=== PATIENT | male | born 1945 | race Caucasian/White ===

== ENCOUNTER 2017-05-24 22:22 | Inpatient (IN) | payer MEDICARE, OTHER ==
[2017-05-24] MEDS ORDERED: NS 0.9% 1000 ML* 1,000 ML IV ONE (22:53)
[2017-05-24 23:26] LABS: Hematocrit 32 % (42-52); Hemoglobin 10.6 g/dl (14.0-18.0); Mean Corpuscular HGB Conc 34 g/dl (31-36); Mean Corpuscular Hemoglobin 31 pg (27-31); Mean Corpuscular Volume 92 fL (80-94); Mean Platelet Volume 10 um3 (7.4-10.4); Red Blood Count 3.43 10^6/ul (4.0-5.4); Red Cell Distribution Width 15 % (10.5-15); White Blood Count 7.7 10^3/ul (3.5-10.8)
[2017-05-24 23:45] LABS: ALT 12 U/L (7-52); Albumin 4.1 g/dL (3.2-5.2); Alkaline Phosphatase 49 U/L (34-104); BUN/Creatinine Ratio 20.8 (8-20); Blood Urea Nitrogen 33 mg/dL (6-24); CO2 Carbon Dioxide 27 mmol/L (22-32); Calcium 9.3 mg/dL (8.6-10.3); Chloride 101 mmol/L (101-111); EGFR African American 55.5 (>60); EGFR Non-African American 43.1 (>60); Globulin 2.9 g/dL (2-4); Glucose 102 mg/dL (70-100); Sodium 135 mmol/L (133-145)
[2017-05-24 23:47] LABS: Troponin I 0.01 ng/mL (<0.04)
[2017-05-24 23:54] LABS: Anion Gap 7 mmol/L (2-11)
[2017-05-25] MEDS ORDERED: Acetaminophen TAB* 325 MG PO ONE (00:40)
[2017-05-25] MEDS ORDERED: Aspirin EC TAB* 325 MG PO ONE (00:49)
[2017-05-25 00:50] LABS: Urine Bacteria Absent (Absent); Urine Bilirubin Negative (Negative); Urine Glucose Negative (Negative); Urine Nitrite Negative (Negative)
--- NOTE | 2017-05-25 01:21 | ED ---
Nano Oscar Rebecca, scribed for Silvino Gutierrez on 05/24/17 at 2258 . Neurological HPI - HPI Summary HPI Summary: Pt is a 71 y/o M who presents to ED c/o unilateral blurred vision and VILA. Sx began suddenly at approximately 2100 as R-sided blurred vision and a L-sided temporal VILA. Initially, VILA was severe but has improved since onset, ranked 3/ 10. Blurred vision is no longer present, resolving shortly prior to evaluation, still present upon nurse's triage. Denies and weakness or numbness. Is not on any blood thinners. - History of Current Complaint Chief Complaint: EDHeadache Stated Complaint: HEADACHE,LOSS OF VISION Hx Obtained From: Patient Onset/Duration: Still Present - VILA, Resolved - Vision loss Onset Severity: Severe Current Severity: Mild Headache Location: Temporal (Left) Pain Intensity: 3 Pain Scale Used: 0-10 Numeric Character: Visual Changes - R-sided blurred vision - resolved Aggravating: Nothing Alleviating: Spontanious Resolution Associated Signs and Symptoms: Positive: Visual Changes - R-sided blurred vision , Headache - improved - Additional Pertinent History Primary Care Physician: [id number] - Allergy/Home Medications Allergies/Adverse Reactions: Allergies Allergy/AdvReac Type Severity Reaction Status Date / Time Bupropion [From Wellbutrin] Allergy Intermediate Anxiety Verified 07/22/15 12:06 Clonidine Allergy Intermediate See Comment Verified 07/22/15 12:06 Solifenacin [From Vesicare] Allergy See Comment Verified 05/24/17 23:20 Zonisamide [From Zonegran] Allergy unk Verified 07/22/15 12:06 latex Allergy Intermediate Rash Uncoded 07/22/15 12:06 NSAIDS Allergy Intermediate GI Upset Uncoded 07/22/15 12:06 Home Medications: Home Medications ARIPiprazole TAB* 7.5 mg PO QAM 05/25/17 [History Confirmed 05/25/17] Alprazolam 0.25 mg PO Q6H PRN 05/25/17 [History Confirmed 05/25/17] Atorvastatin* [Lipitor*] 80 mg PO QPM 05/25/17 [History Confirmed 05/25/17] Budesonide/Formote 80/4.5(NF) 2 puff INH BID 05/25/17 [History Confirmed ] Docusate Sodium [Colace] 100 mg PO BID 05/25/17 [History Confirmed 05/25/17] Fluoxetine HCl 60 mg PO QAM 05/25/17 [History Confirmed 05/25/17] Furosemide TAB* 10 mg PO QAM 05/25/17 [History Confirmed 05/25/17] Levalbuterol HFA INHALER* [Xopenex Hfa Inhaler*] 1 puff INH Q6H PRN 05/25/17 [ History Confirmed 05/25/17] Loratadine 10 mg PO DAILY PRN 05/25/17 [History Confirmed 05/25/17] Magnesium Oxide 400 mg PO DAILY 05/25/17 [History Confirmed 05/25/17] Metoprolol Tartrate TAB* 12.5 mg PO BID 05/25/17 [History Confirmed 05/25/17] Potassium Chlor TAB* [Klor Con ER TAB*] 10 meq PO DAILY 05/25/17 [History Confirmed 05/25/17] PMH/Surg Hx/FS Hx/Imm Hx Endocrine/Hematology History: Denies: Hx Diabetes, Hx Anemia, Hx Unexplained Bleeding Cardiovascular History: Reports: Hx Congestive Heart Failure, Hx Hypertension Denies: Hx Aneurysm, Hx Angina, Hx Angioplasty, Hx Auto Implanted Cardiovert Defib, Hx Cardiac Arrest, Hx Cardiomegaly, Hx Congenital Heart Disease, Hx Coronary Artery Disease, Hx Deep Vein Thrombosis, Hx Embolism, Hx Hypercholesterolemia, Hx Hypotension, Hx Pacemaker/ICD, Hx Peripheral Vascular Disease, Hx Rheumatic Fever, Hx Syncope, Hx Valvular Heart Disease, Other Cardiovascular Problems/Disorders Respiratory History: Reports: Hx Chronic Bronchitis, Hx Chronic Obstructive Pulmonary Disease (COPD), Hx Sleep Apnea Denies: Hx Cystic Fibrosis, Hx Lung Cancer, Hx Pleural Effusion, Hx Pneumonia , Hx Pulmonary Edema, Hx Pulmonary Embolism, Hx Seasonal Allergies, Other Respiratory Problems/Disorders GI History: Reports: Hx Gastroesophageal Reflux Disease, Other GI Disorders - ischemic colitis History: Reports: Hx Benign Prostatic Hyperplasia, Hx Renal Disease - cysts, Other Problems/Disorders - kidney cyst Musculoskeletal History: Reports: Hx Back Problems, 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 Denies: Hx Arthritis, Hx Bursitis, Hx Congenital Bone Abnormalities, Hx Fibromyalgia, Hx Gout, Hx Orthopedic Injury, Hx Osteoporosis, Hx Scoliosis, Hx Tendonitis Sensory History: Reports: Hx Contacts or Glasses, Hx Vision Problem, Hx Hearing Aid - bilateral, Hx Hearing Problem Denies: Hx Cataracts, Hx Eye Injury, Hx Eye Prosthesis, Hx Glaucoma, Hx Legally Blind, Hx Macular Degeneration, Hx Deafness, Other Sensory Impairments Opthamlomology History: Reports: Hx Contacts or Glasses, Hx Vision Problem Denies: Hx Cataracts, Hx Eye Injury, Hx Eye Prosthesis, Hx Glaucoma, Hx Legally Blind, Hx Macular Degeneration, Other Sensory Impairments Neurological History: Denies: Hx Dementia, Hx Developmental Delay, Hx Headaches, Hx Migraine, Hx Nerve Disease, Hx Seizures, Hx Spinal Cord Injury, Hx Transient Ischemic Attacks (TIA), Other Neuro Impairments/Disorders Psychiatric History: Reports: Hx Eating Disorder, Hx Substance Abuse - ETOH, drug Denies: Hx Anxiety, Hx Attention Deficit Hyperactivity Disorder, Hx Depression, Hx Panic Disorder, Hx Post Traumatic Stress Disorder, Hx Inpatient Treatment, Hx Community Mental Health Tx, Hx Schizophrenia, Hx Bipolar Disorder , Hx Suicide Attempt, Hx of Violent Episodes Against Others, Other Psychiatric Issues/Disorders - Cancer History Hx Chemotherapy: No Hx Radiation Therapy: No - Surgical History Surgery Procedure, Year, and Place: spinal 5 cspine 3 lumbar spine stenosis cspine with hardware Infectious Disease History: No Infectious Disease History: Denies: Hx Clostridium Difficile, Hx Hepatitis, Hx Human Immunodeficiency Virus (HIV), Hx of Known/Suspected MRSA, Hx Shingles, Hx Tuberculosis, Hx Known/ Suspected VRE, Hx Known/Suspected VRSA, History Other Infectious Disease - Family History Known Family History: Negative: Diabetes - Social History Alcohol Use: Occasionally Substance Use Type: Reports: None Smoking Status (MU): Former Smoker Type: Cigarettes Have You Smoked in the Last Year: No Review of Systems Positive: Blurred Vision - R-sided - resolved Positive: Headache - L-side temporal - improved All Other Systems Reviewed And Are Negative: Yes Physical Exam - Summary Physical Exam Summary: Appearance: Well appearing, no pain distress Skin: warm, dry, reflects adequate perfusion Head/face: normal Eyes: EOMI, IRINA ENT: normal Neck: supple, nontender Respiratory: CTA, breath sounds present Cardiovascular: RRR, pulses symmetrical Abdomen: nontender, soft Bowel: present Musculoskeletal: normal, strength/ROM intact Neuro: normal, sensory motor intact, A&Ox3 GCS: 15 NIH: 0 Triage Information Reviewed: Yes Vital Signs On Initial Exam: Initial Vitals Temp Pulse Resp BP Pulse Ox 98.6 F 65 15 187/98 98 05/24/17 22:45 05/24/17 22:45 05/24/17 22:45 05/24/17 22:45 05/24/17 22:45 Vital Signs Reviewed: Yes Diagnostics - Vital Signs Vital Signs Temp Pulse Resp BP Pulse Ox 05/25/17 01:00 68 18 184/63 98 05/25/17 00:53 99 05/25/17 00:30 62 17 164/92 99 05/25/17 00:01 65 21 179/69 97 05/25/17 00:00 62 17 97 05/24/17 23:33 67 16 95 05/24/17 23:30 163/84 05/24/17 23:00 179/89 05/24/17 22:47 187/98 05/24/17 22:45 98.6 F 65 15 187/98 98 - Laboratory Lab Results: Lab Results 05/24/17 05/24/17 05/24/17 Range/Units 00:04 23:07 23:17 WBC 7.7 (3.5-10.8) 10^3/ul RBC 3.43 L (4.0-5.4) 10^6/ul Hgb 10.6 L (14.0-18.0) g/dl Hct 32 L (42-52) % MCV 92 (80-94) fL MCH 31 (27-31) pg MCHC 34 (31-36) g/dl RDW 15 (10.5-15) % Plt Count 146 L (150-450) 10^3/ul MPV 10 (7.4-10.4) um3 Neut % (Auto) 73.7 (38-83) % Lymph % (Auto) 13.8 L (25-47) % [place] % (Auto) 8.0 (1-9) % Eos % (Auto) 3.7 (0-6) % Baso % (Auto) 0.8 (0-2) % Absolute Neuts (auto) 5.7 (1.5-7.7) 10^3/ul Absolute Lymphs (auto) 1.1 (1.0-4.8) 10^3/ul Absolute Monos (auto) 0.6 (0-0.8) 10^3/ul Absolute Eos (auto) 0.3 (0-0.6) 10^3/ul Absolute Basos (auto) 0.1 (0-0.2) 10^3/ul Absolute Nucleated RBC 0 10^3/ul Nucleated RBC % 0 INR (Anticoag Therapy) 1.17 H (0.89-1.11) APTT 31.6 (26.0-36.3) seconds Sodium (133-145) mmol/L Potassium 4.8 (3.5-5.0) mmol/L Chloride (101-111) mmol/L Carbon Dioxide (22-32) mmol/L Anion Gap (2-11) mmol/L BUN (6-24) mg/dL Creatinine (0.67-1.17) mg/dL Est GFR ( Amer) (>60) Est GFR (Non-Af Amer) (>60) BUN/Creatinine Ratio (8-20) Glucose (70-100) mg/dL Lactic Acid (0.5-2.0) mmol/L Calcium (8.6-10.3) mg/dL Total Bilirubin (0.2-1.0) mg/dL AST 16 (13-39) U/L ALT (7-52) U/L Alkaline Phosphatase (34-104) U/L Troponin I (<0.04) ng/mL Total Protein (6.4-8.9) g/dL Albumin (3.2-5.2) g/dL Globulin (2-4) g/dL Albumin/Globulin Ratio (1-3) Urine Color Urine Appearance Urine pH (5-9) Ur Specific [place] (1.010-1.030) Urine Protein (Negative) Urine Ketones (Negative) Urine Blood (Negative) Urine Nitrate (Negative) Urine Bilirubin (Negative) Urine Urobilinogen (Negative) Ur Leukocyte Esterase (Negative) Urine WBC (Auto) (Absent) Urine RBC (Auto) (Absent) Urine Bacteria (Absent) Urine Glucose (Negative) 05/24/17 05/24/17 05/25/17 Range/Units 23:17 23: 00:00 WBC (3.5-10.8) 10^3/ul RBC (4.0-5.4) 10^6/ul Hgb (14.0-18.0) g/dl Hct (42-52) % MCV (80-94) fL MCH (27-31) pg MCHC (31-36) g/dl RDW (10.5-15) % Plt Count (150-450) 10^3/ul MPV (7.4-10.4) um3 Neut % (Auto) (38-83) % Lymph % (Auto) (25-47) % [place] % (Auto) (1-9) % Eos % (Auto) (0-6) % Baso % (Auto) (0-2) % Absolute Neuts (auto) (1.5-7.7) 10^3/ul Absolute Lymphs (auto) (1.0-4.8) 10^3/ul Absolute Monos (auto) (0-0.8) 10^3/ul Absolute Eos (auto) (0-0.6) 10^3/ul Absolute Basos (auto) (0-0.2) 10^3/ul Absolute Nucleated RBC 10^3/ul Nucleated RBC % INR (Anticoag Therapy) (0.89-1.11) APTT (26.0-36.3) seconds Sodium 135 (133-145) mmol/L Potassium TNP (3.5-5.0) mmol/L Chloride 101 (101-111) mmol/L Carbon Dioxide 27 (22-32) mmol/L Anion Gap 7 (2-11) mmol/L BUN 33 H (6-24) mg/dL Creatinine 1.59 H (0.67-1.17) mg/dL Est GFR ( Amer) 55.5 (>60) Est GFR (Non-Af Amer) 43.1 (>60) BUN/Creatinine Ratio 20.8 H (8-20) Glucose 102 H (70-100) mg/dL Lactic Acid 0.6 (0.5-2.0) mmol/L Calcium 9.3 (8.6-10.3) mg/dL Total Bilirubin 0.60 (0.2-1.0) mg/dL AST TNP (13-39) U/L ALT 12 (7-52) U/L Alkaline Phosphatase 49 (34-104) U/L Troponin I 0.01 (<0.04) ng/mL Total Protein 7.0 (6.4-8.9) g/dL Albumin 4.1 (3.2-5.2) g/dL Globulin 2.9 (2-4) g/dL Albumin/Globulin Ratio 1.4 (1-3) Urine Color Yellow Urine Appearance Cloudy Urine pH 6.0 (5-9) Ur Specific [place] 1.013 (1.010-1.030) Urine Protein 1+(30 mg/dl) H (Negative) Urine Ketones Negative (Negative) Urine Blood 1+ H (Negative) Urine Nitrate Negative (Negative) Urine Bilirubin Negative (Negative) Urine Urobilinogen Negative (Negative) Ur Leukocyte Esterase Negative (Negative) Urine WBC (Auto) 1+(6-10/hpf) H (Absent) Urine RBC (Auto) 1+(3-5/hpf) H (Absent) Urine Bacteria Absent (Absent) Urine Glucose Negative (Negative) Result Diagrams: 05/24/17 23:07 05/24/17 23:17 Lab Statement: Any lab studies that have been ordered have been reviewed, and results considered in the medical decision making process. - Radiology CXR Xray Interpretation: No Acute Changes Radiology Interpretation Completed By: ED Physician - CT Brain CT CT Interpretation: No Acute Changes - No prior exams available for comparison. No acute brain parenchymal abnormality. No hemorrhage, mass or acute territorial infarct. Age-related involutional changes and very minimal chronic small vessel ischemic changes. Cerebellar evaluation slightly limited by streak artifact. Clear visualized paranasal sinuses. Visualized mastoid air cells clear. ED physician reviewed radiology report and agrees. CT Interpretation Completed By: Radiologist - EKG 1 Cardiac Rate: NL - 67 bpm EKG Rhythm: Sinus Rhythm ST Segment: Non-Specific - Non-specific T changes NIH Scale - NIH Scale Level of Consciousness: Alert/Keenly Responsive Ask Patient the Month and His/Her Age: Both Correct Ask Pt to Open/Close Eyes and Tip Tester/Release Non-Paretic Hand: Both Correctly Best Gaze (Only Horizontal Eye Movement): Normal Visual Field Testing: No Visual Loss Facial Paresis-Pt to Smile & Close Eyes or Grimace Symmetry: Normal/Symmetrical Motor Function - Right Arm: No Drift-Holds 10 Seconds Motor Function - Left Arm: No Drift-Holds 10 Seconds Motor Function - Right Leg: No Drift-Holds 10 Seconds Motor Function - Left Leg: No Drift-Holds 10 Seconds Limb Ataxia-Must be out of Proportion to Weakness Present: Absent Sensory (Use Pinprick to Test Arms/Legs/Trunk/Face): Normal Best Language (Describe Picture, Name Items): No Aphasia Dysarthria (Read Several Words): Normal Extinction and Inattention: No Abnormality Total Score: 0 Course/Dx - Course Assessment/Plan: Pt is a 71 y/o M who presents to ED c/o unilateral blurred vision and VILA. Sx began suddenly at approximately 2100 as R-sided blurred vision and a L-sided temporal VILA. Initially, VILA was severe but has improved since onset, ranked 3/10. Blurred vision is no longer present, resolving shortly prior to evaluation, still present upon nurse's triage. Denies and weakness or numbness. Is not on any blood thinners. CXR and rbain CT reveal no acute findings. EKG is sinus rhythm with non-specific ST changes. Troponin of 0.01. In the ED course, pt received Tylenol and fluids. Discussed care of pt with Dr. Marr who accepts pt for admission. Pt will be admitted with Dx of TIA, VILA and dehydration. He understands and agrees. Elevated BP noted and advised to f/u with PCP. - Diagnoses Provider Diagnoses: TIA (transient ischemic attack), Dehydration, Headache During the Visit The Following Alert/Code Occurred: Code Alvarenga - Called at 2251 - Physician Notifications Discussed Care Of Patient With: Adenike Marr Time Discussed With Above Provider: 00:38 Instructed by Provider To: Other - Accepts pt for admission - Critical Care Time Critical Care Time: 30-74 min - stroke code Discharge - Discharge Plan Condition: Stable Disposition: ADMITTED TO [facility] Referrals: Bibi Gamez [Primary Care Provider] - The documentation as recorded by the Nano quiroz Rebecca accurately reflects the service I personally performed and the decisions made by , Silvino Gutierrez.
[2017-05-25] MEDS ORDERED: Acetaminophen TAB* 325 MG PO PRN (01:22)
[2017-05-25] MEDS ORDERED: Acetaminophen TAB* 325 MG ONE (01:24)
[2017-05-25] MEDS: ALPRAZolam TAB* 0.25 MG PO PRN ×2 (03:38→21:13)
--- NOTE | 2017-05-25 04:45 | HP ---
CC: Dr. Kauffman; Bibi Gamez, [facility]; Dr. Sanchez; Dr. Cunha; Dr. Novak ; Dr. York; Dr. Valencia* HISTORY AND PHYSICAL: DATE OF ADMISSION: 05/25/17 PRIMARY CARE PROVIDER: Bibi Gamez from [facility]. Patient is also a patient of Dr. Sanchez, Dr. Cunha, Dr. Novak, Dr. York, and Dr. Valencia. CHIEF COMPLAINT: Transient blurry vision in the right eye and headache. HISTORY OF PRESENT ILLNESS: Karson Salguero is a 71-year-old male with history of bilateral leg weakness subsequent to AAA repair in 2014 as well as COPD on oxygen at 2 L, who presented to the hospital complaining of headache and blurry vision in the right eye. Patient stated that he was attending a meeting and at the end of the meeting, he developed severe 9/10 headache localized just on the left side of his nose and his cheek, nonradiating, also associated with right eye peripheral blurry vision. The headache lasted approximately an hour or so and started resolving by the time he presented to the emergency department. The patient stated that he still feels "something" in his left side of his head , but it is approximately 2/10 in intensity. His blurry vision is beginning to resolve also. He is going to be placed on observation with a diagnosis of TIA versus CVA. PAST MEDICAL HISTORY: 1. History of abdominal aortic aneurysm repair with subsequent development of bilateral leg weakness and pleural effusion that required prolonged hospitalization and PleurX catheter placed. Postop, the patient has chronic left-sided lung atelectasis. 2. History of COPD, on oxygen at 2 L. 3. History of gastroesophageal reflux disease. 4. History of PTSD. 5. Depression. 6. Obstructive sleep apnea. 7. Chronic pain. 8. Patient has multiple surgeries on his back including at least 3 surgeries on his C-spine with laminectomies and most recent lower back surgery approximately 10 years ago. 9. Chronic kidney disease stage 3. MEDICATIONS: Include: 1. Aripiprazole 7.5 mg daily in a.m. 2. Atorvastatin 80 mg in the evening. 3. Budesonide and formoterol 80/4.5 two puffs b.i.d. 4. Colace with senna 1 tablet b.i.d. 5. Nexium 40 mg daily. 6. Furosemide 20 mg daily 7. Fluoxetine 60 mg daily. 8. Mag-Ox 400 mg daily. 9. Metoprolol tartrate 12.5 mg b.i.d. 10. Singulair 10 mg daily. 11. Oxycodone SR 15 mg 2 times a day. 12. Potassium chloride 10 mEq daily. 13. Oxycodone 15 mg 3 times a day p.r.n. 14. Alprazolam 0.25 mg every 6 hours p.r.n. 15. Levalbuterol inhaler 1 puff every 6 hours p.r.n. 16. Loratadine 10 mg daily p.r.n. ALLERGIES: Include LATEX causes rash; NONSTEROIDALS, GI upset; ZONEGRAN caused hallucinations; CLONIDINE, extreme muscle weakness; WELLBUTRIN, panic attacks; and VESICARE, hypotension. FAMILY HISTORY: Positive for mother who in her 60s secondary to lymphoma, father at 54 secondary to mediastinal tumor. SOCIAL HISTORY: Patient denies any tobacco, alcohol, or drug use. He is retired. Lives with his in [place]. His is his surrogate. REVIEW OF SYSTEMS: Please see history of present illness. Patient has history of chronic bilateral lower extremity weakness and he is using a cane. He uses oxygen usually at night and with exercise, but he also used it during his meeting today. He denies any increased stress, although he stated that he has history of anemia for which he was evaluated by Dr. Sanchez and he was slightly anxious awaiting the results of the tests. All the remaining 14 systems were reviewed with the patient and were otherwise negative. PHYSICAL EXAMINATION GENERAL APPEARANCE: The patient is a very pleasant 71-year-old male, who is in no acute distress. Alert, awake, and oriented x3. VITAL SIGNS: Blood pressure of 184/63, heart rate of 68 and regular, respiratory rate 18, oxygen saturation 98% on 2 L of oxygen nasal cannula, and temperature of 98.6. HEENT: Head: Atraumatic, normocephalic. Eyes: Pupils are equal and reactive to light and accommodation. Oropharynx clear. Mucosa moist. NECK: Supple. No JVD. No bruits bilaterally. RESPIRATORY: Clear to auscultation bilaterally with decreased breath sounds at bilateral bases. CARDIOVASCULAR: Regular rate and rhythm. No murmur. ABDOMEN: Soft and nontender. Bowel sounds present in all 4 quadrants. EXTREMITIES: There is no edema. Pulses are +2 bilaterally. No clubbing or cyanosis. NEURO EVALUATION: Speech clear. Cranial nerves II through XII grossly intact. Motor strength is 5/5 bilaterally. There is no diplopia noted on evaluation of visual rosen and there is no nystagmus. [id number] is not dysmetric bilaterally. PSYCHIATRIC EVALUATION: Patient is oriented x3 with no evidence of anxiety or depression, slightly withdrawn during the evaluation. SKIN: On evaluation of the skin, no ecchymotic areas or rashes noted. DIAGNOSTIC STUDIES/LAB DATA: Showed white blood cell count of 7.7, hemoglobin of 10.6, hematocrit of 32, MCV of 92, and platelets of 146. Sodium was 135, potassium of 4.8, chloride 101, carbon dioxide 27, BUN 33, creatinine 1.59. Liver function tests unremarkable. Troponin of 0.01. Patient's EKG showed intraventricular conduction delay and sinus rhythm with a heart rate of 67 beats per minute with LVH criteria. Comparing with prior EKGs from 2015, the changes appear chronic. Patient's CT of the brain was read by the radiologist as "no acute brain parenchymal abnormality." Patient's portable chest x-ray reviewed by myself prior to official radiologist' s report shows chronic left lung atelectasis. ASSESSMENT AND PLAN: 1. Patient's transient blurry vision and headache is possibly due to atypical migraine, although patient has no history of headache or migraines in the past. Nevertheless, he is going to be observed on telemetry monitored bed to rule out transient ischemic attack/cerebrovascular accident. He is going to be placed on neuro checks every 2 hours. He was already treated with aspirin in the emergency department. Caroid Doppler study is going to be obtained in the morning. Due to chronic kidney disease, for the time being I will not obtain CT angiogram of the head and neck until Neurology deems it necessary. I will ask Neurology, Dr. Kauffman in the morning to see patient in consultation. 2. In regards to patient's chronic pain, his pain medications are going to be continued. 3. For his hypertension, appears to be related likely to his anxiety with hospital stay. Patient is going to be treated with alprazolam as needed. Otherwise, I will continue his metoprolol, but also allow slight permissive hypertension in this patient with ongoing workup for cerebrovascular accident. 4. For his history of depression and posttraumatic stress disorder, his outpatient medications are going to be continued. 5. Patient's chronic obstructive pulmonary disease does not appear to be in exacerbation and his at home inhalers as well as oxygen is going to be continued. 6. Patient's code status is full and his surrogate is his . 7. Deep venous thrombosis prophylaxis. Patient is going to be placed on heparin subcutaneously. 8. In regards to patient's chronic kidney disease, patient's creatinine had fluctuated in the past in between 1.3 to 1.5. Most recently, patient's creatinine was 1.51 on 05/14/17. It is possible that this increase is due to mild overdiuresis. Patient had been on chronic dose of Lasix despite having no problems with edema or worsening problems with breathing. At this point, patient already received 1 L of intravenous hydration in the emergency department. For the time being, I will not place the patient on any more IV fluids, but we will stop patient's potassium supplementation and Lasix for the time being and observe. TIME SPENT: Approximately 65 minutes was spent on admission of this patient, more than half that time was spent [id number] with the patient during the interview and physical exam. [id number]/[facility] #: [id number] MTDD
[2017-05-25 05:49] LABS: HDL Cholesterol 38.7 mg/dL
[2017-05-25] MEDS: Omeprazole CAP* 20 MG PO SCH (06:15)
[2017-05-25] MEDS: Heparin VIAL(*) 5000 UNITS/ML VIAL (FIVE THOUSAND) SUBCUT SCH ×3 (06:15→21:15)
--- NOTE | 2017-05-25 08:22 | RAD ---
Indication: Neurological changes. Code rome. Comparison: No relevant prior exams available on the [facility] PACS for comparison. Technique: Noncontrast CT vertex of skull through foramen magnum. Report: The sulci, ventricles, and basal cisterns are normal for age. Alvarenga matter white matter differentiation is preserved without evidence for edema. No intra or extra axial hemorrhage, mass, or fluid collection detected. Unremarkable visualized orbital contents. Unremarkable calvarium and skull base. Unremarkable scalp. The visualized paranasal sinuses and mastoid air spaces are clear. IMPRESSION: Negative for intracranial hemorrhage. No CT stigmata of ischemic stroke or other acute intracranial process.
[2017-05-25] MEDS: FLUoxetine CAP* 20 MG PO SCH (08:47)
[2017-05-25] MEDS: Metoprolol Tartrate TAB* 25 MG PO SCH ×2 (08:48→21:09)
[2017-05-25] MEDS: Docusate CAP* 100 MG PO SCH ×2 (08:49→21:08)
[2017-05-25] MEDS: oxyCODONE SR TAB(*) 10 MG TAB.SR PO SCH ×2 (08:49→21:12)
[2017-05-25] MEDS: Magnesium Oxide TAB* 400 MG PO SCH (08:49)
[2017-05-25] MEDS: ARIPiprazole TAB* 5 MG PO SCH (08:55)
[2017-05-25] MEDS ORDERED: FUROSEMIDE 10 MG PO SCH (09:00)
[2017-05-25] MEDS ORDERED: Aspirin Low Dose CHEW TAB* 81 MG PO SCH (09:00)
[2017-05-25] MEDS ORDERED: Potassium Chlor TAB* 10 MEQ TAB.ER PO SCH (09:00)
--- NOTE | 2017-05-25 09:14 | RAD ---
Indication: Neurological changes. Code rome. Previous pleural effusions. Comparison: October 24, 2015 LEFT chest ultrasound and September 28, 2015 chest radiograph. Technique: Upright AP 2320 hours Report: Unchanged mild elevation of the RIGHT hemidiaphragm. Patchy alveolar consolidation at the LEFT lower lung zone similar to the prior exam. Negative for LEFT pleural effusion. Negative for pneumothorax. Negative for cardiomegaly. Prominent mildly tortuous thoracic aorta without significant change. Unremarkable central pulmonary vasculature. IMPRESSION: Chronic versus recurrent patchy alveolar consolidation at the LEFT lung base. Acute pneumonia not excluded.
[2017-05-25] MEDS: Mometasone/Formoter 100/5 MDI INH SCH ×2 (10:07→21:33)
--- NOTE | 2017-05-25 12:13 | PN ---
Subjective Date of Service: 05/25/17 Interval History: Patient seen this morning. Reports resolution of headache but vision changes still present. Reports R sided vision blurriness. Feels chronic UE and LE weakness are at baseline. Family History: Unchanged from Admission Social History: Unchanged from Admission Past Medical History: Unchanged from Admission Objective Active Medications: Acetaminophen (Tylenol Tab*) 650 mg PO Q4H PRN Alprazolam (Xanax Tab*) 0.25 mg PO Q6H PRN Aripiprazole (Abilify Tab*) 7.5 mg PO QAM PEE Aspirin (Aspirin Ec Low Dose*) 81 mg PO DAILY PEE Atorvastatin Calcium (Lipitor*) 80 mg PO QPM PEE Docusate Sodium (Colace Cap*) 100 mg PO BID PEE Fluoxetine HCl (Prozac Cap*) 60 mg PO QAM PEE Heparin Sodium (Porcine) (Heparin Vial(*)) 5,000 units SUBCUT Q8HR PEE Magnesium Oxide (Magox 400 Tab*) 400 mg PO DAILY PEE Metoprolol Tartrate (Lopressor Tab*) 12.5 mg PO BID PEE Mometasone Furoate/Formoterol Fumar (Dulera 100/5 Mdi*) 2 puff INH BID PEE Montelukast Sodium (Singulair Tab*) 10 mg PO BEDTIME PEE Omeprazole (Prilosec Cap*) 20 mg PO DAILY@0600 PEE Oxycodone HCl (Oxycontin(*)) 10 mg PO Q12HR PEE Oxycodone HCl (Roxycodone Tab*) 15 mg PO TID PRN Vital Signs 05/25/17 05/25/17 05/25/17 01:30 01:57 02:00 Temperature Pulse Rate 68 62 Respiratory 19 16 19 Rate Blood Pressure 179/68 162/71 (mmHg) O2 Sat by Pulse 97 97 Oximetry 05/25/17 05/25/17 05/25/17 02:30 03:02 03:38 Temperature 98.3 F Pulse Rate 72 Respiratory 16 16 Rate Blood Pressure 160/85 184/92 (mmHg) O2 Sat by Pulse 97 Oximetry Oxygen Devices in Use Now: Nasal Cannula - 2L Appearance: Elderly, M, laying in bed in NAD Eyes: No Scleral Icterus Ears/Nose/Mouth/Throat: Mucous Membranes Moist Neck: NL Appearance and Movements; NL JVP Respiratory: Symmetrical Chest Expansion and Respiratory Effort, Clear to Auscultation Cardiovascular: NL Sounds; No Murmurs; No JVD, RRR Abdominal: NL Sounds; No Tenderness; No Distention Lymphatic: No Cervical Adenopathy Extremities: No Edema Skin: No Rash or Ulcers Neurological: Alert and Oriented x 3, - - CN II-XII intact, sensation intact and symmetric throughout B/L UEs and LEs, could not appreciate any visual field deficits but reports blurry vision in R eye, 5/5 strength in B/L UEs, 4/5 strength in L hip flexor, otherwise 5/5 Result Diagrams: 05/24/17 23:07 05/24/17 23:17 Assess/Plan/Problems-Billing Assessment: VILA, visual changes concerning for TIA/CVA in a 71 yo M with hx of COPD on 2L, former tobacco abuse, GERD, LORENA, depression, 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 Appreciate Neurology assistance. CT head negative. Carotid US, echo, MRI/MRA all pending. LDL at goal , continue statin. Patient agreeable to EC ASA (2) Hypertension Current Visit: No Comment: BPs running high, OK for now with CVA concerns. Continue Metoprolol 12.5 mg BID. (3) COPD (chronic obstructive pulmonary disease) Current Visit: No Comment: Continue Dulera, Singulair and supplemental O2 (4) PTSD (post-traumatic stress disorder) Current Visit: No Comment: Depression. Continue Abilify, Fluoxetine, Alprazolam. (5) GERD (gastroesophageal reflux disease) Current Visit: Yes Comment: Continue PPI (6) CKD (chronic kidney disease) Current Visit: Yes Comment: May be baseline, continue to monitor (7) DVT prophylaxis Current Visit: No Comment: SQ Heparin
[2017-05-25] MEDS: Aspirin EC Low Dose* 81 MG TAB.EC PO SCH (12:37)
[2017-05-25] MEDS: oxyCODONE TAB* 5 MG TAB PO PRN (12:42)
--- NOTE | 2017-05-25 14:39 | CONS ---
CC: Dr. Yang Sanchez; Bibi Gamez, [employer], [place], [place] CONSULTATION REPORT: DATE OF RECORDIN05/25/17 REASON FOR CONSULT: Loss of vision and headache. HISTORY OF PRESENT ILLNESS: Karson Salguero is a 71-year-old gentleman with history of previous smoking, COPD, aortic aneurysm repair, high cholesterol, previous orthostatic hypotension improved after aortic aneurysm repair, baseline weakness of both legs that occurred after aortic aneurysm repair, right -sided weakness after cervical surgeries, and some leg weakness after back surgeries, who presented to the emergency room last night with focal symptoms. He was in a meeting, sitting, when he developed a headache over the left frontal region down toward the eye, it was a sharp headache, no throbbing component. At the same time, he noticed vision loss off to the right side in his right eye. He did not check to see if it was in his left eye. He indicates that of to the right, he could see shapes, but not forms. This area of deficit to the right became bigger and bigger. When asked when this resolved , but his visual deficit persists. He still notes when he looks up to the right , he cannot see a sign as well off to the right. He denies any chest pain, chest pressure, shortness of breath. There were some palpitations. He is on a statin, at baseline, for high cholesterol and his LDL is noted to be 40 in hospital. There has been no recent rashes, fevers, or constitutional symptoms. PAST MEDICAL HISTORY: Includes COPD, for which he is on 2 L oxygen when he sleeps and when he exercises; history of aortic aneurysm repair in 2004, complicated by bilateral leg weakness; pleural effusion, requiring catheterization and now with chronic left lung atelectasis; GI reflux; posttraumatic stress disorder from being a [place] vet, which reoccurred after the aortic aneurysm repair; history of depression; history of chronic pain from spine with multiple surgeries from 1989 to 2005 including 5 in the cervical spine, 3 in the lumbosacral spine, and a surgery of the heel cord of the right foot. He is listed to have chronic kidney disease and his is only aware of cysts. He recently had seen Dr. Sanchez for anemia. He follows with primary care with Bibi Gamez at the [facility] in [place]. CURRENT MEDICATIONS: Include: 1. Acetaminophen 650 mg p.o. q.4 hours p.r.n. fever, pain. 2. Xanax 0.25 mg p.o. q.6 hours p.r.n. anxiety. 3. Oxycodone 15 mg p.o. t.i.d. p.r.n. pain. 4. Heparin 5000 units subcu q.8 hours. 5. Omeprazole 20 mg p.o. daily. 6. Abilify 7.5 mg p.o. q.a.m. 7. Docusate 100 mg p.o. b.i.d. 8. Fluoxetine 60 mg p.o. q.a.m. 9. Magnesium oxide 400 mg p.o. daily. 10. Metoprolol 12.5 mg p.o. b.i.d. 11. Dulera 100/5 two puffs inhaled b.i.d. with auto substitution with Symbicort, see MAR for details. 12. Oxycodone SR 10 mg p.o. q.12 hours. 13. Aspirin, which was started today, initially refused by the patient, but agreed to after discussion, enteric-coated 81 mg p.o. daily. 14. Lipitor 80 mg p.o. q.p.m. 15. Singulair 10 mg p.o. q.p.m. ALLERGIES: Include LATEX, which causes a rash. NSAID, causes stomach pain. ZONEGRAN, causes hallucinations. CLONIDINE, caused muscle weakness, which his described as catatonic. WELLBUTRIN, caused panic attacks. VESICARE, caused hypotension. FAMILY HISTORY: Includes mother diet at 65, who had lymphoma. Father at 54 with mediastinal tumor and a sister, who has had breast cancer. SOCIAL HISTORY: Mr. Salguero lives with his . He does not smoke, he stopped smoking about 3-1/2 years ago prior to that, he smoked a pack a day for 40 years. He does not drink alcohol or use illicit drugs. PHYSICAL EXAM: Mr. Salguero's most recent blood pressure was 184/92. He has been in bed. His notes that his blood pressure gets high when he lays low, it decreases when he sits up, but he no longer has the severe orthostatic hypotension he had before when he became shaky. His heart rate is 62. His most recent temperature was 98.3. His saturation was 97%. He had a regular cardiac rhythm. His lungs had decreased air entry. He was wearing oxygen. There was no carotid bruit. His pupils were equal and responsive to light. I had a hard time visualizing his fundi. He had full extraocular movements with no nystagmus and he had full rosen to confrontation. His facial expression, sensation were equal. Hearing was equal with hearing aids. Palate was upgoing. Tongue was midline. Sternocleidomastoid and trapezius were 5/5 in strength. There was a question of a right pronator drift with weakness on the right hand side and the triceps 4-/5, biceps 5-/5, and right ulnar intrinsic hand muscles 4-/5 with atrophy, median intrinsic hand muscles on the right 5-/5; on the left , he had pretty good strength in his left upper extremity. In his lower extremities, right hip flexion had 5-/5 strength. There was atrophy distally in the tibialis anterior with decreased range of movement of the ankle. He otherwise was strong in knee flexion/extension. In his left lower extremity, there was slight give in hip flexion and otherwise gave good strength on individual muscle confrontation. He had normal [id number] movements on the left. On the right, there was slight dysmetria consistent with weakness in the upper extremities; legs were difficult. His reflexes were 2+ in the upper extremities, absent at the left knee, 2+ at the right knee, absent at the ankles. His toes were equivocal. He had hammer toes. He did get up with oxygen and help to go to the bathroom. DIAGNOSTIC STUDIES/LAB DATA: Includes CBC with hemoglobin and hematocrit of 10.6 and 32, platelets 146. His INR was slight elevated at 1.17. His complete metabolic panel showed a GFR estimated at 43.1. His BUN was 33, creatinine 1.59. His glucose was 102. Liver function tests were otherwise normal. Lipid profile showed a total cholesterol of 89 with LDL of 40, triglycerides 53, and HDL 38.7. His urinalysis did show 1+ white blood cells, 1+ blood, and 1+ protein with no bacteria. His initial CT of the brain did not show evidence for bleed and was felt negative for ischemic process. This film was reviewed directly. IMPRESSION: Mr. Salguero is a 71-year-old right-handed gentleman with a history of aortic aneurysm repair complicated by bilateral leg weakness, multiple cervical and lumbosacral surgeries with residual right arm weakness and baseline of having left more than right leg weakness per 's report, high cholesterol, on statin and orthostatic blood pressure in the past, now improved symptomatically, who presents with a right field cut and left frontoparietal headache, and this morning feels he still has vision loss to the right. Given the persistent vision loss to the right, stroke is high on differential diagnosis, transient ischemic attack is still possible. Differential diagnosis can include migraine with aura, however, this would be unusual at this age and for the length of time the visual symptoms have persisted. At first, he was resistant to taking aspirin due to GI upset. Education was given on why aspirin is appropriate, he agreed to low-dose 81 mg enteric-coated ASA. Lipids are under control with a statin. He could not have a CTA performed secondary to renal function. I have ordered MRI/MRA of the brain without contrast to look at evidence of injury as well as his vasculature for stenosis; carotid Dopplers are pending. If there is severe stenosis, this could change of address clerk. He is on telemetry and echocardiogram has been ordered. Orthostatic vitals should be checked. Education was given regarding differential diagnosis, potential for stroke, risk factors workup being done to date. All questions were answered. Dr. Fraga will be taking over tomorrow the service and will be following up on results of testing at that time. Please feel free to call if there are questions or concerns. TIME SPENT: Over an hour and half was spent in patient care. [id number]/[facility] #: [id number] MACK
[2017-05-25] MEDS: Atorvastatin* 80 MG TAB PO SCH (17:54)
[2017-05-25] MEDS: Montelukast Sodium TAB* 10 MG PO SCH (21:10)
[2017-05-26] MEDS: oxyCODONE TAB* 5 MG TAB PO PRN ×4 (00:27→23:38)
[2017-05-26] MEDS: Omeprazole CAP* 20 MG PO SCH (05:06)
[2017-05-26] MEDS: Heparin VIAL(*) 5000 UNITS/ML VIAL (FIVE THOUSAND) SUBCUT SCH (05:07)
[2017-05-26 07:30] LABS: Hematocrit 29 % (42-52); Hemoglobin 9.9 g/dl (14.0-18.0); Mean Corpuscular HGB Conc 34 g/dl (31-36); Mean Corpuscular Hemoglobin 31 pg (27-31); Mean Corpuscular Volume 91 fL (80-94); Mean Platelet Volume 10 um3 (7.4-10.4); Red Blood Count 3.21 10^6/ul (4.0-5.4); Red Cell Distribution Width 15 % (10.5-15); White Blood Count 5.3 10^3/ul (3.5-10.8)
[2017-05-26 07:42] LABS: BUN/Creatinine Ratio 20.3 (8-20); Calcium 8.9 mg/dL (8.6-10.3); EGFR African American 71.2 (>60); EGFR Non-African American 55.4 (>60); Potassium 4.3 mmol/L (3.5-5.0)
[2017-05-26] MEDS: oxyCODONE SR TAB(*) 10 MG TAB.SR PO SCH (08:20)
[2017-05-26] MEDS: Magnesium Oxide TAB* 400 MG PO SCH (08:20)
[2017-05-26] MEDS: FLUoxetine CAP* 20 MG PO SCH (08:20)
[2017-05-26] MEDS: Docusate CAP* 100 MG PO SCH ×2 (08:20→22:03)
[2017-05-26] MEDS: Aspirin EC Low Dose* 81 MG TAB.EC PO SCH (08:20)
[2017-05-26] MEDS: ARIPiprazole TAB* 5 MG PO SCH (08:21)
[2017-05-26] MEDS: Metoprolol Tartrate TAB* 25 MG PO SCH ×2 (08:22→22:04)
[2017-05-26] MEDS: Mometasone/Formoter 100/5 MDI INH SCH ×2 (09:01→20:43)
[2017-05-26] MEDS ORDERED: Influenza VAC *QUAD* 2017-18* 0.5 ML SYRINGE IM ONE (10:00)
--- NOTE | 2017-05-26 10:15 | PN ---
Subjective Date of Service: 05/26/17 Interval History: Patient seen this morning after doppler US. Reports persistent visual symptoms. 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 Chronic weakness is stable Family History: Unchanged from Admission Social History: Unchanged from Admission Past Medical History: Unchanged from Admission Objective Active Medications: Acetaminophen (Tylenol Tab*) 650 mg PO Q4H PRN Alprazolam (Xanax Tab*) 0.25 mg PO Q6H PRN Aripiprazole (Abilify Tab*) 7.5 mg PO QAM PEE Aspirin (Aspirin Ec Low Dose*) 81 mg PO DAILY PEE Atorvastatin Calcium (Lipitor*) 80 mg PO QPM PEE Docusate Sodium (Colace Cap*) 100 mg PO BID PEE Fluoxetine HCl (Prozac Cap*) 60 mg PO QAM PEE Heparin Sodium (Porcine) (Heparin Vial(*)) 5,000 units SUBCUT Q8HR PEE Magnesium Oxide (Magox 400 Tab*) 400 mg PO DAILY PEE Metoprolol Tartrate (Lopressor Tab*) 12.5 mg PO BID PEE Mometasone Furoate/Formoterol Fumar (Dulera 100/5 Mdi*) 2 puff INH BID PEE Montelukast Sodium (Singulair Tab*) 10 mg PO BEDTIME PEE Omeprazole (Prilosec Cap*) 20 mg PO DAILY@0600 PEE Oxycodone HCl (Roxycodone Tab*) 15 mg PO TID PRN Oxycodone HCl (Oxycontin(*)) 15 mg PO Q12HR [facility] Vital Signs 05/25/17 05/25/17 05/25/17 12:42 14:42 15:47 Temperature 98.0 F Pulse Rate 65 Respiratory 18 16 20 Rate Blood Pressure 149/74 (mmHg) O2 Sat by Pulse 99 Oximetry 05/26/17 05/26/17 05/26/17 00:51 04:01 04:11 Temperature 98.1 F Pulse Rate 62 62 63 Respiratory 20 Rate Blood Pressure 153/76 181/76 155/79 (mmHg) O2 Sat by Pulse 99 Oximetry 05/26/17 05/26/17 05/26/17 07:13 07:40 08:20 Temperature 98.0 F Pulse Rate 63 Respiratory 14 16 16 Rate Blood Pressure 181/80 (mmHg) O2 Sat by Pulse 100 Oximetry Oxygen Devices in Use Now: Nasal Cannula - 2L Appearance: Elderly, M, laying in bed in NAD Eyes: No Scleral Icterus Ears/Nose/Mouth/Throat: Mucous Membranes Moist Neck: NL Appearance and Movements; NL JVP Respiratory: Symmetrical Chest Expansion and Respiratory Effort, Clear to Auscultation Cardiovascular: NL Sounds; No Murmurs; No JVD, RRR Abdominal: NL Sounds; No Tenderness; No Distention Lymphatic: No Cervical Adenopathy Extremities: No Edema Skin: No Rash or Ulcers Neurological: Alert and Oriented x 3, - - Reports R hemianopsia that improves, Result Diagrams: 05/26/17 07:06 05/26/17 07:06 Additional Lab and Data: Lab Results 05/24/17 05/24/17 05/24/17 Range/Units 00:04 23:07 23:17 WBC 7.7 (3.5-10.8) 10^3/ul RBC 3.43 L (4.0-5.4) 10^6/ul Hgb 10.6 L (14.0-18.0) g/dl Hct 32 L (42-52) % MCV 92 (80-94) fL MCH 31 (27-31) pg MCHC 34 (31-36) g/dl RDW 15 (10.5-15) % Plt Count 146 L (150-450) 10^3/ul MPV 10 (7.4-10.4) um3 Neut % (Auto) 73.7 (38-83) % Lymph % (Auto) 13.8 L (25-47) % [place] % (Auto) 8.0 (1-9) % Eos % (Auto) 3.7 (0-6) % Baso % (Auto) 0.8 (0-2) % Absolute Neuts (auto) 5.7 (1.5-7.7) 10^3/ul Absolute Lymphs (auto) 1.1 (1.0-4.8) 10^3/ul Absolute Monos (auto) 0.6 (0-0.8) 10^3/ul Absolute Eos (auto) 0.3 (0-0.6) 10^3/ul Absolute Basos (auto) 0.1 (0-0.2) 10^3/ul Absolute Nucleated RBC 0 10^3/ul Nucleated RBC % 0 INR (Anticoag Therapy) 1.17 H (0.89-1.11) APTT 31.6 (26.0-36.3) seconds Sodium (133-145) mmol/L Potassium 4.8 (3.5-5.0) mmol/L Chloride (101-111) mmol/L Carbon Dioxide (22-32) mmol/L Anion Gap (2-11) mmol/L BUN (6-24) mg/dL Creatinine (0.67-1.17) mg/dL Est GFR ( Amer) (>60) Est GFR (Non-Af Amer) (>60) BUN/Creatinine Ratio (8-20) Glucose (70-100) mg/dL Lactic Acid (0.5-2.0) mmol/L Calcium (8.6-10.3) mg/dL Total Bilirubin (0.2-1.0) mg/dL AST 16 (13-39) U/L ALT (7-52) U/L Alkaline Phosphatase (34-104) U/L Troponin I (<0.04) ng/mL Total Protein (6.4-8.9) g/dL Albumin (3.2-5.2) g/dL Globulin (2-4) g/dL Albumin/Globulin Ratio (1-3) Urine Color Urine Appearance Urine pH (5-9) Ur Specific [place] (1.010-1.030) Urine Protein (Negative) Urine Ketones (Negative) Urine Blood (Negative) Urine Nitrate (Negative) Urine Bilirubin (Negative) Urine Urobilinogen (Negative) Ur Leukocyte Esterase (Negative) Urine WBC (Auto) (Absent) Urine RBC (Auto) (Absent) Urine Bacteria (Absent) Urine Glucose (Negative) 05/24/17 05/24/17 05/25/17 Range/Units 23:17 23:17 00:00 WBC (3.5-10.8) 10^3/ul RBC (4.0-5.4) 10^6/ul Hgb (14.0-18.0) g/dl Hct (42-52) % MCV (80-94) fL MCH (27-31) pg MCHC (31-36) g/dl RDW (10.5-15) % Plt Count (150-450) 10^3/ul MPV (7.4-10.4) um3 Neut % (Auto) (38-83) % Lymph % (Auto) (25-47) % [place] % (Auto) (1-9) % Eos % (Auto) (0-6) % Baso % (Auto) (0-2) % Absolute Neuts (auto) (1.5-7.7) 10^3/ul Absolute Lymphs (auto) (1.0-4.8) 10^3/ul Absolute Monos (auto) (0-0.8) 10^3/ul Absolute Eos (auto) (0-0.6) 10^3/ul Absolute Basos (auto) (0-0.2) 10^3/ul Absolute Nucleated RBC 10^3/ul Nucleated RBC % INR (Anticoag Therapy) (0.89-1.11) APTT (26.0-36.3) seconds Sodium 135 (133-145) mmol/L Potassium TNP (3.5-5.0) mmol/L Chloride 101 (101-111) mmol/L Carbon Dioxide 27 (22-32) mmol/L Anion Gap 7 (2-11) mmol/L BUN 33 H (6-24) mg/dL Creatinine 1.59 H (0.67-1.17) mg/dL Est GFR ( Amer) 55.5 (>60) Est GFR (Non-Af Amer) 43.1 (>60) BUN/Creatinine Ratio 20.8 H (8-20) Glucose 102 H (70-100) mg/dL Lactic Acid 0.6 (0.5-2.0) mmol/L Calcium 9.3 (8.6-10.3) mg/dL Total Bilirubin 0.60 (0.2-1.0) mg/dL AST TNP (13-39) U/L ALT 12 (7-52) U/L Alkaline Phosphatase 49 (34-104) U/L Troponin I 0.01 (<0.04) ng/mL Total Protein 7.0 (6.4-8.9) g/dL Albumin 4.1 (3.2-5.2) g/dL Globulin 2.9 (2-4) g/dL Albumin/Globulin Ratio 1.4 (1-3) Urine Color Yellow Urine Appearance Cloudy Urine pH 6.0 (5-9) Ur Specific [place] 1.013 (1.010-1.030) Urine Protein 1+(30 mg/dl) H (Negative) Urine Ketones Negative (Negative) Urine Blood 1+ H (Negative) Urine Nitrate Negative (Negative) Urine Bilirubin Negative (Negative) Urine Urobilinogen Negative (Negative) Ur Leukocyte Esterase Negative (Negative) Urine WBC (Auto) 1+(6-10/hpf) H (Absent) Urine RBC (Auto) 1+(3-5/hpf) H (Absent) Urine Bacteria Absent (Absent) Urine Glucose Negative (Negative) Assess/Plan/Problems-Billing Assessment: VILA, visual changes concerning for TIA/CVA in a 71 yo M with hx of COPD on 2L, former tobacco abuse, GERD, LORENA, depression, 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 Appreciate Neurology assistance. CT head negative. Carotid US, echo, MRI/MRA all pending. LDL at goal , continue statin. Patient agreeable to EC ASA (2) Hypertension Current Visit: No Comment: BPs running high, OK for now with CVA concerns. Continue Metoprolol 12.5 mg BID. (3) COPD (chronic obstructive pulmonary disease) Current Visit: No Comment: Continue Dulera, Singulair and supplemental O2 (4) PTSD (post-traumatic stress disorder) Current Visit: No Comment: Depression. Continue Abilify, Fluoxetine, Alprazolam. (5) GERD (gastroesophageal reflux disease) Current Visit: Yes Comment: Continue PPI (6) CKD (chronic kidney disease) Current Visit: Yes Comment: Improved this morning. Baseline unclear. (7) DVT prophylaxis Current Visit: No Comment: SQ Heparin
[2017-05-26] MEDS ORDERED: oxyCODONE SR TAB(*) 10 MG TAB.SR PO ONE (10:23)
--- NOTE | 2017-05-26 10:56 | RAD ---
CPT II: CPT II Codes: 3100F Indication: Transient ischemic attack. Duplex Doppler sonography of the carotid arteries was performed. The right common carotid artery demonstrates plaque in the carotid bulb extending into the right internal carotid artery. Peak systolic velocity of the distal right common carotid artery 45 cm/s. Peak systolic velocity of the right proximal internal carotid artery 66 cm/s. The IC/CC ratio is 1.46. Right vertebral artery demonstrates antegrade flow. The left common carotid artery demonstrates intimal wall thickening with plaque in the carotid bulb extending into the left internal carotid artery. Peak systolic velocity of the distal left common carotid artery is 44 cm/s. Peak systolic velocity of the left internal carotid artery is 121 cm/s. The IC/CC ratio 3.1. Left vertebral artery demonstrates antegrade flow. IMPRESSION: Less than 50% stenosis of the right internal carotid artery. 50-69% stenosis of left internal carotid artery.
--- NOTE | 2017-05-26 12:38 | RAD ---
Indication: Right-sided Vision loss. Image sequences: Sagittal and axial T1, axial T2, FLAIR, diffusion and susceptibility weighted images of the brain were obtained. Correlation is made with a prior CT of the brain dated May 24, 2017. Ventricular structures are midline. No midline shift is noted. The extra-axial spaces are unremarkable. Punctate areas of signal abnormality consistent with chronic ischemic White matter change is noted. There is mass effect in the left occipital lobe with vasogenic edema. There is mild restriction of diffusion. Susceptibility artifact demonstrates residual hemosiderin. Although this may represent a stroke the possibility of an underlying neoplasm is not excluded. Contrast administration is suggested for further evaluation. No midline shift is noted. Posterior fossa and cerebellopontine angles are unremarkable. Paranasal sinuses are otherwise unremarkable. IMPRESSION: Signal abnormality with restriction of diffusion vasogenic edema in the left occipital lobe which extends to the cortex and demonstrates restriction of diffusion. There is evidence of residual hemosiderin with susceptibility artifact noted. Although this may represent a stroke underlying neoplastic process is not excluded and a study with contrast is suggested.
--- NOTE | 2017-05-26 12:43 | RAD ---
Indication: Stroke, vision loss. MRA of the brain was performed utilizing 2-D [id number] technique. Multiple maximum intensity projection images were obtained. The intracranial carotid arteries are unremarkable. No aneurysmal dilatation or stenosis is noted. Bifurcation into the anterior middle cerebral arteries is noted without significant stenosis. No aneurysmal dilatation noted over the period The posterior circulation including the basilar artery and posterior cerebral arteries demonstrate no aneurysmal dilatation or branch occlusion. IMPRESSION: No evidence of aneurysmal dilatation or branch occlusion is noted.
[2017-05-26] MEDS: Atorvastatin* 80 MG TAB PO SCH (18:31)
[2017-05-26] MEDS ORDERED: oxyCODONE SR TAB(*) 20 MG TAB.SR PO SCH (21:00)
[2017-05-26] MEDS: Montelukast Sodium TAB* 10 MG PO SCH (22:05)
[2017-05-26] MEDS: OXYCODONE 15 MG PO SCH (22:06)
[2017-05-26] MEDS: ALPRAZolam TAB* 0.25 MG PO PRN (22:21)
--- NOTE | 2017-05-26 23:44 | PN ---
PROGRESS NOTE: DATE OF FOLLOWUP: 05/26/17 HISTORY: No acute overnight events. The patient indicates that he has continued difficulty with seeing off to his right and in particular with reading. He indicates that the right hand side of words will be missing when his eyes first look at the word but then if he focuses, he can see the entire word. He only has very mild heaviness over his left frontal region as opposed to the more severe headache that he had when he came in. He denies any worsening of his chronic weakness, which is related to AAA repair in 2004 as well as multiple cervical surgeries. He had his MRI this morning. MEDICATIONS: Hospital medications include: 1. Tylenol 650 q.4 p.r.n. 2. Alprazolam 0.25 mg q.6 hours p.r.n. anxiety. 3. Abilify 7.5 mg q.a.m. 4. Aspirin 81 mg last given at 8:20 this morning. 5. Atorvastatin 80 mg q.p.m. 6. Colace 100 mg b.i.d. 7. Prozac 60 mg q.a.m. 8. Heparin 5000 units q.8 scheduled. 9. Magnesium oxide 400 mg daily. 10. Metoprolol 12.5 mg b.i.d. 11. Dulera 2 puffs b.i.d. scheduled. 12. Singulair 10 mg at bedtime. 13. Omeprazole 20 mg daily. 14. Oxycodone 15 mg t.i.d. p.r.n. pain. 15. Oxycodone 20 mg q.12 hours. PHYSICAL EXAMINATION: Vital Signs: Temperature 98, blood pressure was 181/80, oxygen saturation 100% on 2 L, and heart rate of 63. Telemetry has shown no signs of atrial fibrillation. On general exam, he is an elderly appearing gentleman, in no acute distress, sitting in the chair at his bedside. His cardiac exam reveals a regular rate and rhythm with no obvious murmurs. Lungs are clear to auscultation bilaterally. Carotids reveal no bruits. His visible skin is intact. On neurologic examination, his speech is clear. He is fully alert and awake. On cranial nerve testing, pupils were equal, round, and reactive from 2 to 1.5 mm bilaterally. Versions are full without nystagmus. Hung are full to confrontation bilaterally with no extinction to double simultaneous stimulation. When he is asked to read from the stroke cards, he is able to do so , though he indicates that the right half of some of the words are initially missing. Facial sensation and musculature are full and symmetric. He is slightly hard of hearing with hearing aids in. The palate elevates symmetrically and the tongue is midline. On motor examination, he has some cupping of the fingers of the right hand when testing pronator drift, but no actual drift or pronation. He has some atrophy of the intrinsic muscles of the right hand. There is no varun hemiparesis though he has some mild weakness in the right arm as well as some mild weakness in the left knee extensor as well as left ankle dorsiflexion. Sensation was intact to light touch in the upper and lower extremities. His reflexes were 2+ in the upper extremities, 2+ at the right knee, absent at the left knee and absent ankle jerks with downgoing toes. He has hammertoes. LABORATORY DATA: CBC shows hematocrit of 29 and a platelet count of 113 today from 146 yesterday. His renal function is slightly improved with a creatinine of 1.28 today from 1.59 yesterday. His cholesterol studies showed an LDL of 40 , total cholesterol 89, triglycerides 53, and HDL of 38.7. IMAGING: His carotid ultrasound showed less than 50% stenosis of the right carotid and 50% to 69% stenosis of the left carotid with antegrade vertebral flow bilaterally. I personally reviewed his MRI of the brain, which shows some DWI positive changes in the left occipital lobe with associated hemosiderin deposition, which is probably consistent with a subacute stroke with some hemorrhagic transformation, but the formal report indicates that an underlying neoplasm cannot be excluded and that a contrasted study is suggested. The brain CT from admission was also reviewed and showed no evidence of edema or hemorrhage. His head MRA was also personally reviewed and it shows no obvious cut off or stenosis. The visualized vertebral arteries appear normal. IMPRESSION: Karson Salguero is a 71-year-old man with multiple vascular risk factors as well as cervical and lumbar surgeries in the past who presented with sudden onset of left-sided headache associated with a right visual field defect with no previous history of headaches. His MRI scan has showed what is probably a subacute ischemic infarction with some hemorrhagic transformation. He has been started on aspirin 81 mg and also has been treated with heparin subcu for DVT prophylaxis since his admission. Given the small area of hemorrhage, I am going to hold his aspirin tomorrow morning and we will get a repeat CT scan to better assess the area of hemorrhage. I will also hold his heparin at this time and put him on SCDs. Depending on his renal function tomorrow, he may be able to undergo a contrasted scan to further evaluate this area in his left occipital lobe as it is felt that it could possibly be an underlying neoplasm. His cholesterol is currently at goal. I will also order hemoglobin A1c if that has not yet been obtained. Dr. London will be rounding for Neurology tomorrow and will receive sign-out on the patient. [id number]/[facility] #: [id number] MACK
[2017-05-27] MEDS: Omeprazole CAP* 20 MG PO SCH (05:54)
--- NOTE | 2017-05-27 08:30 | RAD ---
HISTORY: Stroke, evaluate hemorrhagic transformation COMPARISONS: May 24, 2017, MRI of the brain dated May 26, 2015. TECHNIQUE: Multiple contiguous axial CT scans were obtained of the head without intravenous contrast. FINDINGS: The study is limited by patient motion artifact. HEMORRHAGE/INFARCT: There is been interval development of an area of parenchymal hemorrhage within the left occipital lobe measuring 1.1 cm in size. This corresponds to an area of stroke with hemorrhagic products noted on the previous MRI. Elsewhere, there is no hemorrhage or acute infarct. MASSES/SHIFT: There is no mass or shift. EXTRA-AXIAL SPACES: There are no extra-axial fluid collections. SULCI AND VENTRICLES: The sulci and ventricles are normal in size and position for the patient's stated age. CEREBRUM: There are no focal parenchymal abnormalities. BRAINSTEM: There are no focal parenchymal abnormalities. CEREBELLUM: There are no focal parenchymal abnormalities. VESSELS: The vessels are grossly normal. PARANASAL SINUSES: The paranasal sinuses are clear. ORBITS: The orbits are unremarkable. BONES AND SOFT TISSUE: No bone or soft tissue abnormalities are noted. OTHER: None IMPRESSION: HEMORRHAGIC MATERIAL NOTED IN THE LEFT OCCIPITAL LOBE NEW FROM THE 2016 CT EXAMINATION, MOST CONSISTENT WITH HEMORRHAGIC TRANSFORMATION OF INFARCT. THERE IS NO SHIFT. PRELIMINARY FINDINGS WERE DISCUSSED WITH VEENA ON AT APPROXIMATELY 8:26 AM ON 2016.
[2017-05-27] MEDS: Mometasone/Formoter 100/5 MDI INH SCH (09:18)
[2017-05-27] MEDS: Magnesium Oxide TAB* 400 MG PO SCH (09:28)
[2017-05-27] MEDS: FLUoxetine CAP* 20 MG PO SCH (09:28)
[2017-05-27] MEDS: Metoprolol Tartrate TAB* 25 MG PO SCH (09:29)
[2017-05-27] MEDS: Docusate CAP* 100 MG PO SCH (09:29)
[2017-05-27] MEDS: ALPRAZolam TAB* 0.25 MG PO PRN ×2 (09:30→17:59)
[2017-05-27] MEDS: OXYCODONE 15 MG PO SCH (09:31)
[2017-05-27] MEDS: ARIPiprazole TAB* 5 MG PO SCH (09:32)
[2017-05-27] MEDS: oxyCODONE TAB* 5 MG TAB PO PRN ×2 (11:45→17:58)
--- NOTE | 2017-05-27 12:52 | ECHO ---
Amended Report Patient: LISA FLETCHER [facility] Rec#: [id number] : 1945 Date: 05/27/2017 Age: 71y Height: 180.3 cm / 71.0 in Weight: 76.7 kg / 169.0 lbs Sex: M BSA: 1.96 Room#: [facility] Admit Date#: 05/25/2017 Type: Inpatient Referring: Mary aKy Kauffman MD Reading: Silver Donnelly MD Rental Sales Agent: Zari Hairston RN RDCS CC: [employer] Transthoracic Echocardiogram Indication: TIA/CVA BP: 135/44 HR: 63 Rhythm: NSR with PACs Findings History: COPD, sleep apnea, AAA repair, GERD, PTSD, CKD, former smoker, multiple back surgeries Technical Comments: The study quality is fair. The study is technically limited due to the patient's history of COPD. The study is technically limited due to the patient's smoking history. Completed at 1115. Left Ventricle: The left ventricular chamber size is normal. Mild concentric left ventricular hypertrophy is observed. There is increased basal septal hypertrophy noted without evidence of an increased gradient across the left ventricular outflow tract. Global left ventricular wall motion and contractility are within normal limits. There is normal left ventricular systolic function. The estimated ejection fraction is 55-60%. Abnormal left ventricular diastolic filling is observed, consistent with impaired relaxation. Left Atrium: The left atrium is mildly dilated. Right Ventricle: The right ventricular cavity size is normal. The right ventricular global systolic function is normal. Right Atrium: The right atrium is mildly dilated. There were late bubbles seen in the left atrium. A patent foramen ovale is not demonstrated with color Doppler and agitated contrast. Aortic Valve: The aortic valve leaflets are moderately thickened. There is aortic annular calcification. There is mild aortic regurgitation. There is no evidence of aortic stenosis. Mitral Valve: There is mitral annular calcification. The mitral valve leaflets are mildly thickened. There is trace to mild mitral regurgitation. There is no evidence of mitral stenosis. Tricuspid Valve: The tricuspid valve leaflets are normal. There is trace tricuspid regurgitation. Unable to estimate the right ventricular systolic pressure. Pulmonic Valve: The pulmonic valve structure is not well visualized. There is a trace pulmonic regurgitation. There is no pulmonic stenosis. Pericardium: There is no significant pericardial effusion. A pericardial fat pad is visualized. Aorta: There is moderate dilatation of the ascending aorta.4.8 cm The aortic arch is not well visualized. There is mild dilatation of the aortic root. Pulmonary Artery: The main pulmonary artery is not well visualized. Venous: The venous system is not well visualized. The inferior vena cava is not visualized. Contrast: Normal saline was used as contrast for the bubble study. Images 1 and 2. Conclusions Global left ventricular wall motion and contractility are within normal limits. There is normal left ventricular systolic function. There is increased basal septal hypertrophy noted without evidence of an increased gradient across the left ventricular outflow tract. The estimated ejection fraction is 55-60%. A patent foramen ovale is not demonstrated with color Doppler and agitated contrast. There is mild aortic regurgitation. There is trace to mild mitral regurgitation. There is trace tricuspid regurgitation. Unable to estimate the right ventricular systolic pressure. There is no significant pericardial effusion. There is moderate/severe dilatation of the ascending aorta.4.8 cm Compared ot study of 10/17/16, there is little change Measurements Name Value Normal Range RVDdMajor (2D) 4.2 cm (2.2 - 4.4) RAd ISD 4CH 5.4 cm (3.4 - 4.9) RA (A4C)W 4.8 cm (2.9 - 4.6) IVSd (2D) 1.3 cm (0.6 - 1) LVPWd (2D) 1.2 cm (0.6 - 1) LVIDd (2D) 4.3 cm (3.6 - 5.4) LVIDs (2D) 3 cm - LV FS (2D) 30 % (25 - 45) Aortic Annulus 2.4 cm (1.4 - 2.6) Ao root diameter (2D) 3.7 cm (2.1 - 3.5) Ascending Ao 4.8 cm (2.1 - 3.4) LA dimension (AP) 2D 2.6 cm (2.3 - 3.8) LAd ISD 4CH 5.9 cm (2.9 - 5.3) LA ISD 4CH W 5.2 cm (2.5 - 4.5) Name Value Normal Range LA ESV SP 4CH (A/L) 72 ml - LA ESV SP 2CH (A/L) 62 ml - LA ESV BP (A/L) 67 ml - LA ESV BP (A/L) index 34 ml/m2 - LA ESV SP 4CH (MOD) 67 ml - LA ESV SP 2CH (MOD) 54 ml - Name Value Normal Range MV E-wave Vmax 0.61 m/sec - MV deceleration time 253 msec - MV A-wave Vmax 0.82 m/sec - MV E:A ratio 0.74 ratio - LV septal e' Vmax 0.05 m/sec - LV lateral e' Vmax 0.09 m/sec - LV E:e' septal ratio 12.2 ratio - LV E:e' lateral ratio 6.8 ratio - Name Value Normal Range AV Vmax 1.7 m/sec - AV VTI 38.9 cm - AV peak gradient 11.6 mmHg - AV mean gradient 7 mmHg - LVOT diameter 2.2 cm - LVOT Vmax 1.1 m/sec - LVOT VTI 25.4 cm - LVOT peak gradient 4.8 mmHg - LVOT mean gradient 2.9 mmHg - DOI (VTI) 0.65 ratio - DOI (Vmax) 0.65 ratio - SV LVOT 96.5 ml - CO LVOT 6.1 l/min - Cardiac index 3.1 l/min/m2 - ALMITA (continuity Vmax) 2.5 cm2 - ALMITA (continuity VTI) 2.5 cm2 - AR PHT 621 msec - Name Value Normal Range PV Vmax 0.89 m/sec -
[2017-05-27] MEDS ORDERED: Gadoteridol* (CONTRAST) 279.3 MG/ML 10 ML IV ONE (16:02)
--- NOTE | 2017-05-27 16:14 | PN ---
Subjective Date of Service: 05/27/17 Interval History: Pt is feeling ok. He states his vision changes are unchanged from yesterday. He notices the R half of words/sentences are slow to come into "focus." He notices this only with both eyes open. He has walked to the bathroom some but not any further. He feels he is otherwise at his baseline. Family History: Unchanged from Admission Social History: Unchanged from Admission Past Medical History: Unchanged from Admission Objective Active Medications: Acetaminophen (Tylenol Tab*) 650 mg PO Q4H PRN PRN Reason: FEVER/PAIN Last Admin: 05/27/17 09:30 Dose: 650 mg Alprazolam (Xanax Tab*) 0.25 mg PO Q6H PRN PRN Reason: AGITATION/ANXIETY Last Admin: 05/27/17 09:30 Dose: 0.25 mg Aripiprazole (Abilify Tab*) 7.5 mg PO QAM [facility] Last Admin: 05/27/17 09:32 Dose: 7.5 mg Atorvastatin Calcium (Lipitor*) 80 mg PO QPM [facility] Last Admin: 05/26/17 18:31 Dose: 80 mg Docusate Sodium (Colace Cap*) 100 mg PO BID [facility] Last Admin: 05/27/17 09:29 Dose: 100 mg Fluoxetine HCl (Prozac Cap*) 60 mg PO QAM [facility] Last Admin: 05/27/17 09:28 Dose: 60 mg Magnesium Oxide (Magox 400 Tab*) 400 mg PO DAILY [facility] Last Admin: 05/27/17 09:28 Dose: 400 mg Metoprolol Tartrate (Lopressor Tab*) 12.5 mg PO BID [facility] Last Admin: 05/27/17 09:29 Dose: 12.5 mg Mometasone Furoate/Formoterol Fumar (Dulera 100/5 Mdi*) 2 puff INH BID [facility] Last Admin: 05/27/17 09:18 Dose: 2 puff Montelukast Sodium (Singulair Tab*) 10 mg PO BEDTIME [facility] Last Admin: 05/26/17 22:05 Dose: 10 mg Omeprazole (Prilosec Cap*) 20 mg PO DAILY@0600 [facility] Last Admin: 05/27/17 05:54 Dose: 20 mg Oxycodone HCl (Roxycodone Tab*) 15 mg PO TID PRN PRN Reason: PAIN Last Admin: 05/27/17 11:45 Dose: 15 mg Oxycodone HCl (Oxycontin(*)) 10 mg PO BEDTIME [facility] Oxycodone HCl (Oxycontin(*)) 20 mg PO DAILY [facility] Vital Signs 05/26/17 05/26/17 05/26/17 16:12 16:21 18:21 Temperature 97.3 F Pulse Rate 64 Respiratory 18 18 18 Rate Blood Pressure 157/55 (mmHg) O2 Sat by Pulse 98 Oximetry 05/26/17 05/26/17 05/26/17 20:00 20:27 20:44 Temperature 97.5 F Pulse Rate 64 78 Respiratory 18 18 16 Rate Blood Pressure 166/69 (mmHg) O2 Sat by Pulse 100 100 96 Oximetry 05/26/17 05/26/17 05/27/17 22:21 23:38 00:16 Temperature 97.4 F Pulse Rate 62 Respiratory 16 16 20 Rate Blood Pressure 135/44 (mmHg) O2 Sat by Pulse 99 Oximetry 05/27/17 05/27/17 05/27/17 00:21 01:38 07:19 Temperature 97.6 F Pulse Rate 60 Respiratory 20 20 18 Rate Blood Pressure 154/62 (mmHg) O2 Sat by Pulse 97 Oximetry 05/27/17 05/27/17 05/27/17 08:00 09:30 11:30 Temperature Pulse Rate Respiratory 18 18 18 Rate Blood Pressure (mmHg) O2 Sat by Pulse 98 Oximetry 05/27/17 05/27/17 05/27/17 11:34 11:45 13:45 Temperature 97.9 F Pulse Rate 62 Respiratory 20 18 18 Rate Blood Pressure 119/38 (mmHg) O2 Sat by Pulse 99 Oximetry Oxygen Devices in Use Now: Nasal Cannula - 2L-99% Appearance: Elderly male sitting up in a chair, NAD Eyes: No Scleral Icterus Ears/Nose/Mouth/Throat: Mucous Membranes Moist Respiratory: Symmetrical Chest Expansion and Respiratory Effort, Clear to Auscultation Cardiovascular: NL Sounds; No Murmurs; No JVD, RRR, No Edema Abdominal: NL Sounds; No Tenderness; No Distention Extremities: No Clubbing, Cyanosis Skin: No Rash or Ulcers, No Nodules or Sclerosis Neurological: Alert and Oriented x 3 Result Diagrams: 05/26/17 07:06 05/26/17 07:06 Additional Lab and Data: Lab Results 05/24/17 05/24/17 05/24/17 Range/Units 00:04 23:07 23:17 WBC 7.7 (3.5-10.8) 10^3/ul RBC 3.43 L (4.0-5.4) 10^6/ul Hgb 10.6 L (14.0-18.0) g/dl Hct 32 L (42-52) % MCV 92 (80-94) fL MCH 31 (27-31) pg MCHC 34 (31-36) g/dl RDW 15 (10.5-15) % Plt Count 146 L (150-450) 10^3/ul MPV 10 (7.4-10.4) um3 Neut % (Auto) 73.7 (38-83) % Lymph % (Auto) 13.8 L (25-47) % [place] % (Auto) 8.0 (1-9) % Eos % (Auto) 3.7 (0-6) % Baso % (Auto) 0.8 (0-2) % Absolute Neuts (auto) 5.7 (1.5-7.7) 10^3/ul Absolute Lymphs (auto) 1.1 (1.0-4.8) 10^3/ul Absolute Monos (auto) 0.6 (0-0.8) 10^3/ul Absolute Eos (auto) 0.3 (0-0.6) 10^3/ul Absolute Basos (auto) 0.1 (0-0.2) 10^3/ul Absolute Nucleated RBC 0 10^3/ul Nucleated RBC % 0 INR (Anticoag Therapy) 1.17 H (0.89-1.11) APTT 31.6 (26.0-36.3) seconds Sodium (133-145) mmol/L Potassium 4.8 (3.5-5.0) mmol/L Chloride (101-111) mmol/L Carbon Dioxide (22-32) mmol/L Anion Gap (2-11) mmol/L BUN (6-24) mg/dL Creatinine (0.67-1.17) mg/dL Est GFR ( Amer) (>60) Est GFR (Non-Af Amer) (>60) BUN/Creatinine Ratio (8-20) Glucose (70-100) mg/dL Lactic Acid (0.5-2.0) mmol/L Calcium (8.6-10.3) mg/dL Total Bilirubin (0.2-1.0) mg/dL AST 16 (13-39) U/L ALT (7-52) U/L Alkaline Phosphatase (34-104) U/L Troponin I (<0.04) ng/mL Total Protein (6.4-8.9) g/dL Albumin (3.2-5.2) g/dL Globulin (2-4) g/dL Albumin/Globulin Ratio (1-3) Urine Color Urine Appearance Urine pH (5-9) Ur Specific [place] (1.010-1.030) Urine Protein (Negative) Urine Ketones (Negative) Urine Blood (Negative) Urine Nitrate (Negative) Urine Bilirubin (Negative) Urine Urobilinogen (Negative) Ur Leukocyte Esterase (Negative) Urine WBC (Auto) (Absent) Urine RBC (Auto) (Absent) Urine Bacteria (Absent) Urine Glucose (Negative) 05/24/17 05/24/17 05/25/17 Range/Units 23:17 23:17 00:00 WBC (3.5-10.8) 10^3/ul RBC (4.0-5.4) 10^6/ul Hgb (14.0-18.0) g/dl Hct (42-52) % MCV (80-94) fL MCH (27-31) pg MCHC (31-36) g/dl RDW (10.5-15) % Plt Count (150-450) 10^3/ul MPV (7.4-10.4) um3 Neut % (Auto) (38-83) % Lymph % (Auto) (25-47) % [place] % (Auto) (1-9) % Eos % (Auto) (0-6) % Baso % (Auto) (0-2) % Absolute Neuts (auto) (1.5-7.7) 10^3/ul Absolute Lymphs (auto) (1.0-4.8) 10^3/ul Absolute Monos (auto) (0-0.8) 10^3/ul Absolute Eos (auto) (0-0.6) 10^3/ul Absolute Basos (auto) (0-0.2) 10^3/ul Absolute Nucleated RBC 10^3/ul Nucleated RBC % INR (Anticoag Therapy) (0.89-1.11) APTT (26.0-36.3) seconds Sodium 135 (133-145) mmol/L Potassium TNP (3.5-5.0) mmol/L Chloride 101 (101-111) mmol/L Carbon Dioxide 27 (22-32) mmol/L Anion Gap 7 (2-11) mmol/L BUN 33 H (6-24) mg/dL Creatinine 1.59 H (0.67-1.17) mg/dL Est GFR ( Amer) 55.5 (>60) Est GFR (Non-Af Amer) 43.1 (>60) BUN/Creatinine Ratio 20.8 H (8-20) Glucose 102 H (70-100) mg/dL Lactic Acid 0.6 (0.5-2.0) mmol/L Calcium 9.3 (8.6-10.3) mg/dL Total Bilirubin 0.60 (0.2-1.0) mg/dL AST TNP (13-39) U/L ALT 12 (7-52) U/L Alkaline Phosphatase 49 (34-104) U/L Troponin I 0.01 (<0.04) ng/mL Total Protein 7.0 (6.4-8.9) g/dL Albumin 4.1 (3.2-5.2) g/dL Globulin 2.9 (2-4) g/dL Albumin/Globulin Ratio 1.4 (1-3) Urine Color Yellow Urine Appearance Cloudy Urine pH 6.0 (5-9) Ur Specific [place] 1.013 (1.010-1.030) Urine Protein 1+(30 mg/dl) H (Negative) Urine Ketones Negative (Negative) Urine Blood 1+ H (Negative) Urine Nitrate Negative (Negative) Urine Bilirubin Negative (Negative) Urine Urobilinogen Negative (Negative) Ur Leukocyte Esterase Negative (Negative) Urine WBC (Auto) 1+(6-10/hpf) H (Absent) Urine RBC (Auto) 1+(3-5/hpf) H (Absent) Urine Bacteria Absent (Absent) Urine Glucose Negative (Negative) Assess/Plan/Problems-Billing VILA, visual changes concerning for TIA/CVA in a 71 yo M with hx of COPD on 2L, former tobacco abuse, GERD, LORENA, depression, chronic LE weakness after AAA repair, chronic pain, CKD3 - Patient Problems (1) CVA (cerebral vascular accident) Current Visit: Yes Status: Acute Code(s): I63.9 - CEREBRAL INFARCTION, UNSPECIFIED SNOMED Code(s): 539802199 Comment: The patient's MRI shows most likely an ischemic CVA with hemorrhagic transformation however underlying mass with hemorrhage could not be excluded. MRI with contrast has been ordered and is pending now. ASA has been held as has SQ heparin. Dr. London will follow up with the patient this afternoon. Will continue lipitor-LDL is acceptable. Will order PT/OT. (2) CKD (chronic kidney disease) Current Visit: Yes Status: Acute Code(s): N18.9 - CHRONIC KIDNEY DISEASE, UNSPECIFIED SNOMED Code(s): 215428500 Comment: Creatinine is improved from admission. Monitor intermittently as outpatient. (3) GERD (gastroesophageal reflux disease) Current Visit: Yes Status: Acute Code(s): K21.9 - GASTRO-ESOPHAGEAL REFLUX DISEASE WITHOUT ESOPHAGITIS SNOMED Code(s): 717539278 Comment: Continue omeprazole. (4) Hypertension Current Visit: Yes Status: Acute Priority: Medium Code(s): I10 - ESSENTIAL (PRIMARY) HYPERTENSION SNOMED Code(s): 15312207 Comment: BPs is under better control today. Continue metoprolol. (5) COPD (chronic obstructive pulmonary disease) Current Visit: Yes Status: Acute Code(s): J44.9 - CHRONIC OBSTRUCTIVE PULMONARY DISEASE, UNSPECIFIED SNOMED Code(s): 29310721 Comment: Continue dulera and singulair. (6) Chronic pain Current Visit: Yes Status: Acute Code(s): G89.29 - OTHER CHRONIC PAIN SNOMED Code(s): 78489975 Comment: Continue oxycontin and prn oxycodone. (7) DVT prophylaxis Current Visit: Yes Status: Acute Code(s): VBO4159 - SNOMED Code(s): 718476701 Comment: SCDs (8) Full code status Current Visit: Yes Status: Acute Code(s): Z78.9 - OTHER SPECIFIED HEALTH STATUS SNOMED Code(s): 938531467
[2017-05-27 17:58] VITALS: BP 126/49
[2017-05-27] MEDS: Atorvastatin* 80 MG TAB PO SCH (17:59)
--- NOTE | 2017-05-27 18:01 | PN ---
Progress Note - Progress Note Date of Service: 05/27/17 Note: Pt was seen in follow up by Dr London who feels the patient is ok to go home tonight. He is to start ASA 81mg daily in 3 days. He will need to return to the ER if he has a new neurologic findings. Additionally the patient will need residential cardiac monitoring set up to eval for afib.
[2017-05-27] MEDS ORDERED: oxyCODONE SR TAB(*) 10 MG TAB.SR PO SCH (21:00)
--- NOTE | 2017-05-28 00:23 | PN ---
CC: [facility], [place]* NEUROLOGY FOLLOWUP NOTE: DATE OF FOLLOWUP: 05/27/17 LOCATION: He is an inpatient, room 448. HOSPITALIST: Dr. Khan. CHIEF COMPLAINT: Visual loss. INTERVAL HISTORY: Since yesterday, Mr. Salguero feels the same. He no longer has any headache, however. He still notes visual difficulties to his right side. He notes no new symptoms. MEDICATIONS: Are reviewed and he is not currently on aspirin, which is being held. Also, he is no longer on Lovenox or heparin. He remains on: 1. Alprazolam 0.25 mg p.o. q.6 hours as needed for anxiety. 2. Abilify 7.5 mg p.o. q.a.m. 3. Atorvastatin 80 mg p.o. q. day. 4. Fluoxetine 60 mg p.o. q. day. 5. Metoprolol 12.5 mg p.o. b.i.d. 6. Omeprazole 20 mg p.o. q. day. 7. Oxycodone 50 mg p.o. t.i.d. p.r.n. pain. 8. Oxycodone extended release 10 mg p.o. q.h.s. 9. Oxycodone extended release 20 mg p.o. b.i.d. PHYSICAL EXAMINATION: He is well nourished and well hydrated. Blood pressure most recently running 119-150/40-60, heart rate in the 60s and regular. Speech is clear and language is fluent. Memory is intact. He was not examined further. LABORATORY DATA: A number of laboratory studies were reviewed. He had a CT scan of the brain when he came in, which I reviewed and looks normal. Subsequent CT scan on 05/27/17 reveals what appears to be a hemorrhagic infarct in the left occipital lobe. MRI scan of the brain confirms a hemorrhagic infarct with a question raised of a neoplasm by the radiologist. MRI of the brain with contrast today reveals changes consistent with an infarct, but no evidence of a neoplasm. Echocardiogram revealed some diastolic dysfunction, but no cardioembolic sources. Carotid Doppler study revealed bilateral atheromatous disease with 50% to 69% stenosis on the left and less than 50% stenosis on the right. MR angiogram of the brain revealed no significant intracranial areas of stenosis. Other laboratories reviewed include a lipid profile with a cholesterol of 89 and an LDL of 40 when he presented. Platelet count was down to 113,000 yesterday. IMPRESSION: Impression is that of a right posterior cerebral artery infarction. Mechanism is not entirely clear, although he has numerous vascular risk factors. He would like to be discharged home, which I think is reasonable. He could start aspirin 81 mg tomorrow. He should continue Lipitor and work with his primary care physician on optimal blood pressure control. He quit smoking several years ago. I would recommend consideration of longer term cardiac monitoring to look for intermittent atrial fibrillation. He can follow up with his primary care physician and also Dr. Kauffman saw him initially in consultation when he presented. [id number]/[facility] #: [id number] MACK
--- NOTE | 2017-05-28 07:38 | RAD ---
HISTORY: Mass versus stroke COMPARISONS: May 26, 2017, head CT dated May 27, 2017 TECHNIQUE: The following sequences were obtained of the head: Sagittal, axial, and coronal T1-weighted images were obtained after contrast enhancement with a gadolinium-based intravenous contrast agent. FINDINGS: This study is read in conjunction with the MRI of May 26, 2017. The left occipital lesion that is minimal enhancement along the medial margin. IMPRESSION: THE LEFT OCCIPITAL LESION WHICH IS MINIMAL ENHANCEMENT ALONG THE MEDIAL MARGIN. THE IMAGING CHARACTERISTICS AND EVOLUTION ARE FELT TO BE MOST CONSISTENT WITH MINIMAL ENHANCEMENT IN THE SETTING OF SUBACUTE INFARCT WITH HEMORRHAGIC CONVERSION
[2017-05-28] MEDS ORDERED: oxyCODONE SR TAB(*) 20 MG TAB.SR PO SCH (09:00)
--- NOTE | 2017-05-29 04:29 | DS ---
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 SECONDARY DIAGNOSES: 1. History of chronic kidney disease. 2. Chronic obstructive pulmonary disease, on 2 L O2 continuously. 3. Depression/posttraumatic stress disorder. 4. Obstructive sleep apnea. 5. Chronic pain. 6. 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 DISCHARGE MEDICATIONS: 1. Lipitor 80 mg p.o. q.h.s. 2. Potassium chloride 10 mEq p.o. daily. 3. Xopenex 1 puff inhaled q.6 hours p.r.n. shortness of breath. 4. Xanax 0.25 mg p.o. q.6 hours p.r.n. anxiety. 5. Prozac 60 mg p.o. daily. 6. Colace 100 mg p.o. b.i.d. 7. Symbicort 80/4.5 two puffs inhaled twice daily. 8. Magnesium oxide 400 mg p.o. daily. 9. Loratadine 10 mg p.o. daily p.r.n. allergies. 10. Lasix 10 mg p.o. daily. 11. Metoprolol tartrate 12.5 mg p.o. b.i.d. 12. Abilify 7.5 mg p.o. daily. 13. Oxycodone 15 mg p.o. t.i.d. 14. Nexium 40 mg p.o. daily. 15. OxyContin 15 mg p.o. b.i.d. 16. Singulair 10 mg p.o. q.h.s. 17. Aspirin 81 mg p.o. daily. HOSPITAL COURSE: Mr. Salguero is a 71-year-old male, who presented to the emergency room on 05/24/17, with complaints of change in vision. The patient states that he was attending a meeting and at the end of the meeting, he noticed severe 9/10 headache localized on the left side of his nose and cheek. He also noted right eye blurry vision. He stated the headache lasted approximately an hour and was resolving by the time he presented to the emergency room. The patient also noted some improvement to his blurry vision; however, continued to complain of sensation that the right half of word, the sentences would be missing initially when he opened his eyes; however, with time , they would start coming into focus. The patient was admitted for possible TIA. He underwent a CT of the brain on admission that revealed negative for intracranial hemorrhage and no CT stigmata of ischemic stroke or other acute intracranial process. He then the following day had an echocardiogram, which revealed normal left ventricular wall motion and contractility. Normal left ventricular systolic function with an EF of 55% to 60%. A PFO was not identified. He has [id number] dilation of the ascending aorta with little change compared to his echo in October 2016. He seen in consultation by Dr. Kauffman, who recommended initiating aspirin and continuing his current dose of Lipitor as his lipid profile was under control. An MRI and MRA of the brain was ordered and performed on 05/26/17. The MRI of the brain revealed signal abnormality with restriction of diffusion and vasogenic edema in the left occipital lobe, which extends to the cortex and demonstrates restricted diffusion. There was evidence of residual hemosiderin with susceptibility artifact noted. Although this may represent a stroke, underlying neoplastic process is not excluded and a study with contrast is suggested. The MRA of the brain did not reveal any evidence of aneurysmal dilation or branch occlusion. He also had a carotid Doppler performed, which revealed less than 50% stenosis of the right internal carotid artery and 50% to 69% stenosis of the left internal carotid artery. Repeat CT of the brain was obtained on 05/27/17, which revealed hemorrhagic material noted in the left occipital lobe new from CT with findings most consistent with hemorrhagic transformation of infarct. There is no shift identified. The brain MRI with contrast was subsequently performed and it is felt that the findings are most consistent with subacute infarct and hemorrhagic conversion. The patient was monitored on telemetry and no atrial fibrillation was identified. Long-term outpatient cardiac monitoring should be obtained in this patient to evaluate for atrial fibrillation as the mechanism of the stroke was not identified. The patient is to remain off his aspirin until 05/31/17. The patient should follow up with his primary care provider in the next 4 to 7 days. He has been instructed to return to the emergency room if he has any worsening of his vision or any other new neurologic symptoms. FOLLOWUP CONCERNS: The patient is being discharged to home today on 05/27/17. ACTIVITY: Activity level is as tolerated. DIET: Low fat. CONDITION ON DISCHARGE: Stable. TIME SPENT: Thirty-five minutes was spent discharging this patient. [id number]/[id number] #: [id number] MTDD
== END 2017-05-27 19:45 | disposition home or self-care (01) | DRG 65 ==
LOC: ED 22:22 → MEDTELE 05-25 01:22 → OBSVTOIN 05-25 12:19 → MEDTELE 05-25 21:27
PROVIDERS: ADMIT Internal Medicine; ATTEND Hospitalist
DX: I63.531 Cerebral infarction due to unspecified occlusion or stenosis of right posterior cerebral artery (principal); J98.11 Atelectasis; Z99.81 Dependence on supplemental oxygen; J44.9 Chronic obstructive pulmonary disease, unspecified; I12.9 Hypertensive chronic kidney disease with stage 1 through stage 4 chronic kidney disease, or unspecified chronic kidney disease; R53.1 Weakness; K21.9 Gastro-esophageal reflux disease without esophagitis; F43.10 Post-traumatic stress disorder, unspecified; F32.9 Major depressive disorder, single episode, unspecified; G47.33 Obstructive sleep apnea (adult) (pediatric); G89.29 Other chronic pain; N18.3 Chronic kidney disease, stage 3 (moderate); D64.9 Anemia, unspecified; Z79.891 Long term (current) use of opiate analgesic; Z88.8 Allergy status to other drugs, medicaments and biological substances; Z91.040 Latex allergy status; Z80.7 Family history of other malignant neoplasms of lymphoid, hematopoietic and related tissues; Z87.891 Personal history of nicotine dependence
CPT/HCPCS: 36415; 70450; 70544; 70551; 70552; 71010; 80048; 80053; 80061; 81003; 81015; 83036; 83605; 84484; 85025; 85610; 85730; 90686; 93005; 93306; 93880; 94640; 94760; A9270-GY; A9579; J1644

== ENCOUNTER 2017-09-07 09:59 | Inpatient (IN) | payer OTHER ==
--- OUTSIDE RECORDS SUMMARY | 2017-09-07 10:52 | XMS REPORT ---
:1945 External Reference #:[id number] Author Organization [facility] Address [address] [address] Phone [phone] Care Team Providers Name Role Phone Danie Viera M.D. Care Team Information Head Screen Worker Unavailable Bibi Gamez FNP Primary Care Physician Unavailable Payers Type Date Identification Numbers Payment Provider Subscriber Commercial Policy Number: [id number] [employer] Karson Salguero PayID: [id number] [address] [place] [address] Commercial Expires: 2016 Policy Number: [place]/ Non S[place] Care Karson Salguero [id number] PayID: [id number] [address] [address] [place] [address] Problems Date Description Provider Status Onset: 05/14/2014 Electrocardiogram abnormal Seth York M.D., Active [facility] Onset: 05/14/2014 Orthostatic hypotension Seth York M.D., Active [facility] Onset: 05/14/2014 Difficulty breathing Seth York M.D., Active [facility]LLOWAY Onset: 02/10/2015 Dyspnea Susanna Valencia MD Active Onset: 02/10/2015 Chronic obstructive lung disease Susanna Valencia MD Active Onset: 02/10/2015 Gastroesophageal reflux disease Susanna Valencia MD Active Onset: 04/26/2015 Hypoxemia Susanna Valencia MD Active Onset: 09/08/2015 Pleural effusion, not elsewhere Susanna Valencia MD Active classified Onset: 10/28/2015 Thoracic aortic ectasia Seth York M.D., Active [facility], [facility] Onset: 06/21/2017 Ischemic stroke Mary Kay Kauffman M.D. Active Note: left occipital - May 2017 Family History Date Family Member(s) Problem(s) Comments General non contributory Father midial tumor 54 Mother lymphoma Siblings 4 Siblings All w/back and spine issues; one sister w/breast cancer Siblings another sister w/heart issues Social History Type Date Description Comments Marital Status Lives With Occupation Retired Cigarette Use Heavy tobacco smoker (more than 10 cigarettes/day) Cigarette Use Quit 1 Year Ago ETOH Use Denies alcohol use Smoking Patient is a former smoker Recreational Drug Use Denies Drug Use Smoking quit october 2013 Recreational Drug Use Never Used Drugs Daily Caffeine Consumes on average 1 cup of regular coffee per day Exercise Type/Frequency Exercises sporadically General Hx Text Do you follow a special diet: No Problems snoring , daytime fatigue: Day time fatigue, recently started on oxygen 04/26/[address] Valencia. Allergies, Adverse Reactions, Alerts Date Description Reaction Status Severity Comments 04/09/2014 Morphine active 04/09/2014 Fentanyl active 04/09/2014 Wellbutrin active 04/09/2014 Uroxatral active 04/09/2014 Clonidine active 04/09/2014 Latex active 04/09/2014 Zonegram active 06/14/2014 Vesicare active orthostatic hypotension 02/10/2015 NSAIDs active GI Upset 07/15/2017 Gabapentin extreme muscle/bladder active Moderate weaknes Medications Medication Date Status Form Strength Qnty SIG Indications Ordering Provider Magnesium 08/16 Active Tablets 400mg 1 by mouth every day Docusate Sodium 09/08 Active Capsules 50mg 60cap 1 by mouth Susanna s twice a day MD Erik Alprazolam 09/07 Active Tablets 0.25mg one by Unknown mouth q 6 hours prn anxiety Aripiprazole 09/07 Active Tablets 7.5mg 1 by mouth every day Atorvastatin 09/07 Active Tablets 80mg 1 by mouth Unknown Calcium every day Budesonide/Formo 09/07 Active Inhaler 4.5mcg 2 puffs Unknown terol twice daily Esomeprazole 09/07 Active Solution 40mg 1 by mouth Unknown Sodium Rec every day Loratadine 09/07 Active Tablets 10mg 1 by mouth every day as needed Metoprolol 09/07 Active Tablets 12.5mg 1 by mouth Unknown Tartrate twice a day Oxygen 04/26 Active Misc 1unit please use J44.9 s o2 at Erik, 2l/min during exertion and at night Oxycontin 00 Active Tab ER 12H 15mg 60tab 1 by mouth Unknown Abuse-Det s twice a day Furosemide Active Tablets 20mg 1/2 tablet Unknown by mouth every day Levalbuteral HFA Active 1 puff Unknown / every 6hrs prn Aspirin 81 Low Active Chewtabs 81mg daily Unknown Dose / Montelukast Active Tablets 10mg 1 by mouth Unknown Sodium every day Oxycodone HCL Active Tablets 15mg 1 tablet by Unknown mouth three times a day as needed Potassium Active Tablets ER 10Meq 1 by mouth Unknown Chloride Kristal ER every day Duloxetine HCL Active Caps DR 30mg 1 by mouth Part every day Lasix 09/30 Hx Tablets 20mg 30tab 1 tablet by Susanna /2016 s mouth daily Erik, - 11/20 Levalbuterol HCL 09/08 Hx Nebulizer 0.42mg/3M 270un use every 6 L its hours as Erik, - needed 11/20 Acetaminophen ER 09/07 Hx Tablets ER 650mg 1 tab by mouth twice - a day as 11/12 needed Magnesium-Oxide 09/07 Hx Tablets 800mg 1 by mouth twice daily - 08/16 Methylphenidate 09/07 Hx Tablets 5mg 1 tablet by Unknown mouth a - day 10/27 Milk Of Magnesia 09/07 Hx Suspension 400mg/5ML 30 ml's on the day - with no bm 10/27 as needed Potassium 06 Hx Tablets ER 10Meq 1 by mouth Unknown Citrate (1080 mg) every day - 07/03 Prazosin HCL 06 Hx Capsules 2mg 1 po at hs - 10/27 Temazepam 09/07 Hx Capsules 15mg q Hs prn - 02/12 Amlodipine 01/06 Hx Tablets 5mg 1 by mouth Unknown Besylate /2015 every day - 10/27 Guaifenesin 09/07 Hx Tablets 400mg 1 tab by Unknown mouth every - 12hours as 10/27 needed congestion Symbicort 02/10 Hx Aerosol 80-4.5mcg 2unit 2 puff J44.9 Susanna /2015 /Act s twice a day Jose Valencia MD 06/20 Oxycodone HCL ER 02/09 Hx Tab ER 12H 10mg 1 tab by Unknown Abuse-Det mouth every - 12 hours 04/24 Abilify 02/09 Hx Tablets 2mg 1 by mouth Unknown every day - 10/09 Albuterol 02/09 Hx Tablets 2mg 2 puffs as Unknown needed - 03/13 Oxycodone HCL 05/14 Hx Tablets 15mg 100ta 1 by mouth Seth bs three times Landry - a day as Jaylen 07/03 needed Leonel, /2016 [facility] Proair HFA Hx Aerosol 108(90Bas 1unit 2 puffs by Unknown /0000 e) s mouth every - mcg/Act 4 hours as 09/07 needed Cialis Hx Tablets 5mg 30tab 1 by mouth Unknown /0000 s 1 hour - before 04/28 as needed Fish Oil 00 Hx Capsules 1000mg 60cap by mouth Unknown /0000 s twice a day - 09/07 Vesicare Hx Tablets 5mg 90tab 1 by mouth Unknown /0000 s every day - 06/11 Coq-10 00 Hx daily Unknown /0000 - 09/07 Pentoxifylline 00/ Hx Tablets ER 400mg 90tab 1 po bid Unknown ER /0000 s - 10/27 Nexium 00/[address] 40mg 30cap 1 po bid Unknown /0000 s - 09/07 Simvastatin 0000 Hx Tablets 20mg 90tab 1 by mouth Unknown /0000 s every day - 10/27 Advair Diskus 00/ Hx Aerosol 500-50mcg 60uni 1 puff Unknown /0000 /Dose ts twice a day - 03/13 Testosterone Hx Oil 200mg/ml 3ml Unknown Cypionate /0000 - 05/13 Singulair 00 Hx Tablets 10mg 90tab 1 by mouth Unknown /0000 s every day - 06/20 Levitra 00 Hx Tablets 20mg 30tab 1/2 - 1 Unknown /0000 s tablet as - needed 05/13 Escitalopram 00 Hx Tablets 25mg 30tab 1 by mouth Novak, Oxalate /0000 s every day [place], DO - 06/20 Senior 00 Hx Tablets 1 tablet po Unknown Multivitamin /0000 daily Plus - 10/27 Budesonide/Formo Hx 80/4.5mcg 2 puffs Unknown terol /0000 twice a day - 11/20 Gabapentin Hx Capsules 300mg 1 by mouth Unknown /0000 twice a day - 07/03 Fluoxetine HCL Hx Tablets 60mg take one Unknown /0000 tablet by - mouth one 08/11 time daily Medications Administered in Office Medication Date Status Form Strength Qnty SIG Indications Ordering Provider Inj, 04/25/ Administered Injection Seth Landry Regadenoson, 0.1 2014 MG Leonel York, FAC, FASEZRA Aminophylline 04/25/ Administered Injection Sethxavier Landry 2015 [facility]onel [facility], [facility], [facility] Technetium TC 04/25/ Administered Injection Seth Landry 99M Tetrofosmin, 2015 Jaylen, Per Unit Dose Up M.D., To 40 FACC, Millicuries [facility] Vital Signs Date Vital Result Comment 08/19/2017 Height 71 inches 5'11" Weight 170.00 lb Heart Rate 76 /min BP Systolic Sitting 112 mmHg BP Diastolic Sitting 64 mmHg Respiratory Rate 14 /min O2 % BldC Oximetry 84 % on 2 L BMI (Body Mass Index) 23.7 kg/m2 07/15/2017 Height 71 inches 5'11" Weight 166.00 lb with shoes Heart Rate 68 /min BP Systolic Sitting 142 mmHg Rue reg cuff BP Diastolic Sitting 84 mmHg Rue reg cuff Respiratory Rate 18 /min BMI (Body Mass Index) 23.1 kg/m2 Ejection Fraction 55-60% 05/27/2017-echo 06/21/2017 Height 71 inches 5'11" Weight 171.50 lb Heart Rate 68 /min BP Systolic Sitting 130 mmHg BP Diastolic Sitting 78 mmHg Respiratory Rate 18 /min BMI (Body Mass Index) 23.9 kg/m2 02/14/2017 Height 71 inches 5'11" Heart Rate 64 /min BP Systolic Sitting 124 mmHg BP Diastolic Sitting 72 mmHg Respiratory Rate 14 /min Pain Level 5 O2 % BldC Oximetry 90 % 11/21/2016 Height 71 inches 5'11" Weight 173.50 lb with shoes Heart Rate 78 /min BP Systolic 136 mmHg Ra lrg cuff BP Diastolic 72 mmHg Ra lrg cuff BP Systolic Sitting 126 mmHg LA lrg cuff BP Diastolic Sitting 68 mmHg LA lrg cuff BP Systolic Standing 118 mmHg Ra lrg cuff BP Diastolic Standing 64 mmHg Ra lrg cuff O2 % BldC Oximetry 92 % 2L BMI (Body Mass Index) 24.2 kg/m2 Ejection Fraction 55% - 60% echo 10/17/16 08/16/2016 Height 71 inches 5'11" Weight 170.00 lb reported Heart Rate 60 /min BP Systolic 128 mmHg BP Diastolic 72 mmHg Respiratory Rate 16 /min O2 % BldC Oximetry 93 % 3 liters BMI (Body Mass Index) 23.7 kg/m2 02/14/2016 Height 71 inches 5'11" Weight 167.75 lb Heart Rate 68 /min BP Systolic 132 mmHg BP Diastolic 70 mmHg Respiratory Rate 16 /min O2 % BldC Oximetry 98 % 2 Liters BMI (Body Mass Index) 23.4 kg/m2 11/14/2015 Height 71 inches 5'11" Weight 167.75 lb Heart Rate 64 /min BP Systolic 118 mmHg BP Diastolic 52 mmHg Respiratory Rate 16 /min O2 % BldC Oximetry 98 % BMI (Body Mass Index) 23.4 kg/m2 10/28/2015 Height 71 inches 5'11" Weight 167.75 lb w/shoes Heart Rate 72 /min BP Systolic Sitting 110 mmHg Ra reg cuff BP Diastolic Sitting 60 mmHg Ra reg cuff BP Systolic Standing 110 mmHg Ra reg cuff BP Diastolic Standing 54 mmHg Ra reg cuff BMI (Body Mass Index) 23.4 kg/m2 Ejection Fraction 60-65 echo 10/07/15 10/10/2015 Height 71 inches 5'11" Weight 170.00 lb Heart Rate 96 /min BP Systolic Sitting 124 mmHg BP Diastolic Sitting 66 mmHg Respiratory Rate 18 /min O2 % BldC Oximetry 96 % On 2 LPM Via N/C BMI (Body Mass Index) 23.7 kg/m2 09/08/2015 Height 71 inches 5'11" Weight 170.00 lb reported BP Systolic 118 mmHg BP Diastolic 56 mmHg Respiratory Rate 14 /min O2 % BldC Oximetry 93 % BMI (Body Mass Index) 23.7 kg/m2 04/27/2015 Height 71 inches 5'11" Weight 176.00 lb with light shoes crocs Heart Rate 68 /min BP Systolic Sitting 100 mmHg Ra reg cuff BP Diastolic Sitting 60 mmHg Ra reg cuff BP Systolic Standing 82 mmHg Ra reg cuff BP Diastolic Standing 50 mmHg Ra reg cuff Respiratory Rate 16 /min BMI (Body Mass Index) 24.5 kg/m2 Ejection Fraction 55-60% date 04/26/2015 Heart Rate 78 /min BP Systolic 130 mmHg BP Diastolic 88 mmHg Respiratory Rate 14 /min O2 % BldC Oximetry 97 % 03/14/2015 Height 71 inches 5'11" Weight 167.50 lb Heart Rate 71 /min BP Systolic 108 mmHg BP Diastolic 80 mmHg Respiratory Rate 14 /min O2 % BldC Oximetry 94 % BMI (Body Mass Index) 23.4 kg/m2 02/10/2015 Height 71 inches 5'11" Weight 167.12 lb Heart Rate 86 /min BP Systolic Sitting 134 mmHg BP Diastolic Sitting 72 mmHg Respiratory Rate 20 /min Body Temperature 98.3 F O2 % BldC Oximetry 98 % BMI (Body Mass Index) 23.3 kg/m2 06/14/2014 Height 71 inches 5'11" Weight 164.00 lb with shoes Heart Rate 64 /min BP Systolic Sitting 130 mmHg Ra reg cuff BP Diastolic Sitting 80 mmHg Ra reg cuff BP Systolic Standing 116 mmHg Ra reg cuff BP Diastolic Standing 76 mmHg Ra reg cuff Respiratory Rate 16 /min BMI (Body Mass Index) 22.9 kg/m2 05/14/2014 Height 71 inches 5'11" Weight 162.25 lb Heart Rate 78 /min reg BP Systolic 88 mmHg LA reg BP Diastolic 56 mmHg LA reg BP Systolic Sitting 86 mmHg Ra reg BP Diastolic Sitting 56 mmHg Ra reg Respiratory Rate 14 /min BMI (Body Mass Index) 22.6 kg/m2 Results Test Date Test Result H/L Range Note Laboratory test 07/22/2015 Sputum Culture & SEE RESULT BELOW 1 finding Sensitiv Acid Fast Stain - Direct SEE RESULT BELOW 2 Mycobacterial Culture See Comment 3 Laboratory test finding 07/22/2015 Sputum Culture & SEE RESULT BELOW 4 Sensitiv Acid Fast Stain - Direct SEE RESULT BELOW 5 Order 04/25/2015 Nuclear Lexiscan Myoview <pending> 1 SEE RESULT BELOW Name: JUSTINEKARSON : [address]: Danie Mejia MD Acct: [id number] Unit: [id number] AGE: 69 Location: OR Re07/22/15 SEX: M Status: REG SDC SPEC: [id number] ARTURO: 07/22/15 [facility] DR: aDnie Mejia MD REQ: [id number] RECD: 07/22/15 STATUS: DENISE LEMUS DR: Danie Viera MD _ SOURCE: SPUTUM SPDESC: ORDERED: Sputum Cult/GS Procedure Result Reported Site Sputum Smear Final 07/22/15- 1545 ML 2+ Neutrophils 2+ Nucleated Cells No Organisms Seen Sputum Culture Final 07/25/15- 1022 ML Organism 1 NORMAL JUAN Quantity 2+ * ML - MAIN LAB ([facility]) . END OF REPORT * ML=Testing performed at Main Lab DEPARTMENT OF PATHOLOGY, [address] [place] [address] Caden James M.D. Director [facility] # [id number] 2 SEE RESULT BELOW Name: KARSON SALGUERO : [address]: Danie Mejia MD Acct: [id number] Unit: [id number] AGE: 69 Location: OR Re07/22/15 SEX: M Status: REG SDC SPEC: [id number] ARTURO: 07/22/15-1403 [facility] DR: Danie Mejia MD REQ: [id number] RECD: 07/22/15 STATUS: DENISE LEMUS DR: Danie Viera MD _ SOURCE: RESP SPDESC:BRONCHIAL ORDERED: Acid Fast Stain Procedure Result Verified Site Acid Fast Stain - Direct Final 07/22/15- 1552 ML AFB Smear Result No Acid Fast Bacillus Present (Negative) Preparation By Direct Smear Due to limited sensitivity of the smear, results should be used as an adjunct in evaluating the patient's status and cultural examination is highly recommended for diagnosis. * ML - MAIN LAB ([facility]) . END OF REPORT * ML=Testing performed at Main Lab DEPARTMENT OF PATHOLOGY, [address] [place] [address] Caden James M.D. Director [facility] # [id number] 3 SOURCE: SPUTUM MYCOBACTERIAL CULTURE FINAL No Growth after 60 days of incubation. Test Performed by: [address] [address] Manager Social Work: Wilson Palmer II, M.D., Ph.D. 4 SEE RESULT BELOW Name: KARSON SALGUERO : [address]: Danie Mejia MD Acct: [id number] Unit: [id number] AGE: 69 Location: OR Re07/22/15 SEX: M Status: REG SDC SPEC: [id number] ARTURO: 07/22/15-1403 [facility] DR: Danie Mejia MD REQ: [id number] RECD: 07/22/15 STATUS: DENISE LEMUS DR: Danie Viera MD _ SOURCE: SPUTUM SPDESC: ORDERED: Sputum Cult/GS Procedure Result Reported Site Sputum Smear Final 07/22/15- 1545 ML 2+ Neutrophils 2+ Nucleated Cells No Organisms Seen Sputum Culture Final 07/25/15- 1022 ML Organism 1 NORMAL JUAN Quantity 2+ * ML - MAIN LAB ([facility]) . END OF REPORT * ML=Testing performed at Main Lab DEPARTMENT OF PATHOLOGY, [address] [place] [address] Caden James M.D. Director [facility] # [id number] 5 SEE RESULT BELOW Name: KARSON SALGUERO : [address]: Danie Mejia MD Acct: [id number] Unit: [id number] AGE: 69 Location: OR Re07/22/15 SEX: M Status: REG SDC SPEC: [id number] ARTURO: 07/22/15-1403 [facility] DR: Danie Mejia MD REQ: [id number] RECD: 07/22/15 STATUS: DENISE LEMUS DR: Danie Viera MD _ SOURCE: RESP SPDESC:BRONCHIAL ORDERED: Acid Fast Stain Procedure Result Verified Site Acid Fast Stain - Direct Final 07/22/15- 1552 ML AFB Smear Result No Acid Fast Bacillus Present (Negative) Preparation By Direct Smear Due to limited sensitivity of the smear, results should be used as an adjunct in evaluating the patient's status and cultural examination is highly recommended for diagnosis. * ML - MAIN LAB ([facility]) . END OF REPORT * ML=Testing performed at Main Lab DEPARTMENT OF PATHOLOGY, [address] [place] [address] Caden James M.D. Director [facility] # [id number] Procedures Date CPT Code Description Status 08/13/2017 24418 Color Flow Doppler/Interp & Reprt Completed 08/13/2017 02049 Pulse Wave/Continuous-Interp.RPT Completed 08/13/2017 32736 Echocardiography, Transesophageal, Real Time W/Image 2D Completed W/W/O M-M 07/15/2017 74854 EKG Tracing & Interpretation Completed 05/27/2017 68568 ECHO Transthorasic Realtime 2D W Doppler & Color Completed Flow Hosp 11/21/2016 86297 EKG Tracing & Interpretation Completed 10/17/2016 83188 ECHO Transthoracic, Real-Time 2D With Doppler And Color Completed Flow 10/07/2015 10085 ECHO Transthoracic, Real-Time 2D With Doppler And Color Completed Flow 07/27/2015 96761 Thoracentesis W/ Img Guidance Completed 07/20/2015 50573 Thoracentesis W/ Img Guidance Completed 07/19/2015 46831 ECHO Transthorasic Realtime 2D W Doppler & Color Completed Flow Hosp 07/08/2015 55342 EKG, Interpretation Only Completed 07/03/2015 32778 EKG, Interpretation Only Completed 04/27/2015 43599 EKG Tracing & Interpretation Completed 04/25/2015 32857 Stress Test Completed 04/25/2015 26021 Myocardial Perfusion Imaging Tomographic (Spect) Completed Multiple Studies 02/21/2015 15902 Pulmonary Stress Test Simple Completed 01/20/2015 76261 Pulmonary Function><Bronchodil Completed 05/27/2014 70088 ECHO Transthoracic, Real-Time 2D With Doppler And Color Completed Flow 05/14/2014 27020 EKG Tracing & Interpretation Completed 04/16/2014 14105 EKG, Interpretation Only Completed Encounters Type Date Location Provider CPT E/M Dx Office Visit 08/19/2017 [facility] [place] [address] J44.9 1:30p [facility] Office Visit 07/15/2017 [facility] Seth York, 44505 I63.9 10:00a Leonel, [facility] Office Visit 06/21/2017 [facility] Mary Kay Kauffman, 38861 I63.8 11:30a Of J[facility] Castaneda Office Visit 05/27/2017 [facility] Farhan [place], 59521 I63.8 4:22p M.D. Office Visit 05/27/2017 [facility], Kely Bill, 00454 I63.8 8:16p Hospitalists M.D. N18.2 G89.29 I10 Office Visit 05/26/2017 4:22p [facility] [address] I63.8 Office Visit 05/26/2017 8:15p [facility], Wade Antonio, 73633 I63.8 Hospitalists N18.2 G89.29 I10 Office Visit 05/25/2017 4:21p [facility] Mary Kay Kauffman, 14079 I63.8 M.D. Office Visit 05/25/2017 8:15p [facility], Adenike Marr, 08561 G45.9 Hospitalists M.DAjay G89.29 N18.9 I10 Office Visit 02/14/2017 1:00p [facility] [place] [address] J44.9 Services [facility] [employer] J90 Office Visit 11/21/2016 10:45a [facility] Seth York, 20368 I77.810 Leonel, [facility] R94.31 Office Visit 08/16/2016 1:00p [facility] [place] [address] J44.9 Services [facility] [employer] J90 Office Visit 02/14/2016 2:30p [facility] [place] [address] J44.9 Services [facility] [employer] J90 Office Visit 11/14/2015 3:30p [facility] [place] [address] J44.9 [facility] [employer] Office Visit 10/28/2015 1:15p [facility] Seth York 21818 I77.810 MCatherine, [facility] Office Visit 10/10/2015 12:00p [facility] [place] [address] J90 [facility] [employer] J44.9 Office Visit 09/08/2015 1:45p [facility] [place] [address] J90 Services [facility] [employer] J44.9 Office Visit 08/07/2015 9:58a [facility] [place] [address] J90 [facility] [employer] [facility] J44.9 J98.11 Office Visit 08/05/2015 9:57a [facility] [place] [address] J90 [facility] [employer] [facility] J44.9 J98.11 Office Visit 08/04/2015 12:30p [facility] [place] [address] J90 Services [facility] [employer] [facility] J44.9 J98.11 Office Visit 08/03/2015 9:48a [facility] Adenike Marr M.D. 58270 J90 Hospitalists J44.9 F43.10 Z98.89 Office Visit 08/03/2015 3:52p [facility] [place] [address] J90 Services [facility] [employer] [facility] J98.11 J44.9 Office Visit 08/01/2015 3:51p [facility] [place] [address] J90 Services [facility] [employer] J98.11 J44.9 Office Visit 07/27/2015 9:47a [facility] Kely Khan, 49493 J90 Hospitalists Leonel J44.9 F43.10 Z98.89 Office Visit 07/26/2015 2:52p [facility] Yoon Brooks, KENYA 07246 R06.02 Assoc,pc Hospitalists J44.9 F43.10 J90 Office Visit 07/26/2015 11:51a [facility] [place] [address] J90 [facility] [employer] [facility] J98.11 Office Visit 07/25/2015 2:51p [facility] Yoon Brooks, KENYA 97915 R06.02 Assoc,pc Hospitalists J44.9 J90 F43.10 Office Visit 07/24/2015 2:50p [facility] Yoon Brooks, KENYA 79799 R06.02 Assoc,pc Hospitalists J44.9 J90 F43.10 Office Visit 07/23/2015 2:50p [facility] Tara Yoon, 59445 R06.02 Assoc,pc N.P. Hospitalists J44.9 F43.10 J90 Office Visit 07/21/2015 11:40a [facility] Danie Mejia M.D. 56117 J90 Services [facility] J98.11 Office Visit 07/20/2015 2:49p [facility] Mayela Ewing, N.P. 50662 R06.02 Hospitalists J44.9 F43.10 J90 Office Visit 07/19/2015 2:48p [facility] Aziza King, N.P. 83125 R06.02 Hospitalists J44.9 F43.10 I50.9 Office Visit 07/12/2015 10:22a [facility] [address] J44.9 Hospitalists R06.00 F43.10 E87.70 Office Visit 07/11/2015 10:21a [facility], Rogelio Gomez, 24825 J44.9 Hospitalists M.DAjay F43.10 Office Visit 07/10/2015 10:20a [facility], Rogelio Gomez, 49359 R06.00 Hospitalists M.D. F43.10 J44.9 Office Visit 07/09/2015 10:20a [facility], Rogelio Gomez, 68088 R06.00 Hospitalists M.D. F43.10 J44.9 Office Visit 07/08/2015 10:19a [facility], Lefty Gardiner M.D. 41012 R06.00 Hospitalists J44.9 F43.10 Office Visit 04/27/2015 1:00p [facility] Seth York, 29415 786.09 Jony Castaneda, [facility] Office Visit 04/26/2015 11:30a [facility] [place] [address] 496 Services [facility] 786.09 530.81 799.02 Office Visit 03/14/2015 10:30a [facility] [place] [address] 496 [facility] 530.81 Office Visit 02/10/2015 2:00p [facility] [place] [address] 786.05 Services [facility] 496 786.09 530.81 Office Visit 06/14/2014 10:45a [facility] Sethxavier York, 13643 458.0 [facility] Leonel, [facility] Office Visit 05/14/2014 12:00p [facility] Seth York, 55992 794.31 Leonel, [facility] 458.0 786.09 780.79 Office Visit 04/19/2014 3:30p [facility], Mayela Ewing, N.P. 03895 496 Hospitalists 441.4 562.11 530.81 Office Visit 04/18/2014 3:29p [facility], Raheel Angelo, 67696 496 Hospitalists N.P. 441.4 562.11 724.02 Office Visit 04/17/2014 3:28p [facility], Raheel [place], 92128 496 Hospitalists N.P. 441.4 562.11 530.81 Office Visit 04/16/2014 3:26p [facility], Lefty Gardinre M.D. 41528 562.11 Hospitalists 496 441.4 530.81 Office Visit 03/21/2012 9:00a [facility] Donta Pro, 78398 724.02 [facility] Leonel 728.87 302.70 Plan of Care Future Appointment(s):02/17/2018 10:30 am - Susanna Valencia MD at [facility]09/27/2017 11:00 am - Seth York M.D., [facility] at [facility]09/17/2017 1:00 pm - Silver Donnelly M.D. at [facility] 9:00 am - Silver Donnelly M.D. at [facility]09/20/2017 2:30 pm - Mary Kay Kauffman M.D. at [facility]08/19/2017 - Susanna Valencia MDJ44.9 Chronic obstructive pulmonary disease, unspecifiedComments:Check pulse oximetry daily Wear 2L continuouslyFollow up:6 months
[2017-09-07 11:54] LABS: Urine Appearance Cloudy; Urine Blood 3+ (Negative); Urine Color Yellow; Urine Ketones Negative (Negative); Urine Protein 2+(100 mg/dL) (Negative); Urine Specific Gravity 1.011 (1.010-1.030); Urine Urobilinogen Negative (Negative)
[2017-09-07 11:55] LABS: ABS Basophils 0 10^3/ul (0-0.2); ABS Eosinophils 0.2 10^3/ul (0-0.6); ABS Lymphocytes 0.4 10^3/ul (1.0-4.8); ABS Monocytes 0.6 10^3/ul (0-0.8); ABS Neutrophils 3.7 10^3/ul (1.5-7.7); ABS Nucleated RBC 0 10^3/ul; Eosinophil % 3.5 % (0-6); Hematocrit 30 % (42-52); Hemoglobin 9.9 g/dl (14.0-18.0); Lymphocyte % 7.5 % (25-47); Mean Corpuscular HGB Conc 34 g/dl (31-36); Mean Corpuscular Hemoglobin 31 pg (27-31); Mean Corpuscular Volume 93 fL (80-94); Mean Platelet Volume 10 um3 (7.4-10.4); Nucleated Red Blood Cells % 0.1; Platelet Count 123 10^3/ul (150-450); Red Blood Count 3.16 10^6/ul (4.0-5.4); Red Cell Distribution Width 15 % (10.5-15); White Blood Count 4.8 10^3/ul (3.5-10.8)
[2017-09-07 12:03] LABS: INR 1.1 (0.77-1.02)
[2017-09-07 12:17] LABS: EGFR Non-African American 55.2 (>60)
--- NOTE | 2017-09-07 13:33 | RAD ---
INDICATION: Cough and hemoptysis. COMPARISON: Comparison is made with a prior CT of the chest from July 20, 2015 and a prior chest x-ray study from May 24, 2017. TECHNIQUE: A CT scan of the chest was performed without intravenous contrast. Contiguous axial sections were obtained from the lung apices through the lung bases. Images were reconstructed in the coronal and sagittal planes. FINDINGS: There is moderate centrilobular emphysematous change present. There is elevation of the right hemidiaphragm which is unchanged. There is a small infiltrate in the posterior aspect of the right upper lobe. Within the region of infiltrate there is a lobulated nodular density measuring 1.9 x 1.3 cm in size. There is a small nodular density in the right upper lobe on image #19 measuring 0.6 cm in size which is unchanged from the prior study. There is also a small nodular density in the region of the right middle lobe measuring 0.7 cm in size which is unchanged from the prior study. No significant enlarged mediastinal lymph nodes are seen The heart appears mildly enlarged. No pericardial effusion is present. 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 The abdominal portion of the aneurysm measures up to 5.3 cm in transverse dimension and previously measured 4.6 cm in transverse dimension. Images of the upper abdomen demonstrate a small 4 mm nonobstructing right renal calculus. There are bilateral renal cysts. No significant focal osseous abnormality is seen. The results of this exam were called to referring clinician. IMPRESSION: 1. 1.9 CM LOBULATED MASS IN THE RIGHT UPPER LOBE WITH SMALL ADJACENT INFILTRATE SUSPICIOUS FOR A LUNG CARCINOMA LESS LIKELY INFLAMMATORY PROCESS. RECOMMEND A FOLLOW-UP PET/CT STUDY FOR FURTHER EVALUATION. 2. SMALL STABLE PULMONARY NODULES NOTED. 3. MODERATE CENTRILOBULAR EMPHYSEMATOUS CHANGE. 4. THORACOABDOMINAL AORTIC ANEURYSM SLIGHTLY INCREASED IN SIZE. 5. NONOBSTRUCTING RIGHT RENAL CALCULUS.
[2017-09-07] MEDS ORDERED: NS 0.9% 1000 ML* 1,000 ML IV ONE (15:26)
[2017-09-07] MEDS ORDERED: cefTRIAXone(*) 1 GM in NS 0.9% 50 ML* 50 ML IVPB ONE (15:27)
[2017-09-07] MEDS ORDERED: NS 0.9% 50 ML* 100 ML ONE (16:05)
[2017-09-07] MEDS ORDERED: Acetaminoph/Cod 120/12 mg LIQ* 5 ML UDC PO ONE (16:16)
[2017-09-07] MEDS ORDERED: cefTRIAXone(*) 1 GM ADVAN/BAG ONE (16:17)
[2017-09-07] MEDS ORDERED: Levalbuterol 1.25MG/0.5ML NEB INH ONE (18:44)
[2017-09-07] MEDS ORDERED: oxyCODONE SR TAB(*) 15 MG TAB.SR PO ONE (19:23)
--- NOTE | 2017-09-07 19:51 | ED ---
Alan Oscar Natalie, scribed for Omar Goode MD on 09/07/17 at 1143 . Respiratory - HPI Summary HPI Summary: The pt is a 72 y/o M presenting to the ED accompanied by his c/o blood in sputum starting last night and hematuria starting this morning. He has been coughing for about a week, but blood did not start until last night. The blood is described as streaky. The pain is rated 5/10. The pain is aggravated by deep breaths and is alleviated to some relief by Xopenex treatments. Pt additionally c/o SOB. Pt denies fever, unusual nausea, and vomiting. He has had blood in sputum with episodes of bronchitis, and hes had hematuria with UTIs in the past. The pt uses 2L O2 at home. He has had eight back surgeries for congenital spinal stenosis and AAA in June 2017. He had a CVA in May 2017, and had a brain CT on 09/02/17, awaiting results. The CVA caused peripheral vision change. He has SHx of smoking, stopped in October 2013. - History of Current Complaint Chief Complaint: EDUpperRespComplaint Stated Complaint: COUGHING UP BLOOD/BLOOD IN URINE Hx Obtained From: Patient Onset/Duration: Sudden Onset, Lasting Hours - started last night, Still Present Initial Severity: Moderate Current Severity: Moderate Pain Intensity: 5 Character: Cough (Productive) Sputum Amount: Moderate Sputum Color: [place]-Tinged Aggravating Factor(s): Deep Breaths Alleviating Factor(s): Other - Xopenex treatment Associated Signs and Symptoms: SOB - Allergy/Home Medications Allergies/Adverse Reactions: Allergies Allergy/AdvReac Type Severity Reaction Status Date / Time Gabapentin Allergy Severe BLADDER Verified 08/12/17 11:24 INCONTINENT, MUSCLE WEAKNESS Bupropion [From Wellbutrin] Allergy Intermediate Anxiety Verified 08/12/17 11:24 Clonidine Allergy Intermediate See Comment Verified 08/12/17 11:24 Alfuzosin [From Uroxatral] Allergy Unknown Verified 08/12/17 15:10 Reaction Details Fentanyl Allergy Unknown Verified 08/12/17 15:20 Reaction Details Morphine Allergy Unknown Verified 08/12/17 15:10 Reaction Details Solifenacin [From Vesicare] Allergy See Comment Verified 08/12/17 11:24 Zonisamide [From Zonegran] Allergy Hallucinati Verified 09/07/17 11:00 ons latex Allergy Intermediate Rash Uncoded 08/12/17 11:24 NSAIDS Allergy Intermediate GI Upset Uncoded 08/12/17 11:24 Home Medications: Home Medications DULoxetine DR LABOY* [Cymbalta CAP*] 30 mg PO DAILY 09/07/17 [History Confirmed ] PMH/Surg Hx/FS Hx/Imm Hx Previously Healthy: No Endocrine/Hematology History: Denies: Hx Diabetes, Hx Anemia, Hx Unexplained Bleeding Cardiovascular History: Reports: Hx Congestive Heart Failure, Hx Hypertension Denies: Hx Aneurysm, Hx Angina, Hx Angioplasty, Hx Auto Implanted Cardiovert Defib, Hx Cardiac Arrest, Hx Cardiomegaly, Hx Congenital Heart Disease, Hx Coronary Artery Disease, Hx Deep Vein Thrombosis, Hx Embolism, Hx Hypercholesterolemia, Hx Hypotension, Hx Pacemaker/ICD, Hx Peripheral Vascular Disease, Hx Rheumatic Fever, Hx Syncope, Hx Valvular Heart Disease, Other Cardiovascular Problems/Disorders Respiratory History: Reports: Hx Chronic Bronchitis, Hx Chronic Obstructive Pulmonary Disease (COPD), Hx Pleural Effusion, Hx Pulmonary Edema, Hx Sleep Apnea Denies: Hx Cystic Fibrosis, Hx Lung Cancer, Hx Pneumonia, Hx Pulmonary Embolism, Hx Seasonal Allergies, Other Respiratory Problems/Disorders GI History: Reports: Hx Gastroesophageal Reflux Disease, Other GI Disorders - ischemic colitis History: Reports: Hx Benign Prostatic Hyperplasia, Hx Renal Disease - cysts, Other Problems/Disorders - kidney cyst, neurogenic bladder Musculoskeletal History: Reports: Hx Back Problems, 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 Denies: Hx Arthritis, Hx Bursitis, Hx Congenital Bone Abnormalities, Hx Fibromyalgia, Hx Gout, Hx Orthopedic Injury, Hx Osteoporosis, Hx Scoliosis, Hx Tendonitis Sensory History: Reports: Hx Contacts or Glasses, Hx Vision Problem, Hx Hearing Aid - [place], Hx Hearing Problem Denies: Hx Cataracts, Hx Eye Injury, Hx Eye Prosthesis, Hx Glaucoma, Hx Legally Blind, Hx Macular Degeneration, Hx Deafness, Other Sensory Impairments Opthamlomology History: Reports: Hx Contacts or Glasses, Hx Vision Problem Denies: Hx Cataracts, Hx Eye Injury, Hx Eye Prosthesis, Hx Glaucoma, Hx Legally Blind, Hx Macular Degeneration, Other Sensory Impairments Neurological History: Denies: Hx Dementia, Hx Developmental Delay, Hx Headaches, Hx Migraine, Hx Nerve Disease, Hx Seizures, Hx Spinal Cord Injury, Hx Transient Ischemic Attacks (TIA), Other Neuro Impairments/Disorders Psychiatric History: Reports: Hx Anxiety, Hx Eating Disorder, Hx Post Traumatic Stress Disorder, Hx Substance Abuse - ETOH, drug Denies: Hx Attention Deficit Hyperactivity Disorder, Hx Depression, Hx Panic Disorder, Hx Inpatient Treatment, Hx Community Mental Health Tx, Hx Schizophrenia, Hx Bipolar Disorder, Hx Suicide Attempt, Hx of Violent Episodes Against Others, Other Psychiatric Issues/Disorders - Cancer History Hx Chemotherapy: No Hx Radiation Therapy: No - Surgical History Surgery Procedure, Year, and Place: cspine x5(1979,1987,1995,1999,2000), lumbar spine x3(1987,1990,2005), stenosis cspine with hardware, AAA repair(2014), R iliac artery aneurysm repair(2014), L femoral endarterectomy(2014), R achilles tendon lengthening(2006), R shoulder (1990) Hx Anesthesia Reactions: No Infectious Disease History: No Infectious Disease History: Denies: Hx Clostridium Difficile, Hx Hepatitis, Hx Human Immunodeficiency Virus (HIV), Hx of Known/Suspected MRSA, Hx Shingles, Hx Tuberculosis, Hx Known/ Suspected VRE, Hx Known/Suspected VRSA, History Other Infectious Disease, Traveled Outside the [place] in Last 30 Days - Family History Known Family History: Positive: Hypertension Negative: Diabetes - Social History Alcohol Use: Rare Substance Use Type: Reports: None Smoking Status (MU): Former Smoker Type: Cigarettes Have You Smoked in the Last Year: No Review of Systems Negative: Fever Positive: Shortness Of Breath, Cough - blood in sputum Positive: Other - normal nausea. Negative: Vomiting Positive: hematuria All Other Systems Reviewed And Are Negative: Yes Physical Exam - Summary Physical Exam Summary: Appearance: appears generally fatigued Skin: Warm, slightly pale Eyes: Normal HENT: Normal, Normal mucous membranes Neck: Supple, nontender Respiratory: Diminished breath sounds bilaterally Cardiovascular: Normal, S1 and S2, No murmurs Abdomen: Soft, nontender, no distension, LLQ abd scar well healed and erythema Bowel: Present Musculoskeletal: Normal, Strength/ROM Intact Neurological: Normal, A&Ox3, compromised peripheral vision at baseline Psychiatric: Normal Triage Information Reviewed: Yes Vital Signs On Initial Exam: Initial Vitals Temp Pulse Resp BP Pulse Ox 99.1 F 86 16 158/63 100 09/07/17 10:10 09/07/17 10:10 09/07/17 10:10 09/07/17 10:10 09/07/17 10:10 Vital Signs Reviewed: Yes Diagnostics - Vital Signs Vital Signs Temp Pulse Resp BP Pulse Ox 09/07/17 10:10 99.1 F 86 16 158/63 100 - Laboratory Lab Results: Lab Results 09/07/17 09/07/17 09/07/17 Range/Units 10:35 11:43 11:43 WBC 4.8 (3.5-10.8) 10^3/ul RBC 3.16 L (4.0-5.4) 10^6/ul Hgb 9.9 L (14.0-18.0) g/dl Hct 30 L (42-52) % MCV 93 (80-94) fL MCH 31 (27-31) pg MCHC 34 (31-36) g/dl RDW 15 (10.5-15) % Plt Count 123 L (150-450) 10^3/ul MPV 10 (7.4-10.4) um3 Neut % (Auto) 76.9 (38-83) % Lymph % (Auto) 7.5 L (25-47) % Carson % (Auto) 11.6 H (1-9) % Eos % (Auto) 3.5 (0-6) % Baso % (Auto) 0.5 (0-2) % Absolute Neuts (auto) 3.7 (1.5-7.7) 10^3/ul Absolute Lymphs (auto) 0.4 L (1.0-4.8) 10^3/ul Absolute Monos (auto) 0.6 (0-0.8) 10^3/ul Absolute Eos (auto) 0.2 (0-0.6) 10^3/ul Absolute Basos (auto) 0 (0-0.2) 10^3/ul Absolute Nucleated RBC 0 10^3/ul Nucleated RBC % 0.1 INR (Anticoag Therapy) (0.77-1.02) APTT (26.0-36.3) seconds Sodium 136 (133-145) mmol/L Potassium 4.9 (3.5-5.0) mmol/L Chloride 99 L (101-111) mmol/L Carbon Dioxide 34 H (22-32) mmol/L Anion Gap 3 (2-11) mmol/L BUN 34 H (6-24) mg/dL Creatinine 1.28 H (0.67-1.17) mg/dL Est GFR ( Amer) 71.0 (>60) Est GFR (Non-Af Amer) 55.2 (>60) BUN/Creatinine Ratio 26.6 H (8-20) Glucose 101 H (70-100) mg/dL Lactic Acid (0.5-2.0) mmol/L Calcium 9.4 (8.6-10.3) mg/dL Total Bilirubin 0.50 (0.2-1.0) mg/dL AST 23 (13-39) U/L ALT 13 (7-52) U/L Alkaline Phosphatase 59 (34-104) U/L Troponin I 0.02 (<0.04) ng/mL B-Natriuretic Peptide ( - 100) pg/mL Total Protein 7.1 (6.4-8.9) g/dL Albumin 4.1 (3.2-5.2) g/dL Globulin 3.0 (2-4) g/dL Albumin/Globulin Ratio 1.4 (1-3) Urine Color Yellow Urine Appearance Cloudy Urine pH 6.0 (5-9) Ur Specific [place] 1.011 (1.010-1.030) Urine Protein 2+(100 mg/dl) H (Negative) Urine Ketones Negative (Negative) Urine Blood 3+ H (Negative) Urine Nitrate Negative (Negative) Urine Bilirubin Negative (Negative) Urine Urobilinogen Negative (Negative) Ur Leukocyte Esterase Trace H (Negative) Urine WBC (Auto) 3+(>20/hpf) H (Absent) Urine RBC (Auto) 3+(>10/hpf) H (Absent) Urine Bacteria Absent (Absent) Urine Glucose Negative (Negative) 09/07/17 09/07/17 09/07/17 Range/Units 11:43 11:43 11:43 WBC (3.5-10.8) 10^3/ul RBC (4.0-5.4) 10^6/ul Hgb (14.0-18.0) g/dl Hct (42-52) % MCV (80-94) fL MCH (27-31) pg MCHC (31-36) g/dl RDW (10.5-15) % Plt Count (150-450) 10^3/ul MPV (7.4-10.4) um3 Neut % (Auto) (38-83) % Lymph % (Auto) (25-47) % Carson % (Auto) (1-9) % Eos % (Auto) (0-6) % Baso % (Auto) (0-2) % Absolute Neuts (auto) (1.5-7.7) 10^3/ul Absolute Lymphs (auto) (1.0-4.8) 10^3/ul Absolute Monos (auto) (0-0.8) 10^3/ul Absolute Eos (auto) (0-0.6) 10^3/ul Absolute Basos (auto) (0-0.2) 10^3/ul Absolute Nucleated RBC 10^3/ul Nucleated RBC % INR (Anticoag Therapy) 1.10 H (0.77-1.02) APTT 31.1 (26.0-36.3) seconds Sodium (133-145) mmol/L Potassium (3.5-5.0) mmol/L Chloride (101-111) mmol/L Carbon Dioxide (22-32) mmol/L Anion Gap (2-11) mmol/L BUN (6-24) mg/dL Creatinine (0.67-1.17) mg/dL Est GFR ( Amer) (>60) Est GFR (Non-Af Amer) (>60) BUN/Creatinine Ratio (8-20) Glucose (70-100) mg/dL Lactic Acid 0.6 (0.5-2.0) mmol/L Calcium (8.6-10.3) mg/dL Total Bilirubin (0.2-1.0) mg/dL AST (13-39) U/L ALT (7-52) U/L Alkaline Phosphatase (34-104) U/L Troponin I (<0.04) ng/mL B-Natriuretic Peptide 409 H ( - 100) pg/mL Total Protein (6.4-8.9) g/dL Albumin (3.2-5.2) g/dL Globulin (2-4) g/dL Albumin/Globulin Ratio (1-3) Urine Color Urine Appearance Urine pH (5-9) Ur Specific [place] (1.010-1.030) Urine Protein (Negative) Urine Ketones (Negative) Urine Blood (Negative) Urine Nitrate (Negative) Urine Bilirubin (Negative) Urine Urobilinogen (Negative) Ur Leukocyte Esterase (Negative) Urine WBC (Auto) (Absent) Urine RBC (Auto) (Absent) Urine Bacteria (Absent) Urine Glucose (Negative) Result Diagrams: 09/07/17 11:43 09/07/17 11:43 Lab Statement: Any lab studies that have been ordered have been reviewed, and results considered in the medical decision making process. - CT CT Chest CT Interpretation: Positive (See Comments) - 1. 1.9 cm lobulated mass in the right upper lobe with small adjacent infiltrate suspicious for a lung carcinoma less likely inflammatory process. Recommend a follow-up pet/CT study for further evaluation. 2. Small stable pulmonary nodules as noted. 3. Moderate centrilobular emphysematous change. 4. Thoracoabdominal aortic aneurysm slightly increased in size. 5. Nonobstructing right renal calculus. ED physician has reviewed this report. CT Interpretation Completed By: Radiologist Re-Evaluation - Re-Evaluation First Eval Re-Evaluation Time: 16:15 Disposition - Course Assessment/Plan: pt has persistent hemoptysis in context of new R sided lung mass, admitted for further workup. Pt developed petechial rash lower extrem after medications here in ED, pending repeat CBC for platelet count and rpt coag panel. No acute distress. - Diagnoses Provider Diagnoses: Lung mass, Hemoptysis - Physician Notifications Discussed Care Of Patient With: Frankie Trevino Discharge - Discharge Plan Condition: Stable Disposition: ADMITTED TO [facility] Referrals: Bibi Gamez [Primary Care Provider] - The documentation as recorded by the Alan quiroz Natalie accurately reflects the service I personally performed and the decisions made by , Omar Goode MD.
[2017-09-07 21:34] LABS: ABS Basophils 0 10^3/ul (0-0.2); ABS Eosinophils 0.1 10^3/ul (0-0.6); ABS Lymphocytes 0.5 10^3/ul (1.0-4.8); ABS Monocytes 0.6 10^3/ul (0-0.8); ABS Neutrophils 2.6 10^3/ul (1.5-7.7); ABS Nucleated RBC 0 10^3/ul; Eosinophil % 2.9 % (0-6); Hematocrit 28 % (42-52); Hemoglobin 9.2 g/dl (14.0-18.0); Lymphocyte % 13.9 % (25-47); Mean Corpuscular HGB Conc 33 g/dl (31-36); Mean Corpuscular Hemoglobin 31 pg (27-31); Mean Corpuscular Volume 93 fL (80-94); Mean Platelet Volume 10 um3 (7.4-10.4); Nucleated Red Blood Cells % 0.1; Platelet Count 113 10^3/ul (150-450); Red Blood Count 2.97 10^6/ul (4.0-5.4); Red Cell Distribution Width 15 % (10.5-15); White Blood Count 3.8 10^3/ul (3.5-10.8)
[2017-09-07] MEDS ORDERED: oxyCODONE TAB* 5 MG TAB PO ONE (21:36)
--- NOTE | 2017-09-07 21:36 | HP ---
H&P (Free Text) History and Physical: PCP: SUSANA Cheung @ [place] Pulmonology: Izaiah Valencia MD Cardiology: Katlyn York MD Date/Time: 09/07/2017 214 CC: hemoptysis & hematuria HPI: Mr Salguero is a 72YO male HX hemotysis w/ prior bronchitis last bronchoscopy 2014 who began having hemoptysis again last night without s/s bronchitis. This AM he was noted to have hematuria and so he & his who is a nurse decided to present for evaluation. Mr Salguero is an unreliable historian who had a significant functional decline after AAA repair in 2014 complicated by BLE weakness. During my exam, he barely makes eye contact and allows his to answer the majority of questions. When he will answer a question, his often corrects him. He has had onset of BLE edema & some nausea without emesis, but no chest pain, palpitations, F/C, sweats, congestion, SOB, phlegm production , or other issue. Since arriving to ED he has developed redness of the R hand and L>R foot without warmth, induration, or tenderness. ED evaluation has identified a new RUL mass. Labs are stable excepting a BNP of 400 w/o prior to compare. Vitals are stable. PMedHx AAA s/p repair complicated by permanent functional decline & pleural effusion requiring PleurX catheter COPD 2L NC w/ exertion & nocturnally CKD stg 3 chronic normo- to macrocytic anemia GERD [facility] Ambulatory Orders Esomeprazole(NF) [Nexium(NF)] 40 mg PO DAILY 04/16/14 Montelukast Sodium TAB* [Singulair 10 MG TAB*] 10 mg PO BEDTIME 04/16/14 Oxycontin(*) 15 mg PO BID 02/14/15 oxyCODONE TAB* 15 mg PO TID PRN 02/14/15 ARIPiprazole TAB* 7.5 mg PO DAILY 05/25/17 Alprazolam 0.25 mg PO Q6H PRN 05/25/17 Atorvastatin* [Lipitor 80 MG*] 80 mg PO BEDTIME 05/25/17 Budesonide/Formote 80/4.5(NF) 2 puff INH BID 05/25/17 Levalbuterol HFA INHALER* [Xopenex Hfa Inhaler*] 1 puff INH Q6H PRN 05/25/17 Loratadine 10 mg PO DAILY PRN 05/25/17 Magnesium Oxide 400 mg PO DAILY 05/25/17 Metoprolol Tartrate TAB* 12.5 mg PO BID 05/25/17 Potassium Chlor TAB* [Klor Con ER TAB 10 MEQ*] 10 meq PO DAILY 05/25/17 Aspirin EC Low Dose* [Ecotrin EC Low Dose 81 MG*] 81 mg PO DAILY #30 tab.ec Docusate Sodium [Colace Clear] 50 mg PO BID 08/12/17 Furosemide TAB* [Lasix TAB*] 10 mg PO DAILY 08/12/[address] CAP* [Cymbalta CAP*] 30 mg PO DAILY 09/07/17 Allergies Alfuzosin [From Uroxatral] Allergy (Verified 08/12/17 15:10) Unknown Reaction Details Fentanyl Allergy (Verified 08/12/17 15:20) Unknown Reaction Details Morphine Allergy (Verified 08/12/17 15:10) Unknown Reaction Details Gabapentin Adverse Reaction (Intermediate, Verified 09/07/17 22:01) BLADDER INCONTINENT, MUSCLE WEAKNESS Solifenacin [From Vesicare] Adverse Reaction (Intermediate, Verified 09/07/17 22 :01) Hypotension Zonisamide [From Zonegran] Adverse Reaction (Intermediate, Verified 09/07/17 22: 01) Hallucinations Bupropion [From Wellbutrin] Adverse Reaction (Mild, Verified 09/07/17 22:01) Anxiety pt reports "panic attacks" Clonidine Adverse Reaction (Mild, Verified 09/07/17 22:01) Fatigue latex Allergy (Mild, Uncoded 09/07/17 22:01) Rash "all over" NSAIDS Adverse Reaction (Intermediate, Uncoded 09/07/17 22:01) GI Upset PSurgHx C-spine x3 L-spine x1 AAA repair SocHx: former smoker quit 10/2013 w/ ~50PYHX, no alcohol or recreational drugs; lives with his who is a nurse; uses a cane in-home and walker elsewhere; full codes status FamHx: positive for cancer ROS: as above, otherwise reviewed and all were negative vitals: Vital Signs Temp 37.3 C 09/07/17 10:10 Pulse 94 09/07/17 21:00 Resp 20 09/07/17 21:00 BP 177/90 09/07/17 21:00 Pulse Ox 97 09/07/17 21:00 Intake & Output 09/06/17 09/07/17 09/07/17 23:59 11:59 23:59 Intake Total 1050 Balance 1050 Weight 77.111 kg Intake: IV Fluids 1050 Constitutional: NAD, normally developed, well-nourished elderly white male HEENM: atraumatic; sclera/conjunctiva: anicteric/clear; hearing: clinically intact; oropharynx: clear, mucosa moist Neck: soft tissue: non-tender, well healed posterior C-spine incision; thyroid: normal Pulmonary: clear to auscultation bilaterally, good aeration, no accessory muscle use CV: RR/RR, normal S1S2, no carotid bruit, no jugular venous distention, 2+ B DP/ PT, 1+ BLE edema Abdominal: soft, non-distended, non-tender, no rebound/guarding/rigidity, normoactive bowel sounds, no hepatosplenomegaly or masses, no costovertebral angle tenderness Musculoskeletal: general: grossly intact, non-tender Integumental: BLE with petechial rash and erythema L>R without warmth or induration, similar to R hand Psychiatric orientation: AA&O to PPS affect: calm mood: cooperative eye contact: poor, nearly absent content: minimal responses: slowed insight: poor Testing: Lab Results 09/07/17 09/07/17 09/07/17 Range/Units 10:35 11:43 11:43 WBC 4.8 (3.5-10.8) 10^3/ul RBC 3.16 L (4.0-5.4) 10^6/ul Hgb 9.9 L (14.0-18.0) g/dl Hct 30 L (42-52) % MCV 93 (80-94) fL MCH 31 (27-31) pg MCHC 34 (31-36) g/dl RDW 15 (10.5-15) % Plt Count 123 L (150-450) 10^3/ul MPV 10 (7.4-10.4) um3 Neut % (Auto) 76.9 (38-83) % Lymph % (Auto) 7.5 L (25-47) % [place] % (Auto) 11.6 H (1-9) % Eos % (Auto) 3.5 (0-6) % Baso % (Auto) 0.5 (0-2) % Absolute Neuts (auto) 3.7 (1.5-7.7) 10^3/ul Absolute Lymphs (auto) 0.4 L (1.0-4.8) 10^3/ul Absolute Monos (auto) 0.6 (0-0.8) 10^3/ul Absolute Eos (auto) 0.2 (0-0.6) 10^3/ul Absolute Basos (auto) 0 (0-0.2) 10^3/ul Absolute Nucleated RBC 0 10^3/ul Nucleated RBC % 0.1 INR (Anticoag Therapy) (0.77-1.02) APTT (26.0-36.3) seconds Sodium 136 (133-145) mmol/L Potassium 4.9 (3.5-5.0) mmol/L Chloride 99 L (101-111) mmol/L Carbon Dioxide 34 H (22-32) mmol/L Anion Gap 3 (2-11) mmol/L BUN 34 H (6-24) mg/dL Creatinine 1.28 H (0.67-1.17) mg/dL Est GFR ( Amer) 71.0 (>60) Est GFR (Non-Af Amer) 55.2 (>60) BUN/Creatinine Ratio 26.6 H (8-20) Glucose 101 H (70-100) mg/dL Lactic Acid (0.5-2.0) mmol/L Calcium 9.4 (8.6-10.3) mg/dL Total Bilirubin 0.50 (0.2-1.0) mg/dL AST 23 (13-39) U/L ALT 13 (7-52) U/L Alkaline Phosphatase 59 (34-104) U/L Troponin I 0.02 (<0.04) ng/mL B-Natriuretic Peptide ( - 100) pg/mL Total Protein 7.1 (6.4-8.9) g/dL Albumin 4.1 (3.2-5.2) g/dL Globulin 3.0 (2-4) g/dL Albumin/Globulin Ratio 1.4 (1-3) Urine Color Yellow Urine Appearance Cloudy Urine pH 6.0 (5-9) Ur Specific [place] 1.011 (1.010-1.030) Urine Protein 2+(100 mg/dl) H (Negative) Urine Ketones Negative (Negative) Urine Blood 3+ H (Negative) Urine Nitrate Negative (Negative) Urine Bilirubin Negative (Negative) Urine Urobilinogen Negative (Negative) Ur Leukocyte Esterase Trace H (Negative) Urine WBC (Auto) 3+(>20/hpf) H (Absent) Urine RBC (Auto) 3+(>10/hpf) H (Absent) Urine Bacteria Absent (Absent) Urine Glucose Negative (Negative) 09/07/17 09/07/17 09/07/17 Range/Units 11:43 11:43 11:43 WBC (3.5-10.8) 10^3/ul RBC (4.0-5.4) 10^6/ul Hgb (14.0-18.0) g/dl Hct (42-52) % MCV (80-94) fL MCH (27-31) pg MCHC (31-36) g/dl RDW (10.5-15) % Plt Count (150-450) 10^3/ul MPV (7.4-10.4) um3 Neut % (Auto) (38-83) % Lymph % (Auto) (25-47) % [place] % (Auto) (1-9) % Eos % (Auto) (0-6) % Baso % (Auto) (0-2) % Absolute Neuts (auto) (1.5-7.7) 10^3/ul Absolute Lymphs (auto) (1.0-4.8) 10^3/ul Absolute Monos (auto) (0-0.8) 10^3/ul Absolute Eos (auto) (0-0.6) 10^3/ul Absolute Basos (auto) (0-0.2) 10^3/ul Absolute Nucleated RBC 10^3/ul Nucleated RBC % INR (Anticoag Therapy) 1.10 H (0.77-1.02) APTT 31.1 (26.0-36.3) seconds Sodium (133-145) mmol/L Potassium (3.5-5.0) mmol/L Chloride (101-111) mmol/L Carbon Dioxide (22-32) mmol/L Anion Gap (2-11) mmol/L BUN (6-24) mg/dL Creatinine (0.67-1.17) mg/dL Est GFR ( Amer) (>60) Est GFR (Non-Af Amer) (>60) BUN/Creatinine Ratio (8-20) Glucose (70-100) mg/dL Lactic Acid 0.6 (0.5-2.0) mmol/L Calcium (8.6-10.3) mg/dL Total Bilirubin (0.2-1.0) mg/dL AST (13-39) U/L ALT (7-52) U/L Alkaline Phosphatase (34-104) U/L Troponin I (<0.04) ng/mL B-Natriuretic Peptide 409 H ( - 100) pg/mL Total Protein (6.4-8.9) g/dL Albumin (3.2-5.2) g/dL Globulin (2-4) g/dL Albumin/Globulin Ratio (1-3) Urine Color Urine Appearance Urine pH (5-9) Ur Specific [place] (1.010-1.030) Urine Protein (Negative) Urine Ketones (Negative) Urine Blood (Negative) Urine Nitrate (Negative) Urine Bilirubin (Negative) Urine Urobilinogen (Negative) Ur Leukocyte Esterase (Negative) Urine WBC (Auto) (Absent) Urine RBC (Auto) (Absent) Urine Bacteria (Absent) Urine Glucose (Negative) 09/07/17 09/07/17 Range/Units 20:41 20:41 WBC 3.8 (3.5-10.8) 10^3/ul RBC 2.97 L (4.0-5.4) 10^6/ul Hgb 9.2 L (14.0-18.0) g/dl Hct 28 L (42-52) % MCV 93 (80-94) fL MCH 31 (27-31) pg MCHC 33 (31-36) g/dl RDW 15 (10.5-15) % Plt Count 113 L (150-450) 10^3/ul MPV 10 (7.4-10.4) um3 Neut % (Auto) 67.7 (38-83) % Lymph % (Auto) 13.9 L (25-47) % [place] % (Auto) 14.8 H (1-9) % Eos % (Auto) 2.9 (0-6) % Baso % (Auto) 0.7 (0-2) % Absolute Neuts (auto) 2.6 (1.5-7.7) 10^3/ul Absolute Lymphs (auto) 0.5 L (1.0-4.8) 10^3/ul Absolute Monos (auto) 0.6 (0-0.8) 10^3/ul Absolute Eos (auto) 0.1 (0-0.6) 10^3/ul Absolute Basos (auto) 0 (0-0.2) 10^3/ul Absolute Nucleated RBC 0 10^3/ul Nucleated RBC % 0.1 INR (Anticoag Therapy) 1.10 H (0.77-1.02) APTT 31.8 (26.0-36.3) seconds Sodium (133-145) mmol/L Potassium (3.5-5.0) mmol/L Chloride (101-111) mmol/L Carbon Dioxide (22-32) mmol/L Anion Gap (2-11) mmol/L BUN (6-24) mg/dL Creatinine (0.67-1.17) mg/dL Est GFR ( Amer) (>60) Est GFR (Non-Af Amer) (>60) BUN/Creatinine Ratio (8-20) Glucose (70-100) mg/dL Lactic Acid (0.5-2.0) mmol/L Calcium (8.6-10.3) mg/dL Total Bilirubin (0.2-1.0) mg/dL AST (13-39) U/L ALT (7-52) U/L Alkaline Phosphatase (34-104) U/L Troponin I (<0.04) ng/mL B-Natriuretic Peptide ( - 100) pg/mL Total Protein (6.4-8.9) g/dL Albumin (3.2-5.2) g/dL Globulin (2-4) g/dL Albumin/Globulin Ratio (1-3) Urine Color Urine Appearance Urine pH (5-9) Ur Specific [place] (1.010-1.030) Urine Protein (Negative) Urine Ketones (Negative) Urine Blood (Negative) Urine Nitrate (Negative) Urine Bilirubin (Negative) Urine Urobilinogen (Negative) Ur Leukocyte Esterase (Negative) Urine WBC (Auto) (Absent) Urine RBC (Auto) (Absent) Urine Bacteria (Absent) Urine Glucose (Negative) CT chest WO, personally reviewed: IMPRESSION: 1. 1.9 CM LOBULATED MASS IN THE RIGHT UPPER LOBE WITH SMALL ADJACENT INFILTRATE SUSPICIOUS FOR A LUNG CARCINOMA LESS LIKELY INFLAMMATORY PROCESS. RECOMMEND A FOLLOW-UP PET/CT STUDY FOR FURTHER EVALUATION. 2. SMALL STABLE PULMONARY NODULES NOTED. 3. MODERATE CENTRILOBULAR EMPHYSEMATOUS CHANGE. 4. THORACOABDOMINAL AORTIC ANEURYSM SLIGHTLY INCREASED IN SIZE. 5. NONOBSTRUCTING RIGHT RENAL CALCULUS. ECHO (08/2017): Conclusions: There is normal left ventricular systolic function. The estimated ejection fraction is 60-65%. Global left ventricular wall motion and contractility are within normal limits. The left ventricular chamber size is normal. The left atrium is mildly dilated. The right ventricle is mild to moderately dilated. The right ventricular global systolic function is mildly to moderately reduced. The right atrium is mildly dilated. There is no patent foramen ovale visualized. No intra-cardiac source of embolus is noted on this exam including no intra-cardiac thrombus is seen. Functionally benign heart valves. There is moderate dilatation of the aortic root. There is moderate dilatation of the ascending aorta. Since the prior transthoracic echocardiograms completed 10/17/16 and 05/27/17, there appears to be little change. Results discussed with the patient and his at the procedure. Will continue to follow up with this [facility] patient. Impression: 72M HX COPD, CKD 3 presents with hemoptysis & hematuria w/ new finding of 1.9cm RUL mass DIAGNOSIS & PLAN Primary 1.9cm newly found RUL mass associated with hemoptysis : telemetry : hold aspirin : will treat with levofloxacin given associated infiltrate concerning for early post-obstructive pneumonia : blood & urine CXs : consider pulmonology consult in AM for consideration of bronchoscopy : supportive care hematuria : UA not suspicious for infection : given significant smoking HX concern for bladder primary with lung met : consider urology consult in AM for consideration of cystocopy Secondary AAA s/p repair : no acute issues COPD : continue w/ 2L NC w/ exertion & nocturnally CKD stg 3 : periodic monitoring chronic normo- to macrocytic anemia : monitor periodically GERD : continue esomeprazole Admission Rational: inpatient for evaluation of new RUL mass, hemoptysis, and hematuria; inappropriate for outpatient setting DVTp: SCDs Code Status: full HCP:
[2017-09-07 21:49] LABS: INR 1.1 (0.77-1.02)
[2017-09-07] MEDS ORDERED: Cetirizine* 10 MG TAB PO PRN (21:57)
[2017-09-07] MEDS ORDERED: ALPRAZolam TAB* 0.25 MG PO PRN (21:57)
[2017-09-07] MEDS ORDERED: Acetaminophen TAB* 325 MG PO PRN (23:14)
[2017-09-07] MEDS ORDERED: Ondansetron INJ* 2 MG/ML VIAL IV PRN (23:16)
[2017-09-07] MEDS ORDERED: NS 0.9% 1000 ML* 1,000 ML IV SCH (23:30)
[2017-09-07] MEDS: oxyCODONE TAB* 5 MG TAB PO PRN (23:55)
[2017-09-08] MEDS: Levofloxacin 500 MG IVPREMIX(* 500 MG/100 ML BAG IVPB SCH ×2 (00:17→22:31)
[2017-09-08] MEDS: oxyCODONE SR TAB(*) 15 MG TAB.SR PO SCH ×3 (04:12→21:32)
[2017-09-08] MEDS: Levalbuterol HFA INHALER* 1 PUFF MDI INH PRN ×2 (04:23→19:23)
[2017-09-08 06:55] LABS: EGFR Non-African American 45.7 (>60)
[2017-09-08] MEDS: Mometasone/Formoter 100/5 MDI INH SCH ×2 (08:20→19:58)
[2017-09-08] MEDS ORDERED: DOCUSATE SODIUM 50 MG PO SCH (09:00)
[2017-09-08] MEDS ORDERED: Metoprolol Tartrate TAB* 25 MG PO SCH (09:00)
[2017-09-08] MEDS ORDERED: Omeprazole CAP* 20 MG PO SCH (09:00)
[2017-09-08] MEDS ORDERED: Furosemide TAB* 20 MG PO SCH (09:00)
[2017-09-08] MEDS: Magnesium Oxide TAB* 400 MG PO SCH (09:49)
[2017-09-08] MEDS: Docusate CAP* 100 MG PO SCH ×2 (09:49→21:32)
[2017-09-08] MEDS: DULoxetine DR CAP* 30 MG CAP.DR PO SCH (09:49)
[2017-09-08] MEDS: Potassium Chlor TAB* 10 MEQ TAB.ER PO SCH (09:50)
[2017-09-08] MEDS ORDERED: Magnesium Sulfate 1 GM IV* 1 GM/100 ML BAG IV ONE (10:08)
--- NOTE | 2017-09-08 10:13 | PN ---
Subjective Date of Service: 09/08/17 Interval History: Pt had been more tired x 2-3 weeks. Ambulates with a cane at home. Uses 2 L od 02 at home. Has chronic cough and x 2 days prior to admission had been coughing up 2-3 spoonfuls of dark blood/day.Also noted hematuria, but that resolved today Objective Active Medications: Acetaminophen (Tylenol Tab*) 650 mg PO Q6H PRN PRN Reason: FEVER/PAIN Alprazolam (Xanax Tab*) 0.25 mg PO Q6H PRN PRN Reason: AGITATION/ANXIETY Aripiprazole (Abilify Tab*) 7.5 mg PO DAILY [facility] Atorvastatin Calcium (Lipitor*) 80 mg PO BEDTIME PEE Cetirizine HCl (Zyrtec*) 10 mg PO DAILY PRN PRN Reason: Allergy Symptoms Docusate Sodium (Colace Cap*) 200 mg PO BID [facility] Last Admin: 09/08/17 09:49 Dose: 200 mg Duloxetine HCl (Cymbalta Cap*) 30 mg PO DAILY [facility] Last Admin: 09/08/17 09:49 Dose: 30 mg Levofloxacin/Dextrose (Levaquin 500 Mg Ivpremix(*)) 500 mg in 100 mls @ 100 mls /hr IVPB Q24H [facility] Last Admin: 09/08/17 00:17 Dose: 100 mls/hr Magnesium Sulfate/Dextrose (Magnesium Sulfate 1 Gm Iv*) 1 gm in 100 mls @ 200 mls/hr IV ONCE ONE Stop: 09/08/17 10:37 Levalbuterol HCl (Xopenex Hfa Inhaler*) 1 puff INH Q6H PRN PRN Reason: SOB/WHEEZING Last Admin: 09/08/17 04:23 Dose: 1 puff Magnesium Oxide (Magox 400 Tab*) 400 mg PO DAILY [facility] Last Admin: 09/08/17 09:49 Dose: 400 mg Metoprolol Tartrate (Lopressor Tab*) 25 mg PO BID [facility] Mometasone Furoate/Formoterol Fumar (Dulera 100/5 Mdi*) 2 puff INH BID [facility] Last Admin: 09/08/17 08:20 Dose: 2 puff Montelukast Sodium (Singulair Tab*) 10 mg PO BEDTIME PEE Omeprazole (Prilosec Cap*) 20 mg PO DAILY [facility] PRN Reason: Protocol Ondansetron HCl (Zofran Inj*) 4 mg IV Q6H PRN PRN Reason: NAUSEA Oxycodone HCl (Roxycodone Tab*) 15 mg PO TID PRN PRN Reason: PAIN Last Admin: 09/07/17 23:55 Dose: 15 mg Oxycodone HCl (Oxycontin(*)) 15 mg PO BID [facility] Last Admin: 09/08/17 09:53 Dose: Not Given Potassium Chloride (Klor Con Er Tab*) 10 meq PO DAILY [facility] Last Admin: 09/08/17 09:50 Dose: 10 meq Vital Signs - 8 hr 09/08/17 09/08/17 09/08/17 02:23 04:12 04:13 Temperature Pulse Rate Respiratory 22 20 Rate Blood Pressure (mmHg) O2 Sat by Pulse 96 Oximetry 09/08/17 09/08/17 09/08/17 04:21 07:57 07:58 Temperature 97.7 F 98.3 F Pulse Rate 88 83 Respiratory 24 26 Rate Blood Pressure 130/52 176/92 (mmHg) O2 Sat by Pulse 97 100 Oximetry 09/08/17 08:23 Temperature Pulse Rate 87 Respiratory 16 Rate Blood Pressure (mmHg) O2 Sat by Pulse 98 Oximetry Oxygen Devices in Use Now: Nasal Cannula - at 2L Appearance: 72 yo M in nAD, aAOx3 Eyes: No Scleral Icterus, PERRLA Ears/Nose/Mouth/Throat: NL Teeth, Lips, Gums, Mucous Membranes Moist Neck: NL Appearance and Movements; NL JVP, Trachea Midline Respiratory: Symmetrical Chest Expansion and Respiratory Effort, - - coarse breath sounds at b/l bases Cardiovascular: NL Sounds; No Murmurs; No JVD, RRR Abdominal: NL Sounds; No Tenderness; No Distention, No Hepatosplenomegaly Lymphatic: No Cervical Adenopathy Extremities: No Edema, No Clubbing, Cyanosis Skin: No Rash or Ulcers, No Nodules or Sclerosis Neurological: Alert and Oriented x 3, - - b/l LE's at 4+/5 Result Diagrams: 09/07/17 20:41 09/08/17 05:33 Additional Lab and Data: Lab Results 09/07/17 09/07/17 09/07/17 Range/Units 10:35 11:43 11:43 WBC 4.8 (3.5-10.8) 10^3/ul RBC 3.16 L (4.0-5.4) 10^6/ul Hgb 9.9 L (14.0-18.0) g/dl Hct 30 L (42-52) % MCV 93 (80-94) fL MCH 31 (27-31) pg MCHC 34 (31-36) g/dl RDW 15 (10.5-15) % Plt Count 123 L (150-450) 10^3/ul MPV 10 (7.4-10.4) um3 Neut % (Auto) 76.9 (38-83) % Lymph % (Auto) 7.5 L (25-47) % [place] % (Auto) 11.6 H (1-9) % Eos % (Auto) 3.5 (0-6) % Baso % (Auto) 0.5 (0-2) % Absolute Neuts (auto) 3.7 (1.5-7.7) 10^3/ul Absolute Lymphs (auto) 0.4 L (1.0-4.8) 10^3/ul Absolute Monos (auto) 0.6 (0-0.8) 10^3/ul Absolute Eos (auto) 0.2 (0-0.6) 10^3/ul Absolute Basos (auto) 0 (0-0.2) 10^3/ul Absolute Nucleated RBC 0 10^3/ul Nucleated RBC % 0.1 INR (Anticoag Therapy) (0.77-1.02) APTT (26.0-36.3) seconds Sodium 136 (133-145) mmol/L Potassium 4.9 (3.5-5.0) mmol/L Chloride 99 L (101-111) mmol/L Carbon Dioxide 34 H (22-32) mmol/L Anion Gap 3 (2-11) mmol/L BUN 34 H (6-24) mg/dL Creatinine 1.28 H (0.67-1.17) mg/dL Est GFR ( Amer) 71.0 (>60) Est GFR (Non-Af Amer) 55.2 (>60) BUN/Creatinine Ratio 26.6 H (8-20) Glucose 101 H (70-100) mg/dL Lactic Acid (0.5-2.0) mmol/L Calcium 9.4 (8.6-10.3) mg/dL Total Bilirubin 0.50 (0.2-1.0) mg/dL AST 23 (13-39) U/L ALT 13 (7-52) U/L Alkaline Phosphatase 59 (34-104) U/L Troponin I 0.02 (<0.04) ng/mL B-Natriuretic Peptide ( - 100) pg/mL Total Protein 7.1 (6.4-8.9) g/dL Albumin 4.1 (3.2-5.2) g/dL Globulin 3.0 (2-4) g/dL Albumin/Globulin Ratio 1.4 (1-3) Urine Color Yellow Urine Appearance Cloudy Urine pH 6.0 (5-9) Ur Specific [place] 1.011 (1.010-1.030) Urine Protein 2+(100 mg/dl) H (Negative) Urine Ketones Negative (Negative) Urine Blood 3+ H (Negative) Urine Nitrate Negative (Negative) Urine Bilirubin Negative (Negative) Urine Urobilinogen Negative (Negative) Ur Leukocyte Esterase Trace H (Negative) Urine WBC (Auto) 3+(>20/hpf) H (Absent) Urine RBC (Auto) 3+(>10/hpf) H (Absent) Urine Bacteria Absent (Absent) Urine Glucose Negative (Negative) 09/07/17 09/07/17 09/07/17 Range/Units 11:43 11:43 11:43 WBC (3.5-10.8) 10^3/ul RBC (4.0-5.4) 10^6/ul Hgb (14.0-18.0) g/dl Hct (42-52) % MCV (80-94) fL MCH (27-31) pg MCHC (31-36) g/dl RDW (10.5-15) % Plt Count (150-450) 10^3/ul MPV (7.4-10.4) um3 Neut % (Auto) (38-83) % Lymph % (Auto) (25-47) % [place] % (Auto) (1-9) % Eos % (Auto) (0-6) % Baso % (Auto) (0-2) % Absolute Neuts (auto) (1.5-7.7) 10^3/ul Absolute Lymphs (auto) (1.0-4.8) 10^3/ul Absolute Monos (auto) (0-0.8) 10^3/ul Absolute Eos (auto) (0-0.6) 10^3/ul Absolute Basos (auto) (0-0.2) 10^3/ul Absolute Nucleated RBC 10^3/ul Nucleated RBC % INR (Anticoag Therapy) 1.10 H (0.77-1.02) APTT 31.1 (26.0-36.3) seconds Sodium (133-145) mmol/L Potassium (3.5-5.0) mmol/L Chloride (101-111) mmol/L Carbon Dioxide (22-32) mmol/L Anion Gap (2-11) mmol/L BUN (6-24) mg/dL Creatinine (0.67-1.17) mg/dL Est GFR ( Amer) (>60) Est GFR (Non-Af Amer) (>60) BUN/Creatinine Ratio (8-20) Glucose (70-100) mg/dL Lactic Acid 0.6 (0.5-2.0) mmol/L Calcium (8.6-10.3) mg/dL Total Bilirubin (0.2-1.0) mg/dL AST (13-39) U/L ALT (7-52) U/L Alkaline Phosphatase (34-104) U/L Troponin I (<0.04) ng/mL B-Natriuretic Peptide 409 H ( - 100) pg/mL Total Protein (6.4-8.9) g/dL Albumin (3.2-5.2) g/dL Globulin (2-4) g/dL Albumin/Globulin Ratio (1-3) Urine Color Urine Appearance Urine pH (5-9) Ur Specific [place] (1.010-1.030) Urine Protein (Negative) Urine Ketones (Negative) Urine Blood (Negative) Urine Nitrate (Negative) Urine Bilirubin (Negative) Urine Urobilinogen (Negative) Ur Leukocyte Esterase (Negative) Urine WBC (Auto) (Absent) Urine RBC (Auto) (Absent) Urine Bacteria (Absent) Urine Glucose (Negative) Assess/Plan/Problems-Billing Assessment: 72 yo M with hx of COPD on 2L, former tobacco abuse, GERD, [place], depression, chronic LE weakness after AAA repair, chronic pain, CKD3 presents with hemoptysis x 2 days. H/o hemoptysis in 2006 with negative bronchoscopy at that time - Patient Problems (1) Hemoptysis Comment: CT chest shows 1.9 cm r lung nodule. Notified Dr. Valencia who will see pt in consult tomorrow. cont Levaquin for possible post obstructive PNA (2) COPD (chronic obstructive pulmonary disease) Comment: Continue dulera and singulair. 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 For now ASA held due to hemoptysis (8) DVT prophylaxis Comment: SCDs Status and Disposition: inpatient
[2017-09-08] MEDS: ARIPiprazole TAB* 15 MG PO SCH (11:21)
[2017-09-08] MEDS: ESOMEPRAZOLE 20 MG PO SCH (11:22)
[2017-09-08 13:25] LABS: Urine Appearance Cloudy; Urine Blood 3+ (Negative); Urine Color Yellow; Urine Ketones Negative (Negative); Urine Protein 2+(100 mg/dL) (Negative); Urine Specific Gravity 1.011 (1.010-1.030); Urine Urobilinogen Negative (Negative)
[2017-09-08] MEDS ORDERED: hydrALAZINE IV* 20 MG/ML VIAL IV SLOW PU PRN (15:23)
[2017-09-08] MEDS: oxyCODONE TAB* 5 MG TAB PO PRN (15:44)
[2017-09-08] MEDS: guaiFENesin ER TAB 600 MG PO SCH ×2 (18:44→21:26)
[2017-09-08] MEDS: Metoprolol Tartrate TAB* 25 MG PO SCH ×2 (18:45→21:26)
[2017-09-08] MEDS: Atorvastatin* 80 MG TAB PO SCH (21:32)
[2017-09-08] MEDS: Montelukast Sodium TAB* 10 MG PO SCH (21:39)
[2017-09-09] MEDS: oxyCODONE TAB* 5 MG TAB PO PRN ×2 (06:17→22:47)
[2017-09-09] MEDS: Mometasone/Formoter 100/5 MDI INH SCH ×2 (08:29→20:45)
[2017-09-09 08:37] LABS: Hematocrit 30 % (42-52); Mean Corpuscular Hemoglobin 31 pg (27-31); Mean Corpuscular Volume 92 fL (80-94); Red Blood Count 3.24 10^6/ul (4.0-5.4); White Blood Count 4.7 10^3/ul (3.5-10.8)
[2017-09-09 08:38] LABS: ABS Basophils 0 10^3/ul (0-0.2); ABS Eosinophils 0.2 10^3/ul (0-0.6); ABS Lymphocytes 0.6 10^3/ul (1.0-4.8); ABS Monocytes 0.7 10^3/ul (0-0.8); ABS Neutrophils 3.2 10^3/ul (1.5-7.7); ABS Nucleated RBC 0 10^3/ul; Eosinophil % 3.9 % (0-6); Lymphocyte % 13.2 % (25-47); Mean Corpuscular HGB Conc 34 g/dl (31-36); Mean Platelet Volume 10 um3 (7.4-10.4); Nucleated Red Blood Cells % 0.4; Platelet Count 117 10^3/ul (150-450); Red Cell Distribution Width 14 % (10.5-15)
--- NOTE | 2017-09-09 09:00 | PN ---
Subjective Date of Service: 09/09/17 Interval History: Pt states he slept very poorly last night due to frequent cough. He also states he is having a hard time getting the mucous up, he feels like it gets stuck in his throat. When he does get up some mucous it is bloody-not varun blood. His hematuria persists and is essentially unchanged from when it began this past Saturday. His R hand and L foot still appear erythematous compared to his other hand and foot. The erythema that was on the L hand has resolved. He also states he feels like he is having a harder time swallowing. Objective Active Medications: Acetaminophen (Tylenol Tab*) 650 mg PO Q6H PRN PRN Reason: FEVER/PAIN Alprazolam (Xanax Tab*) 0.25 mg PO Q6H PRN PRN Reason: AGITATION/ANXIETY Last Admin: 09/08/17 13:21 Dose: 0.25 mg Aripiprazole (Abilify Tab*) 7.5 mg PO DAILY [facility] Last Admin: 09/08/17 11:21 Dose: 7.5 mg Atorvastatin Calcium (Lipitor*) 80 mg PO BEDTIME [facility] Last Admin: 09/08/17 21:32 Dose: 80 mg Cetirizine HCl (Zyrtec*) 10 mg PO DAILY PRN PRN Reason: Allergy Symptoms Docusate Sodium (Colace Cap*) 200 mg PO BID [facility] Last Admin: 09/08/17 21:32 Dose: 200 mg Duloxetine HCl (Cymbalta Cap*) 30 mg PO DAILY [facility] Last Admin: 09/08/17 09:49 Dose: 30 mg Esomeprazole Magnesium (Nexium(Nf)) 40 mg PO 0900 [facility] PRN Reason: Protocol Last Admin: 09/08/17 11:22 Dose: 40 mg Guaifenesin (Mucinex*) 1,200 mg PO BID [facility] Last Admin: 09/08/17 21:26 Dose: Not Given Hydralazine HCl (Apresoline Iv*) 5 mg IV SLOW PU Q6H PRN PRN Reason: BLOOD PRESSURE Last Admin: 09/08/17 15:44 Dose: 5 mg Levofloxacin/Dextrose (Levaquin 500 Mg Ivpremix(*)) 500 mg in 100 mls @ 100 mls /hr IVPB Q24H [facility] Last Admin: 09/08/17 22:31 Dose: 100 mls/hr Levalbuterol HCl (Xopenex Hfa Inhaler*) 1 puff INH Q6H PRN PRN Reason: SOB/WHEEZING Last Admin: 09/08/17 19:23 Dose: 1 puff Magnesium Oxide (Magox 400 Tab*) 400 mg PO DAILY [facility] Last Admin: 09/08/17 09:49 Dose: 400 mg Metoprolol Tartrate (Lopressor Tab*) 25 mg PO BID [facility] Last Admin: 09/08/17 21:26 Dose: Not Given Mometasone Furoate/Formoterol Fumar (Dulera 100/5 Mdi*) 2 puff INH BID [facility] Last Admin: 09/08/17 19:58 Dose: Not Given Montelukast Sodium (Singulair Tab*) 10 mg PO BEDTIME [facility] Last Admin: 09/08/17 21:39 Dose: 10 mg Ondansetron HCl (Zofran Inj*) 4 mg IV Q6H PRN PRN Reason: NAUSEA Oxycodone HCl (Roxycodone Tab*) 15 mg PO TID PRN PRN Reason: PAIN Last Admin: 09/09/17 06:17 Dose: 15 mg Oxycodone HCl (Oxycontin(*)) 15 mg PO BID [facility] Last Admin: 09/08/17 21:32 Dose: 15 mg Potassium Chloride (Klor Con Er Tab*) 10 meq PO DAILY [facility] Last Admin: 09/08/17 09:50 Dose: 10 meq Vital Signs - 8 hr 09/09/17 09/09/17 04:08 06:17 Respiratory 19 Rate O2 Sat by Pulse 100 Oximetry Oxygen Devices in Use Now: Nasal Cannula Appearance: Elderly male sitting up in a chair, NAD Eyes: No Scleral Icterus Ears/Nose/Mouth/Throat: Mucous Membranes Moist Respiratory: Symmetrical Chest Expansion and Respiratory Effort, Clear to Auscultation - diminished breath sounds in all lung rosen Cardiovascular: NL Sounds; No Murmurs; No JVD, RRR, No Edema Abdominal: NL Sounds; No Tenderness; No Distention Extremities: No Clubbing, Cyanosis Skin: No Nodules or Sclerosis, - - R hand and L foot are mildly erythematous, there is a petechial quality about the erythema Neurological: Alert and Oriented x 3 Result Diagrams: 09/09/17 08:22 09/08/17 05:33 Additional Lab and Data: Lab Results 09/07/17 09/07/17 09/07/17 Range/Units 10:35 11:43 11:43 WBC 4.8 (3.5-10.8) 10^3/ul RBC 3.16 L (4.0-5.4) 10^6/ul Hgb 9.9 L (14.0-18.0) g/dl Hct 30 L (42-52) % MCV 93 (80-94) fL MCH 31 (27-31) pg MCHC 34 (31-36) g/dl RDW 15 (10.5-15) % Plt Count 123 L (150-450) 10^3/ul MPV 10 (7.4-10.4) um3 Neut % (Auto) 76.9 (38-83) % Lymph % (Auto) 7.5 L (25-47) % Burke % (Auto) 11.6 H (1-9) % Eos % (Auto) 3.5 (0-6) % Baso % (Auto) 0.5 (0-2) % Absolute Neuts (auto) 3.7 (1.5-7.7) 10^3/ul Absolute Lymphs (auto) 0.4 L (1.0-4.8) 10^3/ul Absolute Monos (auto) 0.6 (0-0.8) 10^3/ul Absolute Eos (auto) 0.2 (0-0.6) 10^3/ul Absolute Basos (auto) 0 (0-0.2) 10^3/ul Absolute Nucleated RBC 0 10^3/ul Nucleated RBC % 0.1 INR (Anticoag Therapy) (0.77-1.02) APTT (26.0-36.3) seconds Sodium 136 (133-145) mmol/L Potassium 4.9 (3.5-5.0) mmol/L Chloride 99 L (101-111) mmol/L Carbon Dioxide 34 H (22-32) mmol/L Anion Gap 3 (2-11) mmol/L BUN 34 H (6-24) mg/dL Creatinine 1.28 H (0.67-1.17) mg/dL Est GFR ( Amer) 71.0 (>60) Est GFR (Non-Af Amer) 55.2 (>60) BUN/Creatinine Ratio 26.6 H (8-20) Glucose 101 H (70-100) mg/dL Lactic Acid (0.5-2.0) mmol/L Calcium 9.4 (8.6-10.3) mg/dL Total Bilirubin 0.50 (0.2-1.0) mg/dL AST 23 (13-39) U/L ALT 13 (7-52) U/L Alkaline Phosphatase 59 (34-104) U/L Troponin I 0.02 (<0.04) ng/mL B-Natriuretic Peptide ( - 100) pg/mL Total Protein 7.1 (6.4-8.9) g/dL Albumin 4.1 (3.2-5.2) g/dL Globulin 3.0 (2-4) g/dL Albumin/Globulin Ratio 1.4 (1-3) Urine Color Yellow Urine Appearance Cloudy Urine pH 6.0 (5-9) Ur Specific [place] 1.011 (1.010-1.030) Urine Protein 2+(100 mg/dl) H (Negative) Urine Ketones Negative (Negative) Urine Blood 3+ H (Negative) Urine Nitrate Negative (Negative) Urine Bilirubin Negative (Negative) Urine Urobilinogen Negative (Negative) Ur Leukocyte Esterase Trace H (Negative) Urine WBC (Auto) 3+(>20/hpf) H (Absent) Urine RBC (Auto) 3+(>10/hpf) H (Absent) Urine Bacteria Absent (Absent) Urine Glucose Negative (Negative) 09/07/17 09/07/17 09/07/17 Range/Units 11:43 11:43 11:43 WBC (3.5-10.8) 10^3/ul RBC (4.0-5.4) 10^6/ul Hgb (14.0-18.0) g/dl Hct (42-52) % MCV (80-94) fL MCH (27-31) pg MCHC (31-36) g/dl RDW (10.5-15) % Plt Count (150-450) 10^3/ul MPV (7.4-10.4) um3 Neut % (Auto) (38-83) % Lymph % (Auto) (25-47) % Burke % (Auto) (1-9) % Eos % (Auto) (0-6) % Baso % (Auto) (0-2) % Absolute Neuts (auto) (1.5-7.7) 10^3/ul Absolute Lymphs (auto) (1.0-4.8) 10^3/ul Absolute Monos (auto) (0-0.8) 10^3/ul Absolute Eos (auto) (0-0.6) 10^3/ul Absolute Basos (auto) (0-0.2) 10^3/ul Absolute Nucleated RBC 10^3/ul Nucleated RBC % INR (Anticoag Therapy) 1.10 H (0.77-1.02) APTT 31.1 (26.0-36.3) seconds Sodium (133-145) mmol/L Potassium (3.5-5.0) mmol/L Chloride (101-111) mmol/L Carbon Dioxide (22-32) mmol/L Anion Gap (2-11) mmol/L BUN (6-24) mg/dL Creatinine (0.67-1.17) mg/dL Est GFR ( Amer) (>60) Est GFR (Non-Af Amer) (>60) BUN/Creatinine Ratio (8-20) Glucose (70-100) mg/dL Lactic Acid 0.6 (0.5-2.0) mmol/L Calcium (8.6-10.3) mg/dL Total Bilirubin (0.2-1.0) mg/dL AST (13-39) U/L ALT (7-52) U/L Alkaline Phosphatase (34-104) U/L Troponin I (<0.04) ng/mL B-Natriuretic Peptide 409 H ( - 100) pg/mL Total Protein (6.4-8.9) g/dL Albumin (3.2-5.2) g/dL Globulin (2-4) g/dL Albumin/Globulin Ratio (1-3) Urine Color Urine Appearance Urine pH (5-9) Ur Specific [place] (1.010-1.030) Urine Protein (Negative) Urine Ketones (Negative) Urine Blood (Negative) Urine Nitrate (Negative) Urine Bilirubin (Negative) Urine Urobilinogen (Negative) Ur Leukocyte Esterase (Negative) Urine WBC (Auto) (Absent) Urine RBC (Auto) (Absent) Urine Bacteria (Absent) Urine Glucose (Negative) Assess/Plan/Problems-Billing Mr Salguero is a 72 yo M with hx of COPD on 2L, former tobacco abuse, GERD, LORENA, depression, 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 - Patient Problems (1) Hemoptysis Current Visit: Yes Status: Acute Code(s): R04.2 - HEMOPTYSIS SNOMED Code(s ): 60324907 Comment: CT chest shows 1.9 cm Right upper lung mass. Dr. Valencia will see the patient today. Await recommendations for further evaluation of the mass. Continue levaquin for possible pna. The degree of hemoptysis has not changed. (2) Hematuria Current Visit: Yes Status: Acute Code(s): R31.9 - HEMATURIA, UNSPECIFIED SNOMED Code(s): 18066756 Comment: Hematuria is still present. He will need an outpatient work up with urology. (3) Thrombocytopenia Current Visit: Yes Status: Acute Code(s): D69.6 - THROMBOCYTOPENIA, UNSPECIFIED SNOMED Code(s): 249390390 Comment: The patient's plt count is stable. The erythema of the R hand and L foot is somewhat petechial in nature but his plt count is not that low. Will continue to follow the appearance of his hand and foot and plt count. (4) CKD (chronic kidney disease) Current Visit: Yes Status: Acute Code(s): N18.9 - CHRONIC KIDNEY DISEASE, UNSPECIFIED SNOMED Code(s): 300437538 Comment: Creatinine is improved today. Will continue to hold lasix for now. (5) Hypertension Current Visit: Yes Status: Acute Priority: Medium Code(s): I10 - ESSENTIAL (PRIMARY) HYPERTENSION SNOMED Code(s): 64184936 Comment: BP has fluctuated quite a bit recently. Will continue metoprolol but add amlodipine 5mg daily. (6) COPD (chronic obstructive pulmonary disease) Current Visit: Yes Status: Acute Code(s): J44.9 - CHRONIC OBSTRUCTIVE PULMONARY DISEASE, UNSPECIFIED SNOMED Code(s): 33516843 Comment: No signs of exacerbation. Will continue singulair, dulera and add prn albuterol nebs. (7) DVT prophylaxis Current Visit: Yes Status: Acute Code(s): PMT3415 - SNOMED Code(s): 381855606 Comment: SCDs only secondary to hemoptysis (8) Full code status Current Visit: Yes Status: Acute Code(s): Z78.9 - OTHER SPECIFIED HEALTH STATUS SNOMED Code(s): 011697111 Status and Disposition: inpatient
[2017-09-09] MEDS: oxyCODONE SR TAB(*) 15 MG TAB.SR PO SCH ×2 (09:39→22:35)
[2017-09-09] MEDS: ESOMEPRAZOLE 20 MG PO SCH (09:39)
[2017-09-09] MEDS: Magnesium Oxide TAB* 400 MG PO SCH (09:39)
[2017-09-09] MEDS: Metoprolol Tartrate TAB* 25 MG PO SCH ×2 (09:39→22:34)
[2017-09-09] MEDS: Potassium Chlor TAB* 10 MEQ TAB.ER PO SCH (09:39)
[2017-09-09] MEDS: guaiFENesin ER TAB 600 MG PO SCH ×2 (09:40→22:35)
[2017-09-09] MEDS: Docusate CAP* 100 MG PO SCH ×2 (09:40→22:34)
[2017-09-09] MEDS: DULoxetine DR CAP* 30 MG CAP.DR PO SCH (09:40)
[2017-09-09 09:57] LABS: EGFR Non-African American 56.8 (>60)
[2017-09-09] MEDS ORDERED: Levalbuterol HFA INHALER* 1 PUFF MDI INH PRN (10:01)
[2017-09-09] MEDS ORDERED: Polyethylene Glycol 3350* 17 GM PACKET PO PRN (10:01)
[2017-09-09] MEDS ORDERED: Albuterol 2.5 MG/3 ML NEB.SOL* (0.083%) INH PRN (10:02)
[2017-09-09] MEDS ORDERED: Magnesium Sulfate 2 GM IV* 2 GM/50 ML BAG IVPB ONE (10:02)
[2017-09-09] MEDS: ARIPiprazole TAB* 15 MG PO SCH (10:42)
[2017-09-09] MEDS: amLODIPine TAB* 5 MG PO SCH (10:42)
[2017-09-09] MEDS ORDERED: Sodium Chloride(INHALANT) 7%* 4 ML NEB.SOLN INH PRN (11:58)
--- NOTE | 2017-09-09 20:32 | CONS ---
PULMONARY CONSULTATION REPORT: DATE OF CONSULTATION: 09/09/17 CONSULTATION REQUESTED BY: Adenike Marr MD REASON FOR CONSULTATION: Evaluation of hemoptysis, abnormal chest CT. HISTORY OF PRESENT ILLNESS: The patient is a 72-year-old male with a history of COPD, right hemidiaphragm paresis, hypoxemia, history of pleural effusions, coronary artery disease, status post CABG, who presents for evaluation of cough for 1 day associated with 1 episode of hemoptysis, hematuria. The patient was seen and examined at bedside. The patient reports 1 episode of brown phlegm last night. The patient reports feeling congested in the chest. The patient also reports trouble getting the mucus up. He feels like mucus gets stuck in the back of his throat. The patient reports hematuria is persistent and is unchanged since Saturday. The patient also reports rash in lower extremities and upper extremities, kind of petechial in nature. The patient denies any itching. The patient is a poor historian and much of history is prompted by his . The patient reports having significant fatigue. The patient had CT scan of the chest performed in the emergency room for evaluation of hemoptysis. I have personally reviewed CT scan of the chest with the patient and his today. The patient noted to have 1.9 cm lobulated mass in the right upper lobe adjacent to the fissure. The patient also with stable subcentimeter pulmonary nodules measuring 0.6 and 0.7 cm in the right upper lobe and right middle lobe unchanged. No significant mediastinal or hilar adenopathy was noted. The patient also with the interval increase in thoracoabdominal aortic aneurysm. He also was noted to have nonobstructing right renal calculus. The patient also with moderate amounts of centrilobular emphysematous changes bilaterally. The patient is afebrile. Was not found to have elevated white count. He has chronic anemia that is stable. The patient with platelet count at 117,000. No evidence of left shift. Lymphocyte count is decreased. No eosinophils noted. The patient with chronic renal failure, stable. CRP is mildly elevated at 8.87. BNP is high at 409. The patient has not been started on any new medications recently as outpatient. He was started on Rocephin and Zithromax here. PAST MEDICAL HISTORY: 1. COPD, on home O2. 2. History of pleural effusions post AAA repair on left side. 3. History of AAA repair. 4. Chronic kidney disease stage 3. 5. Chronic normocytic anemia. 6. GERD. 7. Obstructive sleep apnea, not being treated currently. PAST SURGICAL HISTORY: C-spine surgery, spine surgery, AAA repair. MEDICATIONS: At home: 1. Nexium. 2. Montelukast. 3. OxyContin. 4. Oxycodone. 5. Aripiprazole. 6. Alprazolam. 7. Atorvastatin. 8. Budesonide formoterol. 9. Levalbuterol. 10. Loratadine. 11. Magnesium. 13. Metoprolol. 14. Potassium. 15. Aspirin. 16. Docusate. 17. Furosemide. 18. Duloxetine. ALLERGIES: ALFUZOSIN, FENTANYL, MORPHINE, GABAPENTIN, VESICARE, ZONEGRAN, WELLBUTRIN, CLONIDINE, LATEX, NSAIDS. FAMILY HISTORY: Positive for cancer. SOCIAL HISTORY: Former smoker quit in 2013 after 27-whtj-paef smoking. No alcohol or recreational drug abuse. 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 REVIEW OF SYSTEMS: All 14 systems reviewed and as per HPI. PHYSICAL EXAM: General: The patient lying in recliner in no apparent distress , appears fatigued. Vital Signs: Temperature 98.4, pulse 76 beats per minute, respiratory rate 20 per minute, O2 sat 92% on 3 L, blood pressure 146/54. HEENT : Pupils equal and reactive to light. Mucous membranes moist. Neck: Normal range of motion. Pupils are equal and reactive to light, mucous membranes are moist. Respiratory: Good air entry bilaterally, clear to auscultation. Cardiovascular: S1 and S2 present and regular. Edema present, 1+ bilaterally. Skin: Petechial rash in lower extremities and on upper extremities. Abdomen: Soft, nontender, and nondistended. Bowel sounds are present. Musculoskeletal: No rash. Neuro: No focal deficits. Alert, awake, and oriented x3. DIAGNOSTIC STUDIES/LAB DATA: Sodium 136, potassium 4.7, chloride 101, bicarb 31 , BUN 27, creatinine 1.25, CRP 8.87, BNP 409. LFTs within normal limits. WBC count 4.7, hemoglobin 10, hematocrit 30, platelet count 117,000. INR 1.10 with PTT 31. Urinalysis showed 3+ blood, 2+ protein and RBC without bacteria. CT chest as described above in HPI. IMPRESSION AND RECOMMENDATIONS: 72-year-old male with history of severe chronic obstructive pulmonary disease, right hemidiaphragm paralysis, abdominal aortic aneurysm repair with resultant pleural effusions, complicated postop course, on status post PleurX catheter placement, removed after resolution of pleural effusions admitted with 1 day of hemoptysis, cough productive and hematuria. No further episodes of hemoptysis, found to have low platelets, which might be resulting in hemoptysis given that the patient also is on aspirin from underlying cough. Agree with current managing for pneumonia. He was found to have a 2 cm nodule in right upper lobe that was not seen on prior imaging studies- infectious versus neoplastic. Would manage as pneumonia, will obtain PET scan as an outpatient, if there is significant uptake on PET scan, would schedule for CT-guided biopsy. Lesion is smaller, not amenable to bronchoscopy. Above recommendations were discussed in detail with the patient and his and they are agreeable. No further episodes of hemoptysis, will monitor closely Agree with O2 supplementation. Hematuria could be from low platelets versus nonobstructing renal calculus. Thank you for allowing me to participating in care of your patient. Will follow up with you. [id number]/[facility] #: [id number] MACK
[2017-09-09] MEDS: Atorvastatin* 80 MG TAB PO SCH (22:35)
[2017-09-09] MEDS: Montelukast Sodium TAB* 10 MG PO SCH (22:35)
[2017-09-10] MEDS: Levofloxacin 500 MG IVPREMIX(* 500 MG/100 ML BAG IVPB SCH (01:27)
[2017-09-10] MEDS: oxyCODONE SR TAB(*) 15 MG TAB.SR PO SCH ×2 (06:48→08:37)
[2017-09-10 07:57] VITALS: BP 149/60
[2017-09-10] MEDS: Mometasone/Formoter 100/5 MDI INH SCH (08:22)
[2017-09-10] MEDS: Potassium Chlor TAB* 10 MEQ TAB.ER PO SCH (08:36)
[2017-09-10] MEDS: Metoprolol Tartrate TAB* 25 MG PO SCH (08:36)
[2017-09-10] MEDS: Docusate CAP* 100 MG PO SCH (08:36)
[2017-09-10] MEDS: Magnesium Oxide TAB* 400 MG PO SCH (08:36)
[2017-09-10] MEDS: guaiFENesin ER TAB 600 MG PO SCH (08:36)
[2017-09-10] MEDS: amLODIPine TAB* 5 MG PO SCH (08:37)
[2017-09-10] MEDS: ARIPiprazole TAB* 15 MG PO SCH (08:37)
[2017-09-10] MEDS: DULoxetine DR CAP* 30 MG CAP.DR PO SCH (08:37)
[2017-09-10] MEDS: ESOMEPRAZOLE 20 MG PO SCH (08:37)
[2017-09-10 08:40] LABS: Hematocrit 30 % (42-52); Mean Corpuscular HGB Conc 33 g/dl (31-36); Mean Corpuscular Hemoglobin 31 pg (27-31); Mean Corpuscular Volume 93 fL (80-94); Mean Platelet Volume 9 um3 (7.4-10.4); Platelet Count 118 10^3/ul (150-450); Red Blood Count 3.26 10^6/ul (4.0-5.4); Red Cell Distribution Width 15 % (10.5-15); White Blood Count 3.6 10^3/ul (3.5-10.8)
[2017-09-10 09:05] LABS: EGFR Non-African American 54.3 (>60)
[2017-09-10] MEDS: oxyCODONE TAB* 5 MG TAB PO PRN (09:24)
--- NOTE | 2017-09-10 10:01 | PN ---
Subjective Date of Service: 09/10/17 Interval History: Pt is feeling about the same today. He had a saline neb this AM and has brought up some samir brown sputum this AM. 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 The rash on his R hand and L foot is about the same. Objective Active Medications: Acetaminophen (Tylenol Tab*) 650 mg PO Q6H PRN PRN Reason: FEVER/PAIN Albuterol (Ventolin 2.5 Mg/3 Ml Neb.Kellie*) 2.5 mg INH Q4H PRN PRN Reason: SOB/WHEEZING Alprazolam (Xanax Tab*) 0.25 mg PO Q6H PRN PRN Reason: AGITATION/ANXIETY Last Admin: 09/08/17 13:21 Dose: 0.25 mg Amlodipine Besylate (Norvasc Tab*) 5 mg PO DAILY [facility] Last Admin: 09/10/17 08:37 Dose: 5 mg Aripiprazole (Abilify Tab*) 7.5 mg PO DAILY [facility] Last Admin: 09/10/17 08:37 Dose: 7.5 mg Atorvastatin Calcium (Lipitor*) 80 mg PO BEDTIME [facility] Last Admin: 09/09/17 22:35 Dose: 80 mg Cetirizine HCl (Zyrtec*) 10 mg PO DAILY PRN PRN Reason: Allergy Symptoms Docusate Sodium (Colace Cap*) 200 mg PO BID [facility] Last Admin: 09/10/17 08:36 Dose: 200 mg Duloxetine HCl (Cymbalta Cap*) 30 mg PO DAILY [facility] Last Admin: 09/10/17 08:37 Dose: 30 mg Esomeprazole Magnesium (Nexium(Nf)) 40 mg PO 0900 [facility] PRN Reason: Protocol Last Admin: 09/10/17 08:37 Dose: 40 mg Guaifenesin (Mucinex*) 1,200 mg PO BID [facility] Last Admin: 09/10/17 08:36 Dose: 1,200 mg Hydralazine HCl (Apresoline Iv*) 5 mg IV SLOW PU Q6H PRN PRN Reason: BLOOD PRESSURE Last Admin: 09/08/17 15:44 Dose: 5 mg Levofloxacin/Dextrose (Levaquin 500 Mg Ivpremix(*)) 500 mg in 100 mls @ 100 mls /hr IVPB Q24H [facility] Last Admin: 09/10/17 01:27 Dose: 100 mls/hr Levalbuterol HCl (Xopenex Hfa Inhaler*) 2 puff INH Q6H PRN PRN Reason: SOB/WHEEZING Magnesium Oxide (Magox 400 Tab*) 400 mg PO DAILY [facility] Last Admin: 09/10/17 08:36 Dose: 400 mg Metoprolol Tartrate (Lopressor Tab*) 25 mg PO BID [facility] Last Admin: 09/10/17 08:36 Dose: 25 mg Mometasone Furoate/Formoterol Fumar (Dulera 100/5 Mdi*) 2 puff INH BID [facility] Last Admin: 09/10/17 08:22 Dose: 2 puff Montelukast Sodium (Singulair Tab*) 10 mg PO BEDTIME [facility] Last Admin: 09/09/17 22:35 Dose: 10 mg Ondansetron HCl (Zofran Inj*) 4 mg IV Q6H PRN PRN Reason: NAUSEA Oxycodone HCl (Roxycodone Tab*) 15 mg PO TID PRN PRN Reason: PAIN Last Admin: 09/10/17 09:24 Dose: 15 mg Oxycodone HCl (Oxycontin(*)) 15 mg PO BID [facility] Last Admin: 09/10/17 08:37 Dose: 15 mg Polyethylene Glycol/Electrolytes (Miralax*) 17 gm PO DAILY PRN PRN Reason: CONSTIPATION Last Admin: 09/09/17 10:41 Dose: 17 gm Potassium Chloride (Klor Con Er Tab*) 10 meq PO DAILY [facility] Last Admin: 09/10/17 08:36 Dose: 10 meq Sodium Chloride (Hyper-Dominguez 7%*) 4 ml INH .SEE ORDERS PRN PRN Reason: WHEEZING Last Admin: 09/10/17 08:25 Dose: 4 ml Vital Signs - 8 hr 09/10/17 09/10/17 09/10/17 05:42 07:54 07:57 Temperature 98.0 F Pulse Rate 66 Respiratory 24 22 24 Rate Blood Pressure 149/60 (mmHg) O2 Sat by Pulse 93 Oximetry 09/10/17 09/10/17 09/10/17 08:28 08:37 09:24 Temperature Pulse Rate 66 Respiratory 18 18 22 Rate Blood Pressure (mmHg) O2 Sat by Pulse 93 Oximetry Oxygen Devices in Use Now: Nasal Cannula Appearance: Elderly male sitting up in a chair, NAD Eyes: No Scleral Icterus Ears/Nose/Mouth/Throat: Mucous Membranes Moist Respiratory: Symmetrical Chest Expansion and Respiratory Effort, Clear to Auscultation Cardiovascular: NL Sounds; No Murmurs; No JVD, RRR, No Edema Abdominal: NL Sounds; No Tenderness; No Distention Extremities: No Clubbing, Cyanosis Skin: No Nodules or Sclerosis, - - slight erythema and petechial rash of R hand and L foot, slightly less erythematous today Neurological: Alert and Oriented x 3 Result Diagrams: 09/10/17 08:31 09/10/17 08:31 Additional Lab and Data: Lab Results 09/07/17 09/07/17 09/07/17 Range/Units 10:35 11:43 11:43 WBC 4.8 (3.5-10.8) 10^3/ul RBC 3.16 L (4.0-5.4) 10^6/ul Hgb 9.9 L (14.0-18.0) g/dl Hct 30 L (42-52) % MCV 93 (80-94) fL MCH 31 (27-31) pg MCHC 34 (31-36) g/dl RDW 15 (10.5-15) % Plt Count 123 L (150-450) 10^3/ul MPV 10 (7.4-10.4) um3 Neut % (Auto) 76.9 (38-83) % Lymph % (Auto) 7.5 L (25-47) % [place] % (Auto) 11.6 H (1-9) % Eos % (Auto) 3.5 (0-6) % Baso % (Auto) 0.5 (0-2) % Absolute Neuts (auto) 3.7 (1.5-7.7) 10^3/ul Absolute Lymphs (auto) 0.4 L (1.0-4.8) 10^3/ul Absolute Monos (auto) 0.6 (0-0.8) 10^3/ul Absolute Eos (auto) 0.2 (0-0.6) 10^3/ul Absolute Basos (auto) 0 (0-0.2) 10^3/ul Absolute Nucleated RBC 0 10^3/ul Nucleated RBC % 0.1 INR (Anticoag Therapy) (0.77-1.02) APTT (26.0-36.3) seconds Sodium 136 (133-145) mmol/L Potassium 4.9 (3.5-5.0) mmol/L Chloride 99 L (101-111) mmol/L Carbon Dioxide 34 H (22-32) mmol/L Anion Gap 3 (2-11) mmol/L BUN 34 H (6-24) mg/dL Creatinine 1.28 H (0.67-1.17) mg/dL Est GFR ( Amer) 71.0 (>60) Est GFR (Non-Af Amer) 55.2 (>60) BUN/Creatinine Ratio 26.6 H (8-20) Glucose 101 H (70-100) mg/dL Lactic Acid (0.5-2.0) mmol/L Calcium 9.4 (8.6-10.3) mg/dL Total Bilirubin 0.50 (0.2-1.0) mg/dL AST 23 (13-39) U/L ALT 13 (7-52) U/L Alkaline Phosphatase 59 (34-104) U/L Troponin I 0.02 (<0.04) ng/mL B-Natriuretic Peptide ( - 100) pg/mL Total Protein 7.1 (6.4-8.9) g/dL Albumin 4.1 (3.2-5.2) g/dL Globulin 3.0 (2-4) g/dL Albumin/Globulin Ratio 1.4 (1-3) Urine Color Yellow Urine Appearance Cloudy Urine pH 6.0 (5-9) Ur Specific [place] 1.011 (1.010-1.030) Urine Protein 2+(100 mg/dl) H (Negative) Urine Ketones Negative (Negative) Urine Blood 3+ H (Negative) Urine Nitrate Negative (Negative) Urine Bilirubin Negative (Negative) Urine Urobilinogen Negative (Negative) Ur Leukocyte Esterase Trace H (Negative) Urine WBC (Auto) 3+(>20/hpf) H (Absent) Urine RBC (Auto) 3+(>10/hpf) H (Absent) Urine Bacteria Absent (Absent) Urine Glucose Negative (Negative) 09/07/17 09/07/17 09/07/17 Range/Units 11:43 11:43 11:43 WBC (3.5-10.8) 10^3/ul RBC (4.0-5.4) 10^6/ul Hgb (14.0-18.0) g/dl Hct (42-52) % MCV (80-94) fL MCH (27-31) pg MCHC (31-36) g/dl RDW (10.5-15) % Plt Count (150-450) 10^3/ul MPV (7.4-10.4) um3 Neut % (Auto) (38-83) % Lymph % (Auto) (25-47) % Pacific % (Auto) (1-9) % Eos % (Auto) (0-6) % Baso % (Auto) (0-2) % Absolute Neuts (auto) (1.5-7.7) 10^3/ul Absolute Lymphs (auto) (1.0-4.8) 10^3/ul Absolute Monos (auto) (0-0.8) 10^3/ul Absolute Eos (auto) (0-0.6) 10^3/ul Absolute Basos (auto) (0-0.2) 10^3/ul Absolute Nucleated RBC 10^3/ul Nucleated RBC % INR (Anticoag Therapy) 1.10 H (0.77-1.02) APTT 31.1 (26.0-36.3) seconds Sodium (133-145) mmol/L Potassium (3.5-5.0) mmol/L Chloride (101-111) mmol/L Carbon Dioxide (22-32) mmol/L Anion Gap (2-11) mmol/L BUN (6-24) mg/dL Creatinine (0.67-1.17) mg/dL Est GFR ( Amer) (>60) Est GFR (Non-Af Amer) (>60) BUN/Creatinine Ratio (8-20) Glucose (70-100) mg/dL Lactic Acid 0.6 (0.5-2.0) mmol/L Calcium (8.6-10.3) mg/dL Total Bilirubin (0.2-1.0) mg/dL AST (13-39) U/L ALT (7-52) U/L Alkaline Phosphatase (34-104) U/L Troponin I (<0.04) ng/mL B-Natriuretic Peptide 409 H ( - 100) pg/mL Total Protein (6.4-8.9) g/dL Albumin (3.2-5.2) g/dL Globulin (2-4) g/dL Albumin/Globulin Ratio (1-3) Urine Color Urine Appearance Urine pH (5-9) Ur Specific [place] (1.010-1.030) Urine Protein (Negative) Urine Ketones (Negative) Urine Blood (Negative) Urine Nitrate (Negative) Urine Bilirubin (Negative) Urine Urobilinogen (Negative) Ur Leukocyte Esterase (Negative) Urine WBC (Auto) (Absent) Urine RBC (Auto) (Absent) Urine Bacteria (Absent) Urine Glucose (Negative) Microbiology and Other Data: Microbiology 09/08/17 13:00 Urine Culture - Final Urine No Growth (<1,000 CFU/mL) Assess/Plan/Problems-Billing Mr Salguero is a 72 yo M with hx of COPD on 2L, former tobacco abuse, GERD, LORENA, depression, 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 - Patient Problems (1) Hemoptysis Current Visit: Yes Status: Acute Code(s): R04.2 - HEMOPTYSIS SNOMED Code(s ): 48764604 Comment: CT chest shows 1.9 cm Right upper lung nodule. Dr. Valencia has recommended treating for CAP and getting a PET scan as an outpatient. Will follow up with Dr. Valencia after the PET scan. (2) Hematuria Current Visit: Yes Status: Acute Code(s): R31.9 - HEMATURIA, UNSPECIFIED SNOMED Code(s): 06459449 Comment: The patient's urine has grown enterococcus faecalis >100,000 CFU. Will treat for possible UTI and if his urine does not clear up he will need to follow up with Dr. Landeros. (3) Thrombocytopenia Current Visit: Yes Status: Acute Code(s): D69.6 - THROMBOCYTOPENIA, UNSPECIFIED SNOMED Code(s): 594406762 Comment: The patient's plt count is stable-he has been chronically thrombocytopenic this year and intermittently since 2011. The erythema of the R hand and L foot is somewhat petechial in nature but his plt count is not that low. Follow up with Dr. Sanchez as an outpatient. (4) CKD (chronic kidney disease) Current Visit: Yes Status: Acute Code(s): N18.9 - CHRONIC KIDNEY DISEASE, UNSPECIFIED SNOMED Code(s): 020443507 Comment: Creatinine is stable. Resume lasix. (5) Hypertension Current Visit: Yes Status: Acute Priority: Medium Code(s): I10 - ESSENTIAL (PRIMARY) HYPERTENSION SNOMED Code(s): 18514918 Comment: BP improved with the addition of amlodipine. (6) COPD (chronic obstructive pulmonary disease) Current Visit: Yes Status: Acute Code(s): J44.9 - CHRONIC OBSTRUCTIVE PULMONARY DISEASE, UNSPECIFIED SNOMED Code(s): 56608670 Comment: No signs of exacerbation. Will continue singulair, dulera and add prn albuterol nebs. (7) DVT prophylaxis Current Visit: Yes Status: Acute Code(s): NRL9361 - SNOMED Code(s): 393868986 Comment: SCDs only secondary to hemoptysis (8) Full code status Current Visit: Yes Status: Acute Code(s): Z78.9 - OTHER SPECIFIED HEALTH STATUS SNOMED Code(s): 184577003 Status and Disposition: d/c pt home
--- NOTE | 2017-09-10 11:33 | PN ---
Progress Note - Progress Note Date of Service: 09/10/17 - Pulm f/u note Note: Pt seen and examined at bedside, reports feeling better, able to cough phleghm, walked in the hallway without much dyspnea. Uring is clearing. Occasional dark brown phleghm no varun hemoptysis Active Medications Generic Name Dose Route Start Last Admin Trade Name Freq PRN Reason Stop Dose Admin Acetaminophen 650 mg 09/07/17 23:14 Tylenol Tab* PO Q6H PRN FEVER/PAIN Albuterol 2.5 mg 09/09/17 10:02 Ventolin 2.5 Mg/3 Ml Neb.Kellie* INH Q4H PRN SOB/WHEEZING Alprazolam 0.25 mg 09/07/17 21:57 09/08/17 13:21 Xanax Tab* PO 0.25 mg Q6H PRN Administration AGITATION/ANXIETY Amlodipine Besylate 5 mg 09/09/17 11:00 09/10/17 08:37 Norvasc Tab* PO 5 mg DAILY PEE Administration Aripiprazole 7.5 mg 09/08/17 09:00 09/10/17 08:37 Abilify Tab* PO 7.5 mg DAILY PEE Administration Atorvastatin Calcium 80 mg 09/08/17 21:00 09/09/17 22:35 Lipitor* PO 80 mg BEDTIME PEE Administration Cetirizine HCl 10 mg 09/07/17 21:57 Zyrtec* PO DAILY PRN Allergy Symptoms Docusate Sodium 200 mg 09/08/17 09:00 09/10/17 08:36 Colace Cap* PO 200 mg BID PEE Administration Duloxetine HCl 30 mg 09/08/17 09:00 09/10/17 08:37 Cymbalta Cap* PO 30 mg DAILY PEE Administration Esomeprazole Magnesium 40 mg 09/08/17 11:30 09/10/17 08:37 Nexium(Nf) PO 40 mg 0900 PEE Administration Protocol Guaifenesin 1,200 mg 09/08/17 17:50 09/10/17 08:36 Mucinex* PO 1,200 mg BID PEE Administration Hydralazine HCl 5 mg 09/08/17 15:23 09/08/17 15:44 Apresoline Iv* IV SLOW PU 5 mg Q6H PRN Administration BLOOD PRESSURE Levofloxacin/Dextrose 500 mg in 100 mls @ 100 mls/hr 09/07/17 23:45 09/10/17 01:27 Levaquin 500 Mg Ivpremix(*) IVPB 100 mls/hr Q24H PEE Administration Levalbuterol HCl 2 puff 09/09/17 10:01 Xopenex Hfa Inhaler* INH Q6H PRN SOB/WHEEZING Magnesium Oxide 400 mg 09/08/17 09:00 09/10/17 08:36 Magox 400 Tab* PO 400 mg DAILY PEE Administration Metoprolol Tartrate 25 mg 09/08/17 09:07 09/10/17 08:36 Lopressor Tab* PO 25 mg BID PEE Administration Mometasone Furoate/Formoterol Fumar 2 puff 09/08/17 09:00 09/10/17 08:22 Dulera 100/5 Mdi* INH 2 puff BID PEE Administration Montelukast Sodium 10 mg 09/08/17 21:00 09/09/17 22:35 Singulair Tab* PO 10 mg BEDTIME PEE Administration Ondansetron HCl 4 mg 09/07/17 23:16 Zofran Inj* IV Q6H PRN NAUSEA Oxycodone HCl 15 mg 09/07/17 21:57 09/10/17 09:24 Roxycodone Tab* PO 15 mg TID PRN Administration PAIN Oxycodone HCl 15 mg 09/07/17 23:45 09/10/17 08:37 Oxycontin(*) PO 15 mg BID PEE Administration Polyethylene Glycol/Electrolytes 17 gm 09/09/17 10:01 09/09/17 10:41 Miralax* PO 17 gm DAILY PRN Administration CONSTIPATION Potassium Chloride 10 meq 09/08/17 09:00 09/10/17 08:36 Klor Con Er Tab* PO 10 meq DAILY PEE Administration Sodium Chloride 4 ml 09/09/17 11:58 09/10/17 08:25 Hyper-Dominguez 7%* INH 4 ml .SEE ORDERS PRN Administration WHEEZING Vital Signs Temp Pulse Resp BP Pulse Ox 98.0 F 66 22 149/60 93 09/10/17 07:57 09/10/17 08:28 09/10/17 09:24 09/10/17 07:57 09/10/17 08:28 O/E: Pt sitting in recliner in NAD, at bedside HEENT: PERRLA Lungs: Diminished air entry b/l, no wheeze CVS; S1, S2+ Abd: Soft, BS+ Ext: Normal ROM Skin: Faint petechial rash on extremities Laboratory Results - last 24 hr 09/10/17 09/10/17 09/10/17 05:24 08:31 08:31 WBC 3.6 RBC 3.26 L Hgb 10.0 L Hct 30 L MCV 93 MCH 31 MCHC 33 RDW 15 Plt Count 118 L MPV 9 Sodium Cancelled 137 Potassium Cancelled 4.9 Chloride Cancelled 101 Carbon Dioxide Cancelled 32 Anion Gap Cancelled 4 BUN Cancelled 33 H Creatinine Cancelled 1.30 H Est GFR ( Amer) Cancelled 69.8 Est GFR (Non-Af Amer) Cancelled 54.3 BUN/Creatinine Ratio Cancelled 25.4 H Glucose Cancelled 106 H Calcium Cancelled 9.1 I/R: 72 y o m former smoker with h/o COPD on home O2, pl effusion a/w 1 episode of hemoptysis, hematuria found to have lung mass No further episodes of hemoptysis Improving with abx for PNA Has thrombocytopenia, unclear etiology, will be seeing Dr Sanchez as out pt Pt also has appt with Urology as out pt Pt to have PET scan done next week, is mass with increased uptake, will need CT guided biopsy C/w bronchodilators For d/c today, will f/u in clinic in 1 week D/w Dr Khan, pt and his
--- NOTE | 2017-09-11 10:59 | DS ---
CC: Bibi Gamez NP; Dr. Sanchez; Dr. Valencia; Dr. Landeros * DISCHARGE SUMMARY: DATE OF ADMISSION: 09/07/17 DATE OF DISCHARGE: 09/10/17 PRIMARY CARE PROVIDER: Bibi Gamez NP. PRINCIPLE DIAGNOSES: 1. Hemoptysis, secondary to possible pneumonia versus right upper lung nodule. 2. Hematuria - possibly secondary to enterococcus faecalis urinary tract infection. 3. Thrombocytopenia with mild petechial rash noted to right hand and left foot. SECONDARY DIAGNOSES: 1. Chronic obstructive pulmonary disease on 2 L oxygen continuously for chronic hypoxic respiratory failure. 2. Stage III chronic kidney disease. 3. Gastroesophageal reflux disease. 4. Obstructive sleep apnea. DISCHARGE MEDICATIONS: 1. Potassium chloride 10 mEq p.o. daily. 2. OxyContin 15 mg p.o. b.i.d. 3. Oxycodone 15 mg p.o. t.i.d. p.r.n. pain. 4. Singulair 10 mg p.o. q.h.s. 5. Loratadine 10 mg p.o. daily p.r.n. allergies. 6. Xopenex 2 puffs inhaled q. 4 hours p.r.n. shortness of breath. 7. Xanax 0.25 mg p.o. q. 6 hours p.r.n. anxiety. 8. Metoprolol tartrate 12.5 mg p.o. b.i.d. 9. Magnesium oxide 400 mg p.o. daily. 10. Lasix 10 mg p.o. daily. 11. Nexium 40 mg p.o. daily. 12. Duloxetine DR 30 mg p.o. daily. 13. Colace 50 mg p.o. twice daily. 14. Symbicort 80/4.5 two puffs inhaled twice daily. 15. Lipitor 80 mg p.o. q.h.s. 16. Aspirin 81 mg p.o. daily, to be on hold until seen by Dr. Sanchez. 17. Abilify 7.5 mg p.o. daily. 18. Guaifenesin ER 1200 mg p.o. twice daily. 19. Amlodipine 5 mg p.o. daily (new). 20. Hyper-Dominguez 7% 4 mL inhaled q. 4 hours p.r.n. chest congestion. 21. Levofloxacin 500 mg p.o. daily x5 days. HOSPITAL COURSE: Mr. Salguero is a 72-year-old male who presented to the emergency room on 09/07/17 with complaints of hemoptysis and hematuria. The patient underwent imaging of the chest where a right upper lobe lung nodule was identified. The patient was then admitted for further evaluation of his hemoptysis and hematuria. The patient was seen in consultation by Dr. Valencia who felt that it was arias to treat the patient for possible pneumonia and to obtain an outpatient PET scan. If the PET scan is positive then the patient will need to be set up for a CT- guided biopsy as it was felt that the nodule is too small and not amenable to bronchoscopy. This can be arranged by Dr. Valencia as an outpatient. I have ordered the PET scan for Saturday09/18/17 at 7 a.m. The patient's family does have to obtain a prior authorization for the PET scan and contact Central Sched[employer] when the authorization code is given. The patient has a followup appointment with Dr. Valencia for 09/19/17 at 11:45 a.m. The patient is not bringing up varun hemoptysis. It is samir colored sputum at this point that is coming up. The hypertonic saline nebulizer treatment did help significantly to bring up the mucus from his lungs. In terms of the hematuria, initially the patient denied any UTI symptoms. The patient's urine did grow enterococcus faecalis. It is felt now that possibly the hematuria is secondary to the urinary tract infection; however, if the patient's hematuria does not clear with treating the likely infection, a Urology evaluation should be obtained. The patient has previously seen Dr. Landeros and will follow up with him if the hematuria does not resolve for possible cystoscopy. The patient was also noted to have a petechial appearing rash on his left foot and both hands. The left hand rash has cleared. There is still a faint petechial rash noted to the right hand and left foot. Petechiae on the hand appear to be quite well demarcated. The patient is mildly thrombocytopenic with a platelet count of one-teens to one-twenties range. He has been thrombocytopenic off and on since 2011 but persistently on each lab draws, since May of 2017. The patient has previously followed with Dr. Sanchez and can follow back up with him for this. I have asked that the patient hold his aspirin until he is seen by Dr. Sanchez as an outpatient. I question if the mild thrombocytopenia plus the aspirin has led to possibly some of the hemoptysis, hematuria and petechial appearing rash. At this point, it is felt this patient is stable for discharge home. FOLLOWUP CONCERNS: The patient is being discharged home today, 09/10/17. ACTIVITY LEVEL: As tolerated. DIET: Regular. CONDITION ON DISCHARGE: Stable. TIME SPENT: Thirty five minutes was spent discharging this patient. [id number]/[facility] #: [id number] [facility]
== END 2017-09-10 14:20 | disposition home or self-care (01) | DRG 689 ==
LOC: ED 09:59 → MEDTELE 21:41
PROVIDERS: ADMIT Hospitalist; ATTEND Hospitalist
DX: N39.0 Urinary tract infection, site not specified (principal); J18.9 Pneumonia, unspecified organism; J96.11 Chronic respiratory failure with hypoxia; D69.6 Thrombocytopenia, unspecified; I13.0 Hypertensive heart and chronic kidney disease with heart failure and stage 1 through stage 4 chronic kidney disease, or unspecified chronic kidney disease; I50.9 Heart failure, unspecified; N31.9 Neuromuscular dysfunction of bladder, unspecified; F50.9 Eating disorder, unspecified; R04.2 Hemoptysis; J44.0 Chronic obstructive pulmonary disease with (acute) lower respiratory infection; N18.3 Chronic kidney disease, stage 3 (moderate); J44.9 Chronic obstructive pulmonary disease, unspecified; R91.1 Solitary pulmonary nodule; B95.2 Enterococcus as the cause of diseases classified elsewhere; R31.9 Hematuria, unspecified; R23.3 Spontaneous ecchymoses; G47.33 Obstructive sleep apnea (adult) (pediatric); K21.9 Gastro-esophageal reflux disease without esophagitis; D64.9 Anemia, unspecified; N40.0 Benign prostatic hyperplasia without lower urinary tract symptoms; H91.93 Unspecified hearing loss, bilateral; F41.9 Anxiety disorder, unspecified; F43.10 Post-traumatic stress disorder, unspecified; J98.6 Disorders of diaphragm; H54.7 Unspecified visual loss; R53.1 Weakness; G89.29 Other chronic pain; I25.10 Atherosclerotic heart disease of native coronary artery without angina pectoris; R91.8 Other nonspecific abnormal finding of lung field; Z79.82 Long term (current) use of aspirin; Z88.8 Allergy status to other drugs, medicaments and biological substances; I69.998 Other sequelae following unspecified cerebrovascular disease; Z88.5 Allergy status to narcotic agent; Z91.040 Latex allergy status; Z88.6 Allergy status to analgesic agent; Z87.891 Personal history of nicotine dependence; Z80.9 Family history of malignant neoplasm, unspecified; Z97.4 Presence of external hearing-aid; Z82.49 Family history of ischemic heart disease and other diseases of the circulatory system; Z99.81 Dependence on supplemental oxygen; Z95.1 Presence of aortocoronary bypass graft
CPT/HCPCS: 36415; 71250; 80048; 80053; 81003; 81015; 83605; 83735; 83880; 84484; 85025; 85027; 85610; 85730; 86140; 87070; 87077; 87086; 87186; 87205; 94640; 94760; 96365; 99285; A9270-GY; J0360; J0696; J1956; J3475

== ENCOUNTER 2018-03-14 15:03 | Emergency (ER) | payer OTHER ==
[2018-03-14 15:30] VITALS: BP 147/52
--- NOTE | 2018-03-14 15:54 | UC ---
Respiratory Complaint HPI - HPI Summary HPI Summary: This pt is a 72 y/o male presenting to [facility] c/o productive cough and SOB for the past 3 days. He has a hx of COPD and is on oxygen NC at baseline. Pt reports he has chronic SOB but his SOB has been worse recently, worsening since last night. Additionally he has productive cough with thick sputum. Denies fever , chest pain, abd pain, nausea, vomiting. - History of Current Complaint Stated Complaint: COUGHING UP STUFF,DIFFICULTY BREATHING Time Seen by Provider: 03/14/18 15:23 Hx Obtained From: Patient Onset/Duration: Lasting Days, Still Present Severity Currently: None Pain Intensity: 0 Pain Scale Used: 0-10 Numeric Character: Cough: Productive Aggravating Factors: Nothing Alleviating Factors: Nothing Associated Signs And Symptoms: Positive: Dyspnea. Negative: Fever, Chills, Dizziness, Nasal Congestion - Allergies/Home Medications Allergies/Adverse Reactions: Allergies Allergy/AdvReac Type Severity Reaction Status Date / Time latex Allergy Intermediate Rash Verified 03/14/18 15:36 NSAIDS (Non-Steroidal Allergy Intermediate GI Upset Verified 03/14/18 15:36 Anti-Inflamma bupropion [From Wellbutrin] Allergy panic Verified 03/14/18 15:36 attack clonidine Allergy muscle Verified 03/14/18 15:36 weakness fentanyl Allergy paranoid Verified 03/14/18 15:48 gabapentin Allergy muscle Verified 03/14/18 15:36 weakness/bladeder weakness morphine Allergy paranoid Verified 03/14/18 15:48 MS Alfuzosin [From Uroxatral] Allergy Unknown Verified 08/12/17 15:10 Reaction Details MS Fentanyl [Fentanyl] Allergy Unknown Verified 08/12/17 15:20 Reaction Details MS Morphine [Morphine] Allergy Unknown Verified 08/12/17 15:10 Reaction Details solifenacin [From Vesicare] Allergy hypotnesion Verified 03/14/18 15:36 zonisamide [From Zonegran] Allergy Hallucinati Verified 03/14/18 15:36 ons MS Solifenacin AdvReac Intermediate Hypotension Verified 09/07/17 22:01 [From Vesicare] PMH/Surg Hx/FS Hx/Imm Hx Other Endocrine History: DENIES: diabetes Cardiovascular History: Hypertension Respiratory History: COPD, Asthma - Surgical History Surgical History: Yes Surgery Procedure, Year, and Place: cspine x5(1979,1987,1995,1999,2000), lumbar spine x3(1987,1990,2005), stenosis cspine with hardware, AAA repair(2014), R iliac artery aneurysm repair(2014), L femoral endarterectomy(2014), R achilles tendon lengthening(2006), R shoulder (1990) - Family History Known Family History: Positive: Hypertension Negative: Diabetes - Social History Alcohol Use: None Substance Use Type: None Smoking Status (MU): Former Smoker Type: Cigarettes Have You Smoked in the Last Year: No - Immunization History Most Recent Influenza Vaccination: 2014 Most Recent Tetanus Shot: unknown Most Recent Pneumonia Vaccination: within five years Review of Systems Constitutional: Negative Skin: Negative Eyes: Negative ENT: Negative Respiratory: Shortness Of Breath, Cough Cardiovascular: Negative Gastrointestinal: Negative Genitourinary: Negative Motor: Negative Neurovascular: Negative Musculoskeletal: Negative Neurological: Negative Psychological: Negative All Other Systems Reviewed And Are Negative: Yes Physical Exam - Summary Physical Exam Summary: VITAL SIGNS: Reviewed. GENERAL: Patient is an elderly and fragile male who is on [place] oxygen. HEAD AND FACE: Normocephalic EYES: PERRLA, EOMI x 2. EARS: Hearing grossly intact. MOUTH: Oropharynx within normal limits. NECK: Supple, trachea is midline, no adenopathy, no JVD, no carotid bruit. CHEST: Symmetric, no tenderness at palpation LUNGS: Pt has bilateral crackles in the bases of the lungs. No wheezing. CVS: Regular rate and rhythm, S1 and S2 present, no murmurs or gallops appreciated. ABDOMEN: Soft, non-tender. Bowel sounds are normal. No abdominal abnormal pulsations. EXTREMITIES: Full ROM in all major joints, no edema, no cyanosis or clubbing. NEURO: Alert and oriented x 3. No acute neurological deficits. Speech is normal and follows commands. SKIN: Dry and warm Triage Information Reviewed: Yes Vital Signs: Initial Vital Signs Temp 98.8 F 03/14/18 15:24 Pulse 77 03/14/18 15:24 Resp 26 03/14/18 15:24 BP 147/52 03/14/18 15:24 Pulse Ox 94 03/14/18 15:24 Vital Signs Reviewed: Yes UC Diagnostic Evaluation - Laboratory O2 Sat by Pulse Oximetry: 94 - Radiology Xray Interpretation: No Acute Changes - Chest XR IMPRESSION: 1. Stigmata of obstructive disease. 2. Mild bibasilar subsegmental atelectasis favored over pneumonia. Dr. Goins has reviewed this radiology report. Radiology Interpretation Completed By: Radiologist Respiratory Course/Dx - Course Course Of Treatment: Pt is a 72 y/o male presenting to [facility] c/o productive cough and SOB for the past 3 days. He has a hx of COPD and is on oxygen [place] at baseline. Pt reports he has chronic SOB but his SOB has been worse recently, worsening since last night. Additionally he has productive cough with thick sputum. Denies chest pain, abd pain, nausea, vomiting. Chest XR shows 1. Stigmata of obstructive disease. 2. Mild bibasilar subsegmental atelectasis favored over pneumonia. On exam pt has bilateral crackles in the bases of the lungs without wheezing. He will be discharged home with a prescription for Levaquin. Pt was instructed to return to the urgent care or go to ER immediately if any of the symptoms return or worsens. Plan of care was discussed with the patient and pt understands and agrees. All questions were answered to patient satisfaction. There were no further complaints or concerns. Pt will be discharged to home with follow up from PCP. Pt is hemodynamically stable, alert and oriented x3. The patient was found to have increased blood pressure in UC. The patient will follow up with PCP for better control of BP. - Differential Dx/Diagnosis Provider Diagnoses: Bronchitis Discharge - Sign-Out/Discharge Documenting (check all that apply): Patient Departure - Discharge - Discharge Plan Condition: Stable Disposition: HOME Prescriptions: Levofloxacin TAB* [Levaquin TAB*] 750 mg PO DAILY #10 tab Patient Education Materials: Acute Bronchitis (ED) Referrals: Bibi Gamez [Primary Care Provider] - Additional Instructions: FOLLOW UP WITH YOUR PRIMARY CARE PROVIDER WITHIN ONE WEEK FOR HIGH BLOOD PRESSURE NOTED TODAY. RETURN TO URGENT CARE OR THE ED FOR ANY WORSENING OR NEW SYMPTOMS. Take medications as instructed and adhere to plan Take Acetaminophen or ibuprofen for pain or fever Increase your fluid intake Return to the or go to the emergency department if symptoms worsen Follow-up with primary care physician in next 2-3 days
--- NOTE | 2018-03-14 16:11 | RAD ---
INDICATION: Productive cough. Shortness of breath. Oxygen dependent. COPD. COMPARISON: November 05, 2017 TECHNIQUE: Dual energy PA and routine lateral views of the chest were obtained. REPORT: Elevated lung volumes and rarefaction of the interstitial markings. Minimal dominant linear consolidation at the bilateral lung bases less prominent than on the prior exam. Negative for pleural effusions or pneumothorax. Negative for cardiomegaly. Prominent mildly tortuous thoracic aorta without change. Unremarkable central pulmonary vasculature. IMPRESSION: #. Stigmata of obstructive lung disease. #. Mild bibasilar subsegmental atelectasis favored over pneumonia.
== END 2018-03-14 16:44 | disposition home or self-care (01) ==
LOC: UCEAST 15:03
DX: J40 Bronchitis, not specified as acute or chronic (principal); I10 Essential (primary) hypertension; J44.9 Chronic obstructive pulmonary disease, unspecified; Z99.81 Dependence on supplemental oxygen; Z88.5 Allergy status to narcotic agent; Z88.8 Allergy status to other drugs, medicaments and biological substances; Z88.6 Allergy status to analgesic agent; Z91.040 Latex allergy status; Z82.49 Family history of ischemic heart disease and other diseases of the circulatory system; Z87.891 Personal history of nicotine dependence
CPT/HCPCS: 71046; 99212; G0463

== ENCOUNTER 2019-01-27 13:41 | Emergency (ER) | payer OTHER ==
--- NOTE | 2019-01-27 17:08 | ED ---
Lower Extremity - HPI Summary HPI Summary: Patient is a 73-year-old male who presents to the ED with right medial ankle pain while hitting the area getting into a car few days ago. He states since that time he has had pain to the medial side of the lower extremity just proximal to the medial malleolus. There is erythema and warmth, without streaking. No swelling is noted. Pain on palpation, no obvious deformity is noted. Patient denies fevers, sweats, chills. No history of cellulitis. No history of blood clots. Has not been taking any medication prior to arrival. - History of Current Complaint Chief Complaint: EDExtremityLower Stated Complaint: RULE OUT DVT/PAINFUL RED RT ANKLE PER PT Time Seen by Provider: 01/27/19 14:50 Hx Obtained From: Patient, Family/Receivable Executive Mechanism Of Injury: Blunt Trauma Onset of Pain: Minutes, Days Onset/Duration: Days Severity Initially: Moderate Severity Currently: Mild Pain Intensity: 5 Pain Scale Used: 0-10 Numeric Timing: Constant Location: Is Discrete @ - right medial ankle just proximal with erythema and surrounding Associated Signs And Symptoms: Positive: Swelling, Redness, Bruising Aggravating Factor(s): Standing, Ambulation Alleviating Factor(s): Rest Able to Bear Weight: Yes - Risk Factors Gout Risk Factors: Negative DVT Risk Factors: Negative Septic Arthritis Risk Factor: Negative - Allergies/Home Medications Allergies/Adverse Reactions: Allergies Allergy/AdvReac Type Severity Reaction Status Date / Time latex Allergy Intermediate Rash Verified 03/14/18 15:36 NSAIDS (Non-Steroidal Allergy Intermediate GI Upset Verified 03/14/18 15:36 Anti-Inflamma bupropion [From Wellbutrin] Allergy panic Verified 03/14/18 15:36 attack clonidine Allergy muscle Verified 03/14/18 15:36 weakness fentanyl Allergy paranoid Verified 03/14/18 15:48 gabapentin Allergy muscle Verified 03/14/18 15:36 weakness/bladeder weakness morphine Allergy paranoid Verified 03/14/18 15:48 MS Alfuzosin [From Uroxatral] Allergy Unknown Verified 08/12/17 15:10 Reaction Details MS Fentanyl [Fentanyl] Allergy Unknown Verified 08/12/17 15:20 Reaction Details MS Morphine [Morphine] Allergy Unknown Verified 08/12/17 15:10 Reaction Details solifenacin [From Vesicare] Allergy hypotnesion Verified 03/14/18 15:36 zonisamide [From Zonegran] Allergy Hallucinati Verified 03/14/18 15:36 ons MS Solifenacin AdvReac Intermediate Hypotension Verified 09/07/17 22:01 [From Vesicare] PMH/Surg Hx/FS Hx/Imm Hx Previously Healthy: Yes Endocrine/Hematology History: Denies: Hx Diabetes, Hx Anemia, Hx Unexplained Bleeding Cardiovascular History: Reports: Hx Congestive Heart Failure, Hx Hypertension Denies: Hx Aneurysm, Hx Angina, Hx Angioplasty, Hx Auto Implanted Cardiovert Defib, Hx Cardiac Arrest, Hx Cardiomegaly, Hx Congenital Heart Disease, Hx Coronary Artery Disease, Hx Deep Vein Thrombosis, Hx Embolism, Hx Hypercholesterolemia, Hx Hypotension, Hx Pacemaker/ICD, Hx Peripheral Vascular Disease, Hx Rheumatic Fever, Hx Syncope, Hx Valvular Heart Disease, Other Cardiovascular Problems/Disorders Respiratory History: Reports: Hx Asthma, Hx Chronic Bronchitis, Hx Chronic Obstructive Pulmonary Disease (COPD), Hx Pleural Effusion, Hx Pulmonary Edema, Hx Sleep Apnea Denies: Hx Cystic Fibrosis, Hx Lung Cancer, Hx Pneumonia, Hx Pulmonary Embolism, Hx Seasonal Allergies, Other Respiratory Problems/Disorders GI History: Reports: Hx Gastroesophageal Reflux Disease, Other GI Disorders - ischemic colitis History: Reports: Hx Benign Prostatic Hyperplasia, Hx Renal Disease - cysts, Other Problems/Disorders - kidney cyst, neurogenic bladder Musculoskeletal History: Reports: Hx Back Problems, 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 Denies: Hx Arthritis, Hx Bursitis, Hx Congenital Bone Abnormalities, Hx Fibromyalgia, Hx Gout, Hx Orthopedic Injury, Hx Osteoporosis, Hx Scoliosis, Hx Tendonitis Sensory History: Reports: Hx Contacts or Glasses, Hx Vision Problem, Hx Hearing Aid Denies: Hx Cataracts, Hx Eye Injury, Hx Eye Prosthesis, Hx Glaucoma, Hx Legally Blind, Hx Macular Degeneration, Hx Deafness, Hx Hearing Problem, Other Sensory Impairments Opthamlomology History: Reports: Hx Contacts or Glasses, Hx Vision Problem Denies: Hx Cataracts, Hx Eye Injury, Hx Eye Prosthesis, Hx Glaucoma, Hx Legally Blind, Hx Macular Degeneration, Other Sensory Impairments Neurological History: Denies: Hx Dementia, Hx Developmental Delay, Hx Headaches, Hx Migraine, Hx Nerve Disease, Hx Seizures, Hx Spinal Cord Injury, Hx Transient Ischemic Attacks (TIA), Other Neuro Impairments/Disorders Psychiatric History: Reports: Hx Anxiety, Hx Eating Disorder, Hx Post Traumatic Stress Disorder, Hx Substance Abuse - ETOH, drug Denies: Hx Attention Deficit Hyperactivity Disorder, Hx Depression, Hx Panic Disorder, Hx Inpatient Treatment, Hx Community Mental Health Tx, Hx Schizophrenia, Hx Bipolar Disorder, Hx Suicide Attempt, Hx of Violent Episodes Against Others, Other Psychiatric Issues/Disorders - Cancer History Hx Chemotherapy: No Hx Radiation Therapy: No - Surgical History Surgery Procedure, Year, and Place: cspine x5(1979,1987,1995,1999,2000), lumbar spine x3(1987,1990,2005), stenosis cspine with hardware, AAA repair(2014), R iliac artery aneurysm repair(2014), L femoral endarterectomy(2014), R achilles tendon lengthening(2006), R shoulder (1990) Hx Anesthesia Reactions: No - Immunization History Hx Pertussis Vaccination: No Immunizations Up to Date: Yes Infectious Disease History: No Infectious Disease History: Denies: Hx Clostridium Difficile, Hx Hepatitis, Hx Human Immunodeficiency Virus (HIV), Hx of Known/Suspected MRSA, Hx Shingles, Hx Tuberculosis, Hx Known/ Suspected VRE, Hx Known/Suspected VRSA, History Other Infectious Disease, Traveled Outside the [place] in Last 30 Days - Family History Known Family History: Positive: Hypertension Negative: Diabetes - Social History Occupation: Unemployed Lives: With Family Alcohol Use: None Hx Substance Use: No Substance Use Type: Reports: None Hx Tobacco Use: No Smoking Status (MU): Former Smoker Type: Cigarettes Have You Smoked in the Last Year: No Review of Systems Constitutional: Negative Negative: Fever, Chills, Fatigue, Skin Diaphoresis Negative: Palpitations, Chest Pain Negative: Shortness Of Breath, Cough Positive: Arthralgia - right medial ankle pain. Negative: Myalgia Positive: Other - erythema and ecchymosis without swelling - warmth noted Negative: Headache, Weakness Psychological: Normal All Other Systems Reviewed And Are Negative: Yes Physical Exam Triage Information Reviewed: Yes Vital Signs On Initial Exam: Initial Vitals Temp Pulse Resp BP Pulse Ox 98.7 F 75 18 121/64 87 01/27/19 13:52 01/27/19 13:52 01/27/19 13:52 01/27/19 13:52 01/27/19 13:52 Vital Signs Reviewed: Yes Appearance: Positive: Well-Appearing, Well-Nourished Skin: Positive: Skin Color Reflects Adequate Perfusion, Other - erythema and warmth Head/Face: Positive: Normal Head/Face Inspection Eyes: Positive: EOMI, Conjunctiva Clear Neck: Positive: Supple, No Lymphadenopathy Respiratory/Lung Sounds: Positive: Clear to Auscultation, Breath Sounds Present Cardiovascular: Positive: Pulses are Symmetrical in both Upper and Lower Extremities Musculoskeletal: Positive: Pain @ - right medial ankle pain Neurological: Positive: Speech Normal Psychiatric: Positive: Affect/Mood Appropriate Diagnostics - Vital Signs Vital Signs Temp Pulse Resp BP Pulse Ox 01/27/19 13:52 98.7 F 75 18 121/64 87 - Laboratory Lab Statement: Any lab studies that have been ordered have been reviewed, and results considered in the medical decision making process. Lower Extremity Course/Dx - Course Course Of Treatment: Patient is evaluated for possible cellulitic infection to the right lower medial ankle just proximal to the medial malleolus. There is erythema surrounding. DVT study obtained and is negative. X-ray of the ankle obtained and is negative. Keflex 3 times daily 7 days given in case of infection. - Diagnoses Differential Diagnosis/HQI/PQRI: Positive: Cellulitis, Contusion, Fracture ( Closed), Infection, Sprain, Strain Provider Diagnoses: Cellulitis Discharge - Sign-Out/Discharge Documenting (check all that apply): Patient Departure Patient Received Moderate/Deep Sedation with Procedure: No - Discharge Plan Condition: Stable Disposition: HOME Prescriptions: Cephalexin CAP* [Keflex CAP*] 500 mg PO TID #21 cap MDD 3 Patient Education Materials: Cellulitis (ED) Referrals: Bibi Gamez [Primary Care Provider] - Additional Instructions: I have given you information on cellulitis Using is no evidence of a blood clot in the leg There is no evidence of a fracture Elevate it when possible If symptoms worsen or persist, please see her PCP - Billing Disposition and Condition Condition: STABLE Disposition: Home
[2019-01-27 17:18] VITALS: BP 122/63
== END 2019-01-27 17:16 | disposition home or self-care (01) ==
LOC: ED 13:41
DX: L03.115 Cellulitis of right lower limb (principal); M25.571 Pain in right ankle and joints of right foot; R60.0 Localized edema; Z88.6 Allergy status to analgesic agent; I10 Essential (primary) hypertension; K21.9 Gastro-esophageal reflux disease without esophagitis; Z87.891 Personal history of nicotine dependence
CPT/HCPCS: 99282

== ENCOUNTER 2019-04-17 09:29 | Emergency (ER) | payer OTHER ==
--- NOTE | 2019-04-17 10:16 | ED ---
Back Pain - HPI Summary HPI Summary: 73 year old male with a past medical history of COPD, AAA repair and spinal injury presents with lower back pain following a UTI. Patient was treated for a UTI and completed abx within the last few days. Patient has noticed more back pain than usual on his lower right flank. Pain does not radiate. Pain is mild, constant and dull. No trauma noted. Patient has chronic parasthesia and weakness in his legs. Patient says his legs have been weaker than normal. No trauma noted. No saddle anesthesia. Patient has normal bowel movements and denies urinary symptoms. Patient has SOB due to COPD but has been more short of breath than usual. No chest pain or palpitations. weakness has been gradually getting worst for past couple months. has chronic abd pain that is unchanged. has hematuria chronically. felt better after being treat for uti. no history of kidney stones. - History of Current Complaint Chief Complaint: EDFlankPain Stated Complaint: UTI/FLANK PAIN/WEAKNESS PER PT Time Seen by Provider: 04/17/19 09:41 Pain Intensity: 2 - Allergies/Home Medications Allergies/Adverse Reactions: Allergies Allergy/AdvReac Type Severity Reaction Status Date / Time latex Allergy Intermediate Rash Verified 04/17/19 09:40 NSAIDS (Non-Steroidal Allergy Intermediate GI Upset Verified 04/17/19 09:40 Anti-Inflamma alfuzosin [From Uroxatral] Allergy Hypotension Verified 04/17/19 09:40 bupropion [From Wellbutrin] Allergy panic Verified 04/17/19 09:40 attack clonidine Allergy muscle Verified 04/17/19 09:40 weakness fentanyl Allergy paranoid Verified 04/17/19 09:40 gabapentin Allergy muscle Verified 04/17/19 09:40 weakness/bladeder weakness morphine Allergy paranoid Verified 04/17/19 09:40 solifenacin [From Vesicare] Allergy hypotnesion Verified 04/17/19 09:40 zonisamide [From Zonegran] Allergy Hallucinati Verified 04/17/19 09:40 ons Home Medications: Home Medications ARIPiprazole TAB* [Abilify TAB*] 5 mg PO QAM 04/17/19 [History Confirmed ] Aspirin EC TAB* [Ecotrin EC Low Dose 81 MG*] 81 mg PO QAM 04/17/19 [History Confirmed 04/17/19] Glycopyrrolate/Formoterol (NF) [Bevespi Aerospere Inhaler] 2 puff INH BID [History Confirmed 04/17/19] Levalbuterol HFA INHALER* [Xopenex Hfa Inhaler*] 2 puff INH Q4H PRN 04/17/19 [ History Confirmed 04/17/19] Lidocaine PATCH 5%* [Lidoderm 5% Patch*] 1 - 2 patch TRANSDERM DAILY PRN [History Confirmed 04/17/19] LoraTADine TAB(NF) [Claritin 10 MG TAB(NF)] 10 mg PO DAILY PRN 04/17/19 [ History Confirmed 04/17/19] Magnesium Oxide TAB* [MagOx 400 TAB*] 400 mg PO DAILY 04/17/19 [History Confirmed 04/17/19] Metoprolol Tartrate TAB* [Lopressor TAB*] 12.5 mg PO BID 04/17/19 [History Confirmed 04/17/19] Oxycodone TAB(NF) [Oxycodone HCl 10 MG] 15 mg PO TID PRN 04/17/19 [History Confirmed 04/17/19] Sennosides/Docusate Sodium [Docusate Sodium-Sennosides Tab] 1 tab PO QPM [History Confirmed 04/17/19] Sennosides/Docusate Sodium [Docusate Sodium-Sennosides Tab] 2 tab PO QAM [History Confirmed 04/17/19] amLODIPine TAB* [Norvasc 5 mg TAB*] 5 mg PO QAM 04/17/19 [History Confirmed ] PMH/Surg Hx/FS Hx/Imm Hx Endocrine/Hematology History: Denies: Hx Diabetes, Hx Anemia, Hx Unexplained Bleeding Cardiovascular History: Reports: Hx Congestive Heart Failure, Hx Hypertension Denies: Hx Aneurysm, Hx Angina, Hx Angioplasty, Hx Auto Implanted Cardiovert Defib, Hx Cardiac Arrest, Hx Cardiomegaly, Hx Congenital Heart Disease, Hx Coronary Artery Disease, Hx Deep Vein Thrombosis, Hx Embolism, Hx Hypercholesterolemia, Hx Hypotension, Hx Pacemaker/ICD, Hx Peripheral Vascular Disease, Hx Rheumatic Fever, Hx Syncope, Hx Valvular Heart Disease, Other Cardiovascular Problems/Disorders Respiratory History: Reports: Hx Asthma, Hx Chronic Bronchitis, Hx Chronic Obstructive Pulmonary Disease (COPD), Hx Pleural Effusion, Hx Pulmonary Edema, Hx Sleep Apnea Denies: Hx Cystic Fibrosis, Hx Lung Cancer, Hx Pneumonia, Hx Pulmonary Embolism, Hx Seasonal Allergies, Other Respiratory Problems/Disorders GI History: Reports: Hx Gastroesophageal Reflux Disease, Other GI Disorders - ischemic colitis History: Reports: Hx Benign Prostatic Hyperplasia, Hx Renal Disease - cysts, Other Problems/Disorders - kidney cyst, neurogenic bladder Musculoskeletal History: Reports: Hx Back Problems, 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 Denies: Hx Arthritis, Hx Bursitis, Hx Congenital Bone Abnormalities, Hx Fibromyalgia, Hx Gout, Hx Orthopedic Injury, Hx Osteoporosis, Hx Scoliosis, Hx Tendonitis Sensory History: Reports: Hx Contacts or Glasses, Hx Vision Problem, Hx Hearing Aid Denies: Hx Cataracts, Hx Eye Injury, Hx Eye Prosthesis, Hx Glaucoma, Hx Legally Blind, Hx Macular Degeneration, Hx Deafness, Hx Hearing Problem, Other Sensory Impairments Opthamlomology History: Reports: Hx Contacts or Glasses, Hx Vision Problem Denies: Hx Cataracts, Hx Eye Injury, Hx Eye Prosthesis, Hx Glaucoma, Hx Legally Blind, Hx Macular Degeneration, Other Sensory Impairments Neurological History: Denies: Hx Dementia, Hx Developmental Delay, Hx Headaches, Hx Migraine, Hx Nerve Disease, Hx Seizures, Hx Spinal Cord Injury, Hx Transient Ischemic Attacks (TIA), Other Neuro Impairments/Disorders Psychiatric History: Reports: Hx Anxiety, Hx Eating Disorder, Hx Post Traumatic Stress Disorder, Hx Substance Abuse - ETOH, drug Denies: Hx Attention Deficit Hyperactivity Disorder, Hx Depression, Hx Panic Disorder, Hx Inpatient Treatment, Hx Community Mental Health Tx, Hx Schizophrenia, Hx Bipolar Disorder, Hx Suicide Attempt, Hx of Violent Episodes Against Others, Other Psychiatric Issues/Disorders - Cancer History Hx Chemotherapy: No Hx Radiation Therapy: No - Surgical History Surgery Procedure, Year, and Place: cspine x5(1979,1987,1995,1999,2000), lumbar spine x3(1987,1990,2005), stenosis cspine with hardware, AAA repair(2014), R iliac artery aneurysm repair(2014), L femoral endarterectomy(2014), R achilles tendon lengthening(2006), R shoulder (1990) Hx Anesthesia Reactions: No Infectious Disease History: No Infectious Disease History: Denies: Hx Clostridium Difficile, Hx Hepatitis, Hx Human Immunodeficiency Virus (HIV), Hx of Known/Suspected MRSA, Hx Shingles, Hx Tuberculosis, Hx Known/ Suspected VRE, Hx Known/Suspected VRSA, History Other Infectious Disease, Traveled Outside the [place] in Last 30 Days - Family History Known Family History: Positive: Hypertension Negative: Diabetes - Social History Alcohol Use: None Hx Substance Use: No Substance Use Type: Reports: None Hx Tobacco Use: No Smoking Status (MU): Former Smoker Type: Cigarettes Have You Smoked in the Last Year: No Review of Systems Positive: Fatigue. Negative: Fever, Chills Eyes: Negative ENT: Negative Cardiovascular: Negative Positive: Shortness Of Breath. Negative: Cough Positive: Abdominal Pain. Negative: Vomiting, Diarrhea Genitourinary: Negative Positive: flank pain Musculoskeletal: Negative Skin: Negative Psychological: Normal All Other Systems Reviewed And Are Negative: Yes Physical Exam Triage Information Reviewed: Yes Vital Signs On Initial Exam: Initial Vitals Temp Pulse Resp BP Pulse Ox 97.9 F 88 16 132/58 88 04/17/19 09:32 04/17/19 09:32 04/17/19 09:32 04/17/19 09:32 04/17/19 09:32 Vital Signs Reviewed: Yes Appearance: Positive: Well-Appearing Skin: Positive: Warm, Dry Head/Face: Positive: Normal Head/Face Inspection Eyes: Positive: Normal, Conjunctiva Clear ENT: Positive: Pharynx normal Respiratory/Lung Sounds: Positive: Breath Sounds Present, Decreased Breath Sounds Cardiovascular: Positive: Normal, RRR Abdomen Description: Positive: Soft, Other: - mild diffuse abd tenderness Bowel Sounds: Positive: Present Musculoskeletal: Positive: Strength/ROM Intact - back, Other - tenderness right side of back, good pulses, sensation grossly intact, neg SLR, good pulses Neurological: Positive: Normal, Babinski Bilateral - normal Psychiatric: Positive: Normal Diagnostics - Vital Signs Vital Signs Temp Pulse Resp BP Pulse Ox 04/17/19 09:48 78 139/63 91 04/17/19 09:32 97.9 F 88 16 132/58 88 - Laboratory Result Diagrams: 04/17/19 10:47 04/17/19 10:47 Lab Statement: Any lab studies that have been ordered have been reviewed, and results considered in the medical decision making process. - CT chest, abd CT Interpretation Completed By: Radiologist Summary of CT Findings: CHEST IMPRESSION: #. Negative for pulmonary embolism. #. Interval enlargement of aneurysm of the thoracic aorta at the level of the ascending. segment now measuring 5.7 cm in diameter compared with 5.2 cm on August 11, 2018 exam. Unchanged 2.2 x 2.1 cm penetrating ulcer/antonio morphology aneurysm component at the level. of the LEFT inferolateral margin of the aortic arch. Negative for dissection of the. thoracic aorta or CT evidence for aneurysm rupture/leak. #. Partial atelectasis of the bilateral lower lobes. Trace LEFT pleural effusion. - EKG No standard instances Cardiac Rate: NL EKG Rhythm: Sinus Rhythm EKG Comparison: No Significant Change Summary of EKG Findings: sinus rhythm Re-Evaluation - Re-Evaluation First Eval Re-Evaluation Time: 12:35 Comment: breathing improved Second Eval Change: Improved Comment: feeling better, discussed results Back Pain Course/Dx - Course Course Of Treatment: 73 year old male with a past medical history of COPD, AAA repair and spinal injury presents with lower back pain following a UTI. Patient was treated for a UTI and completed abx within the last few days. Patient has noticed more back pain than usual on his lower right flank. Pain does not radiate. Pain is mild, constant and dull. No trauma noted. Patient has chronic parasthesia and weakness in his legs. Patient says his legs have been weaker than normal. No trauma noted. No saddle anesthesia. Patient has normal bowel movements and denies urinary symptoms. Patient has SOB due to COPD but has been more short of breath than usual. No chest pain or palpitations. weakness has been gradually getting worst for past couple months. has chronic abd pain that is unchanged. has hematuria chronically. felt better after being treat for uti. no history of kidney stones. on exam decreased breath sounds heards lungs. ekg sinus rhythm similar to previous. tenderness over right flank. neurovascular intact. mild diffuse abd tenderness. chest xray normal. troponin .02. wbc normal. anemic has history of such. bun/cr elevated and has hx of CKD. gave breathing treatment and feeling better. got CTA with flank pain and SOB. CTA no PE. aneurysm larger but no hemorrhage. has renal stone. back pain likely muscular. will place on course of steriod for COPD and back pain. told follow up with primary. patient understand and agrees with plan. - Diagnoses Differential Diagnosis/HQI/PQRI: Positive: Fracture, Strain, Sprain Provider Diagnoses: Back pain, Weakness, COPD (chronic obstructive pulmonary disease) Discharge - Sign-Out/Discharge Documenting (check all that apply): Patient Departure Patient Received Moderate/Deep Sedation with Procedure: No - Discharge Plan Condition: Good Disposition: HOME Prescriptions: predniSONE TAB* [Deltasone TAB*] 50 mg PO DAILY #4 tab Patient Education Materials: Back Pain (ED) Referrals: Bibi Gamez [Primary Care Provider] - Additional Instructions: Take steroid once a day for 4 more days starting tomorrow Take Tylenol for pain every 6 hours Follow up with primary within 5 days Return to ED if develop any new or worsening symptoms - Billing Disposition and Condition Condition: GOOD Disposition: Home
[2019-04-17 10:32] LABS: Urine Appearance Clear; Urine Bacteria Absent (Absent); Urine Bilirubin Negative (Negative); Urine Blood 1+ (Negative); Urine Color Yellow; Urine Glucose Negative (Negative); Urine Ketones Negative (Negative); Urine Nitrite Negative (Negative); Urine Protein 2+(100 mg/dL) (Negative); Urine Red Blood Cell 2+(6-10/hpf) (Absent); Urine Specific Gravity 1.014 (1.010-1.030); Urine Urobilinogen Negative (Negative); Urine White Blood Cell Trace(0-5/hpf) (Absent)
[2019-04-17] MEDS ORDERED: Albuterol/Ipratropium NEB.SOL* Albuterol 2.5 MG/Ipratropium 0.5 MG 3 ML INH ONE (10:32)
[2019-04-17] MEDS ORDERED: methylPREDNISolone 125 MG* 2 ML VIAL IV ONE (10:33)
[2019-04-17 11:04] LABS: ABS Basophils 0.1 10^3/ul (0-0.2); ABS Eosinophils 0.3 10^3/ul (0-0.6); ABS Lymphocytes 0.7 10^3/ul (1.0-4.8); ABS Monocytes 0.7 10^3/ul (0-0.8); Eosinophil % 3.3 %; Hematocrit 30 % (42-52); Hemoglobin 9.9 g/dL (14.0-18.0); Lymphocyte % 7.2 %; Mean Corpuscular HGB Conc 33 g/dL (31-36); Mean Corpuscular Hemoglobin 32 pg (27-31); Mean Corpuscular Volume 96 fL (80-94); Nucleated Red Blood Cells % 0.1; Platelet Count 113 10^3/uL (150-450); Red Cell Distribution Width 15 % (10-15); White Blood Count 9.8 10^3/uL (3.5-10.8)
[2019-04-17 11:17] LABS: INR 1.14 (0.82-1.09)
[2019-04-17 11:30] LABS: Troponin I 0.02 ng/mL (<0.04)
[2019-04-17 11:43] LABS: Albumin 4.2 g/dL (3.2-5.2); Albumin/Globulin Ratio 1.7 (1-3); BUN/Creatinine Ratio 29.5 (8-20); C Reactive Protein 3.54 mg/L (<8.01); Calcium 9.2 mg/dL (8.6-10.3); EGFR African American 60.6 (>60); EGFR Non-African American 50.1 (>60); Globulin 2.5 g/dL (2-4); Total Bilirubin 0.5 mg/dL (0.2-1.0); Total Protein 6.7 g/dL (6.4-8.9)
[2019-04-17] MEDS ORDERED: Iodixanol* (CONTRAST) 320 MG/ML 100 ML SDV IV ONE (12:08)
[2019-04-17 12:17] LABS: TSH (Thyroid Stimulating Horm) 2.96 mcIU/mL (0.34-5.60)
[2019-04-17 14:45] VITALS: BP 143/68
== END 2019-04-17 14:44 | disposition home or self-care (01) ==
LOC: ED 09:29
DX: M54.5 Low back pain (principal); R53.1 Weakness; J44.9 Chronic obstructive pulmonary disease, unspecified; I50.9 Heart failure, unspecified; I11.0 Hypertensive heart disease with heart failure; K21.9 Gastro-esophageal reflux disease without esophagitis; F41.9 Anxiety disorder, unspecified; Z87.891 Personal history of nicotine dependence; Z79.82 Long term (current) use of aspirin; Z79.891 Long term (current) use of opiate analgesic; Z79.899 Other long term (current) drug therapy; Z88.5 Allergy status to narcotic agent; Z88.8 Allergy status to other drugs, medicaments and biological substances; Z88.6 Allergy status to analgesic agent; Z91.040 Latex allergy status
CPT/HCPCS: 36415; 71046; 71275; 74174; 80053; 81003; 81015; 83605; 83690; 83880; 84443; 84484; 85025; 85610; 86140; 87086; 93005; 96374; 99284; A9270-GY; J2930; Q9967

== ENCOUNTER 2019-05-06 08:09 | Observation (INO) | payer OTHER ==
--- OUTSIDE RECORDS SUMMARY | 2019-05-06 08:44 | XMS REPORT | Continuity of Care Document ---
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 Description No Information Available Social History Type Date Description Comments Sex Unknown Cigarette Use Current Cigarette Smoker 1 Pack Daily ETOH Use Denies alcohol use Tobacco Use Start: Unknown End: Unknown Patient is a former smoker Smoking Status Reviewed: 04/21/19 Patient is a former smoker Allergies, Adverse Reactions, Alerts Active Allergies Reaction Severity Comments Date Nsaid 07/15/2005 Morphine 07/15/2005 wellbutrin 07/15/2005 Dilaudid 07/15/2005 Zonegran Hallucinations 04/11/2010 Clonidine 04/11/2010 Uroxatral dizziness 04/11/2010 Flomax dizziness 04/11/2010 Latex 04/11/2010 Vesicare hypotension 05/17/2016 Gabapentin weakness 07/04/2017 Medications Active Medications SIG Qnty Indications Ordering Date Provider Lidoderm si -2 applied 60units Reno Novak, 06/20/2018 5% Patches to affected areas DO, MPH daily, not more than 10h as directed chronic pain patient Oxycontin si by mouth 60tabs Reno Novak, 11/14/2017 10mg Tab ER every 12 hours DO, MPH 12H Abuse-Det chronic pain Oxycodone HCL si/2-1 by 90tabs Reno Novak, 05/17/2016 15mg mouth every 8 DO, MPH Tablets hours as directed chronic pain patient Norvasc 1 by mouth every Unknown 5mg Tablets night at bedtime Cymbalta si by mouth Unknown 30mg Caps DR daily as directed Part chronic pain patient Xopenex HFA 1 puff every 6 Unknown 45mcg/Act hours for Aerosol shortness of breath Alprazolam 1 every 6 hours Unknown 0.25mg as needed Tablets Potassium Chloride ER 1 by mouth in the Unknown morning 10Meq Capsules ER Metoprolol Tartrate 1/2 by mouth Unknown twice daily 25mg Tablets Magnesium Oxide 2 by mouth twice Unknown 400mg daily Tablets Loratadine si by mouth Unknown 10mg Tablets every morning as needed Docusate Sodium & si by mouth Unknown Senna Stimulant twice daily Laxative/Stool Softener 8.6-50mg Tablets Symbicort 2 puffs twice Unknown 80-4.5mcg/Act daily Aerosol Atorvastatin Calcium 1 by mouth at Unknown night 80mg Tablets Aripiprazole 1by mouth in the Unknown 5mg morning Tablets Montelukast Sodium daily 30tabs Unknown 10mg Tablets Nexium si po qd ud 60caps Unknown 40mg Capsules DR Immunizations Description No Information Available Vital Signs Date Vital Result Comment 04/21/2019 11:03am BP Systolic 120 mmHg BP Diastolic 78 mmHg Heart Rate 94 /min Respiratory Rate 20 /min Height 71 inches 5'11" Weight 170.00 lb Pain Level 7 Pain at this time. Pain Level With Medicine 6 on average with meds Pain Level Without Medicine 9 06/11 without meds BMI (Body Mass Index) 23.7 kg/m2 03/31/2019 10:35am BP Systolic 138 mmHg BP Diastolic 86 mmHg Heart Rate 84 /min Respiratory Rate 20 /min Height 71 inches 5'11" Weight 173.00 lb O2 % BldC Oximetry 90 % Pain Level 6 Pain at this time. Pain Level With Medicine 6 on average with meds Pain Level Without Medicine 9 without meds Pain Level After Procedure 4 BP Systolic Recheck 144 mmHg Pulse: 88 BP Diastolic Recheck 86 mmHg Pulse: 88 BMI (Body Mass Index) 24.1 kg/m2 Results Description No Information Available Procedures Date Code Description Status 03/31/2019 11105 Injection For Nerve Block, Suprascapular Nerve Completed 03/31/2019 Arthrocentesis/Aspiration/Inj Of Major Joint Or Bursa W/ Completed Ultra 03/31/2019 Injection, Single Or Mutiple Trigger Points One Or Two Completed Muscles Medical Devices Description No Information Available Encounters Type Date Location Provider Dx Diagnosis Office Visit 03/31/2019 Main Office as Reno Novak [id number] Other chronic 10:15a Of 10/03/13 DO, MPH postprocedural pain M54.2 Cervicalgia M25.511 Pain in right shoulder M79.12 Myalgia of auxiliary muscles, head and neck Office Visit 03/23/2019 10:45a Main Office Reno Novak [id number] Other chronic as Of 10/03/13 DO, [facility]PH postprocedural pain M54.2 Cervicalgia M54.5 Low back pain 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 Office Visit 02/18/2019 10:15a Main Office Reno Novak [id number] Other chronic as Of 10/03/13 DO, MPH postprocedural pain M54.2 Cervicalgia M54.5 Low back pain M96.1 Postlaminectomy syndrome, not elsewhere classified 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 Office Visit 12/17/2018 10:15a Main Office Reno Novak [id number] Other chronic as Of 10/03/13 DO, MPH postprocedural pain M54.2 Cervicalgia M54.5 Low back pain M96.1 Postlaminectomy syndrome, not elsewhere classified M25.511 Pain in right shoulder M25.512 Pain in left shoulder Office Visit 11/19/2018 10:15a Main Office Reno Novak [id number] Other chronic as Of 10/03/13 DO, MPH postprocedural pain M54.5 Low back pain M54.2 Cervicalgia M96.1 Postlaminectomy syndrome, not elsewhere classified Z79.891 shelter (current) use of opiate analgesic Assessments Date Code Description Provider 04/21/2019 G89.28 Other chronic postprocedural pain Reno Novak DO MPH 04/21/2019 M54.2 Cervicalgia Novak, Reno, DO, MPH 04/21/2019 M25.511 Pain in right shoulder Onvak, Reno, DO, MPH 04/21/2019 M54.5 Low back pain Novak, Reno, DO, MPH 04/21/2019 M79.2 Neuralgia and neuritis, unspecified Novak, Reno, DO, MPH 04/21/2019 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 Novak, Reno , DO, MPH 03/31/2019 G89.28 Other chronic postprocedural pain Novak, Reno, DO, MPH 03/31/2019 M54.2 Cervicalgia Novak, Reno, DO, MPH 03/31/2019 M25.511 Pain in right shoulder Novak, Reno, DO, MPH 03/31/2019 M79.12 Myalgia of auxiliary muscles, head and neck Novak, Reno, DO, MPH 03/23/2019 G89.28 Other chronic postprocedural pain Novak, Reno, DO, MPH 03/23/2019 M54.2 Cervicalgia Novak, Reno, DO, MPH 03/23/2019 M54.5 Low back pain Novak, Reno, DO, MPH 03/23/2019 Z79.891 shelter (current) use of opiate analgesic Novak, Reno , DO, MPH 02/18/2019 G89.28 Other chronic postprocedural pain Novak, Reno, DO, MPH 02/18/2019 M54.2 Cervicalgia Novak, Reno, DO, MPH 02/18/2019 M54.5 Low back pain Novak, Reno, DO, MPH 02/18/2019 M96.1 Postlaminectomy syndrome, not elsewhere Novak, Reno, DO, MPH classified 02/18/2019 Z79.891 shelter (current) use of opiate analgesic Novak, Reno , DO, MPH 12/17/2018 G89.28 Other chronic postprocedural pain Novak, Reno, DO, MPH 12/17/2018 M54.2 Cervicalgia Novak, Reno, DO, MPH 12/17/2018 M54.5 Low back pain Novak, Reno, DO, MPH 12/17/2018 M96.1 Postlaminectomy syndrome, not elsewhere Reno Novak DO MPH classified 12/17/2018 M25.511 Pain in right shoulder Reno Novak DO MPH 12/17/2018 M25.512 Pain in left shoulder Reno Novak DO MPH 11/19/2018 G89.28 Other chronic postprocedural pain Reno Novak DO MPH 11/19/2018 M54.5 Low back pain Reno Novak DO MPH 11/19/2018 M54.2 Cervicalgia Reno Novak DO MPH 11/19/2018 M96.1 Postlaminectomy syndrome, not elsewhere Reno Novak DO MPH classified 11/19/2018 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 Symptoms and complaints discussed and reviewed today. No significant changes in physical findings. Continue current medical pain management.M54.2 CervicalgiaComments:Chronic. Symptoms and complaints discussed and reviewed today. No significant changes in physical findings. Continue current medical pain management.M25.511 Pain in right shoulderComments:Chronic. Symptoms and complaints discussed and reviewed today. No significant changes in physical findings. Continue current medical pain management.M54.5 Low back painComments:Chronic. Symptoms and complaints discussed and reviewed today.No changes in physical findings. Patient is stable and comfortable when current medical therapy is rendered.M79.2 Neuralgia and neuritis, unspecifiedComments:Chronic. Symptoms and complaints discussed and reviewed today. No significant changes in physical findings. Continue current medical pain management. Chronic. Symptoms and complaints discussed andreviewed today. Continue current medical pain management. Injection therapy today. Informed consent/refusal reviewed. See procedure sheet.Z79.891 shelter (current) use of opiate analgesicNew Labs:Urine Drug Screen, Ordered: 04/21Comments:Urine drug screen sample taken today to monitor opiate use and to monitor use of illicit substances.Will discuss results at next appointment.The following tests were ordered:6 AM, AMPH, FLORIN, CLAIRE, BUP, CARIS, COCM, COT, ETG , FENT, MCSHSG, OPI, OXY, PCP, TAPEN, XTSY, ZOLP. A urine drug test (UDT ) was ordered for this patient and collected on site today. Creatinine has been ordered as well for specimen validity, not for kidney function. Preliminary UDT results are not final and should not be used to determine patient care or plan of treatment. Initially a qualitative immunoassay screen will be done. Any inconsistent or positive findings will be further tested with a more comprehensive quantitative confirmation LCMS study. It is part of the treatment process of prescribing controlled substances and is considered standard of care.AllComments:Continue current medical pain management; injection therapy, osteopathic manipulation, PT / modalities, and consults as needed to manage chronic pain.Non - opioid pain management discussed and optionsdiscussed.Side effects discussed; anticipatory guidance given. Patient clearly understand and agree with all medical treatments and suggestions. All medicines prescribed are adequate and appropriate for this patient's complaint of pain, medical history, physical, and personal goals.Goals of Treatment are to provide adequate and appropriate multidisciplinary medical pain management to increase/ maintain patient's quality of life and functionality while maintaining satisfactory side effect profile andminimizing intermediate card tender end-organ damage. Importance of regular nutrition throughout the day discussed.Activity as toleratedContinue with PCP Functional Status Description No Information Available Mental Status Description No Information Available Referrals Refer to Reason for Referral Status Appt Date Reno Novak D.O. MPH Created [address] [place] [address] [place] [id number] [phone]
--- NOTE | 2019-05-06 08:54 | ED ---
Respiratory - HPI Summary HPI Summary: Patient is a 73 y/o M presenting to ED for complaints of hemoptysis. Patient states that he took nightly pills at around 1930 last night, 05/05/19. He states that he had a hard time swallowing a particularly large pill. He states that he was choking it up but eventually got it down. However, he states that, "It did not go down right". Around 2300 05/05/19, he began to cough up blood, and again 0500 this morning, 05/06/19. The patient states that the cough was productive of blood clots. He denies fever. Patient reports that he was at baseline prior to episode. Hx of COPD, but notes that he typically does not cough with his presentation. He notes that he has two previous episodes of hemoptysis. Hx of aneurysm is noted. Some abdominal pain is noted, but characterizes this as chronic as a result of AAA surgery. PMHx of congenital spinal stenosis reported. PSHx of 8 spinal surgeries endorsed. notes that the patient is followed by Dr. York for pulmonary HTN. also reports that the patient is followed by Dr. Sanchez for chronic anemia, patient's Hgb is typically 10.5. He had a small stroke a few years ago, which affected the patient's peripheral vision. Patient is followed by Dr. Kauffman. Patient is on baby ASA which he did not take this morning. Vitals are 82 pulse, 93 o2 on oxygen, BP 127/86. Home medications and allergies are reviewed. - History of Current Complaint Chief Complaint: EDWeakness Stated Complaint: COUGHING UP BLOOD PER PT Time Seen by Provider: 05/06/19 08:34 Hx Obtained From: Patient - , Family/Street Commissioner Onset/Duration: Lasting Hours - onset 2300, 05/05/19 Timing: Intermittent Episodes Lasting: Pain Intensity: 5 Character: Cough (Productive) Sputum Amount: Moderate Sputum Color: Red (Blood), Small Clots Associated Signs and Symptoms: Negative - Allergy/Home Medications Allergies/Adverse Reactions: Allergies Allergy/AdvReac Type Severity Reaction Status Date / Time latex Allergy Intermediate Rash Verified 05/06/19 08:29 NSAIDS (Non-Steroidal Allergy Intermediate GI Upset Verified 05/06/19 08:29 Anti-Inflamma alfuzosin [From Uroxatral] Allergy Hypotension Verified 05/06/19 08:29 bupropion [From Wellbutrin] Allergy panic Verified 05/06/19 08:29 attack clonidine Allergy muscle Verified 05/06/19 08:29 weakness fentanyl Allergy paranoid Verified 05/06/19 08:29 gabapentin Allergy muscle Verified 05/06/19 08:29 weakness/bladeder weakness morphine Allergy paranoid Verified 05/06/19 08:29 solifenacin [From Vesicare] Allergy hypotnesion Verified 05/06/19 08:29 zonisamide [From Zonegran] Allergy Hallucinati Verified 05/06/19 08:29 ons PMH/Surg Hx/FS Hx/Imm Hx Endocrine/Hematology History: Denies: Hx Diabetes, Hx Anemia, Hx Unexplained Bleeding Cardiovascular History: Reports: Hx Congestive Heart Failure, Hx Hypertension Denies: Hx Aneurysm, Hx Angina, Hx Angioplasty, Hx Auto Implanted Cardiovert Defib, Hx Cardiac Arrest, Hx Cardiomegaly, Hx Congenital Heart Disease, Hx Coronary Artery Disease, Hx Deep Vein Thrombosis, Hx Embolism, Hx Hypercholesterolemia, Hx Hypotension, Hx Pacemaker/ICD, Hx Peripheral Vascular Disease, Hx Rheumatic Fever, Hx Syncope, Hx Valvular Heart Disease, Other Cardiovascular Problems/Disorders Respiratory History: Reports: Hx Asthma, Hx Chronic Bronchitis, Hx Chronic Obstructive Pulmonary Disease (COPD), Hx Pleural Effusion, Hx Pulmonary Edema, Hx Sleep Apnea Denies: Hx Cystic Fibrosis, Hx Lung Cancer, Hx Pneumonia, Hx Pulmonary Embolism, Hx Seasonal Allergies, Other Respiratory Problems/Disorders GI History: Reports: Hx Gastroesophageal Reflux Disease, Other GI Disorders - ischemic colitis History: Reports: Hx Benign Prostatic Hyperplasia, Hx Renal Disease - cysts, Other Problems/Disorders - kidney cyst, neurogenic bladder Musculoskeletal History: Reports: Hx Back Problems, 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 Denies: Hx Arthritis, Hx Bursitis, Hx Congenital Bone Abnormalities, Hx Fibromyalgia, Hx Gout, Hx Orthopedic Injury, Hx Osteoporosis, Hx Scoliosis, Hx Tendonitis Sensory History: Reports: Hx Contacts or Glasses, Hx Vision Problem, Hx Hearing Aid Denies: Hx Cataracts, Hx Eye Injury, Hx Eye Prosthesis, Hx Glaucoma, Hx Legally Blind, Hx Macular Degeneration, Hx Deafness, Hx Hearing Problem, Other Sensory Impairments Opthamlomology History: Reports: Hx Contacts or Glasses, Hx Vision Problem Denies: Hx Cataracts, Hx Eye Injury, Hx Eye Prosthesis, Hx Glaucoma, Hx Legally Blind, Hx Macular Degeneration, Other Sensory Impairments Neurological History: Denies: Hx Dementia, Hx Developmental Delay, Hx Headaches, Hx Migraine, Hx Nerve Disease, Hx Seizures, Hx Spinal Cord Injury, Hx Transient Ischemic Attacks (TIA), Other Neuro Impairments/Disorders Psychiatric History: Reports: Hx Anxiety, Hx Eating Disorder, Hx Post Traumatic Stress Disorder, Hx Substance Abuse - ETOH, drug Denies: Hx Attention Deficit Hyperactivity Disorder, Hx Depression, Hx Panic Disorder, Hx Inpatient Treatment, Hx Community Mental Health Tx, Hx Schizophrenia, Hx Bipolar Disorder, Hx Suicide Attempt, Hx of Violent Episodes Against Others, Other Psychiatric Issues/Disorders - Cancer History Hx Chemotherapy: No Hx Radiation Therapy: No - Surgical History Surgery Procedure, Year, and Place: cspine x5(1979,1987,1995,1999,2000), lumbar spine x3(1987,1990,2005), stenosis cspine with hardware, AAA repair(2014), R iliac artery aneurysm repair(2014), L femoral endarterectomy(2014), R achilles tendon lengthening(2006), R shoulder (1990) Hx Anesthesia Reactions: No Infectious Disease History: No Infectious Disease History: Denies: Hx Clostridium Difficile, Hx Hepatitis, Hx Human Immunodeficiency Virus (HIV), Hx of Known/Suspected MRSA, Hx Shingles, Hx Tuberculosis, Hx Known/ Suspected VRE, Hx Known/Suspected VRSA, History Other Infectious Disease, Traveled Outside the [place] in Last 30 Days - Family History Known Family History: Positive: Hypertension Negative: Diabetes - Social History Alcohol Use: None Hx Substance Use: No Substance Use Type: Reports: None Hx Tobacco Use: No Smoking Status (MU): Former Smoker Type: Cigarettes Have You Smoked in the Last Year: No Review of Systems Negative: Fever Positive: Cough - hemoptysis All Other Systems Reviewed And Are Negative: Yes Physical Exam - Summary Physical Exam Summary: General: Well-developed, Well-nourished male. No acute distress. Patient has nasal cannula in mouth. HEENT: Normocephalic, Atraumatic. Eyes: Conjuctiva normal, PERRL. Ears: TMs within normal limits. Nares: (-) discharge, (-) erythema. Oropharynx: Clear, mucous membranes moist, (-) exudates. Neck: Soft, FROM, (-) lymphadenopathy, (-) thyromegaly, (-) JVD. Cardiovascular: Normal sinus rhythm, (-) murmur. Lungs: Lung sounds are diminished, especially on the right, poor air exchange, ( -) wheezes, (-) rales, (-) rhonchi. Abdomen: Soft, non-tender, non-distended, (-) organomegaly, normal bowel sounds. Back: (-) CVA tenderness Extremities: No edema. Skin: Warm, dry, (-) rash. Neuro: Alert and oriented x3, no focal deficits. Psychiatric: Mood normal, affect normal. Triage Information Reviewed: Yes Vital Signs On Initial Exam: Initial Vitals Temp Pulse Resp BP Pulse Ox 97.5 F 85 18 137/82 86 05/06/19 08:13 05/06/19 08:13 05/06/19 08:13 05/06/19 08:13 05/06/19 08:13 Vital Signs Reviewed: Yes Diagnostics - Vital Signs Vital Signs Temp Pulse Resp BP Pulse Ox 05/06/19 08:13 97.5 F 85 18 137/82 86 - Laboratory Result Diagrams: 05/06/19 09:11 05/06/19 09:11 Lab Statement: Any lab studies that have been ordered have been reviewed, and results considered in the medical decision making process. - Radiology CXR Radiology Interpretation Completed By: Radiologist Summary of Radiographic Findings: IMPRESSION: THERE HAS BEEN INTERVAL DEVELOPMENT OF 2.2 CM MASS OF THE RIGHT LOWER LUNG. RECOMMEND. CONSIDERATION OF FURTHER EVALUATION WITH CONTRAST-ENHANCED CT OF THE CHEST. THIS REPORT WAS REVIEWED BY DR. CEJA. - CT CHEST CT CT Interpretation Completed By: Radiologist Summary of CT Findings: IMPRESSION: 1. THERE HAS BEEN INTERVAL DEVELOPMENT OF A 2 CM MASS WITHIN THE SUPERIOR SEGMENT OF THE. RIGHT UPPER LOBE. THE DIFFERENTIAL INCLUDES NEOPLASM. RECOMMEND CONSIDERATION OF FURTHER. EVALUATION WITH PET/CT AND/OR TISSUE SAMPLING. 2. RIGHT LOWER LOBE CONSOLIDATION AND BRONCHIECTASIS. 3. EMPHYSEMA. 4. AGAIN NOTED IS ANEURYSMAL DILATATION OF THE THORACIC AORTA AND UPPER ABDOMINAL AORTA. THIS REPORT WAS REVIEWED BY DR. CEJA. - EKG 0913 Cardiac Rate: NL - rate of 82 BPM EKG Rhythm: Sinus Rhythm Summary of EKG Findings: EKG showed NSR with rate of 82 BPM, no STEMI. This EKG was reviewed and interpreted by Dr. Ceja. Re-Evaluation - Re-Evaluation First Eval Re-Evaluation Time: 13:02 Comment: Patient and initially refused CT Chest as they note the patient had one a few weeks ago. They note the patient has not been coughing while in ED. Findings of CXR were discussed with the patient as well as the need for another CT Chest. Patient and are agreeable with CT Chest at this time. Second Eval Re-Evaluation Time: 15:34 Comment: Admission was discussed with patient and , they are agreeable. Disposition - Course Course Of Treatment: Patient is a 73 y/o M presenting to ED for complaints of hemoptysis. Patient states that he took nightly pills at around 1930 last night , 05/05/19. He states that he had a hard time swallowing a particularly large pill. He states that he was choking it up but eventually got it down. However, he states that, "It did not go down right". Around 2300 05/05/19, he began to cough up blood, and again 0500 this morning, 05/06/19. Patient has nasal cannula in his mouth, lung sounds are diminished, especially at the right. Patient has poor air exchange. EKG showed NSR with rate of 82 BPM, no STEMI. Bloodwork was obtained. Abnormal values included RBC 2.94, Hgb 9.3, Hct 28, MCV 96, MCH 32, plt count 120, absolute lymphs 0.7, chloride 100, carbon dioxide 37, BUN 38, creatinine 1.5, BUN/creatinine ratio 25.3, glucose 124, BNP 201, total protein 6.3. Trop was 0.02, lactic acid 0.5. CXR IMPRESSION: THERE HAS BEEN INTERVAL DEVELOPMENT OF 2.2 CM MASS OF THE RIGHT LOWER LUNG. RECOMMEND. CONSIDERATION OF FURTHER EVALUATION WITH CONTRAST-ENHANCED CT OF THE CHEST. CT CHEST IMPRESSION: 1. THERE HAS BEEN INTERVAL DEVELOPMENT OF A 2 CM MASS WITHIN THE SUPERIOR SEGMENT OF THE. RIGHT UPPER LOBE. THE DIFFERENTIAL INCLUDES NEOPLASM. RECOMMEND CONSIDERATION OF FURTHER. EVALUATION WITH PET/CT AND/OR TISSUE SAMPLING. 2. RIGHT LOWER LOBE CONSOLIDATION AND BRONCHIECTASIS. 3. EMPHYSEMA. 4. AGAIN NOTED IS ANEURYSMAL DILATATION OF THE THORACIC AORTA AND UPPER ABDOMINAL AORTA. Patient was started on piperacillin sod/tazobactam sod 3.375 gm, 100 mls @ 200 mls/hr IVPB. 1523 Patients case was discussed with Dr. Ly, Dr. Ly referred to Dr. Huerta. 1531 - Patient's case was discussed with Dr. Huerta, Dr. Huerta accepts for admission. Patient is agreeable with admission. - Diagnoses Provider Diagnoses: Lung mass, PNA (pneumonia) - Physician Notifications Discussed Care Of Patient With: Shagufta Huerta Time Discussed With Above Provider: 15:31 Instructed by Provider To: Other - 1523 Patients case was discussed with Dr. Ly, Dr. Ly referred to Dr. Huerta. 1531 - Patient's case was discussed with Dr. Huerta, Dr. Huerta accepts for admission. Discharge ED - Sign-Out/Discharge Documenting (check all that apply): Patient Departure - admit Patient Received Moderate/Deep Sedation with Procedure: No - Discharge Plan Condition: Fair Disposition: ADMITTED TO [facility] Referrals: Bibi Gamez [Primary Care Provider] - - Billing Disposition and Condition Condition: FAIR Disposition: Admitted to [facility] - Attestation Statements Document Initiated by Sergio: Yes Documenting Scribe: GISSELLE JACOBSON Provider For Whom Scribe is Documenting (Include Credential): MERYL CEJA MD Scribe Attestation: GISSELLE Oscar, scribed for MERYL CEJA MD on 05/06/19 at 1558. Scribe Documentation Reviewed: Yes Provider Attestation: The documentation as recorded by the GISSELLE quiroz accurately reflects the service I personally performed and the decisions made by me, MERYL CEJA MD Status of Scribe Document: Viewed
[2019-05-06 09:22] LABS: ABS Basophils 0.1 10^3/ul (0-0.2); ABS Eosinophils 0.3 10^3/ul (0-0.6); ABS Lymphocytes 0.7 10^3/ul (1.0-4.8); ABS Monocytes 0.6 10^3/ul (0-0.8); ABS Neutrophils 6.4 10^3/ul (1.5-7.7); Eosinophil % 4.1 %; Hematocrit 28 % (42-52); Hemoglobin 9.3 g/dL (14.0-18.0); Lymphocyte % 8.9 %; Mean Corpuscular HGB Conc 33 g/dL (31-36); Mean Corpuscular Hemoglobin 32 pg (27-31); Mean Corpuscular Volume 96 fL (80-94); Mean Platelet Volume 8.8 fL (7.4-10.4); Platelet Count 120 10^3/uL (150-450); Red Blood Count 2.94 10^6 /uL (4.18-5.48); Red Cell Distribution Width 15 % (10-15); White Blood Count 8.1 10^3/uL (3.5-10.8)
[2019-05-06 09:40] LABS: Albumin 3.9 g/dL (3.2-5.2); Albumin/Globulin Ratio 1.6 (1-3); BUN/Creatinine Ratio 25.3 (8-20); Calcium 9.3 mg/dL (8.6-10.3); EGFR African American 55.5 (>60); EGFR Non-African American 45.9 (>60); Globulin 2.4 g/dL (2-4); Total Bilirubin 0.6 mg/dL (0.2-1.0); Total Protein 6.3 g/dL (6.4-8.9)
[2019-05-06 09:41] LABS: Troponin I 0.02 ng/mL (<0.04)
[2019-05-06] MEDS ORDERED: Iodixanol* (CONTRAST) 320 MG/ML 100 ML SDV IV ONE (12:05)
[2019-05-06] MEDS ORDERED: Piperacillin/Tazobac ADVAN(*) 3.375 GM in NS 0.9% 100 ML* 100 ML IVPB ONE ×2 (15:08→17:04)
[2019-05-06] MEDS ORDERED: Albuterol/Ipratropium NEB.SOL* Albuterol 2.5 MG/Ipratropium 0.5 MG 3 ML INH PRN (16:56)
[2019-05-06 17:02] LABS: C Reactive Protein 7.39 mg/L (<8.01)
[2019-05-06] MEDS ORDERED: oxyCODONE TAB* 5 MG TAB PO PRN (17:04)
[2019-05-06] MEDS ORDERED: ALPRAZolam TAB* 0.25 MG PO PRN (17:04)
[2019-05-06] MEDS ORDERED: Zosyn per Pharmacy* NOTE FOLLOW UP SCH (18:00)
[2019-05-06] MEDS: ZOSYN 3.375 GM Q8H per EXTENDED INFUSION IVPB SCH ×2 (20:07)
[2019-05-06] MEDS: Atorvastatin* 80 MG TAB PO SCH (20:07)
[2019-05-06] MEDS: Metoprolol Tartrate TAB* 25 MG PO SCH (20:07)
[2019-05-06] MEDS: Enoxaparin(*) 40 MG/0.4 ML SYR SUBCUT SCH (20:10)
--- NOTE | 2019-05-06 20:22 | HP ---
CC: Bibi Gamez NP; Dr. Susanna Valencia* HISTORY AND PHYSICAL: DATE OF ADMISSION: 05/06/19 PRIMARY CARE PROVIDER: Bibi Gamez NP LABORATORY ANIMAL CARE VETERINARIAN: Dr. Susanna Valencia. ATTENDING PHYSICIAN: Dr. Shagufta Huerta* (dictated by Linda Villafana NP). CHIEF COMPLAINT: Hemoptysis. HISTORY OF PRESENT ILLNESS: Mr. Salguero is a 73-year-old male with past medical history of COPD with chronic hypoxic respiratory failure, on 2 L at baseline; CVA; AAA; CKD, stage 3; and anemia, who presents to the emergency room today with complaints of hemoptysis. The patient has been in his normal state of health, feeling well recently, last night when he was taking his medications he saved his largest pill for last and when he took it he felt as though he choked on it. He did cough several times, but felt like it went "down the wrong tube. " Thereafter, he was noted to have hemoptysis, coughing up clots larger than a half dollar in size according to him and his . That occurred last night and again this morning. He also had some associated weakness and so because of the concern, they presented to the emergency room. In the emergency room, the patient was noted to have lab work consistent with his baseline. Vitals were noted to be stable. There was a chest CT that was concerning for a 2-cm mass in the right upper lobe of unknown etiology. Because of these findings, the hospitalist service was asked to evaluate for admission. PAST MEDICAL HISTORY: 1. COPD. 2. Chronic respiratory failure, on 2 L nasal cannula. 3. CVA with residual visual deficits. 4. AAA. 5. Chronic kidney disease, stage 3. 6. Anemia. 7. GERD. 8. Obstructive sleep apnea. PAST SURGICAL HISTORY: 1. Spinal surgeries x8. 2. AAA repair with multiple complications. MEDICATIONS: 1. Alprazolam 0.25 mg p.o. q.6 hours p.r.n. anxiety. 2. Amlodipine 5 mg p.o. daily. 3. Abilify 2.5 mg p.o. daily. 4. Aspirin 81 mg p.o. daily. 5. Atorvastatin 80 mg p.o. at bedtime. 6. Duloxetine 40 mg p.o. daily. 7. Esomeprazole 40 mg p.o. daily. 8. Furosemide 10 mg p.o. daily. 9. Bevespi 2 puffs b.i.d. 10. Mucinex 1200 mg p.o. b.i.d. p.r.n. congestion. 11. Levalbuterol MDI 2 puffs q.4 hours p.r.n. shortness of breath. 12. Lidocaine patch 1 to 2 patches transdermal daily p.r.n. pain. 13. Loratadine 10 mg p.o. daily p.r.n. allergy symptoms. 14. Magnesium oxide 400 mg p.o. daily. 15. Metoprolol tartrate 12.5 mg p.o. b.i.d. 16. Oxycodone 15 mg p.o. t.i.d. p.r.n. pain. 17. Docusate/sennosides 2 tabs p.o. in the morning. 18. Docusate/sennosides 1 tab p.o. in the evening. ALLERGIES: LATEX, NSAIDS, ALFUZOSIN, BUPROPION, CLONIDINE, FENTANYL, GABAPENTIN , MORPHINE, VESICARE, and ZONISAMIDE. FAMILY HISTORY: Significant for cancer. SOCIAL HISTORY: The patient has a 50-pack year smoking history. He quit in 2013. He denies any alcohol or recreational drug use. He lives at home with his , Nazia, who will be his surrogate decision maker in the event he is unable to make his own decisions. REVIEW OF SYSTEMS: An 11-point review of systems was performed and all the pertinent positive and negative findings are in the HPI. All other systems are negative. PHYSICAL EXAMINATION GENERAL: Mr. Salguero is a well-developed, well-nourished, elderly white male, sitting up in bed, in no acute distress. He appears his stated age. VITAL SIGNS: Temp 97.5, heart rate 81, respiratory rate 18, oxygen saturation 93% on 2 L, blood pressure 162/80. HEENT: Head is atraumatic, normocephalic. Pupils are equal, round, and reactive to light and accommodation. Extraocular movements intact. Oral mucous membranes moist. NECK: Trachea at midline. No lymphadenopathy. RESPIRATORY: Symmetrical chest expansion. No chest wall deformities. Lungs severely diminished to auscultation throughout with fine crackles in the right lower lobe. CARDIOVASCULAR: Regular rate and rhythm. S1, S2 present. No murmurs, rubs, or gallops. No JVD. ABDOMEN: Soft, nontender to palpation. Bowel sounds normoactive throughout. EXTREMITIES: Skin warm and smooth bilaterally. No edema. No clubbing or cyanosis. Pedal pulses 2+ bilaterally. NEURO: Awake, alert, and oriented x4. Cranial nerves II through XII grossly intact. Moves all extremities. DIAGNOSTIC STUDIES/LAB DATA: WBC 8.1, RBC 2.94, hemoglobin 9.3, hematocrit 28 , platelets 120. Sodium 140, potassium 5.0, chloride 100, carbon dioxide 37, BUN 38, creatinine 1.5, glucose 124, lactic acid 0.5. Troponin 0.02. BNP 201. Chest x-ray reads as there has been interval development of a 2.2 cm mass of the right lower lung. Recommend consideration of further evaluation with contrast- enhanced CT of the chest. EKG shows normal sinus rhythm with a rate of 82, QTc 450. This EKG is consistent with prior EKG from April 2019. Chest CT reads as there has been interval development of a 2-cm mass within the superior segment of the right upper lobe. The differential includes neoplasm. Recommend consideration of further evaluation with PET/CT and/or tissue sampling. Right lower lobe consolidation and bronchiectasis. Emphysema. Again noted is aneurysmal dilation of the thoracic aorta and upper abdominal aorta. ASSESSMENT AND PLAN: Mr. Salguero is a 73-year-old male with past medical history of chronic obstructive pulmonary disease and chronic hypoxic respiratory failure , on 2 L; cerebrovascular accident; abdominal aortic aneurysm; and chronic kidney disease, who presents to the emergency room today with complaints of hemoptysis after likely aspiration and was found to have some concerning findings on CT scan. The patient will be admitted observation for: 1. Hemoptysis. I think it is very likely that the hemoptysis is secondary to aspiration. The patient has had episodes of hemoptysis in the past and at this point in the emergency room is no longer having a significant amount. H and H are stable. The more concerning findings are the abnormalities on chest CT. I did speak with another radiologist, who reviewed this chest CT and a recent chest CTA from 04/17/19 and the radiologist I spoke with felt as though there may have been a nodule present in the April scan measuring 1.5 cm. At this point, he feels the CT today is sales representative health insurance of a postobstructive pneumonitis. There is significant atelectasis through the right lung and there is possible bronchial obstruction. The patient's respiratory status is stable at this point and he is saturating well on his baseline oxygen requirements, though I think it is obviously warranted to observe him overnight and have Pulmonology see him tomorrow. I did reach out to Dr. Valencia, who does see him as an outpatient and have made her aware of this consultation. In the meantime , I will continue the patient on Zosyn. He did receive his first dose in the emergency room, though an aspiration pneumonia is a likely possibility at this point, so I will continue him on Zosyn for now. 2. Chronic obstructive pulmonary disease and chronic respiratory failure. Again, the patient is on his baseline oxygen requirements at this point. I have ordered p.r.n. DuoNeb and we will monitor the patient's respiratory status closely. 3. Chronic kidney disease, stage 3. The patient's creatinine is at baseline. 4. Thrombocytopenia. This appears to be chronic and platelet count today of 120 appears consistent with his baseline. 5. Hypertension. The patient did have 1 hypertensive reading in the emergency room, but has otherwise been normotensive, so I will not make any changes at this point and I will continue him on his amlodipine and furosemide. 6. Hyperlipidemia. Continue atorvastatin. 7. Anxiety and posttraumatic stress disorder. Continue alprazolam, duloxetine , and Abilify. 8. Chronic pain. Continue oxycodone. 9. FEN: The patient does not require any fluid resuscitation or electrolyte repletion. I have ordered a regular diet. 10. Code status. The patient will be a full code. 11. DVT prophylaxis. According to the DVT Risk Assessment, the patient scores a 3, putting him at high risk. I have ordered Lovenox because at this point, the hemoptysis is not significant. TIME SPENT: Approximately 65 minutes was spent on this admission, greater than half of that time spent [id number] with the patient and his obtaining my history, performing my physical exam, and reviewing the plan of care. This case has been discussed with my attending, Dr. Huerta, who is in agreement with the plan of care. LINDA VILLAFANA, MYSQL DATABASE DEVELOPER [id number]/[facility] #: [id number] [facility] CENTERNicole
[2019-05-06] MEDS: oxyCODONE SR TAB(*) 10 MG TAB.SR PO SCH (21:11)
[2019-05-07] MEDS: ZOSYN 3.375 GM Q8H per EXTENDED INFUSION IVPB SCH ×6 (04:02→22:31)
[2019-05-07] MEDS ORDERED: GuaiFENesin DM sugar free* 5 ML UDC PO PRN (05:48)
[2019-05-07 07:25] LABS: ABS Eosinophils 0.3 10^3/ul (0-0.6); ABS Lymphocytes 0.5 10^3/ul (1.0-4.8); ABS Monocytes 0.5 10^3/ul (0-0.8); Eosinophil % 4.8 %; Hematocrit 28 % (42-52); Hemoglobin 9.6 g/dL (14.0-18.0); Lymphocyte % 7.8 %; Mean Corpuscular HGB Conc 34 g/dL (31-36); Mean Corpuscular Hemoglobin 32 pg (27-31); Mean Corpuscular Volume 96 fL (80-94); Mean Platelet Volume 9.5 fL (7.4-10.4); Platelet Count 126 10^3/uL (150-450); Red Blood Count 2.97 10^6 /uL (4.18-5.48); Red Cell Distribution Width 15 % (10-15); White Blood Count 6.3 10^3/uL (3.5-10.8)
[2019-05-07 07:35] LABS: BUN/Creatinine Ratio 21.8 (8-20); EGFR African American 49.7 (>60); EGFR Non-African American 41.1 (>60)
[2019-05-07] MEDS: Furosemide TAB* 20 MG PO SCH ×2 (08:40→11:23)
[2019-05-07] MEDS: amLODIPine TAB* 5 MG PO SCH ×2 (08:40→11:25)
[2019-05-07] MEDS: ARIPiprazole TAB* 5 MG PO SCH ×2 (08:40→11:25)
[2019-05-07] MEDS: DULoxetine DR CAP* 20 MG CAP.DR PO SCH ×2 (08:40→11:24)
[2019-05-07] MEDS: Metoprolol Tartrate TAB* 25 MG PO SCH ×3 (08:41→22:31)
[2019-05-07] MEDS: oxyCODONE SR TAB(*) 10 MG TAB.SR PO SCH ×3 (08:41→22:30)
--- NOTE | 2019-05-07 09:01 | PN ---
Subjective Date of Service: 05/07/19 Interval History: No hemoptysis since admission. No cough, SOB, chest pain. Patient feels to be at his baseline. Objective Active Medications: Albuterol/Ipratropium (Duoneb (Albuterol 2.5 Mg/Ipratropium 0.5 Mg)) 1 neb INH [id number] AWAKE PRN PRN Reason: sob/wheexing Alprazolam (Xanax Tab*) 0.25 mg PO Q6H PRN PRN Reason: AGITATION/ANXIETY Amlodipine Besylate (Norvasc Tab*) 5 mg PO QAM [facility] Last Admin: 05/07/19 08:40 Dose: Not Given Aripiprazole (Abilify Tab*) 2.5 mg PO QAM [facility] Last Admin: 05/07/19 08:40 Dose: Not Given Atorvastatin Calcium (Lipitor*) 80 mg PO BEDTIME [facility] Last Admin: 05/06/19 20:07 Dose: 80 mg Duloxetine HCl (Cymbalta Cap*) 40 mg PO DAILY [facility] Last Admin: 05/07/19 08:40 Dose: Not Given Enoxaparin Sodium (Lovenox(*)) 40 mg SUBCUT Q24H [facility] Last Admin: 05/06/19 20:10 Dose: 40 mg Furosemide (Lasix Tab*) 10 mg PO DAILY [facility] Last Admin: 05/07/19 08:40 Dose: Not Given Guaifenesin/Dextromethorphan (Robitussin Dm Sugar Free*) 5 ml PO Q4H PRN PRN Reason: COUGH Last Admin: 05/07/19 06:16 Dose: 5 ml Piperacillin Sod/Tazobactam (Sod 3.375 gm/ Sodium Chloride) 100 mls @ 25 mls/ hr IVPB Q8H [facility] Last Admin: 05/07/19 04:02 Dose: 25 mls/hr Metoprolol Tartrate (Lopressor Tab*) 12.5 mg PO BID [facility] Last Admin: 05/07/19 08:41 Dose: Not Given Oxycodone HCl (Roxycodone Tab*) 15 mg PO TID PRN PRN Reason: PAIN - SEVERE Oxycodone HCl (Oxycontin(*)) 10 mg PO BID [facility] Last Admin: 05/07/19 08:41 Dose: Not Given Pharmacy Consult (Zosyn Per Pharmacy*) 1 note FOLLOW UP .ISHANSYN PER PHARMACY [facility] Vital Signs - 8 hr 05/07/19 03:18 Temperature 98.4 F Pulse Rate 85 Respiratory 23 Rate Blood Pressure 132/57 (mmHg) O2 Sat by Pulse 92 Oximetry Oxygen Devices in Use Now: Nasal Cannula Appearance: Alert, partly uup in bed, NC in his mouth as he does at home. In good spirits. Looks comfortable. Eyes: No Scleral Icterus Ears/Nose/Mouth/Throat: Clear Oropharnyx, Mucous Membranes Moist Neck: NL Appearance and Movements; NL JVP, No Thyroid Enlargement, Masses Respiratory: Symmetrical Chest Expansion and Respiratory Effort, Clear to Percussion, - - diminshed BS BL Cardiovascular: RRR, No Edema, - - 1-2/6 systolic murmur RSB Extremities: No Edema, No Clubbing, Cyanosis, - Skin: No Rash or Ulcers, No Nodules or Sclerosis, - Neurological: Alert and Oriented x 3, NL Sensation Result Diagrams: 05/07/19 06:48 05/07/19 06:48 Assess/Plan/Problems-Billing Assessment: - Patient Problems (1) Aspiration pneumonia Current Visit: Yes Status: Acute Code(s): J69.0 - PNEUMONITIS DUE TO INHALATION OF FOOD AND VOMIT SNOMED Code(s): 603040291 Comment: Afebrile, nl WBC, clinically improved. Give noon dose pip/lynn and start amox/clav at home this evening (05/07). (2) COPD (chronic obstructive pulmonary disease) Current Visit: No Status: Acute Code(s): J44.9 - CHRONIC OBSTRUCTIVE PULMONARY DISEASE, UNSPECIFIED SNOMED Code(s): 16865139 Comment: Quit smoking 5 yrs ago. No signs of exacerbation. Will continue broncholdilator and prn albuterol/ipratropium nebs. (3) CKD (chronic kidney disease) Current Visit: No Status: Acute Code(s): N18.9 - CHRONIC KIDNEY DISEASE, UNSPECIFIED SNOMED Code(s): 921456195 Comment: Est GFR 41.1. Continue furosemide 10 mg daily. Needs outpt fup. (4) Anemia Current Visit: No Status: Acute Code(s): D64.9 - ANEMIA, UNSPECIFIED SNOMED Code(s): 174677937 Comment: normocytic, stable , chronic s/p neg bone marrow bx in 2017. Followed by Dr[address] Sanchez. (5) Lung mass Current Visit: Yes Status: Acute Code(s): R91.8 - OTHER NONSPECIFIC ABNORMAL FINDING OF LUNG FIELD SNOMED Code(s): 773584773 Comment: Discussed with Dr. Valencia. Bronchoscopy 05/07. (6) Hypertension Current Visit: No Status: Acute Priority: Medium Code(s): I10 - ESSENTIAL (PRIMARY) HYPERTENSION SNOMED Code(s): 41358603 Comment: Continue home dose of amlodipine. (7) Spinal cord infarction Current Visit: No Status: Acute Priority: High Onset Date: 07/12/15 Code (s): G95.11 - ACUTE INFARCTION OF SPINAL CORD (EMBOLIC) (NONEMBOLIC) SNOMED Code(s): 050635238 Comment: Related to AAA repair. Patient states both legs are weak and he can walk with a walker. (8) PTSD (post-traumatic stress disorder) Current Visit: No Status: Acute Priority: Medium Code(s): F43.10 - POST- TRAUMATIC STRESS DISORDER, UNSPECIFIED SNOMED Code(s): 80691650 Comment: Depression. Continue Abilify, duloxetine, Alprazolam. (9) CVA (cerebral vascular accident) Current Visit: No Status: Acute Code(s): I63.9 - CEREBRAL INFARCTION, UNSPECIFIED SNOMED Code(s): 120878964 Comment: in 05/2017 pt presented with headache and MRI showed most likely an ischemic CVA with hemorrhagic transformation . Continue ASA, discussed with Dr. Valencia.
--- NOTE | 2019-05-07 09:03 | CONS ---
PULMONARY CONSULTATION REPORT: DATE OF CONSULT: 05/07/19 CONSULTATION REQUESTED BY: Peggy Villafana NP REASON FOR CONSULTATION: Evaluation of hemoptysis. HISTORY OF PRESENT ILLNESS: The patient is a 73-year-old male with history of severe COPD, chronic hypoxemic respiratory failure, history of CVA in the past, AAA repair, chronic kidney disease, known to me from prior outpatient evaluation. The patient presents for evaluation of hemoptysis. The patient has been in normal state of health until the night prior to the admission when he was trying to take his medications, choked on a larger pill. As per the patient, he is not able to say the name of the medication he was taking. The patient felt like it went to wrong tube, started coughing, able to cough it back into his mouth and then swallowed the pill. The patient does not think there might be any fragments of the pill into his lungs. Slightly after that he started having coughing spells. He started coughing out blood clots about dollar sized. The patient also felt weak and decided to come into the emergency room for further evaluation. The patient had a few more episodes of coughing up blood today. The patient was not coughing at the time of my interview. The patient reports having difficulty swallowing recently. Denies any epistaxis. He was recently treated for acute COPD exacerbation/bronchitis. He denies any change in his breathing. PAST MEDICAL HISTORY: 1. COPD. 2. Chronic respiratory failure on 2 L nasal cannula. 3. CVA. 4. AAA, status post repair. 5. Chronic kidney disease, stage 3. 6. Anemia. 7. GERD. 8. Thrombocytopenia. 9. Obstructive sleep apnea. 10. History of pleural effusion that resolved. PAST SURGICAL HISTORY: Spinal surgeries x8, AAA repair with complicated course later. MEDICATIONS AT HOME: 1. Xanax. 2. Amlodipine. 3. Abilify. 4. Aspirin. 5. Atorvastatin. 6. Duloxetine. 7. Nexium. 8. Furosemide. 9. Bevespi. 10. Mucinex. 11. Levalbuterol. 12. Lidocaine patch. 13. Loratadine. 14. Magnesium. 15. Metoprolol. 16. Oxycodone. 17. Docusate. ALLERGIES: LATEX, NSAIDS, ALFUZOSIN, BUPROPION, CLONIDINE, FENTANYL, GABAPENTIN , MORPHINE, VESICARE, and ZONISAMIDE. FAMILY HISTORY: Significant for cancer. SOCIAL HISTORY: Fifty-pack year smoking history, quit in 2014. No alcohol or drug abuse. Lives at home with his . REVIEW OF SYSTEMS: All 14 systems reviewed and as per HPI. PHYSICAL EXAM: The patient is lying in bed, in no acute distress. Vital Signs : Temperature 98.4, pulse 85 beats per minute, respiratory rate 23 per minute, O2 sat 92% on 2 L, blood pressure 132/57. HEENT: Pupils equal, reactive to light. Mucous membranes moist. Lungs: Diminished air entry bilaterally. No wheeze on auscultation. Cardiovascular: S1, S2 present. No murmurs, gallops, or rubs. Abdomen: Soft, nontender, nondistended. Bowel sounds present. Extremities: Normal range of motion. Neuro: Alert, awake, oriented x3. No focal deficits. DIAGNOSTIC STUDIES/LAB DATA: WBC count 8.1, hemoglobin 9.3, hematocrit 28, platelet count 120. Sodium 140, potassium 5.0, chloride 100, bicarb 37, BUN 38 , creatinine 1.50. BNP 201. Lactic acid within normal limits. CT scan of the chest was personally reviewed by me - the patient with airspace opacities in right lower lobe with percussion from prior CT. The patient also with spiculated nodule in the right upper lobe that was also seen in the past with no significant interval change as per my assessment. The patient also with significant centrilobular emphysematous changes. The patient with also evidence of consolidation and bronchiectasis in the right lower lobe. The patient with elevated right hemidiaphragm, which is chronic. IMPRESSION AND RECOMMENDATIONS: 73-year-old male with history of chronic obstructive pulmonary disease, history of abdominal aortic aneurysm repair, chronic hypoxemic respiratory failure, admitted with acute hemoptysis after choking on the pill. Airway exam demonstrates patient with blood in the oral cavity, unclear if it is the expectorated blood or if he is having actually bleeding from the mouth/ oropharynx. The patient feels like it is mostly from his lungs. Given the hemoptysis, will need to evaluate with the bronchoscopic examination of the airways. The patient, given his age, severe chronic obstructive pulmonary disease is definitely at higher risk for any of the invasive procedures. This was discussed in detail with the patient. I will also discuss this further with his , Michelle, who is not available at this time. No evidence of massive hemoptysis at this time. He is still coughing up fresh blood. He had history of hemoptysis in the past, had bronchoscopic evaluation in [place], which did not reveal any abnormality in the lungs. Continue with bronchodilators. The patient would need swallow evaluation to evaluate for dysphagia. Thank you for allowing me to participate in the care of your patient. I will follow up with you. [id number]/[facility] #: [id number] MACK
[2019-05-07] MEDS ORDERED: Lidocaine PATCH 5%* 1 PATCH TRANSDERM PRN (09:04)
[2019-05-07] MEDS: Tiotropium Brom/Olodaterol MDI INH SCH (10:45)
--- NOTE | 2019-05-07 15:02 | DS ---
CC: Bibi Gamez NP; Dr. Yang Sanchez* DISCHARGE SUMMARY: DATE OF ADMISSION: 05/06/19 DATE OF DISCHARGE: 05/08/19 HISTORY OF PRESENT ILLNESS/HOSPITAL COURSE: This 73-year-old man presented with hemoptysis. He said in the morning on the day of admission that he saved his largest pill for last and then felt as if he choked on it. He coughed several times, but felt like it went down the wrong tube. He then had some hemoptysis. The timing is not really clear, whether it was 24 hours or 12 hours before he came to the emergency room. The rest of the history is detailed in the dictated admission note. The patient's CT scan showed a 2 cm mass in the right upper lobe. One guest service host said that the prior CT scan showed a 1.5 cm mass. I spoke with Dr. Valencia, who felt that the mass had not changed. In any event, because of the hemoptysis and this mass, bronchoscopy was done on the day of discharge. It was being done late as an add on and I do not have the results at the time of this dictation. I also note that the patient had a right lower lobe infiltrate suggestive of aspiration pneumonia, which could well explain his hemoptysis as well. The hemoptysis pretty much stopped on the day of discharge. The patient was treated with piperacillin and tazobactam in the hospital and will take 9 days of amoxicillin/clavulanate at home. FINAL DIAGNOSES: 1. Aspiration pneumonia. 2. Chronic obstructive pulmonary disease. 3. Chronic kidney disease. 4. Chronic anemia. 5. Lung mass. 6. Hypertension. 7. History of spinal cord infarction. 8. Posttraumatic stress disorder. 9. History of cerebrovascular accident. DISCHARGE MEDICATIONS: 1. Amoxicillin/clavulanate 875 mg b.i.d. for 9 more days. 2. Esomeprazole 40 mg daily. 3. Atorvastatin 80 mg h.s. 4. Alprazolam 0.25 mg every 6 hours p.r.n. 5. Furosemide 10 mg daily. 6. Duloxetine 40 mg daily. 7. Guaifenesin ER 1200 mg daily p.r.n. 8. Metoprolol tartrate 12.5 mg b.i.d. 9. Magnesium oxide 400 mg daily. 10. Sennosides/docusate 1 tab in the evening and 2 tabs in the morning. 11. Glycopyrrolate/formoterol 2 puffs b.i.d. 12. Aripiprazole 2.5 mg daily. 13. Oxycodone 15 mg t.i.d. p.r.n. 14. Loratadine 10 mg daily p.r.n. 15. Lidocaine patch as prescribed. 16. Levalbuterol inhaler 2 puffs every 4 hours p.r.n. 17. Aspirin 81 mg daily. 18. Amlodipine 5 mg daily. 19. Oxycodone SR 10 mg b.i.d. CONDITION ON DISCHARGE: stable DISPOSITION ON DISCHARGE: discharge home [id number]/[facility] #: [id number] MACK
[2019-05-07] MEDS ORDERED: Lidocaine 1% INJ* 10 MG/ML 30 ML SDV ONE (18:57)
[2019-05-07] MEDS ORDERED: Benzocaine/Butamben/Tetracain (CETACAINE - SINGLE USE) 5 gm TOPICAL ONE (18:57)
[2019-05-07] MEDS ORDERED: Lidocaine 2% JELLY* 6 ML JELLY TOPICAL ONE (19:02)
[2019-05-07] MEDS ORDERED: Lidocaine 1% w EPI 1:200,000* SDV 30 ML VIAL ONE (19:18)
[2019-05-07] MEDS: Enoxaparin(*) 40 MG/0.4 ML SYR SUBCUT SCH (20:19)
--- NOTE | 2019-05-07 20:54 | BRIEFOPN ---
Brief Operative/Procedure Note - Operation Details Pre-Op Diagnosis: Hemoptysis Post-Op Diagnosis: Hemoptysis, endobronchial irregularity in RML and RLL Procedures: Bronchoscopywith endobronchial biopsy from rt middle lobe nad rt lower lobe mucosa Surgeon(s)/Proceduralists: yamileth Valencia Anesthesia: General anesthesia Estimated Blood Loss: 10cc Findings: Blood eminating from Rt main stem bronchus. Mucosal irregularity and narrowing of RML and RLL bronchi. Airways are patent beyond area of mucosal irregularity. Specimen(s)/Culture(s) Description: Bronchial lavage right lower lobe for microbiology and cytology, Endobronchial biopsy from RML and RLL endobronchial lesion for pathology Complications: None
[2019-05-07] MEDS ORDERED: Lidocaine Patch REMOVE* 1 NOTE MISC PATCH OFF SCH (21:00)
[2019-05-07] MEDS ORDERED: Naloxone* 0.4 MG/ML 1 ML VIAL IV PRN (21:12)
--- NOTE | 2019-05-07 21:37 | PRO ---
BRONCHOSCOPY REPORT: DATE OF PROCEDURE: 05/07/19 - Inpatient, room 417-02 PROCEDURE PERFORMED: Bronchoscopy with bronchoalveolar lavage and endobronchial biopsy. PREPROCEDURAL DIAGNOSIS: Hemoptysis. POSTPROCEDURAL DIAGNOSIS: Endobronchial lesion. ANESTHESIA: General anesthesia. ANESTHESIOLOGIST: Dr. Morales. DESCRIPTION OF PROCEDURE: Informed consent was obtained from the patient prior to the procedure after all the risks and benefits were thoroughly explained. The patient admitted with hemoptysis last night. Continued to have episodes of hemoptysis today. Consent was obtained from the patient prior to the procedure after all the risks and benefits were thoroughly explained. The patient was intubated with size 8 endotracheal tube. A flexible Olympus bronchoscopy was inserted through ET tube. The patient noted to have blood emanating from the right main stem bronchus. No endobronchial lesions or bleeding noted on the left side. The patient noted to have blood coming from the right middle lobe and right lower lobe. There is evidence of narrowing of right middle lobe and right lower lobe bronchi with mucosal irregularities. Endobronchial biopsies were obtained from the area. Bronchial washings were also obtained from the right lower lobe area. 1% lidocaine epi mixture was instilled about 6 cc into the right middle lobe and right lower lobe. No further bleeding is ascertained. The patient tolerated the procedure well. The patient was extubated and seen in recovery in optimal condition. [id number]/[facility] #: [id number] MTDD
[2019-05-07] MEDS: Atorvastatin* 80 MG TAB PO SCH (22:30)
[2019-05-08] MEDS: ZOSYN 3.375 GM Q8H per EXTENDED INFUSION IVPB SCH ×2 (04:22)
[2019-05-08] MEDS: Tiotropium Brom/Olodaterol MDI INH SCH (08:06)
[2019-05-08] MEDS: oxyCODONE SR TAB(*) 10 MG TAB.SR PO SCH (09:06)
[2019-05-08] MEDS: ARIPiprazole TAB* 5 MG PO SCH (09:08)
[2019-05-08] MEDS: Metoprolol Tartrate TAB* 25 MG PO SCH (09:08)
[2019-05-08] MEDS: Furosemide TAB* 20 MG PO SCH (09:09)
[2019-05-08] MEDS: amLODIPine TAB* 5 MG PO SCH (09:10)
[2019-05-08] MEDS: DULoxetine DR CAP* 20 MG CAP.DR PO SCH (09:11)
--- NOTE | 2019-05-08 09:56 | DS ---
DISCHARGE SUMMARY: ADDENDUM: DATE OF ADMISSION: 05/06/19 DATE OF DISCHARGE: 05/08/19 ATTENDING PHYSICIAN: Dr. Harjit Gomez* (dictated by SUSANA Ty). This document is to correct that the patient was in fact discharged on . He was unable to be discharged on 05/07/19 because his bronchoscopy was performed late in the evening. For the true discharge summary, please see the discharge summary written by Dr. Harjit Gomez on 05/07/19. SUSANA TY [id number]/[facility] #: [id number] MTDD
[2019-05-08 11:47] VITALS: BP 111/57
--- NOTE | 2019-05-08 13:00 | PN ---
Progress Note - Progress Note Date of Service: 05/08/19 - Pulm f/u note Note: Patient seen and examined at bedside. patient reports no issues with breathing. Patient reports overall feeling better. He had another episode of hemoptysis this morning. Denies chest pain, palpitations, dizziness Active Medications Generic Name Dose Route Start Last Admin Trade Name Freq PRN Reason Stop Dose Admin Albuterol/Ipratropium 1 neb 05/06/19 16:56 05/07/19 10:38 Duoneb (Albuterol 2.5 Mg/Ipratropium 0.5 Mg) INH 1 neb [id number] AWAKE PRN Administration sob/wheexing Alprazolam 0.25 mg 05/06/19 17:04 Xanax Tab* PO Q6H PRN AGITATION/ANXIETY Amlodipine Besylate 5 mg 05/07/19 09:00 05/08/19 09:10 Norvasc Tab* PO 5 mg QAM PEE Administration Aripiprazole 2.5 mg 05/07/19 09:00 05/08/19 09:08 Abilify Tab* PO 2.5 mg QAM PEE Administration Atorvastatin Calcium 80 mg 05/06/19 21:00 05/07/19 22:30 Lipitor* PO 80 mg BEDTIME PEE Administration Duloxetine HCl 40 mg 05/07/19 09:00 05/08/19 09:11 Cymbalta Cap* PO 40 mg DAILY PEE Administration Enoxaparin Sodium 40 mg 05/06/19 18:00 05/07/19 20:19 Lovenox(*) SUBCUT Not Given Q24H PEE Furosemide 10 mg 05/07/19 09:00 05/08/19 09:09 Lasix Tab* PO 10 mg DAILY PEE Administration Guaifenesin/Dextromethorphan 5 ml 05/07/19 05:48 05/07/19 06:16 Robitussin Dm Sugar Free* PO 5 ml Q4H PRN Administration COUGH Piperacillin Sod/Tazobactam 100 mls @ 25 mls/hr 05/06/19 20:00 05/08/19 04:22 Sod 3.375 gm/ Sodium Chloride IVPB 25 mls/hr Q8H PEE Administration Lidocaine 1 patch 05/07/19 09:04 Lidoderm 5% Patch* TRANSDERM DAILY PRN PAIN - MODERATE Metoprolol Tartrate 12.5 mg 05/06/19 21:00 05/08/19 09:08 Lopressor Tab* PO 12.5 mg BID PEE Administration Oxycodone HCl 15 mg 05/06/19 17:04 Roxycodone Tab* PO TID PRN PAIN - SEVERE Oxycodone HCl 10 mg 05/06/19 21:00 05/08/19 09:06 Oxycontin(*) PO 10 mg BID PEE Administration Pharmacy Consult 1 note 05/06/19 18:00 Zosyn Per Pharmacy* FOLLOW UP .ZOSYN PER PHARMACY [facility] Pharmacy Profile Note 1 note 05/07/19 21:00 05/07/19 23:21 Lidocaine Patch Remove* PATCH OFF 1 note BEDTIME PEE Administration Tiotropium [place]/Olodaterol 2 puff 05/07/19 09:00 05/08/19 08:06 Stiolto Respimat Inh [place] (60 Puff) INH 2 puff DAILY PEE Administration Vital Signs Temp Pulse Resp BP Pulse Ox 96.8 F 83 16 111/57 99 05/08/19 11:03 05/08/19 11:03 05/08/19 11:03 05/08/19 11:03 05/08/19 11:03 O/E: Pt in NAD HEENT: pERRLA Lungs: Diminished air entry, no wheeze, crackles at rt base CVS: S1, S2+ Abd: Soft, BS+ Ext: No edema Neuro: NO focal deficits Labs: No new labs I/R: 73 y o male with history of severe COPD, chronic respiratory failure, AAA status post repair with postop course complicated by recurrent pleural effusion requiring Pleurx catheter placement that was subsequently reversed. Patient also with history of hemoptysis in the past with no obvious etiology noted on bronchoscopy. He had spontaneous resolution of hemoptysis after being treated for pneumonia patient presented with hemoptysis after choking on a pill patient had bronchoscopy yesterday under general anesthesia, noted to have active bleeding from the right middle lobe and right lower lobe. He also had narrowing of right middle lobe and right lower lobe takeoff. Patient had irregular mucosal lesion in the right middle lobe area on right lower lobe takeoff the was biopsied. Bronchoalveolar lavage was also obtained for cultures and cytology. Patient had an episode of hemoptysis this morning. Overall doing fine. he has history of hemoptysis that would spontaneously resolve He is okay to be discharged home, appropriate Instructions were provided he is benefiting from bronchodilators per nebulizer, prescription sent to his pharmacy He was advised to contact me if symptoms worsen Continue with O2 supplementation PPPPPPPPPPPPPP hemoptysis
== END 2019-05-08 12:15 | disposition home or self-care (01) ==
LOC: ED 08:09 → MED 16:56
PROVIDERS: ADMIT Internal Medicine; ATTEND Internal Medicine
DX: R04.2 Hemoptysis (principal); J44.9 Chronic obstructive pulmonary disease, unspecified; J96.10 Chronic respiratory failure, unspecified whether with hypoxia or hypercapnia; R91.8 Other nonspecific abnormal finding of lung field; I13.0 Hypertensive heart and chronic kidney disease with heart failure and stage 1 through stage 4 chronic kidney disease, or unspecified chronic kidney disease; I50.9 Heart failure, unspecified; F43.10 Post-traumatic stress disorder, unspecified; Z86.73 Personal history of transient ischemic attack (TIA), and cerebral infarction without residual deficits; I71.4 Abdominal aortic aneurysm, without rupture; D64.9 Anemia, unspecified; K21.9 Gastro-esophageal reflux disease without esophagitis; G47.33 Obstructive sleep apnea (adult) (pediatric); Z79.82 Long term (current) use of aspirin; Z79.899 Other long term (current) drug therapy; Z87.891 Personal history of nicotine dependence; J69.0 Pneumonitis due to inhalation of food and vomit
CPT/HCPCS: 36415; 71046; 71260; 80048; 80053; 83605; 83880; 84484; 85025; 86140; 87040; 87070; 87102; 87116; 87205; 87206; 88112; 88305; 88313; 93005; 94640; 96365; 96366; 96372; 99285; A9270-GY; G0378; J1650; J2001; J2543; J3535; Q9967

== ENCOUNTER 2019-08-12 11:19 | Inpatient (IN) | payer OTHER ==
--- OUTSIDE RECORDS SUMMARY | 2019-08-12 12:03 | XMS REPORT | Continuity of Care Document ---
:1945 External Reference #:[id number] Author Name Seth York M.D., [facility], FASNC (transmitted by agent of provider Annamaria Archibald) Address [facility] [place] [address] Care Team Providers Name Role Phone Danie Viera M.D. - Family Medicine Care Team Information Accounts Clerk Bibi Gamez FNP - Family Care Team Information Accounts Clerk Yang Sanchez M.D. - Hematology & Care Team Information Accounts Clerk Oncology Problems Active Problems Provider Date Electrocardiogram abnormal Seth York M.D., [facility], Onset: 05/14/2014 FASNC Orthostatic hypotension Seth York M.D., [facility], Onset: 05/14/2014 FASNC Difficulty breathing Seth York M.D., [facility], Onset: 05/14/2014 FASNC Dyspnea Susanna Valencia MD Onset: 02/10/2015 Chronic obstructive lung disease Susanna Valencia MD Onset: 02/10/2015 Gastroesophageal reflux disease Susanna Valencia MD Onset: 02/10/2015 Hypoxemia Susanna Valencia MD Onset: 04/26/2015 Pleural effusion, not elsewhere Susanna Valencia MD Onset: 09/08/2015 classified Thoracic aortic ectasia Seth York M.D., [facility], Onset: 10/28/2015 FASNC Ischemic stroke Mary Kay Kauffman M.D. Onset: 06/21/2017 Note: left occipital - May 2017 Social History Type Date Description Comments Sex Unknown Tobacco Use Start: Unknown Heavy tobacco smoker (more than 10 cigarettes/day) Tobacco Use Start: Unknown Quit October 2013 ETOH Use Denies alcohol use Tobacco Use Start: Unknown End: Patient is a former smoker Unknown Recreational Drug Use Denies Drug Use Tobacco Use Start: Unknown quit october 2013 Recreational Drug Use Never Used Drugs Smoking Status Reviewed: 07/15/19 quit october 2013 Exercise Type/Frequency Exercises rarely Allergies, Adverse Reactions, Alerts Active Allergies Reaction Severity Comments Date Morphine 04/09/2014 Fentanyl 04/09/2014 Wellbutrin 04/09/2014 Uroxatral 04/09/2014 Clonidine 04/09/2014 Latex 04/09/2014 Zonegram 04/09/2014 Vesicare orthostatic hypotension 06/14/2014 NSAIDs GI Upset 02/10/2015 Gabapentin extreme muscle/bladder Moderate 07/15/2017 weaknes Medications Active Medications SIG Qnty Indications Ordering Provider Date Benzonatate take one capsule 30caps Susanna Valencia, 05/12/2019 100mg by mouth 2-3 MD Capsules times daily as needed Xopenex 1 unit nebl, 108ml Susanna Valencia, 05/08/2019 0.63mg/3ML every 4 hours as MD Nebulizer needed for sob Bevespi Aerosphere 2 puff twice a 17.7gm Susanna Valencia, 12/23/2018 day 9-4.8mcg/Act Aerosol Magnesium 1 by mouth every Unknown 08/16/2016 400mg Tablets day Metoprolol Tartrate 1 by mouth twice Unknown 09/07/2015 a day 12.5mg Tablets Esomeprazole Sodium 1 by mouth every Unknown 09/07/2015 day 40mg Solution Rec Atorvastatin Calcium 1 by mouth every Unknown 09/07/2015 day 80mg Tablets Aripiprazole 1/2 by mouth Unknown 09/07/2015 5mg every day Tablets Alprazolam one by mouth q 6 Unknown 09/07/2015 0.25mg hours prn Tablets anxiety Oxygen please use o2 at 1units J44.9 Susanna Valencia, 04/26/2015 Misc 2l/min during MD exertion and at night Mucinex DM Maximum 1 by mouth twice Unknown Strength a day 60-1200mg Tablets ER 12HR Furosemide 1/2 by mouth Unknown 20mg Tablets every day Lidocaine apply 1-2-1 patch Unknown 5% Patches to the affected area daily. leave on for 10 hours Zantac 150 Maximum 1 by mouth once Unknown Strength a day 150mg Tablets Docusate Senna 2 cap po bid Unknown 100mg Capsules Hypersal 4 ml inhaled Unknown 7% Nebulizer every 4 hours as needed Amlodipine Besylate 1 by mouth every Unknown 5mg day Tablets Duloxetine HCL 1 by mouth every Unknown 40mg day Caps DR Part Potassium Chloride 1 by mouth every Unknown Kristal ER day 10Meq Tablets ER Oxycodone HCL 1 tablet by mouth Unknown 15mg three times a day Tablets as needed Montelukast Sodium 1 by mouth every Unknown 10mg day Tablets Aspirin 81 Low Dose daily Unknown 81mg Chewtabs Levalbuteral HFA 1 puff every 4hrs Unknown prn Oxycontin 1 by mouth twice 60tabs Unknown 10mg Tab ER a day 12H Abuse-Det History Medications Albuterol Sulfate 1 unit nebl every 150ml Susanna Valencia MD 04/30/2019 - 6 hours as needed 05/13/2019 (2.5mg/3ML) 0.083% Nebulizer Medications Administered in Office Medication SIG Qnty Indications Ordering Provider Date Inj, Regadenoson, 0.1 MG Seth York M.D., 04/25/2015 Injection YUMIKO HOLLOWAY Aminophylline Seth York M.D., 04/25/2015 Injection YUMIKO HOLLOWAY Technetium TC 99M Seth York M.D., 04/25/2015 Tetrofosmin, Per Unit Dose Up YUMIKO HOLLOWAY To 40 Millicuries Injection Immunizations Description No Information Available Vital Signs Date Vital Result Comment 07/15/2019 1:05pm Height 70 inches 5'10" Weight 172.00 lb Heart Rate 88 /min BP Systolic Sitting 126 mmHg Rue reg cuff BP Diastolic Sitting 60 mmHg Rue reg cuff BP Systolic Standing 124 mmHg Rue BP Diastolic Standing 60 mmHg Rue Respiratory Rate 18 /min BMI (Body Mass Index) 24.7 kg/m2 06/18/2019 11:23am Height 71 inches 5'11" Weight 175.00 lb wheelchair Heart Rate 80 /min BP Systolic Sitting 122 mmHg BP Diastolic Sitting 78 mmHg O2 % BldC Oximetry 71 % BMI (Body Mass Index) 24.4 kg/m2 Results Description No Information Available Procedures Date Code Description Status 07/15/2019 78654 EKG Tracing & Interpretation Completed 06/29/2019 11854 ECHO Transthoracic, Real-Time 2D With Doppler And Color Completed Flow 06/29/2019 77728 ECHO Transthoracic, Real-Time 2D With Doppler And Color Completed Flow 05/07/2019 43482 Bronchoscopy With Bronchial Alveolar Lavage Completed 10/27/1999 [id number] Colonoscopy Completed Medical Devices Description No Information Available Encounters Type Date Location Provider Dx Diagnosis Office Visit 06/18/2019 Pulmonology And Susanna Valencia, 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 [facility] unspecified Jony bronchus and lung J44.9 Chronic obstructive pulmonary disease, unspecified R09.02 Hypoxemia Office Visit 05/08/2019 12:51p Pulmonology And Sleep Susanna Valencia, R04.2 [facility] J98.09 Other diseases of bronchus, not elsewhere classified Office Visit 05/08/2019 11:32a [facility] Rogelio J44.0 Chr obstructive Assoc,pc Leonel Gomez pulmon disease Hospitalists with (acute) lower resp infct J69.0 Pneumonitis due to inhalation of food and vomit Office Visit 05/07/2019 12:36p Pulmonology And Sleep Susanna Valencia, R04.2 [facility] Jony MONTANEZ Z87.09 Personal history of other diseases of the respiratory system Office Visit 05/06/2019 11:31a [facility] Peggy Broderick, INTEGRATION LEAD R04.2 Hemoptysis Assoc,pc Hospitalists J44.9 Chronic obstructive pulmonary disease, unspecified J96.10 Chronic respiratory failure, unsp w hypoxia or hypercapnia Office Visit 02/20/2019 10:30a Pulmonology And Susanna J44.9 Chronic [facility] MD Erik obstructive In Home Baby Sitter pulmonary disease, unspecified R09.02 Hypoxemia Assessments Date Code Description Provider 07/15/2019 I77.810 Thoracic aortic ectasia Seth York M.D., [facility], [facility] 06/29/2019 I10 Essential (primary) hypertension Seth York M.D., [facility] , [facility] 06/29/2019 I10 Essential (primary) hypertension Ica ECHO Schedule 06/18/2019 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 neoplasm of unspecified Susanna Valencia MD bronchus and lung 06/18/2019 J44.9 Chronic obstructive pulmonary Susanna Valencia MD disease, unspecified 06/18/2019 R09.02 Hypoxemia Susanna Valencia MD 05/08/2019 R04.2 Hemoptysis Susanna Valencia MD 05/08/2019 J44.0 Chronic obstructive pulmonary Rogelio Gomez M.D. disease with (acute) lower respiratory infection 05/08/2019 J98.09 Other diseases of bronchus, not Susanna Valencia MD elsewhere classified 05/08/2019 J69.0 Pneumonitis due to inhalation of Rogelio Gomez M.D. food and vomit 05/07/2019 J98.09 Other diseases of bronchus, not Susanna Valencia MD elsewhere classified 05/07/2019 R04.2 Hemoptysis Susanna Valencia MD 05/07/2019 R04.2 Hemoptysis Susanna Valencia MD 05/07/2019 J44.0 Chronic obstructive pulmonary Rogelio Gomez M.D. disease with (acute) lower respiratory infection 05/07/2019 Z87.09 Personal history of other diseases Susanna Valencia MD of the respiratory system 05/07/2019 J69.0 Pneumonitis due to inhalation of Rogelio Gomez M.D. food and vomit 05/07/2019 R91.8 Other nonspecific abnormal finding Rogelio Gomez M.D. of lung field 05/06/2019 R04.2 Hemoptysis Peggy Broderick, INTEGRATION LEAD 05/06/2019 J44.9 Chronic obstructive pulmonary Peggy Broderick, INTEGRATION LEAD disease, unspecified 05/06/2019 J96.10 Chronic respiratory failure, Peggy Broderick, INTEGRATION LEAD unspecified whether with hypoxia or hypercapnia 02/20/2019 J44.9 Chronic obstructive pulmonary Susanna Valencia MD disease, unspecified 02/20/2019 R09.02 Hypoxemia Susanna Valencia MD Plan of Treatment Future Appointment(s):08/21/2019 11:30 am - Susanna Valencia MD at [facility]07/15/2019 - Seth York M.D., [facility], NFUBCM98.810 Thoracic aortic ectasiaComments:As discussed, I feel your heart is stable. Please continue to follow up with your vascular surgeon. 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
--- OUTSIDE RECORDS SUMMARY | 2019-08-12 12:03 | XMS REPORT | Continuity of Care Document ---
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 And Curer [phone] Problems Description No Information Available Social History Type Date Description Comments Sex Unknown Cigarette Use Current Cigarette Smoker 1 Pack Daily ETOH Use Denies alcohol use Tobacco Use Start: Unknown End: Unknown Patient is a former smoker Smoking Status Reviewed: 07/15/19 Patient is a former smoker Allergies, Adverse [...] Tablets Aripiprazole 1by mouth in the Unknown 2mg morning Tablets Montelukast Sodium daily 30tabs Unknown 10mg Tablets Nexium si po qd ud 60caps Unknown 40mg Capsules DR Immunizations Description No Information Available Vital Signs Date Vital Result Comment 07/15/2019 10:14am BP Systolic 120 mmHg BP Diastolic 7 mmHg Heart Rate 76 /min Respiratory Rate 20 /min Height 71 inches 5'11" Weight 175.00 lb O2 % BldC Oximetry 84 % Pain Level 5 Pain at this time. Pain Level With Medicine 5 on average with meds Pain Level Without Medicine 9 without meds BMI (Body Mass Index) 24.4 kg/m2 06/17/2019 10:05am BP Systolic 120 mmHg BP Diastolic 72 mmHg Heart Rate 74 /min Respiratory Rate 18 /min Height 71 inches 5'11" Weight 180.00 lb per patient Pain Level 7 Pain at this time. Pain Level With Medicine 6 on average with meds Pain Level Without Medicine 9 without meds BMI (Body Mass Index) 25.1 kg/m2 Results Description No Information Available Procedures Date Code Description Status 04/21/2019 92954 Injection For Nerve Block, Other Peripheral Nerve Or Completed Branch 03/31/2019 92378 Injection For Nerve Block, Suprascapular Nerve Completed 03/31/2019 Arthrocentesis/Aspiration/Inj Of Major Joint Or Bursa W/ Completed Ultra 03/31/2019 Injection, Single Or Mutiple Trigger Points One Or Two Completed Muscles Medical Devices Description No Information Available Encounters Type Date Location Provider Dx Diagnosis Office Visit 06/17/2019 Main Office as Reno Novak G89.28 Other chronic 10:15a Of 10/03/13 DO, MPH postprocedural pain M54.2 Cervicalgia M25.511 Pain in right shoulder M54.5 Low back pain Z79.891 intermediate (current) use of opiate analgesic Office Visit 05/20/2019 10:15a Main Office Reno Novak G89.28 Other chronic as Of 10/03/13 DO, MPH postprocedural pain M54.2 Cervicalgia M25.511 Pain in right shoulder M54.5 Low back pain Z79.891 intermediate (current) use of opiate analgesic Office Visit 04/21/2019 10:45a Main Office Reno Novak G89.28 Other chronic as Of 10/03/13 DO, MPH postprocedural pain M54.2 Cervicalgia M25.511 Pain in right shoulder M54.5 Low back pain M79.2 Neuralgia and neuritis, unspecified Z79.891 intermediate (current) use of opiate analgesic Office Visit 03/31/2019 10:15a Main Office Reno Novak G89.28 Other chronic as Of 10/03/13 DO, MPH postprocedural pain M54.2 Cervicalgia M25.511 Pain in right shoulder M79.12 Myalgia of auxiliary muscles, head and neck Office Visit 03/23/2019 10:45a Main Office Reno Novak G89.28 Other chronic as Of 10/03/13 DO, MPH postprocedural pain M54.2 Cervicalgia M54.5 Low back pain Z79.891 investment manager (current) use of opiate analgesic Office Visit 02/18/2019 10:15a Main Office Reno Novak G89.28 Other chronic as Of 10/03/13 DO, MPH postprocedural pain M54.2 Cervicalgia M54.5 Low back pain M96.1 Postlaminectomy syndrome, not elsewhere classified Z79.891 investment manager (current) use of opiate analgesic Assessments Date Code Description Provider 07/15/2019 G89.28 Other chronic postprocedural pain Novak, Reno, DO, MPH 07/15/2019 M25.511 Pain in right shoulder Novak, Reno, DO, MPH 07/15/2019 M54.5 Low back pain Novak, Reno, DO, MPH 07/15/2019 Z79.891 intermediate (current) use of opiate analgesic Novak, Reno , DO, MPH 07/15/2019 M54.2 Cervicalgia Novak, Reno, DO, MPH 07/15/2019 M79.2 Neuralgia and neuritis, unspecified Novak, Reno, DO, MPH 06/17/2019 G89.28 Other chronic postprocedural pain Novak, Reno, DO, MPH 06/17/2019 M54.2 Cervicalgia Novak, Reno, DO, MPH 06/17/2019 M25.511 Pain in right shoulder Novak, Reno, DO, MPH 06/17/2019 M54.5 Low back pain Novak, Reno, DO, MPH 06/17/2019 Z79.891 intermediate (current) use of opiate analgesic Novak, Reno , DO, MPH 05/20/2019 G89.28 Other chronic postprocedural pain Novak, Reno, DO, MPH 05/20/2019 M54.2 Cervicalgia Novak, Reno, DO, MPH 05/20/2019 M25.511 Pain in right shoulder Novak, Reno, DO, MPH 05/20/2019 M54.5 Low back pain Novak, Reno, DO, MPH 05/20/2019 Z79.891 investment manager (current) use of opiate analgesic Novak, Reno , DO, MPH 04/21/2019 G89.28 Other chronic postprocedural pain Novak, Reno, DO, MPH 04/21/2019 M54.2 Cervicalgia Novak, Reno, DO, MPH 04/21/2019 M25.511 Pain in right shoulder Novak, Reno, DO, MPH 04/21/2019 M54.5 Low back pain Novak, Reno, DO, MPH 04/21/2019 M79.2 Neuralgia and neuritis, unspecified NovakYan whiteph, DO, MPH 04/21/2019 Z79.891 investment manager (current) use of opiate analgesic NovakReno white DO, MPH 03/31/2019 G89.28 Other chronic postprocedural pain NovakYan whiteph DO, MPH 03/31/2019 M54.2 Cervicalgia NovakReno white DO, MPH 03/31/2019 M25.511 Pain in right shoulder NovakReno white DO, MPH 03/31/2019 M79.12 Myalgia of auxiliary muscles, head and neck NovakReno white DO, MPH 03/23/2019 G89.28 Other chronic postprocedural pain Reno Novak DO, MPH 03/23/2019 M54.2 Cervicalgia NovakReno white DO, MPH 03/23/2019 M54.5 Low back pain Reno Novak DO, MPH 03/23/2019 Z79.891 investment manager (current) use of opiate analgesic Reno Novak DO, MPH 02/18/2019 G89.28 Other chronic postprocedural pain NovakReno white DO, MPH 02/18/2019 M54.2 Cervicalgia NovakReno white DO, MPH 02/18/2019 M54.5 Low back pain NovakYan whiteph DO, MPH 02/18/2019 M96.1 Postlaminectomy syndrome, not elsewhere Reno Novak DO, MPH classified 02/18/2019 Z79.891 intermediate (current) use of opiate analgesic Reno Novak DO, MPH Plan of Treatment Future Appointment(s):08/12/2019 10:15 am - Reno Novak DO, MPH at Main Office as Of 10/03/1410 - Reno Novak DO, MPHG89.28 Other chronic [...] and comfortable when current medical therapy is rendered.Z79.891 investment manager (current) use of opiate analgesicNew Labs:Urine Drug Screen, Ordered: 07/15/19Comments:Urine drug screen sample taken today to monitor opiate use and to monitor use of illicit substances.Will discuss results at next appointment.The following tests were ordered:6 AM, AMPH, FLORIN, CLAIRE, BUP, CARIS, COCM, ETG, FENT, MCSHSG, OPI, OXY, PCP, TAPEN, XTSY, ZOLP. A urine drug test (UDT) was ordered for this patient and collected on site today. Creatinine has been ordered as well for specimen validity, not for kidney function. Preliminary UDT results are not final and should not be used to determine patient care or plan of treatment. Initially a qualitative immunoassay screen will bedone. Any inconsistent or positive findings will be further tested with a more comprehensive quantitative confirmation LCMS study. It is part of the treatment process of prescribing controlled substances and is considered standard of care.M54.2 CervicalgiaComments:Chronic. Symptoms and complaints discussed and reviewed today. No significant changes in physical findings. Continue current medical pain management.M79.2 Neuralgia and neuritis, unspecifiedComments:Chronic. Symptoms and complaints discussed and reviewed today. No significant changes in physical findings. Continue current medical pain management.AllComments: Continue current medical pain management; injection therapy, osteopathic [...] maintaining satisfactory side effect profile andminimizing intermediate end-organ damage. Importance of regular nutrition throughout the day discussed.Activity as toleratedContinue with PCP Functional Status Description No Information Available Mental Status Description No Information Available Referrals Refer to Reason for Referral Status Appt Date Reno Novak D.O. MPH Created [address] [place] [address] [place] [phone] Reno Novak D.O. MPH Created [address] [place] [address] [address] [place] [phone]
--- OUTSIDE RECORDS SUMMARY | 2019-08-12 12:03 | XMS REPORT | Continuity of Care Document ---
:1945 External Reference #:[id number] Author Name Seth York M.D., [facility], FASNC (transmitted by agent of provider Mame Kaufman) Address [facility] [place] [address] Care Team Providers Name Role Phone Danie Viera M.D. - Family Medicine Care Team Information Box Office Attendant Bibi Gamez FNP - Family Care Team Information Box Office Attendant Yang Sanchez M.D. - Hematology & Care Team Information Box Office Attendant Oncology Problems Active Problems Provider Date Electrocardiogram abnormal Seth York M.D., [facility], Onset: 05/14/2014 FASNC Orthostatic hypotension Seth York M.D., [facility], Onset: 05/14/2014 FASNC Difficulty breathing Seth York M.D., [facility], Onset: 05/14/2014 FASNC Dyspnea Susanna Valencia MD Onset: 02/10/2015 Chronic obstructive lung disease Susanna Valencia MD Onset: 02/10/2015 Gastroesophageal reflux disease Susanna Valencia MD Onset: 02/10/2015 Hypoxemia Susanna Valencia MD Onset: 04/26/2015 Pleural effusion, not elsewhere Susanna Valencia MD Onset: 09/08/2015 classified Thoracic aortic ectasia Seth York M.D., [facility], Onset: 10/28/2015 FASNC Ischemic stroke Mary [...] Use Never Used Drugs Smoking Status Reviewed: 02/20/19 quit october 2013 Exercise Type/Frequency Exercises rarely [...] twice Unknown 09/07/2015 a day 12.5mg Tablets Loratadine 1 by mouth every Unknown 09/07/2015 10mg Tablets day as needed Esomeprazole Sodium 1 by mouth every Unknown 09/07/2015 day 40mg Solution Rec Atorvastatin Calcium 1 by mouth every Unknown 09/07/2015 day 80mg Tablets Aripiprazole 1 by mouth every Unknown 09/07/2015 2mg day Tablets Alprazolam one by mouth q [...] a day 150mg Tablets Docusate Senna 2 bid Unknown 100mg Capsules Hypersal 4 ml [...] Available Vital Signs Date Vital Result Comment 06/18/2019 11:23am Height 71 inches 5'11" Weight 175.00 lb wheelchair Heart Rate 80 /min BP Systolic Sitting 122 mmHg BP Diastolic Sitting 78 mmHg O2 % BldC Oximetry 71 % BMI (Body Mass Index) 24.4 kg/m2 02/20/2019 10:20am Height 71 inches 5'11" Weight 175.00 lb Heart Rate 72 /min BP Systolic Sitting 124 mmHg Rue regular cuff BP Diastolic Sitting 76 mmHg Rue regular cuff Respiratory Rate 16 /min O2 % BldC Oximetry 84 % 2 pulse (89 5 pulse) BMI (Body Mass Index) 24.4 kg/m2 Results Description No Information Available Procedures Date Code Description Status 05/07/2019 14834 Bronchoscopy With Bronchial Alveolar Lavage Completed 10/27/1999 19526569 Colonoscopy Completed Medical Devices Description No Information Available Encounters Type Date Location Provider Dx Diagnosis Office Visit 06/18/2019 Pulmonology And Susanna Valencia, 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 Sleep Services Of unspecified Jony bronchus and lung J44.9 Chronic obstructive pulmonary disease, unspecified R09.02 Hypoxemia Office Visit 05/08/2019 12:51p Pulmonology And Sleep Susanna Valencia, R04.2 Hemoptysis Services Of [facility] J98.09 Other diseases of bronchus, not elsewhere classified Office Visit 05/08/2019 11:32a [facility] Rogelio J44.0 Chr obstructive Assoc, Lisa Gomez. pulmon disease Hospitalists with (acute) lower resp infct J69.0 Pneumonitis due to inhalation of food and vomit Office Visit 05/07/2019 12:36p Pulmonology And Sleep Susanna Valencia, R04.2 Hemoptysis Services Of [facility] Z87.09 Personal history of other diseases of the respiratory system Office Visit 05/06/2019 11:31a [facility] Peggy Broderick, [employer] R04.2 Hemoptysis Assoc, Hospitalists J44.9 Chronic obstructive pulmonary disease, unspecified J96.10 Chronic respiratory failure, unsp w hypoxia or hypercapnia Office Visit 02/20/2019 10:30a Pulmonology And Susanna J44.9 Chronic Sleep Services Of MD Erik obstructive Beam Racker pulmonary disease, unspecified R09.02 Hypoxemia Assessments Date Code Description Provider 06/18/2019 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 neoplasm of unspecified bronchus and Susanna Valencia MD lung 06/18/2019 J44.9 Chronic obstructive pulmonary disease, Susanna Valencia MD unspecified 06/18/2019 R09.02 Hypoxemia Susanna Valencia MD 05/08/2019 R04.2 Hemoptysis Susanna Valencia MD 05/08/2019 J44.0 Chronic obstructive pulmonary disease with Rogelio Gomez M.D. (acute) lower respiratory infection 05/08/2019 J98.09 Other diseases of bronchus, not elsewhere Susanna Valencia MD classified 05/08/2019 J69.0 Pneumonitis due to inhalation of food and Rogelio Gomez M.D. vomit 05/07/2019 J98.09 Other diseases of bronchus, not elsewhere Susanna Valencia MD classified 05/07/2019 R04.2 Hemoptysis Susanna Valencia MD 05/07/2019 R04.2 Hemoptysis Susanna Valencia MD 05/07/2019 J44.0 Chronic obstructive pulmonary disease with Rogelio Gomez M.D. (acute) lower respiratory infection 05/07/2019 Z87.09 Personal history of other diseases of the Susanna Valencia MD respiratory system 05/07/2019 J69.0 Pneumonitis due to inhalation of food and Rogelio Gomez M.D. vomit 05/07/2019 R91.8 Other nonspecific abnormal finding of lung Rogelio Gomez M.D. field 05/06/2019 R04.2 Hemoptysis Peggy Broderick, MA[employer]GER [employer] 05/06/2019 J44.9 Chronic obstructive pulmonary disease, Peggy Broderick, [employer] unspecified 05/06/2019 J96.10 Chronic respiratory failure, unspecified Peggy Broderick, [employer] whether with hypoxia or hypercapnia 02/20/2019 J44.9 Chronic obstructive pulmonary disease, Susanna Valencia MD unspecified 02/20/2019 R09.02 Hypoxemia Susanna Valencia MD Plan of Treatment Future Appointment(s):08/21/2019 11:30 am - Susanna Valencia MD at Pulmonology And Sleep Services [facility]06/18/2019 - Susanna Valencia MD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 neoplasm of unspecified bronchus and lungNew Orders:Bronchoscopy, Scheduled: Follow up:3 vwlgdR65.9 Chronic obstructive pulmonary disease, ggbuffvdqyiP81.02 Hypoxemia Functional Status Description No Information Available Mental Status Description No Information Available Referrals Refer to Reason for Referral Status Appt Date Esha Van MD [address] [place] [address] [phone]
--- OUTSIDE RECORDS SUMMARY | 2019-08-12 12:03 | XMS REPORT | Continuity of Care Document ---
:1945 External Reference #:[id number] Author Name Susanna Valencia MD (transmitted by agent of provider Gladis Mccoy) Address [address], [address] [place] [id number] Care Team Providers Name Role Phone Danie Viera M.D. - Family Medicine Care Team Information Finisher Screw[employer] Bibi Gamez FNP - Family Care Team Information Finisher [employer] Yang Sanchez M.D. - Hematology & Care Team Information Finisher Scre[employer]down Oncology Problems Active Problems Provider Date Electrocardiogram abnormal Seth York M.D., [facility], Onset: 05/14/2014 FASNC Orthostatic hypotension Seth York M.D., [facility], Onset: 05/14/2014 FASNC Difficulty breathing Seth York M.D., [facility], Onset: 05/14/2014 FASNC Dyspnea Susanna Valencia MD Onset: 02/10/2015 Chronic obstructive lung disease Susanna Valencia MD Onset: 02/10/2015 Gastroesophageal reflux disease Susanna Valencia MD Onset: 02/10/2015 Hypoxemia Susanna Valencia MD Onset: 04/26/2015 Pleural effusion, not elsewhere Susanna Valencia MD Onset: 09/08/2015 classified Thoracic aortic ectasia Seth York M.D., [facility], Onset: 10/28/2015 FASNC Ischemic stroke Mary Kay [...] 0.1 MG Seth York M.D., 04/25/2015 Injection FACC, FASNC Aminophylline Seth York M.D., 04/25/2015 Injection AMIE, FASEZRA Technetium TC 99M Seth York M.D., 04/25/2015 [...] Available Procedures Date Code Description Status 05/07/2019 58666 Bronchoscopy With Bronchial Alveolar Lavage Completed 10/27/1999 33667020 Colonoscopy Completed Medical Devices Description No Information Available Encounters Type Date Location Provider Dx Diagnosis Office Visit 05/08/2019 Pulmonology And Sleep Susanna Valencia MD R04.2 Hemoptysis 12:51p Services Of [facility] J98.09 Other diseases of bronchus, not elsewhere classified Office Visit 05/08/2019 11:32a [facility] Rogelio J44.0 Chr obstructive Assoc,justin Gomez M.D. pulmon disease Hospitalists with (acute) lower resp infct J69.0 Pneumonitis due to inhalation of food and vomit Office Visit 05/07/2019 12:36p Pulmonology And Sleep Susanna Valencia, R04.2 Hemoptysis Services Of [facility] Z87.09 Personal history of other diseases of the respiratory system Office Visit 05/06/2019 11:31a [facility] Peggy Broderick, [employer] R04.2 Hemoptysis Assoc, Hospitalists J44.9 Chronic obstructive pulmonary disease, unspecified J96.10 Chronic respiratory failure, unsp w hypoxia or hypercapnia Office Visit 02/20/2019 10:30a Pulmonology And Susanna J44.9 Chronic Sleep Services Of MD 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 field 05/06/2019 R04.2 Hemoptysis Peggy Broderick, [employer] 05/06/2019 J44.9 Chronic obstructive pulmonary disease, Peggy Broderick, [employer] unspecified 05/06/2019 J96.10 Chronic respiratory failure, unspecified Peggy Broderick, [employer] whether with hypoxia or hypercapnia 02/20/2019 J44.9 Chronic obstructive pulmonary disease, Susanna Valencia MD unspecified 02/20/2019 R09.02 Hypoxemia Susanna Valencia MD Plan of Treatment Future Appointment(s):07/07/2019 12:00 pm - Susanna Valencia MD at Pul[facility]ology [facility]07/15/2019 1:15 pm - Seth York M.D., FACC, FASNC at [facility]06/29/2019 11:00 am - Ica ECHO Schedule at [facility]08/21/2019 11:30 am - Susanna Valencia MD at Pul[facility]ology [facility] Sleep [facility]06/18/2019 - Susanna Valencia MD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 neoplasm of unspecified bronchus and lungNew Orders:Bronchoscopy, Scheduled: Follow up:3 mhcmwW14.9 Chronic obstructive pulmonary disease, cvvxmufspxpH60.02 Hypoxemia Functional Status Description No Information Available Mental Status Description No Information Available Referrals Description No Information Available
--- OUTSIDE RECORDS SUMMARY | 2019-08-12 12:03 | XMS REPORT | Continuity of Care Document ---
:1945 External Reference #:[id number] Author Name Reno Novak DO MPH Address [address] [facility], [address] [place] [address] Care Team Providers Name Role Phone Remy Lieberman MD - Family Medicine Care Team Information Thread Checker [phone] Problems Description No Information Available Social History Type Date Description Comments Sex Unknown Cigarette Use Current Cigarette Smoker 1 Pack Daily ETOH Use Denies alcohol use Tobacco Use Start: Unknown End: Unknown Patient is a former smoker Smoking Status Reviewed: 06/17/19 Patient is a former smoker Allergies, Adverse [...] Available Vital Signs Date Vital Result Comment 06/17/2019 10:05am BP Systolic 120 mmHg BP Diastolic 72 mmHg Heart Rate 74 /min Respiratory Rate 18 /min Height 71 inches 5'11" Weight 180.00 lb per patient Pain Level 7 Pain at this time. Pain Level With Medicine 6 on average with meds Pain Level Without Medicine 9 without meds BMI (Body Mass Index) 25.1 kg/m2 05/20/2019 10:00am BP Systolic 128 mmHg BP Diastolic 86 mmHg Heart Rate 84 /min Respiratory Rate 20 /min Height 71 inches 5'11" Weight 180.00 lb O2 % BldC Oximetry 90 % Pain Level 5 Pain at this time. Pain Level With Medicine 5 on average with meds Pain Level Without Medicine 9 without meds BMI (Body Mass Index) 25.1 kg/m2 Results Description No Information Available Procedures Date Code Description Status 04/21/2019 59827 Injection For Nerve Block, Other Peripheral Nerve Or Completed Branch 03/31/2019 27050 Injection For Nerve Block, Suprascapular Nerve Completed 03/31/2019 Arthrocentesis/Aspiration/Inj Of Major Joint Or Bursa W/ Completed Ultra 03/31/2019 Injection, Single Or Mutiple Trigger Points One Or Two Completed Muscles Medical Devices Description No Information Available Encounters Type Date Location Provider Dx Diagnosis Office Visit 05/20/2019 Main Office as Reno Novak G89.28 Other chronic 10:15a Of 10/03/13 DO, MPH postprocedural pain M54.2 Cervicalgia M25.511 Pain in right shoulder M54.5 Low back pain Z79.891 snf (current) use of opiate analgesic Office Visit 04/21/2019 10:45a Main Office Reno Novak G89.28 Other chronic as Of 10/03/13 DO, MPH postprocedural pain M54.2 Cervicalgia M25.511 Pain in right shoulder M54.5 Low back pain M79.2 Neuralgia and neuritis, unspecified Z79.891 blue crabber (current) use of opiate analgesic Office Visit 03/31/2019 10:15a Main Office Reno Novak G89.28 Other chronic as Of 10/03/13 DO, MPH postprocedural pain M54.2 Cervicalgia M25.511 Pain in right shoulder M79.12 Myalgia of auxiliary muscles, head and neck Office Visit 03/23/2019 10:45a Main Office Reno Novak G89.28 Other chronic as Of 10/03/13 DO, MPH postprocedural pain M54.2 Cervicalgia M54.5 Low back pain Z79.891 snf (current) use of opiate analgesic Office Visit 02/18/2019 10:15a Main Office Reno Novak G89.28 Other chronic as Of 10/03/13 DO, MPH postprocedural pain M54.2 Cervicalgia M54.5 Low back pain M96.1 Postlaminectomy syndrome, not elsewhere classified Z79.891 blue crabber (current) use of opiate analgesic Assessments Date Code Description Provider 06/17/2019 G89.28 Other chronic postprocedural pain Reno Novak DO MPH 06/17/2019 M54.2 Cervicalgia Reno Novak DO MPH 06/17/2019 M25.511 Pain in right shoulder Novak, Reno, DO, MPH 06/17/2019 M54.5 Low back pain Novak, Reno, DO, MPH 06/17/2019 Z79.891 blue crabber (current) use of opiate analgesic Novak, Reno , DO, MPH 05/20/2019 G89.28 Other chronic postprocedural pain Novak, Reno, DO, MPH 05/20/2019 M54.2 Cervicalgia Novak, Reno, DO, MPH 05/20/2019 M25.511 Pain in right shoulder Novak, Reno, DO, MPH 05/20/2019 M54.5 Low back pain Novak, Reno, DO, MPH 05/20/2019 Z79.891 blue crabber (current) use of opiate analgesic Novak, Reno , DO, MPH 04/21/2019 G89.28 Other chronic postprocedural pain Novak, Reno, DO, MPH 04/21/2019 M54.2 Cervicalgia Novak, Reno, DO, MPH 04/21/2019 M25.511 Pain in right shoulder Novak, Reno, DO, MPH 04/21/2019 M54.5 Low back pain Novak, Reno, DO, MPH 04/21/2019 M79.2 Neuralgia and neuritis, unspecified Novak, Reno, DO, MPH 04/21/2019 Z79.891 blue crabber (current) use of opiate analgesic Novak, Reno [...] pain Novak, Reno, DO, MPH 03/23/2019 Z79.891 blue crabber (current) use of opiate analgesic Reno Novak DO MPH 02/18/2019 G89.28 Other chronic postprocedural pain Rneo Novak DO MPH 02/18/2019 M54.2 Cervicalgia Reno Novak DO MPH 02/18/2019 M54.5 Low back pain Reno Novak DO MPH 02/18/2019 M96.1 Postlaminectomy syndrome, not elsewhere Reno Novak DO MPH classified 02/18/2019 Z79.891 blue crabber (current) use of opiate analgesic Reno Novak DO MPH Plan of Treatment Future Appointment(s):07/15/2019 10:15 am - Reno Novak DO MPH at Main Office as Of 10/03/1409 - Reno Novak DO MPHG89.28 Other chronic postprocedural painComments:Chronic. Symptoms and [...] comfortable when current medical therapy is rendered.Z79.891 snf ( current) use of opiate analgesicNew Labs:Urine Drug Screen, Ordered: Comments:Urine drug screen sample taken today to monitor [...] while maintaining satisfactory side effect profile andminimizing longterm end-organ damage. Importance of regular nutrition throughout the day discussed.Activity as toleratedContinue with PCP Functional Status Description No Information Available Mental Status Description No Information Available Referrals Refer to Reason for Referral Status Appt Date Reno Novak D.O. MPH Created [address] [place] [address] [address] [place] [address] [phone]
--- OUTSIDE RECORDS SUMMARY | 2019-08-12 12:03 | XMS REPORT | Continuity of Care Document ---
:1945 External Reference #:[id number] Author Name Susanna Valencia MD (transmitted by agent of provider Gladis Mccoy) Address [address], [address] [place] [phone] Care Team Providers Name Role Phone aDnie Viera M.D. - Family Medicine Care Team Information Otter Trawler Boatswain Bibi Gamez FNP - Family Care Team Information Otter Trawler Boatswain Yang Sanchez M.D. - Hematology & Care Team Information Otter Trawler Boatswain Oncology Problems Active Problems Provider Date Electrocardiogram abnormal Seth York M.D., [facility], Onset: 05/14/2014 FASNC Orthostatic hypotension Seth York M.D., [facility], Onset: 05/14/2014 FASNC Difficulty breathing Seth York M.D., [facility], Onset: 05/14/2014 FASNC Dyspnea Susanna Valencia MD Onset: 02/10/2015 Chronic obstructive lung disease Susanna Valencia MD Onset: 02/10/2015 Gastroesophageal reflux disease Susanna Valencia MD Onset: 02/10/2015 Hypoxemia Susanna Valencia MD Onset: 04/26/2015 Pleural effusion, not elsewhere Susanna Valencia MD Onset: 09/08/2015 classified Thoracic aortic ectasia Seth York M.D., [facility], Onset: 10/28/2015 FASNC Ischemic stroke Mary Kay [...] 2l/min during MD exertion and at night Pepcid take one Unknown 20mg Tablets capsule/tablet daily by mouth Mucinex DM Maximum 1 by mouth twice Unknown Strength a day 60-1200mg Tablets ER 12HR Furosemide 1/2 by mouth Unknown 20mg Tablets every day Lidocaine apply 1-2-1 patch Unknown 5% Patches to the affected area daily. leave on for 10 hours Docusate Senna 2 cap po bid Unknown [...] Available Vital Signs Date Vital Result Comment 08/07/2019 10:50am Height 70 inches 5'10" Heart Rate 71 /min BP Systolic Sitting 122 mmHg BP Diastolic Sitting 80 mmHg Body Temperature 97.0 F O2 % BldC Oximetry 89 % on 4 liters 07/15/2019 1:05pm Height 70 inches 5'10" Weight 172.00 lb Heart Rate 88 /min BP Systolic Sitting 126 mmHg Rue reg cuff BP Diastolic Sitting 60 mmHg Rue reg cuff BP Systolic Standing 124 mmHg Rue BP Diastolic Standing 60 mmHg Rue Respiratory Rate 18 /min BMI (Body Mass Index) 24.7 kg/m2 Results Description No Information Available Procedures Date Code Description Status 07/15/2019 88623 EKG Tracing & Interpretation Completed 06/29/2019 19421 ECHO Transthoracic, Real-Time 2D With Doppler And Color Completed Flow 06/29/2019 00264 ECHO Transthoracic, Real-Time 2D With Doppler And Color Completed Flow 05/07/2019 59498 Bronchoscopy With Bronchial Alveolar Lavage Completed 10/27/1999 64580586 Colonoscopy Completed Medical Devices Description No Information Available Encounters Type Date Location Provider Dx Diagnosis Office Visit 07/15/2019 [facility] Seth Frantz I77.810 Thoracic aortic 1:15p Of Jony York M.D., ectasia FAC, FASNC R94.31 Abnormal electrocardiogram [ECG] [EKG] Office Visit 06/18/2019 11:30a Pulmonology And Susanna 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 neoplasm Sleep Services Of MD Erik of unspecified [facility] bronchus and lung J44.9 Chronic obstructive pulmonary disease, unspecified R09.02 Hypoxemia Office Visit 05/08/2019 12:51p Pulmonology And Sleep Susanna Valencia, R04.2 Hemoptysis Services Of [facility] J98.09 Other diseases of bronchus, not elsewhere classified Office Visit 05/08/2019 11:32a [facility] Rogelio J44.0 Chr obstructive Assoc,pc Leonel Gomez pulmon disease Hospitalists with (acute) lower resp infct J69.0 Pneumonitis due to inhalation of food and vomit Office Visit 05/07/2019 12:36p Pulmonology And Sleep Susanna Valencia, R04.2 Hemoptysis Services Of Jony MONTANEZ Z87.09 Personal history of other diseases of the respiratory system Office Visit 05/06/2019 11:31a [facility] Peggy Broderick, TELEMARKETING AGENT R04.2 Hemoptysis Assoc,pc Hospitalists J44.9 Chronic obstructive pulmonary disease, unspecified J96.10 Chronic respiratory failure, unsp w hypoxia or hypercapnia Office Visit 02/20/2019 10:30a Pulmonology And Susanna Cobian44.9 Chronic Sleep Services Of MD Erik obstructive [facility] pulmonary disease, unspecified R09.02 Hypoxemia Assessments Date Code Description Provider 08/07/2019 R06.02 Shortness of breath Susanna Valencia MD 08/07/2019 R09.02 Hypoxemia Susanna Valencia MD 08/07/2019 J44.9 Chronic obstructive pulmonary disease, Susanna Valencia MD unspecified 07/15/2019 I77.810 Thoracic aortic ectasia Seth York M.D., [facility] 07/15/2019 R94.31 Abnormal electrocardiogram [ECG] [EKG] Seth York M.D., [facility] 06/29/2019 I10 Essential (primary) hypertension Seth York M.D., [facility] 06/29/2019 I10 Essential (primary) hypertension Ica ECHO Schedule 06/18/2019 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 with (acute) lower respiratory infection 05/08/2019 J98.09 Other diseases of bronchus, not Susanna Valencia MD elsewhere classified 05/08/2019 J69.0 Pneumonitis due to inhalation of food Rogelio Gomez M.D. and vomit 05/07/2019 J98.09 Other diseases of bronchus, not Susanna Valencia MD elsewhere classified 05/07/2019 R04.2 Hemoptysis Susanna Valencia MD 05/07/2019 R04.2 Hemoptysis Susanna Valencia MD 05/07/2019 J44.0 Chronic obstructive pulmonary disease Rogelio Gomez M.D. with (acute) lower respiratory infection 05/07/2019 Z87.09 Personal history of other diseases of Susanna Valencia MD the respiratory system 05/07/2019 J69.0 Pneumonitis due to inhalation of food Rogelio Gomez M.D. and vomit 05/07/2019 R91.8 Other nonspecific abnormal finding of Rogelio Gomez M.D. lung field 05/06/2019 R04.2 Hemoptysis Peggy Broderick, TELEMARKETING AGENT 05/06/2019 J44.9 Chronic obstructive pulmonary disease, Peggy Broderick, TELEMARKETING AGENT unspecified 05/06/2019 J96.10 Chronic respiratory failure, Peggy Broderick, TELEMARKETING AGENT unspecified whether with hypoxia or hypercapnia 02/20/2019 J44.9 Chronic obstructive pulmonary disease, Susanna Valencia MD unspecified 02/20/2019 R09.02 Hypoxemia Susanna Valencia MD Plan of Treatment Future Appointment(s):09/18/2019 10:30 am - Susanna Valencia MD at [facility]08/21/2019 11:30 am - Susanna Valencia MD at [facility]08/07/2019 - Susanna Valencia, MDR06.02 Shortness of breathNew Labs:CBC Auto Diff, Ordered: 08/07/19Comp Metabolic Panel , Ordered: 08/07/19New Xrays:Chest PA & Lat 2 VWS, Ordered: 08/07/19Follow up:1 tcjymP51.02 MqfqoicnyA75.9 Chronic obstructive pulmonary disease, unspecified Functional Status Description No Information Available Mental Status Description No Information Available Referrals Refer to Reason for Referral Status Appt Date Esha Van MD Sent [address] [place] [address] [phone]
--- OUTSIDE RECORDS SUMMARY | 2019-08-12 12:03 | XMS REPORT | Continuity of Care Document ---
:1945 External Reference #:[id number] Author Name Aziza Ngo PA-C Address [address] [place] [address] Problems Description No Information Available Social History Type Date Description Comments Sex Unknown Tobacco Use Start: Unknown End: Former Cigarette Smoker 1 x 35yrs, quit age 68 Unknown Pack Daily Tobacco Use Start: Unknown Never Smoked Cigars Tobacco Use Start: Unknown Never Smoked A Pipe Smoking Status Reviewed: 08/10/19 Never Smoked A Pipe Smokeless Tobacco Never Used Smokeless Tobacco ETOH Use does not drink alcohol Allergies, Adverse Reactions, Alerts Active Allergies Reaction Severity Comments Date Latex 11/17/2007 Nsaid 11/17/2007 Wellbutrin 11/17/2007 Clonidine 11/17/2007 Zonegran 11/17/2007 Gabapentin 08/10/2019 Vesicare 08/10/2019 Medications Active Medications SIG Qnty Indications Ordering Provider Date Mometasone Furoate 2 sprays to each 51gm J34.3 Sae Gunter 08/10/2019 nostril daily MD Radha 50mcg/Act Suspension Oxycodone HCL tid for pain Unknown 15mg Tablets Oxycontin 1/2 tab in am 1/2 Unknown 20mg Tab ER 12H tab pm Abuse-Det Lidocaine daily Unknown 5% Patches Levalbuterol Tartrate 2 puffs for Unknown shortness of 45mcg/Act Aerosol breath Benzonatate daily Unknown 100mg Capsules Alprazolam daily Unknown 0.25mg Tablets Famotidine daily Unknown 20mg Tablets Potassium Chloride daily Unknown 10Meq/100ML Solution Montelukast Sodium 1 by mouth every Unknown 10mg day Tablets Metoprolol Succinate 1 /2 tab 8 am and Unknown ER 8 pm 25mg Tablets ER 24HR Magnesium as directed Unknown 400mg Tablets Guaifenesin ER 1 by mouth twice a Unknown 1200mg day Tablets ER 12HR Furosemide 1/2 tab daily Unknown 20mg Tablets Duloxetine HCL daily Unknown 40mg Caps DR Part Esomeprazole Magnesium daily Unknown 40mg Capsules DR Docusate Sodium 1 by mouth daily Unknown 100mg Capsules Atorvastatin Calcium daily Unknown 80mg Tablets Aspir-Low 1 by mouth every Unknown 81mg Tablets DR day Aripiprazole Half Tab Daily Unknown 5mg Tablets Amlodipine Besylate Daily Unknown 5mg Tablets History Medications No Active Medications Unknown 08/10/2019 - 08/10/2019 Immunizations Description No Information Available Vital Signs Date Vital Result Comment 08/10/2019 2:23pm Weight 170.00 lb Weight 77.112 kg Height 71 inches 5'11" Height in cm's 180.3 cm BMI (Body Mass Index) 23.7 kg/m2 11/17/2007 4:15pm BP Systolic 135 mmHg BP Diastolic 78 mmHg Heart Rate 91 /min Respiratory Rate 15 /min Results Description No Information Available Procedures Date Code Description Status 08/10/2019 42317 Fiberoptic Laryngoscopy Completed Medical Devices Description No Information Available Encounters Type Date Location Provider Dx Diagnosis Office Visit 08/10/2019 [place],[facility] Aziza Ngo PA-C R07.0 Pain in throat 2:15p 09/02/07 J34.3 Hypertrophy of nasal turbinates Assessments Date Code Description Provider 08/10/2019 R07.0 Pain in throat Aziza Ngo PA-C 08/10/2019 J34.3 Hypertrophy of nasal turbinates Aziza Ngo PA-C Plan of Treatment 08/10/2019 - CARLITOS Khan07.0 Pain in [id number] Hypertrophy of nasal turbinatesNew Medication:Mometasone Furoate 50 mcg/Act - 2 sprays to each nostril daily Functional Status Description No Information Available Mental Status Description No Information Available Referrals Description No Information Available
[2019-08-12 12:04] LABS: ABS Eosinophils 0.3 10^3/ul (0-0.6); ABS Lymphocytes 0.6 10^3/ul (1.0-4.8); ABS Monocytes 0.6 10^3/ul (0-0.8); ABS Neutrophils 4.8 10^3/ul (1.5-7.7); Eosinophil % 4.4 %; Hematocrit 25 % (42-52); Lymphocyte % 9.5 %; Mean Corpuscular HGB Conc 32 g/dL (31-36); Mean Corpuscular Hemoglobin 30 pg (27-31); Mean Corpuscular Volume 94 fL (80-94); Mean Platelet Volume 9.3 fL (7.4-10.4); Nucleated Red Blood Cells % 0.1; Platelet Count 139 10^3/uL (150-450); Red Cell Distribution Width 17 % (10-15); White Blood Count 6.3 10^3/uL (3.5-10.8)
--- NOTE | 2019-08-12 12:30 | ED ---
Shortness of Breath - HPI Summary HPI Summary: 73 year old M [facility] B[facility] complains of low SpO2 since. Pain clinic staff reported that pt had SpO2 of 59% on 3L NC. Pt presents with 15L with SpO2 fluctuating between high 80s and 100. 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 Pt reports nebulizing treatment 4x a day. Pt reports persistent trouble breathing, current thoracic aneurysm, hemorrhoids, and swelling in feet. Denies fever, coughing, CP , and hematochezia. Hx of COPD. SgHx of AAA repair 4 years ago. Former smoker. Denies drug or alcohol use.The patient rates the pain 5/10 in severity. Symptoms aggravated by lying down. Symptoms alleviated by sitting upright. Medications reviewed and allergies noted. - History of Current Complaint Hx Obtained From: Patient Onset/Duration: Lasting Hours, Still Present Aggravating Factors: Recumbent Position Alleviating Factors: Upright Position Associated Signs & Symptoms: Negative - No fever, coughing, hematochezia, Edema - in feet - Allergy/Home Medications Allergies/Adverse Reactions: Allergies Allergy/AdvReac Type Severity Reaction Status Date / Time latex Allergy Intermediate Rash Verified 08/12/19 11:49 NSAIDS (Non-Steroidal Allergy Intermediate GI Upset Verified 08/12/19 11:49 Anti-Inflamma alfuzosin [From Uroxatral] Allergy Hypotension Verified 08/12/19 11:49 bupropion [From Wellbutrin] Allergy panic Verified 08/12/19 11:49 attack clonidine Allergy muscle Verified 08/12/19 11:49 weakness fentanyl Allergy paranoid Verified 08/12/19 11:49 gabapentin Allergy muscle Verified 08/12/19 11:49 weakness/bladeder weakness morphine Allergy paranoid Verified 08/12/19 11:49 solifenacin [From Vesicare] Allergy hypotnesion Verified 08/12/19 11:49 zonisamide [From Zonegran] Allergy Hallucinati Verified 08/12/19 11:49 ons Home Medications: Home Medications Famotidine TAB* [Pepcid 20 MG TAB*] 20 mg PO DAILY 08/12/19 [History Confirmed 08/12/19] Oxycodone TAB(NF) [Oxycodone HCl 10 MG] 15 mg PO TID PRN 08/12/19 [History Confirmed 08/12/19] PMH/Surg Hx/FS Hx/Imm Hx Endocrine/Hematology History: Reports: Hx Anemia - CHRONIC Denies: Hx Diabetes, Hx Unexplained Bleeding Cardiovascular History: Reports: Hx Congestive Heart Failure, Hx Hypertension, Hx Valvular Heart Disease - FEMOARL ENDARECTOMY, Other Cardiovascular Problems/ Disorders - PULMONARY HYPERTENSION HAD TRIPLE AAA SURGERY Denies: Hx Aneurysm, Hx Angina, Hx Angioplasty, Hx Auto Implanted Cardiovert Defib, Hx Cardiac Arrest, Hx Cardiomegaly, Hx Congenital Heart Disease, Hx Coronary Artery Disease, Hx Deep Vein Thrombosis, Hx Embolism, Hx Hypercholesterolemia, Hx Hypotension, Hx Pacemaker/ICD, Hx Peripheral Vascular Disease, Hx Rheumatic Fever, Hx Syncope Respiratory History: Reports: Hx Chronic Bronchitis, Hx Chronic Obstructive Pulmonary Disease (COPD), Hx Pleural Effusion, Hx Pulmonary Edema, Hx Sleep Apnea, Other Respiratory Problems/Disorders - COPD Denies: Hx Asthma, Hx Cystic Fibrosis, Hx Lung Cancer, Hx Pneumonia, Hx Pulmonary Embolism, Hx Seasonal Allergies GI History: Reports: Hx Gastroesophageal Reflux Disease, Hx Hiatal Hernia, Other GI Disorders - ischemic colitis History: Reports: Hx Benign Prostatic Hyperplasia, Hx Kidney Stones - SITTING IN PELVIS, Hx Renal Disease - cysts, Other Problems/Disorders - kidney cyst, Musculoskeletal History: Reports: Hx Arthritis, Hx Back Problems, 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 Denies: Hx Bursitis, Hx Congenital Bone Abnormalities, Hx Fibromyalgia, Hx Gout, Hx Orthopedic Injury, Hx Osteoporosis, Hx Scoliosis, Hx Tendonitis Sensory History: Reports: Hx Contacts or Glasses, Hx Vision Problem, Hx Hearing Aid - RIGHT EAR ONLY Denies: Hx Cataracts, Hx Eye Injury, Hx Eye Prosthesis, Hx Glaucoma, Hx Legally Blind, Hx Macular Degeneration, Hx Deafness, Hx Hearing Problem, Other Sensory Impairments Opthamlomology History: Reports: Hx Contacts or Glasses, Hx Vision Problem Denies: Hx Cataracts, Hx Eye Injury, Hx Eye Prosthesis, Hx Glaucoma, Hx Legally Blind, Hx Macular Degeneration, Other Sensory Impairments Neurological History: Reports: Hx Nerve Disease - DUE TO SPINAL STENOSIS Denies: Hx Dementia, Hx Developmental Delay, Hx Headaches, Hx Migraine, Hx Seizures, Hx Spinal Cord Injury, Hx Transient Ischemic Attacks (TIA), Other Neuro Impairments/Disorders Psychiatric History: Reports: Hx Anxiety, Hx Eating Disorder, Hx Depression, Hx Post Traumatic Stress Disorder, Hx Substance Abuse - ETOH, drug Denies: Hx Attention Deficit Hyperactivity Disorder, Hx Panic Disorder, Hx Inpatient Treatment, Hx Community Mental Health Tx, Hx Schizophrenia, Hx Bipolar Disorder, Hx Suicide Attempt, Hx of Violent Episodes Against Others, Other Psychiatric Issues/Disorders - Cancer History Hx Chemotherapy: No Hx Radiation Therapy: No - Surgical History Surgical History: Yes Surgery Procedure, Year, and Place: cspine x5(1979,1987,1995,1999,2000), lumbar spine x3(1987,1990,2005), stenosis cspine with hardware, AAA repair(2014), R iliac artery aneurysm repair(2014), L femoral endarterectomy(2014), R achilles tendon lengthening(2006), R shoulder (1990). BRONCHOSCOPY X4 LAST 2018 Hx Anesthesia Reactions: No - Immunization History Date of Influenza Vaccine: fall 2018 Infectious Disease History: No Infectious Disease History: Denies: Hx Clostridium Difficile, Hx Hepatitis, Hx Human Immunodeficiency Virus (HIV), Hx of Known/Suspected MRSA, Hx Shingles, Hx Tuberculosis, Hx Known/ Suspected VRE, Hx Known/Suspected VRSA, History Other Infectious Disease, Traveled Outside the [place] in Last 30 Days - Family History Known Family History: Positive: Hypertension Negative: Diabetes - Social History Alcohol Use: None Hx Substance Use: No Substance Use Type: Reports: None Hx Tobacco Use: No Smoking Status (MU): Former Smoker Type: Cigarettes Have You Smoked in the Last Year: No Review of Systems Negative: Fever Negative: Chest Pain Positive: Shortness Of Breath. Negative: Cough Negative: Other - hematochezia Positive: Edema - in feet All Other Systems Reviewed And Are Negative: Yes Physical Exam - Summary Physical Exam Summary: Constitutional: Well-developed, Well-nourished, Alert. (-) Distressed Skin: Warm, Dry HENT: Normocephalic; Atraumatic Eyes: Conjunctiva normal Neck: Musculoskeletal ROM normal neck. (-) JVD, (-) Stridor, (-) Tracheal deviation Cardio: Rhythm regular, rate normal, Heart sounds normal; Intact distal pulses; Radial pulses are 2+ and symmetric. (-) Murmur Pulmonary/Chest wall: (-) Wheezes, (-) Rales, Saturating 98-100% on NC, Decreased breath sounds in right lower lobe Abd: Soft, (-) tenderness, (-) Distension, (-) Guarding, (-) Rebound Musculoskeletal: 1+ pitting edema bilaterally Lymph: (-) Cervical adenopathy Neuro: Alert, Oriented x3 Psych: Mood and affect Normal Triage Information Reviewed: Yes Vital Signs On Initial Exam: Initial Vitals Temp Pulse Resp BP Pulse Ox 97.9 F 83 20 133/80 100 08/12/19 11:41 08/12/19 11:41 08/12/19 11:41 08/12/19 11:41 08/12/19 11:41 Vital Signs Reviewed: Yes Procedures - Sedation Patient Received Moderate/Deep Sedation with Procedure: No Diagnostics - Vital Signs Vital Signs Temp Pulse Resp BP Pulse Ox 08/12/19 11:41 97.9 F 83 20 133/80 100 - Laboratory Lab Results: Lab Results 08/12/19 08/12/19 Range/Units 11:48 11:48 WBC 6.3 (3.5-10.8) 10^3/uL RBC 2.70 L (4.18-5.48) 10^6 /uL Hgb 8.0 L (14.0-18.0) g/dL Hct 25 L (42-52) % MCV 94 (80-94) fL MCH 30 (27-31) pg MCHC 32 (31-36) g/dL RDW 17 H (10-15) % Plt Count 139 L (150-450) 10^3/uL MPV 9.3 (7.4-10.4) fL Neut % (Auto) 76.2 % Lymph % (Auto) 9.5 % [place] % (Auto) 9.5 % Eos % (Auto) 4.4 % Baso % (Auto) 0.4 % Absolute Neuts (auto) 4.8 (1.5-7.7) 10^3/ul Absolute Lymphs (auto) 0.6 L (1.0-4.8) 10^3/ul Absolute Monos (auto) 0.6 (0-0.8) 10^3/ul Absolute Eos (auto) 0.3 (0-0.6) 10^3/ul Absolute Basos (auto) 0.0 (0-0.2) 10^3/ul Absolute Nucleated RBC 0.0 10^3/ul Nucleated RBC % 0.1 VBG pH 7.22 L (7.32-7.43) VBG pCO2 90 H (41-51) mmHg VBG pO2 < 38.0 (35-45) mmHg VBG HCO3 27.5 (24-28) mmol/L VBG O2 Saturation 25.7 L (70-80) % VBG Base Excess 5.8 H (0.0-4.0) mmol/L Result Diagrams: 08/12/19 11:48 08/12/19 16:19 Lab Statement: Any lab studies that have been ordered have been reviewed, and results considered in the medical decision making process. - Radiology CXR Radiology Interpretation Completed By: Radiologist Summary of Radiographic Findings: IMPRESSION: Chest x-ray findings are consistent with mild pulmonary edema without. substantial change since the August 07, 2019 chest x-ray. ED physician has reviewed this report. - CT Chest/Thorax CTA CT Interpretation Completed By: Radiologist Summary of CT Findings: IMPRESSION: No pulmonary embolism is noted. Aneurysmal dilatation of the descending aorta measuring up to 5.3 cm emphysematous changes are noted. 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 Findings are unchanged since May 06, 2019. Previously identified mass in the superior segment of the right lower lobe is significantly decreased. Present is consistent with resolving pneumonia. ED physician has reviewed this report. - EKG 12:36 Cardiac Rate: NL - 75 BPM EKG Rhythm: Sinus Rhythm Summary of EKG Findings: Rate of 75 bpm, ST elevation in V3-V5, aVL, T wave inversion in V2, no peaked T waves, unchanged EKG since 05/06/19. ED physician has reviewed and interpreted this EKG. Course/Dx - Course Course Of Treatment: Patient is here with hypoxemia. Patient has a known right lower lobe tumor which is benign in nature. On arrival, patient was placed on nasal cannula with normal oxygen status. However, patient desatted into the 70s so he was placed on a nonrebreather. Patient had lower performed which came back with an elevated troponin. Patient has never had this before per . Patient had an EKG which showed no ischemic changes. Patient had a CTA which showed no evidence of PE. Patient is admitted to medicine for further management and workup. Patient was not started on heparin as he had no changes from his baseline symptoms. - Diagnoses Provider Diagnoses: Hypoxia, COPD (chronic obstructive pulmonary disease), Elevated troponin, Hyperkalemia - Physician Notifications Discussed Care of Patient With: Adenike Marr Time Discussed With Above Provider: 13:40 Instructed by Provider To: Admit As Observation - Dr. Marr accepts patient for admission. - Critical Care Time Critical Care Time: 30-74 min - 35 minutes Discharge ED - Sign-Out/Discharge Documenting (check all that apply): Patient Departure - Patient accepted for admission by Dr. Marr. - Discharge Plan Condition: Stable Disposition: ADMITTED TO [facility] - Billing Disposition and Condition Condition: STABLE Disposition: Admitted to [facility] - Attestation Statements Document Initiated by Sergio: Yes Documenting Scribe: Zahraa Phillips Provider For Whom Sergio is Documenting (Include Credential): Dr. Timmy Cruz MD Scribe Attestation: Zahraa Oscar scribed for Dr. Timmy Cruz MD on 08/12/19 at 1917. Scribe Documentation Reviewed: Yes Provider Attestation: The documentation as recorded by the Zahraa quiroz accurately reflects the service I personally performed and the decisions made by me, Dr. Timmy Cruz MD Status of Scribe Document: Viewed
[2019-08-12 12:33] LABS: Troponin I 0.22 ng/mL (<0.03)
[2019-08-12 12:34] LABS: ALT 16 U/L (7-52); AST 21 U/L (13-39); Albumin 3.9 g/dL (3.2-5.2); Albumin/Globulin Ratio 1.2 (1-3); Alkaline Phosphatase 70 U/L (34-104); BUN/Creatinine Ratio 28.3 (8-20); Blood Urea Nitrogen 43 mg/dL (6-24); CO2 Carbon Dioxide 38 mmol/L (22-32); Calcium 8.9 mg/dL (8.6-10.3); Chloride 101 mmol/L (101-111); EGFR African American 54.7 (>60); EGFR Non-African American 45.2 (>60); Globulin 3.2 g/dL (2-4); Glucose 116 mg/dL (70-100); Sodium 139 mmol/L (135-145); Total Protein 7.1 g/dL (6.4-8.9)
[2019-08-12 12:38] LABS: Potassium 6.4 mmol/L (3.5-5.0)
[2019-08-12] MEDS ORDERED: Calcium Gluconate INJ* 1 GM in NS 0.9% 100 ML* 100 ML IVPB ONE (12:45)
[2019-08-12] MEDS ORDERED: Insulin REGULAR(*) 1 UNITS UNIT IV PUSH ONE (12:45)
[2019-08-12] MEDS ORDERED: Dextrose 50% Syringe 50 ML* 25 GM/50 ML SYRINGE IV PUSH ONE (12:45)
[2019-08-12] MEDS ORDERED: Iodixanol* (CONTRAST) 320 MG/ML 100 ML SDV IV ONE (13:00)
[2019-08-12] MEDS ORDERED: Acetaminophen TAB* 325 MG PO PRN (14:08)
[2019-08-12] MEDS ORDERED: Sodium Polystyrene ORAL.SOL* 15 GM/60 ML BTL PO ONE (14:18)
[2019-08-12 15:00] LABS: % Iron Saturation 8 % (15-55); Iron 29 ug/dL (50-212); Total Iron Binding Capacity 364 mcg/dL (250-450); Transferrin 260 mg/dL (203-362)
[2019-08-12 15:08] LABS: Ferritin 49.1 ng/mL (24-336)
[2019-08-12 15:12] LABS: Folate > 20.00 ng/mL (>3.99)
[2019-08-12 15:14] LABS: BUN/Creatinine Ratio 27.7 (8-20); Blood Urea Nitrogen 44 mg/dL (6-24); CO2 Carbon Dioxide 39 mmol/L (22-32); Calcium 8.9 mg/dL (8.6-10.3); Chloride 101 mmol/L (101-111); EGFR African American 51.9 (>60); EGFR Non-African American 42.9 (>60); Glucose 116 mg/dL (70-100); Sodium 139 mmol/L (135-145)
[2019-08-12 15:17] LABS: Troponin I 0.23 ng/mL (<0.03)
[2019-08-12] MEDS ORDERED: NS 0.9% 100 ML* 100 ML ONE (15:37)
[2019-08-12] MEDS ORDERED: Dextrose 50% VIAL 50 ml ONE (15:38)
[2019-08-12] MEDS ORDERED: Furosemide IV* 10 MG/ML VIAL (40 MG) IV ONE (15:46)
--- NOTE | 2019-08-12 16:24 | HP ---
CC: Bibi Gamez NP; Dr. Valencia; Dr. Novak; Dr. Ghotra, [facility] * HISTORY AND PHYSICAL: DATE OF ADMISSION: 08/12/19 PRIMARY CARE PROVIDER: Bibi Gamez NP OTHER PROVIDERS: Dr. Valencia, Dr. Novak, Dr. Ghotra at [facility]. ATTENDING PHYSICIAN: Dr. Adenike Marr * (dictated by SUSANA Joseph). CHIEF COMPLAINT: Hypoxia. HISTORY OF PRESENT ILLNESS: Mr. 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 Novak after having been found to desatting into the 60s at an office visit. The patient denies shortness of breath, but does admit to dyspnea on exertion for the last approximately 2 weeks. He also endorses weakness and notes that he has been using a seated walker to wheel around in instead of his usual ambulation with a wheeled walker. He denies hemoptysis since his last admission. He denies cough, fever, night sweats, weight loss. He does have chills on occasion. He complains of chronic cervical spine, right shoulder pain that radiates down the right arm. The patient complains of some mild constipation and notes his last bowel movement was today. He has a history of neurogenic bladder and "takes a while to urinate," which is within his baseline. Again, he complains of generalized weakness as well as associated shortness of breath. In the ER, the patient received a full workup. Laboratory data shows anemia, thrombocytopenia, hyperkalemia. His creatinine is elevated, but is within his baseline. He also has a troponinemia, which is new. He has a mildly elevated BNP. Chest x-ray shows mild pulmonary edema without change from 08/07/19 chest x -ray. EKG shows T-wave inversions in V1 to V2, which is unchanged from last EKG. He also has some ST elevation in V5, V6, which again remains unchanged from last EKG. CTA of the chest is ordered, but has not been performed yet. In the ER, the patient was given IV dextrose, IV regular insulin, calcium gluconate 1 g. The hospitalist team was asked to evaluate the patient for admission. PAST MEDICAL HISTORY: 1. Hypertension. 2. Chronic respiratory failure, requiring 2 L O2 nasal cannula at all times. 3. COPD. 4. AAA. 5. Chronic kidney disease, stage 3. 6. 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 7. CVA with residual visual deficit. 8. Anemia. 9. GERD. 10. Congenital spinal stenosis resulting in chronic pain. 11. PTSD. PAST SURGICAL HISTORY: Cervical spine x4; lumbar spine x3; bronchoscopy x4, last in 2019; right shoulder; right Achilles tendon lengthening; AAA repair; right iliac artery aneurysm repair; left femoral endarterectomy. HOME MEDICATIONS: 1. Amlodipine 5 mg p.o. daily. 2. Aripiprazole 2.5 mg p.o. daily. 3. Aspirin 81 mg p.o. daily. 4. Atorvastatin 80 mg at bedtime. 5. Glycopyrrolate/formoterol fumarate 9/4.8 two puffs inhalation b.i.d. 6. Docusate/sennosides 2 tabs a.m., 1 tab p.m. 7. Duloxetine 40 mg p.o. daily. 8. Esomeprazole 40 mg p.o. daily. 9. Furosemide 10 mg daily. 10. Guaifenesin ER 1200 mg p.o. b.i.d. 11. Magnesium oxide 400 mg p.o. daily. 12. Metoprolol tartrate 12.5 mg p.o. b.i.d. 13. Montelukast 10 mg p.o. daily. 14. Oxycodone HCl 10 mg b.i.d. 15. Potassium chloride 10 mEq daily. 16. Famotidine 20 mg p.o. daily. 17. Alprazolam 0.25 mg p.o. q.6 hours p.r.n. anxiety/panic. 18. Benzonatate 100 mg b.i.d. to t.i.d. p.r.n. 19. Levalbuterol HFA inhaler 2 puffs inhalation q.4 hours p.r.n. shortness of breath. 20. Lidocaine patch 5% one to two patches to skin p.r.n. for up to 10 hours. 21. Oxycodone tab 15 mg t.i.d. p.r.n. breakthrough pain. DRUG ALLERGIES: LATEX, rash; NSAIDS, GI upset; ZONEGRAN, hallucinations; GABAPENTIN, extreme muscular/bladder weakness; CLONIDINE, extreme muscle weakness; WELLBUTRIN, panic attack/chest pain; VESICARE, hypotension. FAMILY HISTORY: Father at the age of 54 from lung tumor. Mother at the age of 65 from heart failure complications due to lymphoma. The patient has 1 sister with breast cancer, 1 sister with a history of Guillain-Hoagland, and multiple sisters with hypertension. No family history of CVA or diabetes mellitus. SOCIAL HISTORY: The patient does not smoke, the patient is a former smoker. He does not use alcohol. He lives with his . In the event that he is unable to make his own medical decisions, he has appointed his , Michelle Salguero , to be his surrogate decision maker. REVIEW OF SYSTEMS: A 14-point review of systems has been performed and all the pertinent positives and negatives are in the HPI. All other systems are negative. PHYSICAL EXAMINATION GENERAL: Mr. Salguero is a well-developed, well-nourished, average weight, older white male, who is sitting up in a wheelchair. He appears somewhat groggy, but wakes easily and is appropriate and cooperative. He has shallow respirations without tachypnea. He is pale. HEENT: PERRL. EOMI. Sclerae are nonicteric. Hearing is grossly intact. Oral mucous membranes are moist. There are no lesions. The pharynx is clear without exudates or erythema. Tongue is at midline. Palate elevates symmetrically. PULMONARY: Symmetrical chest expansion without use of accessory muscles. Breathing is shallow with regular rate. Upon auscultation, there are bibasilar rales and diminished breath sounds throughout with right more diminished than left. CARDIOVASCULAR: Regular rate and rhythm with S1, S2 present. There is a systolic murmur. There are no rubs, clicks, or gallops. There is no JVD. 2+ bilateral lower extremity pitting edema. ABDOMEN: Bowel sounds in all quadrants. Soft. There is mild diffuse tenderness to palpation throughout. NEURO: The patient is awake. He is alert and oriented x3. Cranial nerves II through XII are grossly intact. He is able to move all of his extremities. 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 DIAGNOSTIC STUDIES/LAB DATA: RBC 2.7, HGB 8, HCT 25, platelets 139. VBG; pH 7.22, pCO2 90, O2 saturation 25.7%, base excess 5.8. Potassium 6.4, CO2 38, BUN 43, creatinine 1.52. Troponin 0.22, BNP 367. Chest x-ray, impression: Chest x-ray findings are consistent with mild pulmonary edema without substantial change since 08/07/19 x-ray. ASSESSMENT AND PLAN: Mr. Salguero is a 73-year-old male with a past medical history of chronic obstructive pulmonary disease; chronic respiratory failure, on 2 to 3 L nasal cannula at all times; endobronchial amyloid mass; abdominal aortic aneurysm; and anemia, who presented to the ER today at the suggestion of one of his providers due to hypoxia with sats in the 60s and some mild increased shortness of breath. The patient will be admitted for: 1. [id number] respiratory failure with hypoxia and hypercapnia. The patient presented at the suggestion of Dr. Novak due to hypoxia with sats in the 60s and increased shortness of breath. He is seen now and appears comfortable with shallow non-tachypneic breathing. He is on 3 L and satting appropriately. He does have some apparent retention of CO2. At this time, an ABG has been ordered. A CTA of the chest has been ordered to rule out pulmonary embolism. The patient is anemic, which is chronic, but his H and H is mildly lower than normal and could be contributing to his shortness of breath. One unit of packed red blood cells will be given. The patient does take opioids regularly and uses oxycodone SR 10 b.i.d. as well as oxycodone 15 t.i.d. p.r.n. This could be contributing to his respiratory failure. He also admits to increased anxiety surrounding his lung mass, stating that he does not want to take deep breath due to fear of pain or increased shortness of breath, which likely is worsening his hypercapnia and hypoxia. 2. Hyperkalemia. The patient presents with hyperkalemia with a potassium level of 6.4. His EKG does not reveal any abnormalities that suggest cardiac effects from elevated potassium. In the ER, he has been given IV dextrose, 8 units regular insulin as well as calcium gluconate. Kayexalate has been ordered and will be repeated as necessary. A repeat BMP has been ordered for now to assess need to transfer to ICU versus floor. 3. Anemia. The patient has a history of anemia. Iron studies were done in 2017 and were within normal limits. We will repeat iron studies, B12, folate at this time. One unit of packed red blood cells has been ordered due to symptomatic anemia with hemoglobin of 8.0. 4. Elevated troponin. The patient has an elevated troponin. EKG shows very mild ST elevation in V5 to V6, which is unchanged from as far back as 04/17/19. He denies chest pain. At this time, I suspect that the elevated troponin is related to demand ischemia from hypoxia. We will trend his troponins. An echo has been ordered. 5. Bilateral lower extremity edema. The patient has bilateral lower extremity edema, nontender calves, negative Jacque's sign. He takes Lasix 10 daily. He will receive Lasix 40 IV now. An echo has been ordered. There is low suspicion for deep venous thrombosis, although there will be a low threshold to perform ultrasound of the lower extremities to rule out deep venous thrombosis. 6. Hypertension. Continue home medications, amlodipine. Hold furosemide today and restart as necessary. Continue metoprolol tartrate. 7. Chronic obstructive pulmonary disease. Continue home inhalers, Bevespi Aerosphere, levalbuterol p.r.n. 8. Gastroesophageal reflux disease. Continue PPI and famotidine. 9. Chronic pain. Continue the patient's oxycodone SR 10 mg p.o. b.i.d., p.r.n. oxycodone 15 mg p.o. with MDD of 3. 10. Chronic kidney disease. Continue to monitor. 11. Posttraumatic stress disorder/depression/anxiety. Continue home medications, duloxetine, alprazolam, aripiprazole. 12. Hyperlipidemia. Continue atorvastatin. 13. DVT prophylaxis: According to DVT Risk Assessment, the patient scores 2, placing him at moderate risk. He will be started on heparin subcu. 14. Code status: Full code. TIME SPENT: Approximately 70 minutes was spent on this admission, greater than half that time was spent [id number] with the patient and his obtaining history, performing physical, and reviewing the plan of care. The case has been reviewed with my attending, Dr. Marr, who is in agreement with the plan of care. SUSANA SWEENEY [id number]/[facility] #: [id number] MACK
--- NOTE | 2019-08-12 16:49 | ECHO ---
*[facility]* [place] [address] Fax #: [phone] Transthoracic Echocardiogram Patient: Karson Salguero : 1945 Study Date: 08/12/2019 Age: 73 Gender: M HR: 79 bpm Height: 71 in /180.3 cm BSA: 1.99 m^2 Weight: 174.6 lb /79.4 kg BMI: 24.4 kg/m^2 *Wiring Technician: * Wendy Gates RD *Referring Physician: * Kaitlin BrowningReading Physician: * Mel Schaeffer MD Indications: Abnormal EKG. SOB. Edema. History: Amyloidosis of right upper lobe. Congestive heart failure. Cerebrovascular accident. Chronic obstructive pulmonary disease, with pulmonary hypertension. Risk factors: Hypertension. Labs, prior tests, procedures, and surgery: Aortic surgery. Abdominal Aortic Aneurysm repair. Conclusions Summary: - Left ventricle: Systolic function is normal. The estimated ejection fraction is 60-65%. Doppler parameters are consistent with abnormal left ventricular relaxation (grade 1 diastolic dysfunction). - Right ventricle: The cavity size is mildly reduced. Systolic function is normal. - Mitral valve: There is trace regurgitation. - Aortic valve: The findings are consistent with mild stenosis. There is mild regurgitation. The peak systolic velocity is 2.3 m/sec. The mean systolic gradient is 7.0 mm Hg. The LVOT to aortic valve VTI ratio is 0.59. The valve area by the peak velocity method is 1.45 cm^2. - Tricuspid valve: There is mild regurgitation directed toward the septum. - Aorta: The ascending aorta internal dimension in the A-P direction, maximal systolic dimension is 5.2 cm. - Ascending aorta: The ascending aorta is severely dilated. - Pulmonary arteries: Systolic pressure is moderately increased. The peak pressure during systole by Doppler is 39.0 mm Hg. - Compared with transthoractic echocardiography of 06/29/19, ejection fraction is stable, newly appreciated, pulmonary artery pressure prevously 62 mmHg, aorta diameter prevously 5.3 cm (stable). Compared with prior transesophageal echocardiogram of 08/13/17, ejection fraction is stable, right ventricle sysolic function is no longer reduced, ascending aorta dilatation has increased from moderate. Study data: Transthoracic echocardiogram. Procedure: Transthoracic echocardiography was performed. Image quality was fair. The study was technically limited due to restricted patient mobility. Complete 2D, spectral Doppler, and color flow Doppler. Location: Emergency department. Patient status: Inpatient. Patient room number: ED-03. Rhythm: Normal sinus rhythm with PAC's. Findings Left ventricle: The cavity size is normal. Wall thickness is mildly increased. Systolic function is normal. The estimated ejection fraction is 60-65%. Wall motion is normal; there are no regional wall motion abnormalities. Doppler parameters are consistent with abnormal left ventricular relaxation (grade 1 diastolic dysfunction). Right ventricle: The cavity size is mildly reduced. Systolic function is normal. Systolic pressure is mildly increased. Left atrium: The atrium is moderately dilated. Right atrium: The atrium is moderately dilated. Mitral valve: The leaflets are mildly thickened. There is no evidence of stenosis. There is trace regurgitation. Aortic valve: The valve is trileaflet. The leaflets are moderately thickened. Calcification. Right coronary cusp is immobile, non coronary and left coronary cusp mobility is restricted. The findings are consistent with mild stenosis. There is mild regurgitation. Tricuspid valve: The leaflets are normal thickness. There is no evidence of stenosis. There is mild regurgitation directed toward the septum. Pulmonic valve: The leaflets are normal thickness. There is no evidence of stenosis. There is mild regurgitation. Aorta: Aortic root: The aortic root is mild to moderately dilated. Ascending aorta: The ascending aorta is severely dilated. Aortic arch: The aortic arch is poorly visualized and appears normal. Pericardium: There is no significant pericardial effusion. Pulmonary arteries: The main pulmonary artery is normal-sized. Systolic pressure is moderately increased. Systemic veins: Inferior vena cava: The vessel is dilated. There is (< 50%) respiratory change in the IVC dimension. Measurements Left ventricle Value Ref Aortic valve Value Ref JOSE DE JESUS, LAX 4.5 cm 4.2 - 5.8 Marilou diam, ED 2.2 cm ----- ESD, LAX 3.1 cm 2.5 - 4.0 Peak v, S 2.3 m/sec ----- FS, LAX 32 % 25 - 43 VTI, S 37.3 cm ----- PW, ED, LAX (H) 1.3 cm 0.6 - 1.0 Mean grad, S 7.0 mm Hg ----- FS 32 % 25 - 43 Peak grad, S 21.2 mm Hg ----- PW, ED (H) 1.3 cm 0.6 - 1.0 LVOT/AV, VTI ratio 0.59 ----- E', lat marilou, TDI (L) 9.0 cm/sec >=10.0 ALMITA, VTI 1.85 cm^2 --- -- E/e', lat marilou, 10 ALMITA, Vmax 1.45 cm^2 ----- TDI E', med marilou, TDI (L) 5.0 cm/sec >=7.0 Mitral valve Value Ref E/e', med marilou, 17 Peak E 0.86 m/sec ----- TDI Peak A 0.99 m/sec ----- E', avg, TDI 7.0 cm/sec Decel time 236 ms ----- E/e', avg, TDI 12 <=14 Peak grad, D 3.0 mm Hg --- -- Peak E/A ratio 0.9 ----- LVOT Value Ref Diam, S 2.00 cm Pulmonic valve Value Ref Area 3.1 cm^2 Peak v, S 0.91 m/sec ----- Peak shira, S 1.06 m/sec Peak grad, S 3.0 mm Hg ----- VTI, S 22.0 cm Mean grad, S 2 mm Hg Tricuspid valve Value Ref SV 69 ml TR peak v 2.61 m/sec <=2.8 SV/bsa 35 ml/m^2 Peak RV-RA grad, S 27 mm Hg ----- Ventricular septum Value Ref Aortic root Value Ref IVS, ED (H) 1.2 cm 0.6 - 1.0 Root diam (H) 4.1 cm <4.1 Right ventricle Value Ref Ascending aorta Value Ref JOSE DE JESUS, LAX 2.9 cm AAo AP diam, S 5.2 cm ----- JOSE DE JESUS minor ax, A4C (H) 3.9 cm 1.9 - 3.5 mid Aortic arch Value Ref Pressure, S 42 mm Hg Arch diam 2.8 cm ----- Left atrium Value Ref Decending aorta Value Ref AP dim, ES 3.70 cm 3.00 - Mando peak shira 0.32 m/sec ----- 4.00 ML dim, A4C 4.5 cm Pulmonary artery Value Ref SI dim, A4C 5.9 cm Pressure, S 39.0 mm Hg ----- Vol/bsa, ES, 1-p 27 ml/m^2 12 - 37 A4C Inferior vena cava Value Ref Vol/bsa, ES, A/L (H) 46 ml/m^2 16 - 34 Diam 2.7 cm ----- Right atrium Value Ref SI dim, ES (H) 5.5 cm 3.4 - 5.3 ML dim, ES, A4C (H) 6.4 cm 2.6 - 4.4 SI dim, ES, A4C (H) 5.5 cm 3.4 - 5.3 Estimated RAP 15 mm Hg Legend: (L) and (H) victoriano values outside specified reference range. Prepared and electronically signed by Mel Schaeffer MD 08/12/2019 16:48
[2019-08-12 16:56] LABS: INR 1.18 (0.82-1.09)
[2019-08-12] MEDS ORDERED: Levalbuterol HFA INHALER* 1 PUFF MDI INH PRN (18:11)
[2019-08-12 19:40] LABS: Hematocrit 27 % (42-52); Hemoglobin 8.8 g/dL (14.0-18.0)
[2019-08-12 19:54] LABS: Potassium 5.4 mmol/L (3.5-5.0)
[2019-08-12 19:56] LABS: Troponin I 0.22 ng/mL (<0.03)
[2019-08-12] MEDS: Montelukast Sodium TAB* 10 MG PO SCH (20:51)
[2019-08-12] MEDS: guaiFENesin ER TAB 600 MG PO PRN (20:51)
[2019-08-12] MEDS: Atorvastatin* 80 MG TAB PO SCH (20:51)
[2019-08-12] MEDS: Docusate CAP* 100 MG PO SCH (20:51)
[2019-08-12] MEDS: Senna TAB 8.6 mg* TAB PO SCH (20:51)
[2019-08-12] MEDS: Metoprolol Tartrate TAB* 25 MG PO SCH (20:51)
[2019-08-12] MEDS: oxyCODONE TAB* 5 MG TAB PO PRN (20:51)
[2019-08-12] MEDS: oxyCODONE SR TAB(*) 10 MG TAB.SR PO SCH (20:51)
[2019-08-12] MEDS: Heparin VIAL(*) 5000 UNITS/ML VIAL (FIVE THOUSAND) SUBCUT SCH (20:56)
[2019-08-12] MEDS ORDERED: Senna/Docusate (NF) TAB PO SCH (21:00)
[2019-08-13] MEDS: ALPRAZolam TAB* 0.25 MG PO PRN ×2 (05:07→19:54)
[2019-08-13] MEDS: Heparin VIAL(*) 5000 UNITS/ML VIAL (FIVE THOUSAND) SUBCUT SCH ×3 (05:07→21:38)
[2019-08-13 05:28] LABS: ABS Eosinophils 0.3 10^3/ul (0-0.6); ABS Lymphocytes 0.6 10^3/ul (1.0-4.8); ABS Monocytes 0.6 10^3/ul (0-0.8); ABS Neutrophils 4.8 10^3/ul (1.5-7.7); Eosinophil % 4.6 %; Hematocrit 27 % (42-52); Hemoglobin 8.7 g/dL (14.0-18.0); Lymphocyte % 9.7 %; Mean Corpuscular HGB Conc 32 g/dL (31-36); Mean Corpuscular Hemoglobin 30 pg (27-31); Mean Corpuscular Volume 93 fL (80-94); Mean Platelet Volume 9.4 fL (7.4-10.4); Nucleated Red Blood Cells % 0.1; Platelet Count 125 10^3/uL (150-450); Red Blood Count 2.88 10^6 /uL (4.18-5.48); Red Cell Distribution Width 17 % (10-15); White Blood Count 6.2 10^3/uL (3.5-10.8)
[2019-08-13 05:44] LABS: BUN/Creatinine Ratio 28.1 (8-20); Calcium 9.4 mg/dL (8.6-10.3); EGFR African American 51.5 (>60); EGFR Non-African American 42.6 (>60)
[2019-08-13 05:47] LABS: Potassium 5.3 mmol/L (3.5-5.0)
[2019-08-13] MEDS ORDERED: Furosemide TAB* 20 MG PO SCH (09:00)
[2019-08-13] MEDS ORDERED: Pantoprazole TAB * 40 MG TAB PO SCH (09:00)
[2019-08-13] MEDS ORDERED: Famotidine TAB* 20 MG PO SCH (09:00)
[2019-08-13] MEDS: Tiotropium Brom/Olodaterol MDI INH SCH (09:44)
[2019-08-13] MEDS: Docusate CAP* 100 MG PO SCH ×2 (10:25→19:55)
[2019-08-13] MEDS: guaiFENesin ER TAB 600 MG PO PRN ×2 (10:25→20:04)
[2019-08-13] MEDS: Aspirin EC TAB* 81 MG TAB.EC PO SCH (10:25)
[2019-08-13] MEDS: amLODIPine TAB* 5 MG PO SCH (10:25)
[2019-08-13] MEDS: Senna TAB 8.6 mg* TAB PO SCH ×2 (10:25→19:55)
[2019-08-13] MEDS: Metoprolol Tartrate TAB* 25 MG PO SCH ×2 (10:26→19:56)
[2019-08-13] MEDS: DULoxetine DR CAP* 20 MG CAP.DR PO SCH (10:26)
[2019-08-13] MEDS: oxyCODONE SR TAB(*) 10 MG TAB.SR PO SCH ×2 (10:26→19:56)
[2019-08-13] MEDS: ARIPiprazole TAB* 5 MG PO SCH (11:41)
--- NOTE | 2019-08-13 15:31 | PN ---
Date of Service: 08/13/19 Critical Care Services: Improving SOB after diuresis. Vital Signs: Temp Pulse Resp BP SpO2 FiO2 38.0 C 83 26 146/50 95 08/13/19 13:41 08/13/19 14:09 08/13/19 14:09 08/13/19 14:09 08/13/19 14:09 Physical Exam: Gen: NAD HEENT: NCAT, PERRL Lungs: basilar rales Cardiac: S1S2 regular Abdomen: soft, NT, ND, +BS Extremities: +2 edema Neuro: A&O, grossly non-focal Fluid Balance (Past 24 Hours): I= O= Net Intake & Output 08/11/19 08/12/19 08/13/19 08/14/19 06:59 06:59 06:59 06:59 Intake Total 1046 700 Output Total 1900 250 Balance -854 450 Weight 80.014 kg Intake: IV Fluids 120 Oral 610 700 Packed Cells 316 Output: Urine 1900 250 Other: Estimated Void Medium Large # Voids 1 Labs: Laboratory Results - last 24 hr 08/12/19 08/12/19 08/12/19 14:36 14:36 15:28 WBC RBC Hgb Hct MCV MCH MCHC RDW Plt Count MPV Neut % (Auto) Lymph % (Auto) Sawyer % (Auto) Eos % (Auto) Baso % (Auto) Absolute Neuts (auto) Absolute Lymphs (auto) Absolute Monos (auto) Absolute Eos (auto) Absolute Basos (auto) Absolute Nucleated RBC Nucleated RBC % INR (Anticoag Therapy) 1.18 H APTT 34.0 ABG pH ABG pCO2 ABG pO2 ABG HCO3 ABG O2 Saturation ABG Base Excess Sodium Potassium TNP Chloride Carbon Dioxide Anion Gap Not Reportable BUN Creatinine Est GFR ( Amer) Est GFR (Non-Af Amer) BUN/Creatinine Ratio Glucose Calcium Troponin I Blood Type B Positive Antibody Screen Negative Crossmatch See Detail 08/12/19 08/12/19 08/12/19 16:19 17:20 19:23 WBC RBC Hgb Hct MCV MCH MCHC RDW Plt Count MPV Neut % (Auto) Lymph % (Auto) Sawyer % (Auto) Eos % (Auto) Baso % (Auto) Absolute Neuts (auto) Absolute Lymphs (auto) Absolute Monos (auto) Absolute Eos (auto) Absolute Basos (auto) Absolute Nucleated RBC Nucleated RBC % INR (Anticoag Therapy) APTT ABG pH 7.25 L ABG pCO2 77 H* ABG pO2 103 H ABG HCO3 28.0 ABG O2 Saturation 99.1 H ABG Base Excess 4.0 H Sodium Potassium 5.5 H 5.4 H Chloride Carbon Dioxide Anion Gap BUN Creatinine Est GFR ( Amer) Est GFR (Non-Af Amer) BUN/Creatinine Ratio Glucose Calcium Troponin I 0.22 H* Blood Type Antibody Screen Crossmatch 08/12/19 08/13/19 08/13/19 19:23 05:12 05:12 WBC 6.2 RBC 2.88 L Hgb 8.8 L 8.7 L Hct 27 L 27 L MCV 93 MCH 30 MCHC 32 RDW 17 H Plt Count 125 L MPV 9.4 Neut % (Auto) 76.6 Lymph % (Auto) 9.7 Sawyer % (Auto) 8.9 Eos % (Auto) 4.6 Baso % (Auto) 0.2 Absolute Neuts (auto) 4.8 Absolute Lymphs (auto) 0.6 L Absolute Monos (auto) 0.6 Absolute Eos (auto) 0.3 Absolute Basos (auto) 0.0 Absolute Nucleated RBC 0.0 Nucleated RBC % 0.1 INR (Anticoag Therapy) APTT ABG pH ABG pCO2 ABG pO2 ABG HCO3 ABG O2 Saturation ABG Base Excess Sodium 142 Potassium 5.3 H Chloride 100 L Carbon Dioxide 39 H Anion Gap 3 BUN 45 H Creatinine 1.60 H Est GFR ( Amer) 51.5 Est GFR (Non-Af Amer) 42.6 BUN/Creatinine Ratio 28.1 H Glucose 119 H Calcium 9.4 Troponin I Blood Type Antibody Screen Crossmatch Studies: CXR, CT Chest reviewed. Lots of emphysema, no PE or pna. ECHO OK LVEF but with diastolic dysfxn. Nutrition: Eating well. Impression: 73 y/o male with sig COPD admitted with increasing SOB and responding well to diuretic. Plan: Acute hypoxic respiratory failure - significant emphysema on imaging with some scattered fluid and lots of fluid on exam. Only real acute opportunity is volume removal as D/W pt and . he has responded well to first dose of lasix with high UO and improved symptoms. Will start routine BID lasix and follow for further improvement. The hyperkalemia was likely multifactorial related to cardiorenal plus K supplementation plus acidosis maximizing cellular shift. RONALD - likely some CKD there as well, let's see where things settle out as we approach euvolemia which have not yet. D/W pt and in detail. D/W Dr. Valencia
[2019-08-13] MEDS: Furosemide IV* 10 MG/ML VIAL (40 MG) IV SCH (16:42)
[2019-08-13] MEDS: Atorvastatin* 80 MG TAB PO SCH (19:54)
[2019-08-13] MEDS: Montelukast Sodium TAB* 10 MG PO SCH (19:55)
[2019-08-13] MEDS: Famotidine TAB* 20 MG PO SCH (19:55)
[2019-08-13] MEDS: oxyCODONE TAB* 5 MG TAB PO PRN (21:38)
[2019-08-14] MEDS: Heparin VIAL(*) 5000 UNITS/ML VIAL (FIVE THOUSAND) SUBCUT SCH ×3 (05:05→21:57)
[2019-08-14] MEDS: oxyCODONE TAB* 5 MG TAB PO PRN ×2 (05:18→23:37)
[2019-08-14 05:34] LABS: ABS Eosinophils 0.3 10^3/ul (0-0.6); ABS Lymphocytes 0.8 10^3/ul (1.0-4.8); ABS Monocytes 0.7 10^3/ul (0-0.8); ABS Neutrophils 3.8 10^3/ul (1.5-7.7); Eosinophil % 5.7 %; Hematocrit 25 % (42-52); Lymphocyte % 14.6 %; Mean Corpuscular HGB Conc 32 g/dL (31-36); Mean Corpuscular Hemoglobin 29 pg (27-31); Mean Corpuscular Volume 91 fL (80-94); Mean Platelet Volume 9.5 fL (7.4-10.4); Platelet Count 127 10^3/uL (150-450); Red Blood Count 2.72 10^6 /uL (4.18-5.48); Red Cell Distribution Width 16 % (10-15); White Blood Count 5.6 10^3/uL (3.5-10.8)
[2019-08-14 05:51] LABS: Albumin 3.5 g/dL (3.2-5.2); Albumin/Globulin Ratio 1.3 (1-3); BUN/Creatinine Ratio 28.9 (8-20); Calcium 8.9 mg/dL (8.6-10.3); EGFR African American 49.4 (>60); EGFR Non-African American 40.8 (>60); Globulin 2.6 g/dL (2-4); Magnesium 1.7 mg/dL (1.9-2.7); Phosphorus 3.6 mg/dL (2.5-5.0); Potassium 4.8 mmol/L (3.5-5.0); Total Bilirubin 0.5 mg/dL (0.2-1.0); Total Protein 6.1 g/dL (6.4-8.9)
[2019-08-14] MEDS: Tiotropium Brom/Olodaterol MDI INH SCH (08:13)
[2019-08-14] MEDS: Pantoprazole TAB * 40 MG TAB PO SCH (09:07)
[2019-08-14] MEDS: amLODIPine TAB* 5 MG PO SCH (09:08)
[2019-08-14] MEDS: Docusate CAP* 100 MG PO SCH ×2 (09:08→21:55)
[2019-08-14] MEDS: DULoxetine DR CAP* 20 MG CAP.DR PO SCH (09:09)
[2019-08-14] MEDS: oxyCODONE SR TAB(*) 10 MG TAB.SR PO SCH ×2 (09:09→21:56)
[2019-08-14] MEDS: Aspirin EC TAB* 81 MG TAB.EC PO SCH (09:12)
[2019-08-14] MEDS: Senna TAB 8.6 mg* TAB PO SCH ×2 (09:12→21:57)
[2019-08-14] MEDS: Metoprolol Tartrate TAB* 25 MG PO SCH ×2 (09:13→21:57)
[2019-08-14] MEDS: ARIPiprazole TAB* 5 MG PO SCH (09:14)
[2019-08-14] MEDS: Furosemide IV* 10 MG/ML VIAL (40 MG) IV SCH (09:16)
--- NOTE | 2019-08-14 13:59 | PN ---
Date of Service: 08/14/19 Critical Care Services: Serially improving respiratory status Vital Signs: Temp Pulse Resp BP SpO2 FiO2 36.7 C 85 26 106/59 96 3 08/14/19 12:00 08/14/19 13:30 08/14/19 13:30 08/14/19 13:30 08/14/19 13:30 08/14 00:00 Physical Exam: Gen: NAD HEENT: NCAT, PERRL Lungs: dry crackles Cardiac: S1S2 regular Abdomen: soft, NT, ND, +BS Extremities: edema resolved Neuro: A&O, grossly non-focal Fluid Balance (Past 24 Hours): I= O= Net Intake & Output 08/12/19 08/13/19 08/14/19 08/15/19 06:59 06:59 06:59 06:59 Intake Total 1046 1400 350 Output Total 1900 2700 250 Balance -854 -1300 100 Weight 80.014 kg Intake: IV Fluids 120 Oral 610 1400 350 Packed Cells 316 Output: Urine 1900 2700 250 Other: Estimated Void Medium Large Date of Last Bowel 08/12/19 08/14/19 Movement # Bowel Movements 1 1 Estimated Stool Amount Medium # Voids 1 0 Labs: Laboratory Results - last 24 hr 08/14/19 08/14/19 05:10 05:10 WBC 5.6 RBC 2.72 L Hgb 8.0 L Hct 25 L MCV 91 MCH 29 MCHC 32 RDW 16 H Plt Count 127 L MPV 9.5 Neut % (Auto) 66.7 Lymph % (Auto) 14.6 Durham % (Auto) 12.4 Eos % (Auto) 5.7 Baso % (Auto) 0.6 Absolute Neuts (auto) 3.8 Absolute Lymphs (auto) 0.8 L Absolute Monos (auto) 0.7 Absolute Eos (auto) 0.3 Absolute Basos (auto) 0.0 Absolute Nucleated RBC 0.0 Nucleated RBC % 0.0 Sodium 140 Potassium 4.8 Chloride 96 L Carbon Dioxide 42 H* Anion Gap 2 BUN 48 H Creatinine 1.66 H Est GFR ( Amer) 49.4 Est GFR (Non-Af Amer) 40.8 BUN/Creatinine Ratio 28.9 H Glucose 104 H Calcium 8.9 Phosphorus 3.6 Magnesium 1.7 L Total Bilirubin 0.50 AST 20 ALT 16 Alkaline Phosphatase 72 Total Protein 6.1 L Albumin 3.5 Globulin 2.6 Albumin/Globulin Ratio 1.3 Nutrition: Eating well Impression: 73 y/o male with advanced COPD admitted with increasing hypoxia. He has undergone 2 days of IV lasix with net negative over 2 liters and his edema has resolved and was able to ambulate today for the first time in a while. Plan: Acute Hypoxic Respiratory Failure - advanced COPD, mass RLL, presents with sig edema. Now negative balance and much better. Mild HoTN today and IV lasix DC'd. Start daily PO lasix tomorrow. Contineu COPD management per Dr. Valencia. RLL mass - plans to endobronchially laser resect at [facility]. Dr. Valencia coordinating. Deconditioning - maximize opportunities to improve his respiratory status and continue daily PT. D/W pt and in detail. OK to floor.
[2019-08-14] MEDS: Montelukast Sodium TAB* 10 MG PO SCH (21:56)
[2019-08-14] MEDS: Famotidine TAB* 20 MG PO SCH (21:56)
[2019-08-14] MEDS: Atorvastatin* 80 MG TAB PO SCH (21:57)
[2019-08-14] MEDS: ALPRAZolam TAB* 0.25 MG PO PRN (23:36)
[2019-08-15 05:16] LABS: ABS Eosinophils 0.3 10^3/ul (0-0.6); ABS Monocytes 0.6 10^3/ul (0-0.8); ABS Neutrophils 4.3 10^3/ul (1.5-7.7); Eosinophil % 4.7 %; Hematocrit 29 % (42-52); Lymphocyte % 16.3 %; Mean Corpuscular HGB Conc 31 g/dL (31-36); Mean Corpuscular Hemoglobin 29 pg (27-31); Mean Corpuscular Volume 93 fL (80-94); Mean Platelet Volume 8.7 fL (7.4-10.4); Platelet Count 155 10^3/uL (150-450); Red Blood Count 3.09 10^6 /uL (4.18-5.48); Red Cell Distribution Width 17 % (10-15); White Blood Count 6.3 10^3/uL (3.5-10.8)
[2019-08-15 05:33] LABS: BUN/Creatinine Ratio 30.6 (8-20); Calcium 9.3 mg/dL (8.6-10.3); EGFR African American 51.5 (>60); EGFR Non-African American 42.6 (>60); Magnesium 1.8 mg/dL (1.9-2.7); Phosphorus 4.1 mg/dL (2.5-5.0); Potassium 4.9 mmol/L (3.5-5.0)
[2019-08-15] MEDS: Heparin VIAL(*) 5000 UNITS/ML VIAL (FIVE THOUSAND) SUBCUT SCH ×3 (06:36→22:23)
[2019-08-15] MEDS: Tiotropium Brom/Olodaterol MDI INH SCH (07:33)
--- NOTE | 2019-08-15 07:51 | PN ---
Subjective Date of Service: 08/15/19 Interval History: HD 4 on 08/15 Transferred from ICU on 08/14/2019 73 M with PMH of COPD, chronic respiratory failure( 2-3 L O2 at home), endobronchial amyloid mass, AAA, CKD(satge 3) and anemia presented from his provider office for hypoxia with sats in 60's and exertional SOB. Found to have hyperkalemia, anemia, elevated troponin, and acute on chronic hypoxia with hypercapnia 2/2 pulmonary edema from HFpEF and anemia. Was admitted in ICU and given IV lasix and 1 U PRBC No acute overnight events vitals stable; on 6 L of o2. Patient was sitting on a chair and wearing a oxygen mask. He denies difficulty in breathing, chest pain, and wheezing. He uses oxygen at home 2-3 L and increases to 4L while exertion or eating. He had appt in [facility] for bronchoscopy on . Objective Active Medications: Acetaminophen (Tylenol Tab*) 650 mg PO Q4H PRN PRN Reason: mild to moderate pain Alprazolam (Xanax Tab*) 0.25 mg PO Q6H PRN PRN Reason: AGITATION/ANXIETY Last Admin: 08/13/19 19:54 Dose: 0.25 mg Amlodipine Besylate (Norvasc Tab*) 5 mg PO QAM [facility] Last Admin: 08/14/19 09:08 Dose: 5 mg Aripiprazole (Abilify Tab*) 2.5 mg PO QAM [facility] Last Admin: 08/14/19 09:14 Dose: 2.5 mg Aspirin (Aspirin Ec Tab*) 81 mg PO QAM [facility] Last Admin: 08/14/19 09:12 Dose: 81 mg Atorvastatin Calcium (Lipitor*) 80 mg PO BEDTIME [facility] Last Admin: 08/14/19 21:57 Dose: 80 mg Docusate Sodium (Colace Cap*) 100 mg PO BID [facility] Last Admin: 08/14/19 21:55 Dose: 100 mg Duloxetine HCl (Cymbalta Cap*) 40 mg PO QAM [facility] Last Admin: 08/14/19 09:09 Dose: 40 mg Famotidine (Pepcid Tab*) 20 mg PO 2100 [facility] Last Admin: 08/14/19 21:56 Dose: 20 mg Furosemide (Lasix Tab*) 20 mg PO DAILY [facility] Guaifenesin (Mucinex*) 1,200 mg PO BID PRN PRN Reason: congestion Last Admin: 08/13/19 20:04 Dose: 1,200 mg Heparin Sodium (Porcine) (Heparin Vial(*)) 5,000 units SUBCUT Q8HR [facility] Last Admin: 08/15/19 06:36 Dose: 5,000 units Levalbuterol HCl (Xopenex Hfa Inhaler*) 2 puff INH Q4H PRN PRN Reason: SHORTNESS OF BREATH Levalbuterol HCl (Xopenex 0.63mg/3ml Neb*) 0.63 mg INH Q6H PRN PRN Reason: SOB, BEFORE EXERTION Lidocaine (Lidoderm 5% Patch*) 1 patch TRANSDERM DAILY PRN PRN Reason: PAIN - MODERATE Metoprolol Tartrate (Lopressor Tab*) 12.5 mg PO BID [facility] Last Admin: 08/14/19 21:57 Dose: 12.5 mg Montelukast Sodium (Singulair Tab*) 10 mg PO BEDTIME [facility] Last Admin: 08/14/19 21:56 Dose: 10 mg Oxycodone HCl (Oxycontin(*)) 10 mg PO Q12HR [facility] Last Admin: 08/14/19 21:56 Dose: 10 mg Oxycodone HCl (Roxycodone Tab*) 15 mg PO TID PRN PRN Reason: PAIN - SEVERE Last Admin: 08/14/19 23:37 Dose: 15 mg Pantoprazole Sodium (Protonix Tab*) 40 mg PO 0800 [facility]; Protocol Last Admin: 08/14/19 09:07 Dose: 40 mg Senna (Senokot 8.6 Mg Tab*) 2 tab PO BID [facility] Last Admin: 08/14/19 21:57 Dose: 2 tab Tiotropium [place]/Olodaterol (Stiolto Respimat Inh [place] (60 Puff)) 2 puff INH DAILY [facility] Last Admin: 08/15/19 07:33 Dose: 2 puff Vital Signs - 8 hr 08/15/19 08/15/19 08/15/19 01:35 03:27 07:35 Temperature 97 F Pulse Rate 74 88 Respiratory 20 19 18 Rate Blood Pressure 133/54 (mmHg) O2 Sat by Pulse 100 97 Oximetry Oxygen Devices in Use Now: OxyMask Exam: Patient is sitting on a recliner chair and is not in acute dstress. HEENT: Normocephalic and atraumatic. Sclera anicteric. EOMI. PERRLA. Neck: No lymphadenopathy and enlarged thyroid. NO JVD elevation. Lungs: Good respiratory effort and chest expansion. Mild expiratory wheeze heard (R>L) with ispiratory crackles. Heart: Normal in rate and rhythm. S1/S2 heard with no murmur, rubs or gallops. Abdomen: Soft, nondistended and nontender. Normal BS heard. Extremities; No swelling, cyanosis or clubbing Neuro: Alert, oriented and coperative. Result Diagrams: 08/15/19 04:57 08/15/19 04:57 Additional Lab and Data: Lab Results 08/12/19 08/12/19 Range/Units 11:48 11:48 WBC 6.3 (3.5-10.8) 10^3/uL RBC 2.70 L (4.18-5.48) 10^6 /uL Hgb 8.0 L (14.0-18.0) g/dL Hct 25 L (42-52) % MCV 94 (80-94) fL MCH 30 (27-31) pg MCHC 32 (31-36) g/dL RDW 17 H (10-15) % Plt Count 139 L (150-450) 10^3/uL MPV 9.3 (7.4-10.4) fL Neut % (Auto) 76.2 % Lymph % (Auto) 9.5 % [place] % (Auto) 9.5 % Eos % (Auto) 4.4 % Baso % (Auto) 0.4 % Absolute Neuts (auto) 4.8 (1.5-7.7) 10^3/ul Absolute Lymphs (auto) 0.6 L (1.0-4.8) 10^3/ul Absolute Monos (auto) 0.6 (0-0.8) 10^3/ul Absolute Eos (auto) 0.3 (0-0.6) 10^3/ul Absolute Basos (auto) 0.0 (0-0.2) 10^3/ul Absolute Nucleated RBC 0.0 10^3/ul Nucleated RBC % 0.1 VBG pH 7.22 L (7.32-7.43) VBG pCO2 90 H (41-51) mmHg VBG pO2 < 38.0 (35-45) mmHg VBG HCO3 27.5 (24-28) mmol/L VBG O2 Saturation 25.7 L (70-80) % VBG Base Excess 5.8 H (0.0-4.0) mmol/L Assess/Plan/Problems-Billing Assessment: 73 M with PMH of COPD, chronic respiratory failure( 2-3 L O2 at home), endobronchial amyloid mass, AAA, CKD(satge 3) and anemia presented from his provider office for hypoxia with sats in 60's and exertional SOB. Found to have hyperkalemia, anemia, elevated troponin, and acute on chronic hypoxia with hypercapnia 2/2 pulmonary edema and anemia. Was admitted in ICU and given IV lasix and 1 U PRBC. Now on PO lasix. stay c/b hypercapnia and metabolic alkalosis. 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 -improved significantly on iv lasix -now has metabolic alkalosis; unclear if compensatory from resp acidosis or from contraction - We will give him lasix 20 PO daily - we will monitor CO2; if rises>45 then may consider acetazolamide (2) Heart failure with preserved ejection fraction Current Visit: Yes Status: Acute Code(s): I50.30 - UNSPECIFIED DIASTOLIC ( CONGESTIVE) HEART FAILURE SNOMED Code(s): 784595250 Comment: -new diagnosis -contributing to his presentation (3) Anemia Current Visit: No Status: Acute Code(s): D64.9 - ANEMIA, UNSPECIFIED SNOMED Code(s): 435654572 Comment: -normocytic normochromic; KEVIN - chronic -s/p 1 U PRBC -hb stable (4) CKD (chronic kidney disease) Current Visit: No Status: Acute Code(s): N18.9 - CHRONIC KIDNEY DISEASE, UNSPECIFIED SNOMED Code(s): 572749276 Comment: -stage III -Creatinine stable on baseline now (5) COPD (chronic obstructive pulmonary disease) Current Visit: No Status: Acute Code(s): J44.9 - CHRONIC OBSTRUCTIVE PULMONARY DISEASE, UNSPECIFIED SNOMED Code(s): 28914912 Comment: -Quit smoking 5 yrs ago. 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 (8) GERD (gastroesophageal reflux disease) Current Visit: No Status: Acute Code(s): K21.9 - GASTRO-ESOPHAGEAL REFLUX DISEASE WITHOUT ESOPHAGITIS SNOMED Code(s): 108885319 Comment: -Continue PPI (9) Hypertension Current Visit: No Status: Acute Priority: Medium Code(s): I10 - ESSENTIAL (PRIMARY) HYPERTENSION SNOMED Code(s): 10029434 Comment: Continue home dose of amlodipine. (10) PTSD (post-traumatic stress disorder) Current Visit: No Status: Acute Priority: Medium Code(s): F43.10 - POST- TRAUMATIC STRESS DISORDER, UNSPECIFIED SNOMED Code(s): 59940208 Comment: -Depression -Continue Abilify, duloxetine, Alprazolam. (11) S/P abdominal aortic aneurysm repair Current Visit: No Status: Acute Priority: High Onset Date: 07/12/15 Code (s): Z98.89 - OTHER SPECIFIED POSTPROCEDURAL STATES * DO NOT USE *; Z86.79 - PERSONAL HISTORY OF OTHER DISEASES OF THE CIRCULATORY SYSTEM SNOMED Code(s): 307230354 Comment: -surgery at [facility] 06/09/2015. -now AAA of 5.3~recurrence -medium aneurysm -should follow outpt -high risk of rupture if exceeds >5.5 (12) Lung mass Current Visit: No Status: Acute Code(s): R91.8 - OTHER NONSPECIFIC ABNORMAL FINDING OF LUNG FIELD SNOMED Code(s): 191415662 Comment: -Amyloid per Dr. Valencia's note, will need outpt re arranggment as he missed his appt for definitive mgmt (13) DVT prophylaxis Current Visit: No Status: Acute Code(s): REK3498 - SNOMED Code(s): 237436769 Comment: -on heparin (14) Full code status Current Visit: No Status: Acute Code(s): Z78.9 - OTHER SPECIFIED HEALTH STATUS SNOMED Code(s): 623463155 Status and Disposition: Inpatient -will need to work with PT for safe dispo Attending: Stella Padilla Attestation Documenting Resident: Wayne Ruvalcaba Supervising Physician: Stella Padilla Attending/Supervising Physician Comment: Agree with resident note and findings, attending addendum 73M PMH GOLD D COPD on chronic 2-3L NC, HTN, AAA (descending at 5.3cm current, s /p distant repair), 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 Hospital stay c/b persistent metabolic alkalosis #Respiratory failure: As per above 6L NC at this time -Not on BiPAP #HFpEF: Exacerbation, -2L since admission, now on oral furosemide 20mg daily -Troponins peaked no e/o active ischemia #COPD with chronic hypoxic resp failure: 2L-3L NC baseline -Cotninue inhalers, no e/o acute exacerbation -Continues to retain, consider acetazolamide if worsening -Montelukast, sprivia, Oldaterol, not on ICS #AAA non contirbutatoruy #Endobroncial mass-Following with pulm #CLBP: jail opiates #PTSD: Airprazole and benzo #GERD: Famotidine #CKD: Close to baseline #Anemia: s/p 1 U PRBC #HTN: Amlpdiine Metoprolol, asa ? CAD-on 2/2 prevention #DVT SQH Dispo-Pending PT recs, updated family of this today Attestation: This service has been performed in part by a resident under the direction of a teaching physician.I, Stella Padilla, performed the service, or was physically present during the critical, or schwarz portions of the service, furnished by the resident. I participated in the management of the patient.
[2019-08-15] MEDS ORDERED: Magnesium Sulfate 2 GM IV* 2 GM/50 ML BAG IVPB ONE (08:49)
[2019-08-15] MEDS: Senna TAB 8.6 mg* TAB PO SCH ×2 (09:00→20:07)
[2019-08-15] MEDS ORDERED: Furosemide TAB* 20 MG PO SCH (09:00)
[2019-08-15] MEDS: Docusate CAP* 100 MG PO SCH ×2 (09:00→20:08)
[2019-08-15] MEDS: oxyCODONE SR TAB(*) 10 MG TAB.SR PO SCH ×2 (09:00→20:07)
[2019-08-15] MEDS: Aspirin EC TAB* 81 MG TAB.EC PO SCH (09:01)
[2019-08-15] MEDS: Pantoprazole TAB * 40 MG TAB PO SCH (09:01)
[2019-08-15] MEDS: amLODIPine TAB* 5 MG PO SCH (09:01)
[2019-08-15] MEDS: Metoprolol Tartrate TAB* 25 MG PO SCH ×2 (09:02→20:08)
[2019-08-15] MEDS: ARIPiprazole TAB* 5 MG PO SCH (09:02)
[2019-08-15] MEDS: DULoxetine DR CAP* 20 MG CAP.DR PO SCH (09:07)
[2019-08-15] MEDS: Lidocaine PATCH 5%* 1 PATCH TRANSDERM PRN (12:28)
[2019-08-15] MEDS: oxyCODONE TAB* 5 MG TAB PO PRN (15:23)
[2019-08-15] MEDS: Atorvastatin* 80 MG TAB PO SCH (20:07)
[2019-08-15] MEDS: Montelukast Sodium TAB* 10 MG PO SCH (20:08)
[2019-08-15] MEDS: Famotidine TAB* 20 MG PO SCH (20:08)
[2019-08-15] MEDS: ALPRAZolam TAB* 0.25 MG PO PRN (22:26)
[2019-08-16] MEDS: Levalbuterol 0.63MG/3ML NEB* UNIT OF USE INH PRN ×2 (03:15→22:33)
[2019-08-16] MEDS: Heparin VIAL(*) 5000 UNITS/ML VIAL (FIVE THOUSAND) SUBCUT SCH ×3 (05:16→20:52)
[2019-08-16 06:46] LABS: ABS Eosinophils 0.3 10^3/ul (0-0.6); ABS Lymphocytes 0.8 10^3/ul (1.0-4.8); ABS Monocytes 0.6 10^3/ul (0-0.8); ABS Neutrophils 3.4 10^3/ul (1.5-7.7); Eosinophil % 6.4 %; Hematocrit 25 % (42-52); Hemoglobin 7.9 g/dL (14.0-18.0); Mean Corpuscular HGB Conc 32 g/dL (31-36); Mean Corpuscular Hemoglobin 29 pg (27-31); Mean Corpuscular Volume 92 fL (80-94); Mean Platelet Volume 8.7 fL (7.4-10.4); Platelet Count 145 10^3/uL (150-450); Red Cell Distribution Width 16 % (10-15); White Blood Count 5.1 10^3/uL (3.5-10.8)
[2019-08-16 06:54] LABS: BUN/Creatinine Ratio 30.4 (8-20); Calcium 9.1 mg/dL (8.6-10.3); EGFR African American 62.7 (>60); EGFR Non-African American 51.8 (>60); Potassium 4.7 mmol/L (3.5-5.0)
[2019-08-16] MEDS: Tiotropium Brom/Olodaterol MDI INH SCH (07:42)
--- NOTE | 2019-08-16 07:42 | PN ---
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 Hospital stay c/b persistent metabolic alkalosis as compensatory mechanism for retention and deconditioning. Transferred out of ICU on 08/15 VSS, no acute events This morning, seen in bed, he is doing "OK" secondary to fair sleep last night and a little bit of back pain. Does report breathing is better compared to admission, discussed underlying COPD, mass, and his pulm edema, wants me to update in the afternoon which we report is fine after rounds. Looking forward to working with PT. Last BM 08/15. Denies CP, worsening SOB, GI, or MSK complaints aside from above. Objective Active Medications: Acetaminophen (Tylenol Tab*) 650 mg PO Q4H PRN PRN Reason: mild to moderate pain Alprazolam (Xanax Tab*) 0.25 mg PO Q6H PRN PRN Reason: AGITATION/ANXIETY Last Admin: 08/15/19 22:26 Dose: 0.25 mg Amlodipine Besylate (Norvasc Tab*) 5 mg PO [facility] Last Admin: 08/15/19 09:01 Dose: 5 mg Aripiprazole (Abilify Tab*) 2.5 mg PO [facility] Last Admin: 08/15/19 09:02 Dose: 2.5 mg Aspirin (Aspirin Ec Tab*) [facility] [place] Last Admin: 08/15/19 09:01 Dose: 81 mg Atorvastatin Calcium (Lipitor*) 80 mg PO BEDTIME [facility] Last Admin: 08/15/19 20:07 Dose: 80 mg Docusate Sodium (Colace Cap*) 100 mg PO BID [facility] Last Admin: 08/15/19 20:08 Dose: 100 mg Duloxetine HCl (Cymbalta Cap*) 40 mg PO [facility] Last Admin: 08/15/19 09:07 Dose: 40 mg Famotidine (Pepcid Tab*) 20 mg PO 2100 [facility] Last Admin: 08/15/19 20:08 Dose: 20 mg Furosemide (Lasix Tab*) 20 mg PO DAILY [facility] Last Admin: 08/15/19 09:01 Dose: 20 mg Guaifenesin (Mucinex*) 1,200 mg PO BID PRN PRN Reason: congestion Last Admin: 08/13/19 20:04 Dose: 1,200 mg Heparin Sodium (Porcine) (Heparin Vial(*)) 5,000 units SUBCUT Q8HR [facility] Last Admin: 08/16/19 05:16 Dose: 5,000 units Levalbuterol HCl (Xopenex Hfa Inhaler*) 2 puff INH Q4H PRN PRN Reason: SHORTNESS OF BREATH Levalbuterol HCl (Xopenex 0.63mg/3ml Neb*) 0.63 mg INH Q6H PRN PRN Reason: SOB, BEFORE EXERTION Last Admin: 08/16/19 03:15 Dose: 0.63 mg Lidocaine (Lidoderm 5% Patch*) 1 patch TRANSDERM DAILY PRN PRN Reason: PAIN - MODERATE Last Admin: 08/15/19 12:28 Dose: 1 patch Metoprolol Tartrate (Lopressor Tab*) 12.5 mg PO BID [facility] Last Admin: 08/15/19 20:08 Dose: 12.5 mg Montelukast Sodium (Singulair Tab*) 10 mg PO BEDTIME [facility] Last Admin: 08/15/19 20:08 Dose: 10 mg Oxycodone HCl (Oxycontin(*)) 10 mg PO Q12HR [facility] Last Admin: 08/15/19 20:07 Dose: 10 mg Oxycodone HCl (Roxycodone Tab*) 15 mg PO TID PRN PRN Reason: PAIN - SEVERE Last Admin: 08/15/19 15:23 Dose: 15 mg Pantoprazole Sodium (Protonix Tab*) 40 mg PO 0800 [facility]; Protocol Last Admin: 08/15/19 09:01 Dose: 40 mg Senna (Senokot 8.6 Mg Tab*) 2 tab PO BID [facility] Last Admin: 08/15/19 20:07 Dose: 2 tab Tiotropium [place]/Olodaterol (Stiolto Respimat Inh [place] (60 Puff)) 2 puff INH DAILY [facility] Last Admin: 08/15/19 07:33 Dose: 2 puff Vital Signs - 8 hr 08/16/19 08/16/19 08/16/19 00:03 00:26 03:09 Temperature 98.6 F 98.5 F Pulse Rate 80 85 Respiratory 16 18 16 Rate Blood Pressure 130/70 149/79 (mmHg) O2 Sat by Pulse 95 94 Oximetry 08/16/19 07:41 Temperature 207.3 F Pulse Rate 78 Respiratory 18 Rate Blood Pressure 143/73 (mmHg) O2 Sat by Pulse 97 Oximetry Oxygen Devices in Use Now: Simple Face Mask Appearance: Chronically ill appearing man in NAD, face mask Eyes: No Scleral Icterus, PERRLA Neck: NL Appearance and Movements; NL JVP, Trachea Midline Respiratory: - - Blt crackles to bases R >L no wheeze or rhonchi Cardiovascular: - - RICARDO 3/6 in RUSB, otherwise RRR Abdominal: NL Sounds; No Tenderness; No Distention, No Hepatosplenomegaly Lymphatic: No Cervical Adenopathy Extremities: - - very mild 1+ pitting edema to mid bland Skin: No Rash or Ulcers Neurological: Alert and Oriented x 3 Result Diagrams: 08/16/19 06:30 08/16/19 06:30 Additional Lab and Data: Microbiology and Other Data: Microbiology 08/12/19 20:26 Nasal Screen MRSA (PCR) - Final Nasal Mrsa Not Detected Diagnostic Imaging: CTA 08/12/2019 IMPRESSION: No pulmonary embolism is noted. Aneurysmal dilatation of the descending aorta measuring up to 5.3 cm emphysematous changes are noted. 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 Findings are unchanged since May 06, 2019. Previously identified mass in the superior segment of the right lower lobe is significantly decreased. Prestent is consistent with resolving pneumonia. ECHO 08/12/2019 Summary: - Left ventricle: Systolic function is normal. The estimated ejection fraction is 60-65%. Doppler parameters are consistent with abnormal left ventricular relaxation (grade 1 diastolic dysfunction). - Right ventricle: The cavity size is mildly reduced. Systolic function is normal. - Mitral valve: There is trace regurgitation. - Aortic valve: The findings are consistent with mild stenosis. There is mild regurgitation. The peak systolic velocity is 2.3 m/sec. The mean systolic gradient is 7.0 mm Hg. The LVOT to aortic valve VTI ratio is 0.59. The valve area by the peak velocity method is 1.45 cm^2. CXR 08/12 FINDINGS: Image quality is compromised due to the relative inferiority of a portable chest x-ray. The heart and mediastinum exhibit normal size and contour. There is coarse calcification overlying the arch of the aorta. There is mild patchy density overlying the bilateral lungs, slightly worse on the left than the right. Visualized bones are normal for the patient's age. IMPRESSION: Chest x-ray findings are consistent with mild pulmonary edema without substantial change since the August 07, 2019 chest x-ray. 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 Hospital stay c/b persistent metabolic alkalosis as compensatory mechanism for retention and deconditionig. 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, tracheobronchial amyloidosis; planning for bronchoscopy in [facility], mass decreased in size -Increase dose of Furosemide to 40mg PO daily from 20mg 2/ to poor outpt on (home dose was 10mg) -Watch CO2, 42, Acetazolamide x1 day at 45, likely from contraction and chronic retention, reports never using BiPAP (2) Heart failure with preserved ejection fraction Current Visit: Yes Status: Acute Code(s): I50.30 - UNSPECIFIED DIASTOLIC ( CONGESTIVE) HEART FAILURE SNOMED Code(s): 754353457 Comment: -Grade 1 diastolic dysfxn -Continue furosemide, approaching euvolemia, 40mg daily (home dose was 10mg) -Optimized on BB, statin, not on [place] 2/2 to CKD (3) Anemia Current Visit: No Status: Acute Code(s): D64.9 - ANEMIA, UNSPECIFIED SNOMED Code(s): 979960588 Comment: -Normocytic normochromic; KEVIN and anemia of chronic dz -s/p 1 U PRBC 08/12/19 (4) CKD (chronic kidney disease) Current Visit: No Status: Acute Code(s): N18.9 - CHRONIC KIDNEY DISEASE, UNSPECIFIED SNOMED Code(s): 005932839 Comment: -CKD3 at baseline, stable, meds renally dosed (5) COPD (chronic obstructive pulmonary disease) Current Visit: No Status: Acute Code(s): J44.9 - CHRONIC OBSTRUCTIVE PULMONARY DISEASE, UNSPECIFIED SNOMED Code(s): 16708357 Comment: -GOLD4 on 2-3L O2 at baseline, from long standing tob use quit in 2013 -No e/o acute exacerbation -On Spiriva/LAMA, not on ICS, on Levalbuteral for ELIANA (6) CVA (cerebral vascular accident) Current Visit: No Status: Acute Code(s): I63.9 - CEREBRAL INFARCTION, UNSPECIFIED SNOMED Code(s): 760420182 Comment: -History of ischemic CVA with hemorrhagic transformation with residual visual deficit -On aspirin, statin (7) Chronic pain Current Visit: No Status: Acute Code(s): G89.29 - OTHER CHRONIC PAIN SNOMED Code(s): 51226827 Comment: -On plywood patcher opiates; which could also be causing respiratory depression and CO2 retention -Continue oxycontin and prn oxycodone. (8) GERD (gastroesophageal reflux disease) Current Visit: No Status: Acute Code(s): K21.9 - GASTRO-ESOPHAGEAL REFLUX DISEASE WITHOUT ESOPHAGITIS SNOMED Code(s): 357703080 Comment: -Continue PPI (9) Hypertension Current Visit: No Status: Acute Priority: Medium Code(s): I10 - ESSENTIAL (PRIMARY) HYPERTENSION SNOMED Code(s): 61641286 Comment: -Continue home dose of amlodipine. (10) PTSD (post-traumatic stress disorder) Current Visit: No Status: Acute Priority: Medium Code(s): F43.10 - POST- TRAUMATIC STRESS DISORDER, UNSPECIFIED SNOMED Code(s): 79289906 Comment: -Continue abilify, duloxetine, alprazolam. (11) Lung mass Current Visit: No Status: Acute Code(s): R91.8 - OTHER NONSPECIFIC ABNORMAL FINDING OF LUNG FIELD SNOMED Code(s): 140800862 Comment: -Amyloid per Dr. Valencia's note, will need outpt rearrange outpt bronch as he missed his appt for definitive mgmt -Caused intermittent hemoptysis (12) S/P abdominal aortic aneurysm repair Current Visit: No Status: Acute Priority: High Onset Date: 07/12/15 Code (s): Z98.89 - OTHER SPECIFIED POSTPROCEDURAL STATES * DO NOT USE *; Z86.79 - PERSONAL HISTORY OF OTHER DISEASES OF THE CIRCULATORY SYSTEM SNOMED Code(s): 904890158 Comment: -surgery at [facility] 06/09/2015. -now AAA of 5.3~recurrence -should follow outpt (13) DVT prophylaxis Current Visit: No Status: Acute Code(s): DKM1463 - SNOMED Code(s): 461882683 Comment: -[facility] (14) Full code status Current Visit: No Status: Acute Code(s): Z78.9 - OTHER SPECIFIED HEALTH STATUS SNOMED Code(s): 818268147 Status and Disposition: Inpatient -PT/OT to follow and recommend DHRUV vs home with PT, sig deconditioning -Needs outpt rescheduling of bronchoscopy
[2019-08-16] MEDS: Metoprolol Tartrate TAB* 25 MG PO SCH ×2 (09:02→20:49)
[2019-08-16] MEDS: Furosemide TAB* 20 MG PO SCH (09:03)
[2019-08-16] MEDS: oxyCODONE SR TAB(*) 10 MG TAB.SR PO SCH ×2 (09:03→20:48)
[2019-08-16] MEDS: Pantoprazole TAB * 40 MG TAB PO SCH (09:03)
[2019-08-16] MEDS: ARIPiprazole TAB* 5 MG PO SCH (09:04)
[2019-08-16] MEDS: Senna TAB 8.6 mg* TAB PO SCH ×2 (09:04→20:49)
[2019-08-16] MEDS: Aspirin EC TAB* 81 MG TAB.EC PO SCH (09:04)
[2019-08-16] MEDS: amLODIPine TAB* 5 MG PO SCH (09:04)
[2019-08-16] MEDS: DULoxetine DR CAP* 20 MG CAP.DR PO SCH (09:05)
[2019-08-16] MEDS: Docusate CAP* 100 MG PO SCH ×2 (09:05→20:49)
[2019-08-16] MEDS: guaiFENesin ER TAB 600 MG PO PRN (09:06)
[2019-08-16] MEDS: oxyCODONE TAB* 5 MG TAB PO PRN (19:27)
[2019-08-16] MEDS: Atorvastatin* 80 MG TAB PO SCH (20:48)
[2019-08-16] MEDS: Famotidine TAB* 20 MG PO SCH (20:48)
[2019-08-16] MEDS: Montelukast Sodium TAB* 10 MG PO SCH (20:48)
[2019-08-17] MEDS: Heparin VIAL(*) 5000 UNITS/ML VIAL (FIVE THOUSAND) SUBCUT SCH ×3 (05:19→21:11)
[2019-08-17 07:04] LABS: Hematocrit 27 % (42-52); Hemoglobin 8.5 g/dL (14.0-18.0); Mean Corpuscular HGB Conc 32 g/dL (31-36); Mean Corpuscular Hemoglobin 29 pg (27-31); Mean Corpuscular Volume 92 fL (80-94); Mean Platelet Volume 8.8 fL (7.4-10.4); Platelet Count 139 10^3/uL (150-450); Red Blood Count 2.89 10^6 /uL (4.18-5.48); Red Cell Distribution Width 16 % (10-15); White Blood Count 5.1 10^3/uL (3.5-10.8)
[2019-08-17 07:21] LABS: BUN/Creatinine Ratio 25.5 (8-20); Calcium 9.3 mg/dL (8.6-10.3); EGFR African American 59.6 (>60); EGFR Non-African American 49.3 (>60); Potassium 4.7 mmol/L (3.5-5.0)
[2019-08-17] MEDS: Tiotropium Brom/Olodaterol MDI INH SCH (07:55)
[2019-08-17] MEDS: Metoprolol Tartrate TAB* 25 MG PO SCH ×2 (08:28→21:07)
[2019-08-17] MEDS: Docusate CAP* 100 MG PO SCH ×2 (08:29→21:06)
[2019-08-17] MEDS: Senna TAB 8.6 mg* TAB PO SCH ×2 (08:29→21:07)
[2019-08-17] MEDS: Pantoprazole TAB * 40 MG TAB PO SCH (08:29)
[2019-08-17] MEDS: ARIPiprazole TAB* 5 MG PO SCH (08:29)
[2019-08-17] MEDS: oxyCODONE SR TAB(*) 10 MG TAB.SR PO SCH ×2 (08:30→21:06)
[2019-08-17] MEDS: DULoxetine DR CAP* 20 MG CAP.DR PO SCH (08:30)
[2019-08-17] MEDS: Furosemide TAB* 20 MG PO SCH (08:30)
[2019-08-17] MEDS: Aspirin EC TAB* 81 MG TAB.EC PO SCH (08:31)
[2019-08-17] MEDS: amLODIPine TAB* 5 MG PO SCH (08:31)
[2019-08-17] MEDS: Lidocaine PATCH 5%* 1 PATCH TRANSDERM PRN (10:40)
[2019-08-17] MEDS: ALPRAZolam TAB* 0.25 MG PO PRN (10:42)
[2019-08-17] MEDS: oxyCODONE TAB* 5 MG TAB PO PRN (17:13)
--- NOTE | 2019-08-17 17:39 | PN ---
Subjective Date of Service: 08/17/19 Interval History: No acute events overnight. Still requiring 4L O2 (home 2-4 recently, 2 before that) Denies any cough or fever at any time (nor any return of hemoptysis) . Chronic chills. Edema improved. PT rec for rehab. Needed 6L with ambulation. quit smoking 5 years ago. usually can't tolerate NC as mouth breather. saw ENT just last week in Dr. Garcia office. last colonoscopy during a ischemic cholitis episode in 2013 Objective Active Medications: Acetaminophen (Tylenol Tab*) 650 mg PO Q4H PRN PRN Reason: mild to moderate pain Alprazolam (Xanax Tab*) 0.25 mg PO Q6H PRN PRN Reason: AGITATION/ANXIETY Last Admin: 08/17/19 10:42 Dose: 0.25 mg Amlodipine Besylate (Norvasc Tab*) 5 mg PO QAM [facility] Last Admin: 08/17/19 08:31 Dose: 5 mg Aripiprazole (Abilify Tab*) 2.5 mg PO QAM [facility] Last Admin: 08/17/19 08:29 Dose: 2.5 mg Aspirin (Aspirin Ec Tab*) 81 mg PO QAM [facility] Last Admin: 08/17/19 08:31 Dose: 81 mg Atorvastatin Calcium (Lipitor*) 80 mg PO BEDTIME [facility] Last Admin: 08/16/19 20:48 Dose: 80 mg Docusate Sodium (Colace Cap*) 100 mg PO BID [facility] Last Admin: 08/17/19 08:29 Dose: 100 mg Duloxetine HCl (Cymbalta Cap*) 40 mg PO QAM [facility] Last Admin: 08/17/19 08:30 Dose: 40 mg Famotidine (Pepcid Tab*) 20 mg PO 2100 [facility] Last Admin: 08/16/19 20:48 Dose: 20 mg Furosemide (Lasix Tab*) 40 mg PO DAILY [facility] Last Admin: 08/17/19 08:30 Dose: 40 mg Guaifenesin (Mucinex*) 1,200 mg PO BID PRN PRN Reason: congestion Last Admin: 08/16/19 09:06 Dose: 1,200 mg Heparin Sodium (Porcine) (Heparin Vial(*)) 5,000 units SUBCUT Q8HR [facility] Last Admin: 08/17/19 14:38 Dose: 5,000 units Levalbuterol HCl (Xopenex Hfa Inhaler*) 2 puff INH Q4H PRN PRN Reason: SHORTNESS OF BREATH Levalbuterol HCl (Xopenex 0.63mg/3ml Neb*) 0.63 mg INH Q6H PRN PRN Reason: SOB, BEFORE EXERTION Last Admin: 08/16/19 22:33 Dose: 0.63 mg Lidocaine (Lidoderm 5% Patch*) 1 patch TRANSDERM DAILY PRN PRN Reason: PAIN - MODERATE Last Admin: 08/17/19 10:40 Dose: 1 patch Metoprolol Tartrate (Lopressor Tab*) 12.5 mg PO BID [facility] Last Admin: 08/17/19 08:28 Dose: 12.5 mg Montelukast Sodium (Singulair Tab*) 10 mg PO BEDTIME [facility] Last Admin: 08/16/19 20:48 Dose: 10 mg Oxycodone HCl (Oxycontin(*)) 10 mg PO Q12HR [facility] Last Admin: 08/17/19 08:30 Dose: 10 mg Oxycodone HCl (Roxycodone Tab*) 15 mg PO TID PRN PRN Reason: PAIN - SEVERE Last Admin: 08/17/19 17:13 Dose: 15 mg Pantoprazole Sodium (Protonix Tab*) 40 mg PO 0800 [facility]; Protocol Last Admin: 08/17/19 08:29 Dose: 40 mg Senna (Senokot 8.6 Mg Tab*) 2 tab PO BID [facility] Last Admin: 08/17/19 08:29 Dose: 2 tab Tiotropium [place]/Olodaterol (Stiolto Respimat Inh [place] (60 Puff)) 2 puff INH DAILY [facility] Last Admin: 08/17/19 07:55 Dose: 2 puff Vital Signs - 8 hr 08/17/19 08/17/19 08/17/19 10:42 12:00 13:36 Temperature 99.8 F Pulse Rate 91 Respiratory 24 15 20 Rate Blood Pressure 141/65 (mmHg) O2 Sat by Pulse 99 Oximetry 08/17/19 08/17/19 16:15 17:13 Temperature 98 F Pulse Rate 95 Respiratory 20 24 Rate Blood Pressure 154/78 (mmHg) O2 Sat by Pulse 94 Oximetry Oxygen Devices in Use Now: OxyMask Appearance: NAD Ears/Nose/Mouth/Throat: NL Teeth, Lips, Gums Neck: NL Appearance and Movements; NL JVP Respiratory: Symmetrical Chest Expansion and Respiratory Effort, Clear to Auscultation Cardiovascular: NL Sounds; No Murmurs; No JVD, RRR Abdominal: NL Sounds; No Tenderness; No Distention Extremities: - - trace edema b/l Skin: No Rash or Ulcers Neurological: Alert and Oriented x 3 Nutrition: Taking PO's Result Diagrams: 08/17/19 06:49 08/17/19 06:49 Additional Lab and Data: Laboratory Results - last 24 hr 08/17/19 08/17/19 06:49 06:49 WBC 5.1 RBC 2.89 L Hgb 8.5 L Hct 27 L MCV 92 MCH 29 MCHC 32 RDW 16 H Plt Count 139 L MPV 8.8 Sodium 142 Potassium 4.7 Chloride 99 L Carbon Dioxide 40 H Anion Gap 3 BUN 36 H Creatinine 1.41 H Est GFR ( Amer) 59.6 Est GFR (Non-Af Amer) 49.3 BUN/Creatinine Ratio 25.5 H Glucose 110 H Calcium 9.3 Microbiology and Other Data: Microbiology 08/12/19 20:26 Nasal Nasal Screen MRSA (PCR) - Final Mrsa Not Detected Diagnostic Imaging: CTA 08/12/2019 IMPRESSION: No pulmonary embolism is noted. Aneurysmal dilatation of the descending aorta measuring up to 5.3 cm emphysematous changes are noted. 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 Findings are unchanged since May 06, 2019. Previously identified mass in the superior segment of the right lower lobe is significantly decreased. Prestent is consistent with resolving pneumonia. ECHO 08/12/2019 Summary: - Left ventricle: Systolic function is normal. The estimated ejection fraction is 60-65%. Doppler parameters are consistent with abnormal left ventricular relaxation (grade 1 diastolic dysfunction). - Right ventricle: The cavity size is mildly reduced. Systolic function is normal. - Mitral valve: There is trace regurgitation. - Aortic valve: The findings are consistent with mild stenosis. There is mild regurgitation. The peak systolic velocity is 2.3 m/sec. The mean systolic gradient is 7.0 mm Hg. The LVOT to aortic valve VTI ratio is 0.59. The valve area by the peak velocity method is 1.45 cm^2. CXR 08/12 FINDINGS: Image quality is compromised due to the relative inferiority of a portable chest x-ray. The heart and mediastinum exhibit normal size and contour. There is coarse calcification overlying the arch of the aorta. There is mild patchy density overlying the bilateral lungs, slightly worse on the left than the right. Visualized bones are normal for the patient's age. IMPRESSION: Chest x-ray findings are consistent with mild pulmonary edema without substantial change since the August 07, 2019 chest x-ray. 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 (2) Heart failure with preserved ejection fraction Current Visit: Yes Status: Acute Code(s): I50.30 - UNSPECIFIED DIASTOLIC ( CONGESTIVE) HEART FAILURE SNOMED Code(s): 792718000 Comment: -Grade 1 diastolic dysfxn -Continue furosemide, approaching euvolemia, 40mg daily (home dose was 10mg) -BB, statin, should also be on ACEI, will hold for now until done diuresis. (3) Anemia Current Visit: No Status: Acute Code(s): D64.9 - ANEMIA, UNSPECIFIED SNOMED Code(s): 477226256 Comment: -Normocytic normochromic; iron sat 8%, iron 29, ferritin wnl,RDW elevated consistent with KEVIN) -s/p 1 U PRBC 08/12/19 - start iron supplementation - follows with Dr. Sanchez - f/u (remote)BMB staining that Dr. Sanchez added on recently. (4) CKD (chronic kidney disease) Current Visit: No Status: Acute Code(s): N18.9 - CHRONIC KIDNEY DISEASE, UNSPECIFIED SNOMED Code(s): 293317276 Comment: -CKD3 at baseline, stable, meds renally dosed (5) COPD (chronic obstructive pulmonary disease) Current Visit: No Status: Acute Code(s): J44.9 - CHRONIC OBSTRUCTIVE PULMONARY DISEASE, UNSPECIFIED SNOMED Code(s): 60577166 Comment: -GOLD4 on 2-3L O2 at baseline, from long standing tob use quit in 2013 -No e/o acute exacerbation -On Spiriva/LAMA, not on ICS, on Levalbuteral for ELIANA (6) CVA (cerebral vascular accident) Current Visit: No Status: Acute Code(s): I63.9 - CEREBRAL INFARCTION, UNSPECIFIED SNOMED Code(s): 773233424 Comment: -History of ischemic CVA with hemorrhagic transformation with residual visual deficit -On aspirin, statin (7) Chronic pain Current Visit: No Status: Acute Code(s): G89.29 - OTHER CHRONIC PAIN SNOMED Code(s): 37870931 Comment: -On oil heaterman opiates for his chronic spinal stenosis s/p 10 surgeries; -Continue oxycontin and prn oxycodone. (8) DVT prophylaxis Current Visit: No Status: Acute Code(s): BWO4189 - SNOMED Code(s): 255551162 Comment: -SQH (9) Full code status Current Visit: No Status: Acute Code(s): Z78.9 - OTHER SPECIFIED HEALTH STATUS SNOMED Code(s): 808867330 (10) GERD (gastroesophageal reflux disease) Current Visit: No Status: Acute Code(s): K21.9 - GASTRO-ESOPHAGEAL REFLUX DISEASE WITHOUT ESOPHAGITIS SNOMED Code(s): 454010445 Comment: -Continue PPI (11) Hypertension Current Visit: No Status: Acute Priority: Medium Code(s): I10 - ESSENTIAL (PRIMARY) HYPERTENSION SNOMED Code(s): 64754391 Comment: -Continue home dose of amlodipine 5 metoprolol tartrate 12.5mg po BID. could use and ACEI soon. (12) Lung mass Current Visit: No Status: Acute Code(s): R91.8 - OTHER NONSPECIFIC ABNORMAL FINDING OF LUNG FIELD SNOMED Code(s): 922380129 Comment: -Amyloid per Dr. Valencia's note, will need outpt rearrange outpt bronch as he missed his appt for definitive mgmt -Caused intermittent hemoptysis (none since May) (13) PTSD (post-traumatic stress disorder) Current Visit: No Status: Acute Priority: Medium Code(s): F43.10 - POST- TRAUMATIC STRESS DISORDER, UNSPECIFIED SNOMED Code(s): 99592102 Comment: -Continue abilify, duloxetine, alprazolam. (14) S/P abdominal aortic aneurysm repair Current Visit: No Status: Acute Priority: High Onset Date: 07/12/15 Code (s): Z98.89 - OTHER SPECIFIED POSTPROCEDURAL STATES * DO NOT USE *; Z86.79 - PERSONAL HISTORY OF OTHER DISEASES OF THE CIRCULATORY SYSTEM SNOMED Code(s): 391959951 Comment: -surgery at [facility] 06/09/2015. -now AAA of 5.3~recurrence -should follow outpt Status and Disposition: Inpatient -PT/OT to follow and recommend rehab -Needs outpt rescheduling of bronchoscopy
[2019-08-17] MEDS: Montelukast Sodium TAB* 10 MG PO SCH (21:06)
[2019-08-17] MEDS: Ferrous Gluconate TAB* 324 MG TAB PO SCH (21:07)
[2019-08-17] MEDS: Famotidine TAB* 20 MG PO SCH (21:07)
[2019-08-17] MEDS: Atorvastatin* 80 MG TAB PO SCH (21:07)
[2019-08-18] MEDS: Heparin VIAL(*) 5000 UNITS/ML VIAL (FIVE THOUSAND) SUBCUT SCH ×3 (05:10→18:49)
[2019-08-18 08:21] LABS: ABS Eosinophils 0.3 10^3/ul (0-0.6); ABS Lymphocytes 0.8 10^3/ul (1.0-4.8); ABS Monocytes 0.5 10^3/ul (0-0.8); ABS Neutrophils 3.3 10^3/ul (1.5-7.7); Hematocrit 27 % (42-52); Hemoglobin 8.8 g/dL (14.0-18.0); Lymphocyte % 15.7 %; Mean Corpuscular HGB Conc 33 g/dL (31-36); Mean Corpuscular Hemoglobin 30 pg (27-31); Mean Corpuscular Volume 92 fL (80-94); Platelet Count 150 10^3/uL (150-450); Red Blood Count 2.95 10^6 /uL (4.18-5.48); Red Cell Distribution Width 16 % (10-15); White Blood Count 4.8 10^3/uL (3.5-10.8)
[2019-08-18 08:37] LABS: BUN/Creatinine Ratio 27.1 (8-20); Calcium 9.5 mg/dL (8.6-10.3); EGFR African American 58.2 (>60); EGFR Non-African American 48.1 (>60); Magnesium 1.9 mg/dL (1.9-2.7); Potassium 4.5 mmol/L (3.5-5.0)
[2019-08-18] MEDS: Tiotropium Brom/Olodaterol MDI INH SCH (09:05)
[2019-08-18] MEDS: ARIPiprazole TAB* 5 MG PO SCH (10:01)
[2019-08-18] MEDS: DULoxetine DR CAP* 20 MG CAP.DR PO SCH (10:02)
[2019-08-18] MEDS: Metoprolol Tartrate TAB* 25 MG PO SCH ×2 (10:02→20:51)
[2019-08-18] MEDS: Senna TAB 8.6 mg* TAB PO SCH ×2 (10:02→20:52)
[2019-08-18] MEDS: Furosemide TAB* 20 MG PO SCH (10:02)
[2019-08-18] MEDS: oxyCODONE TAB* 5 MG TAB PO PRN (10:02)
[2019-08-18] MEDS: amLODIPine TAB* 5 MG PO SCH (10:03)
[2019-08-18] MEDS: oxyCODONE SR TAB(*) 10 MG TAB.SR PO SCH ×2 (10:04→20:52)
[2019-08-18] MEDS: Pantoprazole TAB * 40 MG TAB PO SCH (10:04)
[2019-08-18] MEDS: Docusate CAP* 100 MG PO SCH ×2 (10:04→20:52)
[2019-08-18] MEDS: Aspirin EC TAB* 81 MG TAB.EC PO SCH (10:04)
[2019-08-18] MEDS: Ferrous Gluconate TAB* 324 MG TAB PO SCH (10:13)
[2019-08-18] MEDS: Ondansetron INJ* 2 MG/ML VIAL IV PRN (11:25)
[2019-08-18] MEDS ORDERED: Iron Sucrose* 200 MG in NS 0.9% 100 ML* 100 ML IVPB ONE (17:30)
--- NOTE | 2019-08-18 19:28 | PN ---
Subjective Date of Service: 08/18/19 Interval History: Desat again with ambulation/exertion on 4L. He is observed using the nasal cannula dangling in his mouth when he ambulates and when he is sleeping this afternoon as well. N/V this AM. Often gets nausea vomiting with iron supplements in the past. [employer] stable. I/O +525 cc. Family is only considering PMRU vs home and suggests they would refuse any SNF option. Objective Active Medications: Acetaminophen (Tylenol Tab*) 650 mg PO Q4H PRN PRN Reason: mild to moderate pain Alprazolam (Xanax Tab*) 0.25 mg PO Q6H PRN PRN Reason: AGITATION/ANXIETY Last Admin: 08/17/19 10:42 Dose: 0.25 mg Amlodipine Besylate (Norvasc Tab*) 5 mg PO QAM [facility] Last Admin: 08/18/19 10:03 Dose: 5 mg Aripiprazole (Abilify Tab*) 2.5 mg PO QAM [facility] Last Admin: 08/18/19 10:01 Dose: 2.5 mg Aspirin (Aspirin Ec Tab*) 81 mg PO QAM [facility] Last Admin: 08/18/19 10:04 Dose: 81 mg Atorvastatin Calcium (Lipitor*) 80 mg PO BEDTIME [facility] Last Admin: 08/17/19 21:07 Dose: 80 mg Docusate Sodium (Colace Cap*) 100 mg PO BID [facility] Last Admin: 08/18/19 10:04 Dose: 100 mg Duloxetine HCl (Cymbalta Cap*) 40 mg PO QAM [facility] Last Admin: 08/18/19 10:02 Dose: 40 mg Famotidine (Pepcid Tab*) 20 mg PO 0730 [facility] Furosemide (Lasix Tab*) 40 mg PO DAILY [facility] Last Admin: 08/18/19 10:02 Dose: 40 mg Guaifenesin (Mucinex*) 1,200 mg PO BID PRN PRN Reason: congestion Last Admin: 08/16/19 09:06 Dose: 1,200 mg Heparin Sodium (Porcine) (Heparin Vial(*)) 5,000 units SUBCUT Q8H [facility] Last Admin: 08/18/19 16:50 Dose: 5,000 units Levalbuterol HCl (Xopenex Hfa Inhaler*) 2 puff INH Q4H PRN PRN Reason: SHORTNESS OF BREATH Levalbuterol HCl (Xopenex 0.63mg/3ml Neb*) 0.63 mg INH Q6H PRN PRN Reason: SOB, BEFORE EXERTION Last Admin: 08/16/19 22:33 Dose: 0.63 mg Lidocaine (Lidoderm 5% Patch*) 1 patch TRANSDERM DAILY PRN PRN Reason: PAIN - MODERATE Last Admin: 08/17/19 10:40 Dose: 1 patch Metoprolol Tartrate (Lopressor Tab*) 12.5 mg PO BID [facility] Last Admin: 08/18/19 10:02 Dose: 12.5 mg Montelukast Sodium (Singulair Tab*) 10 mg PO BEDTIME [facility] Last Admin: 08/17/19 21:06 Dose: 10 mg Ondansetron HCl (Zofran Odt Tab*) 4 mg SL Q6H PRN PRN Reason: NAUSEA/VOMITING Ondansetron HCl (Zofran Inj*) 4 mg IV Q6H PRN PRN Reason: NAUSEA Last Admin: 08/18/19 11:25 Dose: 4 mg Oxycodone HCl (Oxycontin(*)) 10 mg PO Q12HR [facility] Last Admin: 08/18/19 10:04 Dose: 10 mg Oxycodone HCl (Roxycodone Tab*) 15 mg PO TID PRN PRN Reason: PAIN - SEVERE Last Admin: 08/18/19 10:02 Dose: 15 mg Pantoprazole Sodium (Protonix Tab*) 40 mg PO 0800 [facility]; Protocol Last Admin: 08/18/19 10:04 Dose: 40 mg Senna (Senokot 8.6 Mg Tab*) 2 tab PO BID [facility] Last Admin: 08/18/19 10:02 Dose: 2 tab Tiotropium [place]/Olodaterol (Stiolto Respimat Inh [place] (60 Puff)) 2 puff INH DAILY [facility] Last Admin: 08/18/19 09:05 Dose: 2 puff Vital Signs - 8 hr 08/18/19 08/18/19 08/18/19 12:00 12:45 16:07 Temperature 98.1 F 97.4 F Pulse Rate 113 87 Respiratory 20 18 16 Rate Blood Pressure 130/69 106/54 (mmHg) O2 Sat by Pulse 100 98 Oximetry Oxygen Devices in Use Now: Nasal Cannula Appearance: NAD, sleep Neck: NL Appearance and Movements; NL JVP Respiratory: Symmetrical Chest Expansion and Respiratory Effort, Clear to Auscultation, Clear to Percussion Extremities: No Edema Neurological: - - asleep. provides history today Nutrition: Taking PO's Result Diagrams: 08/18/19 08:12 08/18/19 08:12 Additional Lab and Data: Laboratory Results - last 24 hr 08/18/19 08/18/19 08:12 08:12 WBC 4.8 RBC 2.95 L Hgb 8.8 L Hct 27 L MCV 92 MCH 30 MCHC 33 RDW 16 H Plt Count 150 MPV 9.0 Neut % (Auto) 67.7 Lymph % (Auto) 15.7 [place] % (Auto) 9.6 Eos % (Auto) 6.0 Baso % (Auto) 1.0 Absolute Neuts (auto) 3.3 Absolute Lymphs (auto) 0.8 L Absolute Monos (auto) 0.5 Absolute Eos (auto) 0.3 Absolute Basos (auto) 0.0 Absolute Nucleated RBC 0.0 Nucleated RBC % 0.0 Sodium 142 Potassium 4.5 Chloride 97 L Carbon Dioxide 40 H Anion Gap 5 BUN 39 H Creatinine 1.44 H Est GFR ( Amer) 58.2 Est GFR (Non-Af Amer) 48.1 BUN/Creatinine Ratio 27.1 H Glucose 102 H Calcium 9.5 Magnesium 1.9 Prealbumin 13 L Microbiology and Other Data: Microbiology 08/12/19 20:26 Nasal Nasal Screen MRSA (PCR) - Final Mrsa Not Detected Diagnostic Imaging: CTA 08/12/2019 IMPRESSION: No pulmonary embolism is noted. Aneurysmal dilatation of the descending aorta measuring up to 5.3 cm emphysematous changes are noted. 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 Findings are unchanged since May 06, 2019. Previously identified mass in the superior segment of the right lower lobe is significantly decreased. Prestent is consistent with resolving pneumonia. ECHO 08/12/2019 Summary: - Left ventricle: Systolic function is normal. The estimated ejection fraction is 60-65%. Doppler parameters are consistent with abnormal left ventricular relaxation (grade 1 diastolic dysfunction). - Right ventricle: The cavity size is mildly reduced. Systolic function is normal. - Mitral valve: There is trace regurgitation. - Aortic valve: The findings are consistent with mild stenosis. There is mild regurgitation. The peak systolic velocity is 2.3 m/sec. The mean systolic gradient is 7.0 mm Hg. The LVOT to aortic valve VTI ratio is 0.59. The valve area by the peak velocity method is 1.45 cm^2. CXR 08/12 FINDINGS: Image quality is compromised due to the relative inferiority of a portable chest x-ray. The heart and mediastinum exhibit normal size and contour. There is coarse calcification overlying the arch of the aorta. There is mild patchy density overlying the bilateral lungs, slightly worse on the left than the right. Visualized bones are normal for the patient's age. IMPRESSION: Chest x-ray findings are consistent with mild pulmonary edema without substantial change since the August 07, 2019 chest x-ray. 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 - will repeat CXR in AM given stalled progress (2) Heart failure with preserved ejection fraction Current Visit: Yes Status: Acute Code(s): I50.30 - UNSPECIFIED DIASTOLIC ( CONGESTIVE) HEART FAILURE SNOMED Code(s): 246681279 Comment: -Grade 1 diastolic dysfxn -Continue furosemide, approaching euvolemia, 40mg daily (home dose was 10mg) -BB, statin, should also be on ACEI, will hold for now until done diuresis. (3) Anemia Current Visit: No Status: Acute Code(s): D64.9 - ANEMIA, UNSPECIFIED SNOMED Code(s): 547638906 Comment: -Normocytic normochromic; iron sat 8%, iron 29, ferritin wnl,RDW elevated consistent with KEVIN) -s/p 1 U PRBC 08/12/19 - did not tolerate oral iron supplementation secondary to nausea/vomiting, will try venofer - follows with Dr. Sanchez - f/u (remote)BMB staining that Dr. Sanchez added on recently. (4) CKD (chronic kidney disease) Current Visit: No Status: Acute Code(s): N18.9 - CHRONIC KIDNEY DISEASE, UNSPECIFIED SNOMED Code(s): 725037456 Comment: -CKD3 at baseline, stable, meds renally dosed (5) COPD (chronic obstructive pulmonary disease) Current Visit: No Status: Acute Code(s): J44.9 - CHRONIC OBSTRUCTIVE PULMONARY DISEASE, UNSPECIFIED SNOMED Code(s): 86980708 Comment: -GOLD4 on 2-3L O2 at baseline, from long standing tob use quit in 2013 -No e/o acute exacerbation -On Spiriva/LAMA, not on ICS, on Levalbuteral for ELIANA (6) CVA (cerebral vascular accident) Current Visit: No Status: Acute Code(s): I63.9 - CEREBRAL INFARCTION, UNSPECIFIED SNOMED Code(s): 423821345 Comment: -History of ischemic CVA with hemorrhagic transformation with residual visual deficit -On aspirin, statin (7) Chronic pain Current Visit: No Status: Acute Code(s): G89.29 - OTHER CHRONIC PAIN SNOMED Code(s): 48298715 Comment: -On halfway opiates for his chronic spinal stenosis s/p 10 surgeries; -Continue oxycontin and prn oxycodone. (8) DVT prophylaxis Current Visit: No Status: Acute Code(s): IUT6878 - SNOMED Code(s): 030480169 Comment: -SQ (9) Full code status Current Visit: No Status: Acute Code(s): Z78.9 - OTHER SPECIFIED HEALTH STATUS SNOMED Code(s): 361346444 (10) GERD (gastroesophageal reflux disease) Current Visit: No Status: Acute Code(s): K21.9 - GASTRO-ESOPHAGEAL REFLUX DISEASE WITHOUT ESOPHAGITIS SNOMED Code(s): 908228830 Comment: -Continue PPI (11) Hypertension Current Visit: No Status: Acute Priority: Medium Code(s): I10 - ESSENTIAL (PRIMARY) HYPERTENSION SNOMED Code(s): 07186076 Comment: -Continue home dose of amlodipine 5 metoprolol tartrate 12.5mg po BID. could use and ACEI soon. (12) Lung mass Current Visit: No Status: Acute Code(s): R91.8 - OTHER NONSPECIFIC ABNORMAL FINDING OF LUNG FIELD SNOMED Code(s): 816539391 Comment: -Amyloid per Dr. Valencia's note, will need outpt rearrange outpt bronch as he missed his appt for definitive mgmt -Caused intermittent hemoptysis (none since May) (13) PTSD (post-traumatic stress disorder) Current Visit: No Status: Acute Priority: Medium Code(s): F43.10 - POST- TRAUMATIC STRESS DISORDER, UNSPECIFIED SNOMED Code(s): 99586586 Comment: -Continue abilify, duloxetine, alprazolam. (14) S/P abdominal aortic aneurysm repair Current Visit: No Status: Acute Priority: High Onset Date: 07/12/15 Code (s): Z98.89 - OTHER SPECIFIED POSTPROCEDURAL STATES * DO NOT USE *; Z86.79 - PERSONAL HISTORY OF OTHER DISEASES OF THE CIRCULATORY SYSTEM SNOMED Code(s): 277927611 Comment: -surgery at [facility] 06/09/2015. -now AAA of 5.3~recurrence -should follow outpt Status and Disposition: Inpatient -PT/OT to follow and recommend rehab: Family only is considering PMRU vs home -Needs outpt rescheduling of bronchoscopy
--- NOTE | 2019-08-18 19:45 | CONSULT ---
Subjective Date of Service: 08/18/19 Interval History: Mr. 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 He presented to the emergency room with complaints of hypoxia. He was admitted for acute on chronic hypoxic and hypercapnic respiratory failure, hyperkalemia, and anemia. He presented to the hospital with an open area on his buttocks, per his this has been present for about 1 month. She has been treating the area with zinc oxide at home. He has been spending a lot of time in his recliner chair at home. Patient seen and examined at bedside. Verbal consent was obtained from the patient and for wound assessment and photograph. Family History: Unchanged from Admission Social History: Unchanged from Admission Past Medical History: Unchanged from Admission Review of Systems - Measurements Intake and Output: Intake and Output Last 24 Hours 08/16/19 08/17/19 08/18/19 08/19/19 06:59 06:59 06:59 06:59 Intake Total 3066 506 8392 960 Output Total 925 2290 675 Balance 1005 -1580 525 960 Weight 180 lb 12.8 oz 176 lb 11.2 oz Intake: Oral 2309 692 0516 960 Output: Urine 925 2290 675 Other: Estimated Void Medium Small Medium # Bowel Movements 0 0 1 Estimated Stool Amount Large # Voids 2 1 0 - Review of Systems Constitutional Symptoms: Negative: Fever, Other - Chills Dermatology: Positive: Other - Wound to buttocks Objective Active Medications: Acetaminophen (Tylenol Tab*) 650 mg PO Q4H PRN Reason: mild to moderate pain Alprazolam (Xanax Tab*) 0.25 mg PO Q6H PRN Reason: AGITATION/ANXIETY Amlodipine Besylate (Norvasc Tab*) 5 mg PO QAM PEE Aripiprazole (Abilify Tab*) 2.5 mg PO QAM PEE Aspirin (Aspirin Ec Tab*) 81 mg PO QAM PEE Atorvastatin Calcium (Lipitor*) 80 mg PO BEDTIME PEE Docusate Sodium (Colace Cap*) 100 mg PO BID PEE Duloxetine HCl (Cymbalta Cap*) 40 mg PO QAM PEE Famotidine (Pepcid Tab*) 20 mg PO 0730 [facility] Furosemide (Lasix Tab*) 40 mg PO DAILY [facility] Guaifenesin (Mucinex*) 1,200 mg PO BID PRN Reason: congestion Heparin Sodium (Porcine) (Heparin Vial(*)) 5,000 units SUBCUT Q8H PEE Levalbuterol HCl (Xopenex Hfa Inhaler*) 2 puff INH Q4H PRN Reason: SHORTNESS OF BREATH Levalbuterol HCl (Xopenex 0.63mg/3ml Neb*) 0.63 mg INH Q6H PRN Reason: SOB, BEFORE EXERTION Lidocaine (Lidoderm 5% Patch*) 1 patch TRANSDERM DAILY PRN Reason: PAIN - MOD Metoprolol Tartrate (Lopressor Tab*) 12.5 mg PO BID [facility] Montelukast Sodium (Singulair Tab*) 10 mg PO BEDTIME [facility] Ondansetron HCl (Zofran Odt Tab*) 4 mg SL Q6H PRN Reason: NAUSEA/VOMITING Ondansetron HCl (Zofran Inj*) 4 mg IV Q6H PRN Reason: NAUSEA Oxycodone HCl (Oxycontin(*)) 10 mg PO Q12HR PEE Oxycodone HCl (Roxycodone Tab*) 15 mg PO TID PRN Reason: PAIN - SEVERE Pantoprazole Sodium (Protonix Tab*) 40 mg PO 0800 [facility]; Protocol Senna (Senokot 8.6 Mg Tab*) 2 tab PO BID [facility] Tiotropium [place]/Olodaterol (Stiolto Respimat Inh [place] (60 Puff)) 2 puff INH DAILY [facility] Vital Signs - 8 hr 08/18/19 08/18/19 08/18/19 12:00 12:45 16:07 Temperature 98.1 F 97.4 F Pulse Rate 113 87 Respiratory 20 18 16 Rate Blood Pressure 130/69 106/54 (mmHg) O2 Sat by Pulse 100 98 Oximetry Oxygen Devices in Use Now: Nasal Cannula Appearance: NAD, laying in bed Ears/Nose/Mouth/Throat: Mucous Membranes Moist Respiratory: Symmetrical Chest Expansion and Respiratory Effort Skin: - - See skin note below Neurological: Alert and Oriented x 3 Result Diagrams: 08/20/19 05:40 08/20/19 05:40 Additional Lab and Data: Above labs were pulled into the note, when the note was edited prior to signing. Please see below for labs from day of consultation. Laboratory Results - last 24 hr 08/17/19 08/17/19 06:49 06:49 WBC 5.1 RBC 2.89 L Hgb 8.5 L Hct 27 L MCV 92 MCH 29 MCHC 32 RDW 16 H Plt Count 139 L MPV 8.8 Sodium 142 Potassium 4.7 Chloride 99 L Carbon Dioxide 40 H Anion Gap 3 BUN 36 H Creatinine 1.41 H Est GFR ( Amer) 59.6 Est GFR (Non-Af Amer) 49.3 BUN/Creatinine Ratio 25.5 H Glucose 110 H Calcium 9.3 Skin Deviation Note - Skin Deviation Findings Bilateral buttocks and sacrum - There are 3 full thickness open areas. The open area on the right buttock measures 2.5 cm x 2 cm x 0.1 cm. The wound base is is 50% yellow slough and 50% red granulation tissue. The left buttock wound measures 4.5 cm x 2 cm x 0.1 cm. The wound base is 75% pink granulation tissue and 25% yellow slough. The midline sacral wound measures 2 cm x 1.3 cm x 0.1 cm. The wound ba is 100% pink granulation tissue. The surrounding skin is intact with blanchable purplish discoloration (mostly on the left buttock) and blanchable erythema (mostly on the right buttock and sacrum). There is scant serous drainage. There is no odor. Wound Problem/Plan Assessment: Mr. 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 He presented to the emergency room with complaints of hypoxia. He was admitted for acute on chronic hypoxic and hypercapnic respiratory failure, hyperkalemia, and anemia. He presented to the hospital with an open area on his buttocks. 1. Bilateral buttocks and sacral wounds. These represent stage 3 pressure injuries and a deep tissue injury to the left buttock. Recommend washing the area with soap and water. Apply Santyl to the areas of slough daily, and barrier cream (orange top) to the remaining area as needed. DO NOT mix the Santyl and barrier cream. Can place a piece of non adherent gauze (i.e. Telfa) to the buttocks to keep the Santyl inplace, DO NOT apply tape or use a border foam dressing(i.e. Optifoam or Mepilex). Use pants or brief to hold dressing in place. Frequent turning and repositioning. Will add a prealbumin to the last labs drawn to assess nutritional status. Consider referral to the wound clinic at discharge. 2. Chronic hypoxic respiratory failure. 3. Diet. Heart Healthy diet. 4. Code Status. Full Code Status. 5. Disposition. Inpatient, disposition per primary medicine team. TIME SPENT: Time for this wound consultation was 25 minutes and 15 minutes was spent with the patient and discussing past medical history; removing old dressing; assessing, measuring, and photographing the wound; and discussing treatment of wound and recommendations. Is Patient a Wound Clinic Patient: No Attending: Zulema Ewing
[2019-08-18] MEDS: Montelukast Sodium TAB* 10 MG PO SCH (20:52)
[2019-08-18] MEDS: Atorvastatin* 80 MG TAB PO SCH (20:52)
[2019-08-18] MEDS: Ondansetron ODT TAB* 4 MG SL PRN (20:52)
[2019-08-19] MEDS: Heparin VIAL(*) 5000 UNITS/ML VIAL (FIVE THOUSAND) SUBCUT SCH ×3 (00:40→17:47)
[2019-08-19 05:20] LABS: ABS Eosinophils 0.2 10^3/ul (0-0.6); ABS Lymphocytes 1.1 10^3/ul (1.0-4.8); ABS Monocytes 0.5 10^3/ul (0-0.8); ABS Neutrophils 3.5 10^3/ul (1.5-7.7); Eosinophil % 3.8 %; Hematocrit 27 % (42-52); Hemoglobin 8.7 g/dL (14.0-18.0); Lymphocyte % 20.4 %; Mean Corpuscular HGB Conc 32 g/dL (31-36); Mean Corpuscular Hemoglobin 30 pg (27-31); Mean Corpuscular Volume 93 fL (80-94); Nucleated Red Blood Cells % 0.1; Platelet Count 149 10^3/uL (150-450); Red Blood Count 2.88 10^6 /uL (4.18-5.48); Red Cell Distribution Width 16 % (10-15); White Blood Count 5.2 10^3/uL (3.5-10.8)
[2019-08-19] MEDS: Tiotropium Brom/Olodaterol MDI INH SCH (07:23)
[2019-08-19] MEDS ORDERED: Famotidine TAB* 20 MG PO SCH (07:30)
[2019-08-19] MEDS: Pantoprazole TAB * 40 MG TAB PO SCH (09:59)
[2019-08-19] MEDS: amLODIPine TAB* 5 MG PO SCH (09:59)
[2019-08-19] MEDS: Furosemide TAB* 20 MG PO SCH (10:00)
[2019-08-19] MEDS: Senna TAB 8.6 mg* TAB PO SCH ×2 (10:04→21:41)
[2019-08-19] MEDS: Aspirin EC TAB* 81 MG TAB.EC PO SCH (10:04)
[2019-08-19] MEDS: Docusate CAP* 100 MG PO SCH ×2 (10:05→21:41)
[2019-08-19] MEDS: oxyCODONE SR TAB(*) 10 MG TAB.SR PO SCH ×2 (10:05→21:40)
[2019-08-19] MEDS: Ondansetron ODT TAB* 4 MG SL PRN (10:06)
[2019-08-19] MEDS: Metoprolol Tartrate TAB* 25 MG PO SCH ×2 (10:06→21:38)
[2019-08-19] MEDS: ARIPiprazole TAB* 5 MG PO SCH (10:07)
[2019-08-19] MEDS: DULoxetine DR CAP* 20 MG CAP.DR PO SCH (10:08)
[2019-08-19] MEDS ORDERED: ALPRAZolam TAB* 0.25 MG PO PRN (10:56)
[2019-08-19] MEDS: Ondansetron INJ* 2 MG/ML VIAL IV PRN (13:52)
[2019-08-19] MEDS: Collagenase 250 UNITS/GM OINT* 1 APPLIC OINT TOPICAL SCH (15:30)
[2019-08-19] MEDS: Lidocaine PATCH 5%* 1 PATCH TRANSDERM PRN (16:27)
[2019-08-19] MEDS: oxyCODONE TAB* 5 MG TAB PO PRN (16:27)
[2019-08-19] MEDS ORDERED: Lidocaine Patch REMOVE* 1 NOTE MISC PATCH OFF SCH (21:00)
[2019-08-19] MEDS: Atorvastatin* 80 MG TAB PO SCH (21:38)
--- NOTE | 2019-08-19 21:38 | PN ---
Subjective Date of Service: 08/19/19 Interval History: No acute events overnight. Afebrile. PMRU declined admission. They want to pursue home PT. CXR with patchy atelectasis vs consolidation at left lung base. tolerated venofer. no n/v. no coughing, fever. worked with PT: still requiring 6L with ambulation, on 3-4L at rest. Family History: Unchanged from Admission Social History: Unchanged from Admission Past Medical History: Unchanged from Admission Objective Active Medications: Acetaminophen (Tylenol Tab*) 650 mg PO Q4H PRN PRN Reason: mild to moderate pain Alprazolam (Xanax Tab*) 0.25 mg PO Q6H PRN PRN Reason: AGITATION/ANXIETY Amlodipine Besylate (Norvasc Tab*) 5 mg PO QAM [facility] Last Admin: 08/19/19 09:59 Dose: 5 mg Aripiprazole (Abilify Tab*) [facility] Admin: 08/19/19 10:07 Dose: 2.5 mg Aspirin (Aspirin Ec Tab*) [facility] Last Admin: 08/19/19 10:04 Dose: 81 mg Atorvastatin Calcium (Lipitor*) 80 mg PO BEDTIME [facility] Last Admin: 08/18/19 20:52 Dose: 80 mg Collagenase (Santyl 250 Units/Gm Oint*) 1 applic TOPICAL DAILY [facility] Last Admin: 08/19/19 15:30 Dose: 1 applic Docusate Sodium (Colace Cap*) 100 mg PO BID [facility] Last Admin: 08/19/19 10:05 Dose: 100 mg Duloxetine HCl (Cymbalta Cap*) 40 mg PO QAM [facility] Last Admin: 08/19/19 10:08 Dose: 40 mg Famotidine (Pepcid Tab*) 20 mg PO 0730 [facility] Last Admin: 08/19/19 10:05 Dose: 20 mg Furosemide (Lasix Tab*) 40 mg PO DAILY [facility] Last Admin: 08/19/19 10:00 Dose: 40 mg Guaifenesin (Mucinex*) 1,200 mg PO BID PRN PRN Reason: congestion Last Admin: 08/16/19 09:06 Dose: 1,200 mg Heparin Sodium (Porcine) (Heparin Vial(*)) 5,000 units SUBCUT Q8H [facility] Last Admin: 08/19/19 17:47 Dose: 5,000 units Levalbuterol HCl (Xopenex Hfa Inhaler*) 2 puff INH Q4H PRN PRN Reason: SHORTNESS OF BREATH Levalbuterol HCl (Xopenex 0.63mg/3ml Neb*) 0.63 mg INH Q6H PRN PRN Reason: SOB, BEFORE EXERTION Last Admin: 08/16/19 22:33 Dose: 0.63 mg Lidocaine (Lidoderm 5% Patch*) 1 patch TRANSDERM DAILY PRN PRN Reason: PAIN - MODERATE Last Admin: 08/19/19 16:27 Dose: 1 patch Metoprolol Tartrate (Lopressor Tab*) 12.5 mg PO BID [facility] Last Admin: 08/19/19 10:06 Dose: 12.5 mg Montelukast Sodium (Singulair Tab*) 10 mg PO BEDTIME [facility] Last Admin: 08/18/19 20:52 Dose: 10 mg Ondansetron HCl (Zofran Odt Tab*) 4 mg SL Q6H PRN PRN Reason: NAUSEA/VOMITING Last Admin: 08/19/19 10:06 Dose: 4 mg Ondansetron HCl (Zofran Inj*) 4 mg IV Q6H PRN PRN Reason: NAUSEA Last Admin: 08/19/19 13:52 Dose: 4 mg Oxycodone HCl (Oxycontin(*)) 10 mg PO Q12HR [facility] Oxycodone HCl (Roxycodone Tab*) 15 mg PO TID PRN PRN Reason: PAIN - SEVERE Last Admin: 08/19/19 16:27 Dose: 15 mg Pantoprazole Sodium (Protonix Tab*) 40 mg PO 0800 [facility]; Protocol Last Admin: 08/19/19 09:59 Dose: 40 mg Pharmacy Profile Note (Lidocaine Patch Remove*) 1 note PATCH OFF DAILY@2100 [facility] Senna (Senokot 8.6 Mg Tab*) 2 tab PO BID [facility] Last Admin: 08/19/19 10:04 Dose: 2 tab Tiotropium [place]/Olodaterol (Stiolto Respimat Inh [place] (60 Puff)) 2 puff INH DAILY [facility] Last Admin: 08/19/19 07:23 Dose: 2 puff Vital Signs - 8 hr 08/19/19 08/19/19 08/19/19 15:50 16:00 16:27 Temperature 98.8 F Pulse Rate 92 Respiratory 18 18 Rate Blood Pressure 118/55 (mmHg) O2 Sat by Pulse 80 93 Oximetry Oxygen Devices in Use Now: Nasal Cannula, OxyMask Appearance: NAD, sitting in chair Eyes: No Scleral Icterus, PERRLA Neck: NL Appearance and Movements; NL JVP Respiratory: Symmetrical Chest Expansion and Respiratory Effort, Clear to Auscultation Cardiovascular: NL Sounds; No Murmurs; No JVD, RRR Abdominal: NL Sounds; No Tenderness; No Distention, No Hepatosplenomegaly Extremities: No Edema Skin: No Rash or Ulcers Neurological: Alert and Oriented x 3 Nutrition: Taking PO's Result Diagrams: 08/19/19 05:10 08/18/19 08:12 Additional Lab and Data: Laboratory Results - last 24 hr 08/19/19 05:10 WBC 5.2 RBC 2.88 L Hgb 8.7 L Hct 27 L MCV 93 MCH 30 MCHC 32 RDW 16 H Plt Count 149 L MPV 9.0 Neut % (Auto) 65.9 Lymph % (Auto) 20.4 [place] % (Auto) 9.3 Eos % (Auto) 3.8 Baso % (Auto) 0.6 Absolute Neuts (auto) 3.5 Absolute Lymphs (auto) 1.1 Absolute Monos (auto) 0.5 Absolute Eos (auto) 0.2 Absolute Basos (auto) 0.0 Absolute Nucleated RBC 0.0 Nucleated RBC % 0.1 Microbiology and Other Data: Microbiology 08/12/19 20:26 Nasal Nasal Screen MRSA (PCR) - Final Mrsa Not Detected Diagnostic Imaging: CTA 08/12/2019 IMPRESSION: No pulmonary embolism is noted. Aneurysmal dilatation of the descending aorta measuring up to 5.3 cm emphysematous changes are noted. 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 Findings are unchanged since May 06, 2019. Previously identified mass in the superior segment of the right lower lobe is significantly decreased. Prestent is consistent with resolving pneumonia. ECHO 08/12/2019 Summary: - Left ventricle: Systolic function is normal. The estimated ejection fraction is 60-65%. Doppler parameters are consistent with abnormal left ventricular relaxation (grade 1 diastolic dysfunction). - Right ventricle: The cavity size is mildly reduced. Systolic function is normal. - Mitral valve: There is trace regurgitation. - Aortic valve: The findings are consistent with mild stenosis. There is mild regurgitation. The peak systolic velocity is 2.3 m/sec. The mean systolic gradient is 7.0 mm Hg. The LVOT to aortic valve VTI ratio is 0.59. The valve area by the peak velocity method is 1.45 cm^2. CXR 08/12 FINDINGS: Image quality is compromised due to the relative inferiority of a portable chest x-ray. The heart and mediastinum exhibit normal size and contour. There is coarse calcification overlying the arch of the aorta. There is mild patchy density overlying the bilateral lungs, slightly worse on the left than the right. Visualized bones are normal for the patient's age. IMPRESSION: Chest x-ray findings are consistent with mild pulmonary edema without substantial change since the August 07, 2019 chest x-ray. 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 - repeat CXR most consistent with some left basilar atelectasis, continued right hemidiaphragm elevation. (2) Heart failure with preserved ejection fraction Current Visit: Yes Status: Acute Code(s): I50.30 - UNSPECIFIED DIASTOLIC ( CONGESTIVE) HEART FAILURE SNOMED Code(s): 690648962 Comment: -Grade 1 diastolic dysfxn -Continue furosemide, euvolemic, 40mg daily (home dose was 10mg) -BB, statin (3) Anemia Current Visit: No Status: Acute Code(s): D64.9 - ANEMIA, UNSPECIFIED SNOMED Code(s): 267504193 Comment: -Normocytic normochromic; iron sat 8%, iron 29, ferritin wnl,RDW elevated consistent with KEVIN) -s/p 1 U PRBC 08/12/19 - did not tolerate oral iron supplementation secondary to nausea/vomiting. Tolerated venofer 08/18, will repeat 08/20 am - follows with Dr. Sanchez - f/u (remote)BMB staining that Dr. Sanchez added on recently. (4) CKD (chronic kidney disease) Current Visit: No Status: Acute Code(s): N18.9 - CHRONIC KIDNEY DISEASE, UNSPECIFIED SNOMED Code(s): 837535420 Comment: -CKD3 at baseline, stable, meds renally dosed (5) COPD (chronic obstructive pulmonary disease) Current Visit: No Status: Acute Code(s): J44.9 - CHRONIC OBSTRUCTIVE PULMONARY DISEASE, UNSPECIFIED SNOMED Code(s): 98564956 Comment: -GOLD4 on 2-3L O2 at baseline, from long standing tob use quit in 2013 -No e/o acute exacerbation -On Spiriva/LAMA, not on ICS, on Levalbuteral for ELIANA (6) CVA (cerebral vascular accident) Current Visit: No Status: Acute Code(s): I63.9 - CEREBRAL INFARCTION, UNSPECIFIED SNOMED Code(s): 595695404 Comment: -History of ischemic CVA with hemorrhagic transformation with residual visual deficit -On aspirin, statin (7) Chronic pain Current Visit: No Status: Acute Code(s): G89.29 - OTHER CHRONIC PAIN SNOMED Code(s): 43714565 Comment: -On 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 (8) DVT prophylaxis Current Visit: No Status: Acute Code(s): WHP8690 - SNOMED Code(s): 976805545 Comment: -SQH (9) Full code status Current Visit: No Status: Acute Code(s): Z78.9 - OTHER SPECIFIED HEALTH STATUS SNOMED Code(s): 447108713 (10) GERD (gastroesophageal reflux disease) Current Visit: No Status: Acute Code(s): K21.9 - GASTRO-ESOPHAGEAL REFLUX DISEASE WITHOUT ESOPHAGITIS SNOMED Code(s): 841656813 Comment: -Continue PPI (11) Hypertension Current Visit: No Status: Acute Priority: Medium Code(s): I10 - ESSENTIAL (PRIMARY) HYPERTENSION SNOMED Code(s): 04052892 Comment: -Continue home dose of amlodipine 5 metoprolol tartrate 12.5mg po BID. could use and ACEI soon. (12) Lung mass Current Visit: No Status: Acute Code(s): R91.8 - OTHER NONSPECIFIC ABNORMAL FINDING OF LUNG FIELD SNOMED Code(s): 566249574 Comment: -Amyloid per Dr. Valencia's note, will need outpt rearrange outpt bronch as he missed his appt for definitive mgmt. Dr. Ernst was recommended. (?sp) -Caused intermittent hemoptysis (none since May) (13) PTSD (post-traumatic stress disorder) Current Visit: No Status: Acute Priority: Medium Code(s): F43.10 - POST- TRAUMATIC STRESS DISORDER, UNSPECIFIED SNOMED Code(s): 46367648 Comment: -Continue abilify, duloxetine, alprazolam. (14) S/P abdominal aortic aneurysm repair Current Visit: No Status: Acute Priority: High Onset Date: 07/12/15 Code (s): Z98.89 - OTHER SPECIFIED POSTPROCEDURAL STATES * DO NOT USE *; Z86.79 - PERSONAL HISTORY OF OTHER DISEASES OF THE CIRCULATORY SYSTEM SNOMED Code(s): 722299493 Comment: -surgery at [facility] 06/09/2015. -now AAA of 5.3~recurrence -should follow outpt Status and Disposition: Inpatient -PT/OT to follow and recommend rehab: PMRU declined. they opt for home with PT , likely 08/20 -Needs outpt rescheduling of bronchoscopy
[2019-08-19] MEDS: Montelukast Sodium TAB* 10 MG PO SCH (21:41)
[2019-08-20] MEDS: oxyCODONE TAB* 5 MG TAB PO PRN (00:41)
[2019-08-20] MEDS: Heparin VIAL(*) 5000 UNITS/ML VIAL (FIVE THOUSAND) SUBCUT SCH ×2 (00:42→08:22)
[2019-08-20 06:30] LABS: ABS Eosinophils 0.3 10^3/ul (0-0.6); ABS Lymphocytes 1.2 10^3/ul (1.0-4.8); ABS Monocytes 0.6 10^3/ul (0-0.8); ABS Neutrophils 2.7 10^3/ul (1.5-7.7); Eosinophil % 5.5 %; Hematocrit 25 % (42-52); Lymphocyte % 25.2 %; Mean Corpuscular HGB Conc 32 g/dL (31-36); Mean Corpuscular Hemoglobin 30 pg (27-31); Mean Corpuscular Volume 93 fL (80-94); Mean Platelet Volume 9.8 fL (7.4-10.4); Nucleated Red Blood Cells % 0.1; Platelet Count 133 10^3/uL (150-450); Red Blood Count 2.69 10^6 /uL (4.18-5.48); Red Cell Distribution Width 16 % (10-15); White Blood Count 4.9 10^3/uL (3.5-10.8)
[2019-08-20 06:43] LABS: BUN/Creatinine Ratio 31.6 (8-20); Calcium 8.8 mg/dL (8.6-10.3); EGFR African American 47.7 (>60); EGFR Non-African American 39.4 (>60); Potassium 4.8 mmol/L (3.5-5.0)
[2019-08-20] MEDS ORDERED: Iron Sucrose* 200 MG in NS 0.9% 100 ML* 100 ML IVPB ONE (07:00)
[2019-08-20] MEDS ORDERED: Pantoprazole TAB * 40 MG TAB PO SCH (07:30)
[2019-08-20] MEDS: Tiotropium Brom/Olodaterol MDI INH SCH (07:40)
[2019-08-20] MEDS: DULoxetine DR CAP* 20 MG CAP.DR PO SCH (08:22)
[2019-08-20] MEDS: oxyCODONE SR TAB(*) 10 MG TAB.SR PO SCH (08:23)
[2019-08-20] MEDS: Senna TAB 8.6 mg* TAB PO SCH (08:23)
[2019-08-20] MEDS: Aspirin EC TAB* 81 MG TAB.EC PO SCH (08:23)
[2019-08-20] MEDS: ARIPiprazole TAB* 5 MG PO SCH (08:23)
[2019-08-20] MEDS: Docusate CAP* 100 MG PO SCH (08:23)
[2019-08-20] MEDS: amLODIPine TAB* 5 MG PO SCH (08:24)
[2019-08-20] MEDS: Metoprolol Tartrate TAB* 25 MG PO SCH (08:24)
[2019-08-20 11:45] VITALS: BP 97/48
[2019-08-20] MEDS: Collagenase 250 UNITS/GM OINT* 1 APPLIC OINT TOPICAL SCH (13:04)
[2019-08-20] MEDS ORDERED: Famotidine TAB* 20 MG PO SCH (19:00)
--- NOTE | 2019-08-21 05:23 | DS ---
DISCHARGE SUMMARY: DATE OF ADMISSION: 08/13/19 DATE OF DISCHARGE: 08/20/19 ADMITTING PROVIDER: SUSANA Renteria PRIMARY CARE PROVIDER: Bibi Gamez NP OUTPATIENT MILL CONTROLLER: Susanna Valencia MD OUTPATIENT GLOBAL MARKETING SPECIALIST: Dr. Novak. TERTIARY CARE MILL CONTROLLER: Dr. Ghotra. He is now being referred also to thoracic surgeon Dr. Roman Rivero at [facility]. CHIEF COMPLAINT: Hypoxia/dyspnea on exertion. PRINCIPAL DIAGNOSES: 1. Pyucu-sl-[id number] respiratory failure in the setting of severe chronic obstructive pulmonary disease, endobronchial pulmonary amyloidosis and diastolic heart failure. 2. Hyperkalemia. 3. Iron deficiency anemia. 4. Anxiety. HISTORY OF PRESENT ILLNESS AND HOSPITAL COURSE: Mr. Salguero is a 73-year-old male with past medical history of hypertension, COPD, chronic hypoxic respiratory failure requiring 2 to 3 L of nasal cannula day and night with recent increase to 3 to 4, endobronchial amyloid mass discovered in May 2019 with a plan for outpatient bronchoscopy and laser therapy at [facility]. See H and P for full details, but briefly the patient was found to be satting in the 60s at the pain clinic and Dr. Novak referred him to emergency room. He was noted to have increased dyspnea on exertion for 2 weeks with increased oxygen requirement. He denied any hemoptysis since his last admission, which has lead to the discovery of the endobronchial mass. He denied fevers, cough, night sweats, weight loss. He was noted to have increased lower extremity edema. His chest x-ray as mentioned showed mild pulmonary edema. CTA of the chest showed no pulmonary embolism. A previously identified mass in the superior segment of the right lower lobe was significantly increased. He had a transthoracic echocardiogram, which demonstrated EF of 60% to 65% with grade 1 diastolic dysfunction, mild aortic stenosis, moderate pulmonary hypertension with pressures of 39 mmHg. He had increased ascending aortic dilatation, which is 5.2 cm. Initial hemoglobin was 8.0. He was given 1 unit of packed red blood cells. He was later confirmed to have iron deficiency anemia. He did not tolerate oral iron supplements during the course of hospitalization. He did get Venofer on the morning of discharge and 2 days prior as well. He initially presented with severe hyperkalemia in the setting of potassium supplementation of level 6.4. He received therapy for that and was not continued on potassium supplements on discharge. His initial BNP was 367 and he had increase in his diuresis to help with his respiratory failure. He did require up to 10 L of oxygen initially and was in the ICU before things settle down after 2 days there. His respiratory improvement eventually plateaued and by discharge he was requiring approximately 3 to 4 L at rest and between 5 and 6 L on exertion. He was noted to be strictly a mouth breather and would often be seen to wearing his nasal cannula inside of his mouth when he sleeps or ambulates (holding the nasal canula in a closed mouth in the later case). His chronic kidney disease was for the most part stable with a creatinine on admission of 1.52 going up to 1.66 before falling down again and then bumping up on the day of discharge to 1.71 and his diuretics were decreased from 40 mg Lasix daily to 20 mg Lasix daily (at home had been 10 mg p.o. daily). Dr. Valencia found a name of another cardiothoracic, Dr. Roman Rivero who could potentially perform bronchoscopy and laser therapy to his remaining amyloid mass while Dr. Ghotra is out of the country. MRSA - was negative. He had 1 isolated fever on 08/13/19 of 100.4. His bicarb on admission was 38, peaked at 42 and on discharge was 40. Please note that the patient and family was adamant that they would go home rather than to retirement facility placement. DISCHARGE MEDICATIONS: Include: 1. Alprazolam 0.25 mg p.o. q.6 hours p.r.n. 2. Amlodipine 5 mg p.o. q.a.m. 3. Abilify 2.5 mg p.o. q.a.m. 4. Aspirin 81 mg p.o. q.a.m. 5. Atorvastatin 80 mg p.o. at bedtime. 6. Tessalon 100 mg p.o. t.i.d. p.r.n. 7. Santyl 1 application topical daily to the coccyx. 8. Docusate 100 mg p.o. b.i.d. 9. Duloxetine 40 mg p.o. q.a.m. 10. Nexium 40 mg p.o. q.a.m. 11. Pepcid 20 mg p.o. daily. 12. Lasix 20 mg p.o. daily (increased from 10 mg formerly). 13. Bevespi 2 puffs inhaled b.i.d. 14. Guaifenesin 1200 mg p.o. b.i.d. 15. Xopenex 0.63 mg inhaled q.4 hours p.r.n. 16. Lidocaine patch 1 to 2 patch transdermal daily. 17. Magnesium oxide 400 mg p.o. q.a.m. 18. Metoprolol tartrate 12.5 mg p.o. b.i.d. 19. Singulair 10 mg p.o. at bedtime. 20. Zofran 4 mg sublingual q.6 hours p.r.n. 21. OxyContin 10 mg p.o. q.12 hours. 22. Oxycodone 15 mg p.o. t.i.d. p.r.n. 23. He is already on sennosides/docusate 2 tabs p.o. b.i.d. DISPOSITION: Home. CONDITION: Guarded. FOLLOWUP: Please follow up with Dr. Valencia and PCP, Bibi Gamez, as arranged, specifically recommended to establish with Dr. Rivero in [place] to pursue with endobronchial amyloid lesion laser ablation on bronchoscopy ( while his original retail account executive Dr. Ghotra is traveling). TIME SPENT ON DISCHARGE: 45 minutes. [id number]/[facility] #: [id number] MTDD
== END 2019-08-20 13:25 | disposition home or self-care (01) | DRG 189 ==
LOC: ED 11:19 → MEDTELE 17:30 → ICU 19:12 → OBSVTOIN 08-13 16:00 → MED 08-14 14:46
PROVIDERS: ADMIT Internal Medicine; ATTEND Internal Medicine
PROC: 30233N1 Transfusion of Nonautologous Red Blood Cells into Peripheral Vein, Percutaneous Approach (ICD-10-PCS; principal; 2019-08-13)
DX: J96.21 Acute and chronic respiratory failure with hypoxia (principal); I50.33 Acute on chronic diastolic (congestive) heart failure; I26.99 Other pulmonary embolism without acute cor pulmonale; I13.0 Hypertensive heart and chronic kidney disease with heart failure and stage 1 through stage 4 chronic kidney disease, or unspecified chronic kidney disease; E85.4 Organ-limited amyloidosis; Q61.02 Congenital multiple renal cysts; N17.9 Acute kidney failure, unspecified; E87.4 Mixed disorder of acid-base balance; J96.22 Acute and chronic respiratory failure with hypercapnia; K21.9 Gastro-esophageal reflux disease without esophagitis; G47.30 Sleep apnea, unspecified; N40.0 Benign prostatic hyperplasia without lower urinary tract symptoms; M19.90 Unspecified osteoarthritis, unspecified site; H91.91 Unspecified hearing loss, right ear; M48.00 Spinal stenosis, site unspecified; L89.150 Pressure ulcer of sacral region, unstageable; L89.320 Pressure ulcer of left buttock, unstageable; L89.310 Pressure ulcer of right buttock, unstageable; J43.9 Emphysema, unspecified; J98.6 Disorders of diaphragm; R91.8 Other nonspecific abnormal finding of lung field; F41.9 Anxiety disorder, unspecified; F50.9 Eating disorder, unspecified; F32.9 Major depressive disorder, single episode, unspecified; F43.10 Post-traumatic stress disorder, unspecified; R79.89 Other specified abnormal findings of blood chemistry; N18.3 Chronic kidney disease, stage 3 (moderate); J99 Respiratory disorders in diseases classified elsewhere; D69.6 Thrombocytopenia, unspecified; I35.0 Nonrheumatic aortic (valve) stenosis; I27.20 Pulmonary hypertension, unspecified; I77.819 Aortic ectasia, unspecified site; D50.9 Iron deficiency anemia, unspecified; H53.8 Other visual disturbances; G89.29 Other chronic pain; E78.5 Hyperlipidemia, unspecified; E87.5 Hyperkalemia; Z99.81 Dependence on supplemental oxygen; Z87.891 Personal history of nicotine dependence; Z88.5 Allergy status to narcotic agent; Z88.8 Allergy status to other drugs, medicaments and biological substances; Z97.4 Presence of external hearing-aid; Z68.25 Body mass index [BMI] 25.0-25.9, adult; Z88.6 Allergy status to analgesic agent; I69.398 Other sequelae of cerebral infarction; Z91.040 Latex allergy status; Z79.82 Long term (current) use of aspirin; Z79.899 Other long term (current) drug therapy
CPT/HCPCS: 36415; 71045; 71046; 71275; 80048; 80053; 82330; 82607; 82728; 82746; 82803; 83540; 83550; 83735; 83880; 84100; 84132; 84134; 84484; 85014; 85018; 85025; 85027; 85610; 85730; 86850; 86900; 86901; 86922; 87641; 93005; 93306; 94640; 99284; A9270-GY; J0610; J1644; J1756; J1940; J2405; J3475; J3535; P9040; Q9967

== ENCOUNTER 2020-04-27 09:39 | Observation (INO) ==
[2020-04-27] MEDS ORDERED: NS 0.9% 1000 ml BAG 1,000 ML IV ONE (11:22)
[2020-04-27 12:08] LABS: ABS Basophils 0.1 10^3/ul (0-0.2); ABS Eosinophils 0.3 10^3/ul (0-0.6); ABS Lymphocytes 0.4 10^3/ul (1.0-4.8); ABS Monocytes 0.6 10^3/ul (0-0.8); ABS Neutrophils 5.7 10^3/ul (1.5-7.7); Eosinophil % 4.6 %; Hematocrit 32 % (42-52); Hemoglobin 10.5 g/dL (14.0-18.0); Lymphocyte % 5.5 %; Mean Corpuscular HGB Conc 33 g/dL (31-36); Mean Corpuscular Hemoglobin 32 pg (27-31); Mean Corpuscular Volume 95 fL (80-94); Mean Platelet Volume 10.2 fL (7.4-10.4); Platelet Count 133 10^3/uL (150-450); Red Blood Count 3.32 10^6 /uL (4.18-5.48); Red Cell Distribution Width 14 % (10-15); White Blood Count 7.1 10^3/uL (3.5-10.8)
[2020-04-27 12:23] LABS: ALT 8 U/L (7-52); AST 18 U/L (13-39); Albumin 4.2 g/dL (3.2-5.2); Albumin/Globulin Ratio 1.2 (1-3); Alkaline Phosphatase 65 U/L (34-104); Anion Gap 4 mmol/L (2-11); BUN/Creatinine Ratio 33.1 (8-20); Blood Urea Nitrogen 51 mg/dL (6-24); CO2 Carbon Dioxide 36 mmol/L (22-32); Chloride 100 mmol/L (101-111); EGFR African American 53.7 (>60); EGFR Non-African American 44.4 (>60); Globulin 3.4 g/dL (2-4); Glucose 121 mg/dL (70-100); Potassium 5.5 mmol/L (3.5-5.0); Sodium 140 mmol/L (135-145); Total Protein 7.6 g/dL (6.4-8.9)
[2020-04-27 12:27] LABS: Troponin I 0.03 ng/mL (<0.03)
[2020-04-27 13:01] LABS: TSH Ultra Thyroid Stim Horm 3.14 mcIU/mL (0.34-5.60)
[2020-04-27 15:29] LABS: Troponin I 0.04 ng/mL (<0.03)
[2020-04-27] MEDS ORDERED: Sodium Polystyrene ORAL.SUSP 15 GM/60 ML BTL PO ONE (15:40)
[2020-04-27 16:25] LABS: Ferritin 141.5 ng/mL (24-336)
[2020-04-27 16:26] LABS: % Iron Saturation 19 % (15-55); Iron 58 ug/dL (50-212); Total Iron Binding Capacity 302 mcg/dL (250-450); Transferrin 216 mg/dL (203-362); Unsaturated Iron Binding < 287 ug/dL
[2020-04-27] MEDS ORDERED: Senna TAB 8.6 mg TAB PO PRN (16:57)
[2020-04-27] MEDS ORDERED: Ondansetron 4 mg VIAL 2 MG/ML 2 ml VIAL IV PRN (16:57)
[2020-04-27 17:13] LABS: Urine Appearance Clear; Urine Bilirubin Negative (Negative); Urine Blood Negative (Negative); Urine Color Yellow; Urine Glucose Negative (Negative); Urine Ketones Negative (Negative); Urine Nitrite Negative (Negative); Urine Protein 1+(30 mg/dL) (Negative); Urine Specific Gravity 1.012 (1.010-1.030); Urine Urobilinogen Negative (Negative)
[2020-04-27 17:21] LABS: LDH 236 U/L (140-271)
[2020-04-27] MEDS ORDERED: Iodixanol (CONTRAST) 320 MG/ML 100 ML SDV IV ONE (17:25)
[2020-04-27 17:28] LABS: Urine Bacteria Absent (Absent); Urine Red Blood Cell Absent (Absent); Urine White Blood Cell Absent (Absent)
[2020-04-27] MEDS ORDERED: Levalbuterol 0.63MG/3ML NEB UNIT OF USE INH PRN (17:39)
[2020-04-27 17:54] LABS: Folate > 20.00 ng/mL (>3.99)
[2020-04-27 17:55] LABS: Vitamin B12 759 pg/mL (180-914)
[2020-04-27 18:39] LABS: Troponin I 0.03 ng/mL (<0.03)
[2020-04-27] MEDS: Enoxaparin 40 MG/0.4 ML SYR SUBCUT SCH (20:17)
[2020-04-27] MEDS: NS 0.9% 1000 ml BAG 1,000 ML IV SCH (20:19)
[2020-04-27 21:13] LABS: CO2 Carbon Dioxide 30 mmol/L (22-32); Calcium 9.7 mg/dL (8.6-10.3); Chloride 99 mmol/L (101-111); Sodium 138 mmol/L (135-145)
[2020-04-27 21:18] LABS: BUN/Creatinine Ratio 31.9 (8-20); Blood Urea Nitrogen 43 mg/dL (6-24); EGFR African American 62.5 (>60); EGFR Non-African American 51.7 (>60); Glucose 117 mg/dL (70-100)
[2020-04-27 21:32] LABS: Anion Gap 9 mmol/L (2-11)
[2020-04-28 07:09] LABS: ABS Eosinophils 0.4 10^3/ul (0-0.6); ABS Lymphocytes 0.5 10^3/ul (1.0-4.8); ABS Monocytes 0.5 10^3/ul (0-0.8); ABS Neutrophils 5.2 10^3/ul (1.5-7.7); Eosinophil % 5.7 %; Hematocrit 30 % (42-52); Hemoglobin 10.3 g/dL (14.0-18.0); Mean Corpuscular HGB Conc 35 g/dL (31-36); Mean Corpuscular Hemoglobin 33 pg (27-31); Mean Corpuscular Volume 95 fL (80-94); Mean Platelet Volume 10.7 fL (7.4-10.4); Platelet Count 121 10^3/uL (150-450); Red Blood Count 3.11 10^6 /uL (4.18-5.48); Red Cell Distribution Width 14 % (10-15); White Blood Count 6.6 10^3/uL (3.5-10.8)
[2020-04-28 07:29] LABS: BUN/Creatinine Ratio 32.1 (8-20); Calcium 9.4 mg/dL (8.6-10.3); EGFR African American 82.6 (>60); EGFR Non-African American 68.3 (>60); Potassium 3.9 mmol/L (3.5-5.0)
[2020-04-28] MEDS: Tiotropium Brom/Olodaterol MDI INH SCH (07:46)
[2020-04-28] MEDS: Aspirin EC 81 mg TAB.EC (enteric coated) PO SCH (08:17)
[2020-04-28] MEDS: DULoxetine DR 20 mg CAP PO SCH (08:17)
[2020-04-28] MEDS: NS 0.9% 1000 ml BAG 1,000 ML IV SCH ×2 (15:00→17:50)
[2020-04-28] MEDS: Enoxaparin 40 MG/0.4 ML SYR SUBCUT SCH (17:46)
[2020-04-28] MEDS ORDERED: HYDROmorphone 0.5 MG/0.5 ML SYRINGE IV ONE (18:06)
[2020-04-29] MEDS: NS 0.9% 1000 ml BAG 1,000 ML IV SCH (03:41)
[2020-04-29] MEDS: Tiotropium Brom/Olodaterol MDI INH SCH (07:25)
[2020-04-29 09:22] LABS: ABS Eosinophils 0.3 10^3/ul (0-0.6); ABS Lymphocytes 0.4 10^3/ul (1.0-4.8); ABS Monocytes 0.4 10^3/ul (0-0.8); ABS Neutrophils 3.6 10^3/ul (1.5-7.7); Eosinophil % 5.4 %; Hematocrit 28 % (42-52); Hemoglobin 9.3 g/dL (14.0-18.0); Lymphocyte % 8.4 %; Mean Corpuscular HGB Conc 33 g/dL (31-36); Mean Corpuscular Hemoglobin 31 pg (27-31); Mean Corpuscular Volume 95 fL (80-94); Mean Platelet Volume 9.8 fL (7.4-10.4); Platelet Count 120 10^3/uL (150-450); Red Blood Count 2.98 10^6 /uL (4.18-5.48); Red Cell Distribution Width 14 % (10-15); White Blood Count 4.7 10^3/uL (3.5-10.8)
[2020-04-29 09:33] LABS: Calcium 9.3 mg/dL (8.6-10.3); EGFR African American 76.8 (>60); EGFR Non-African American 63.4 (>60); Potassium 3.7 mmol/L (3.5-5.0)
[2020-04-29] MEDS ORDERED: Midazolam 10 mg/10 ml VIAL 1 mg/ml 10 ml VIAL (10 mg) ONE (10:27)
[2020-04-29] MEDS ORDERED: Meperidine 50 mg/ml SYRINGE 1 ml ONE (10:27)
[2020-04-29] MEDS ORDERED: fentaNYL 100 mcg/2 ml 50 MCG/ML VIAL ONE (11:09)
[2020-04-29] MEDS: DULoxetine DR 20 mg CAP PO SCH (14:21)
[2020-04-29] MEDS: Aspirin EC 81 mg TAB.EC (enteric coated) PO SCH (14:22)
[2020-04-29 15:13] VITALS: BP 106/53
== END 2020-04-29 17:02 | disposition home or self-care (01) ==
LOC: MED 09:39 → ED 09:39 → MED 18:50 → MEDTELE 21:29
PROVIDERS: ADMIT Internal Medicine; ATTEND Student in an Organized Health Care Education/Training Program

== ENCOUNTER 2020-10-15 20:03 | Inpatient (IN) ==
[2020-10-15] MEDS ORDERED: NS 0.9% 1000 ml BAG 1,000 ML IV ONE (20:09)
[2020-10-15] MEDS ORDERED: methylPREDNISolone 125 mg 2 ML VIAL IV ONE (20:16)
[2020-10-15 20:23] LABS: ABS Eosinophils 0.2 10^3/ul (0-0.6); ABS Lymphocytes 0.6 10^3/ul (1.0-4.8); ABS Monocytes 0.4 10^3/ul (0-0.8); ABS Neutrophils 6.2 10^3/ul (1.5-7.7); Eosinophil % 3.3 %; Hematocrit 32 % (42-52); Hemoglobin 10.4 g/dL (14.0-18.0); Mean Corpuscular HGB Conc 32 g/dL (31-36); Mean Corpuscular Hemoglobin 31 pg (27-31); Mean Corpuscular Volume 96 fL (80-94); Mean Platelet Volume 9.3 fL (7.4-10.4); Platelet Count 181 10^3/uL (150-450); Red Blood Count 3.32 10^6 /uL (4.18-5.48); Red Cell Distribution Width 14 % (10-15); White Blood Count 7.4 10^3/uL (3.5-10.8)
[2020-10-15] MEDS ORDERED: Albuterol HFA INHALER 8 gm MDI INH ONE ×2 (20:28→21:16)
[2020-10-15 20:41] LABS: ALT 10 U/L (7-52); AST 19 U/L (13-39); Albumin 4.5 g/dL (3.2-5.2); Albumin/Globulin Ratio 1.3 (1-3); Alkaline Phosphatase 79 U/L (34-104); Anion Gap 9 mmol/L (2-11); BUN/Creatinine Ratio 31.4 (8-20); Blood Urea Nitrogen 50 mg/dL (6-24); CO2 Carbon Dioxide 32 mmol/L (22-32); Calcium 9.9 mg/dL (8.6-10.3); Chloride 99 mmol/L (101-111); EGFR African American 51.6 (>60); EGFR Non-African American 42.7 (>60); Globulin 3.4 g/dL (2-4); Glucose 134 mg/dL (70-100); Magnesium 1.9 mg/dL (1.9-2.7); Potassium 4.8 mmol/L (3.5-5.0); Sodium 140 mmol/L (135-145); Total Protein 7.9 g/dL (6.4-8.9)
[2020-10-15 20:43] LABS: Troponin I 0.03 ng/mL (<0.03)
[2020-10-15 21:19] LABS: Activated Partial Thrombo Time 29.2 seconds (26.0-38.0); INR 1.24 (0.82-1.09)
[2020-10-15] MEDS ORDERED: Iodixanol (CONTRAST) 320 MG/ML 100 ML SDV IV ONE (21:32)
[2020-10-15] MEDS ORDERED: Azithromycin 500 mg/250 ml NS 500 MG/250 ML BAG IVPB ONE (22:19)
[2020-10-15] MEDS ORDERED: cefTRIAXone 2 GM ADDV.VIAL 2 GM in NS 0.9% 100 ml BAG 100 ML IVPB ONE (22:19)
[2020-10-15] MEDS ORDERED: Lorazepam PYXIS KEY PRN (23:12)
[2020-10-15] MEDS ORDERED: LORazepam 2 mg VIAL 1 ml IV PUSH PRN (23:12)
[2020-10-15] MEDS ORDERED: Piperacillin/Tazobac ADVAN 3.375 GM in NS 0.9% 100 ml BAG 100 ML IV ONE (23:12)
[2020-10-15] MEDS ORDERED: Ondansetron 4 mg VIAL 2 MG/ML 2 ml VIAL IV PRN (23:12)
[2020-10-15] MEDS ORDERED: Metoprolol Tartrate 5 mg VIAL 5 ml VIAL (1 mg/ml) IV ONE (23:12)
[2020-10-15] MEDS ORDERED: NS 0.9% 1000 ml BAG 1,000 ML IV SCH (23:15)
[2020-10-15] MEDS ORDERED: Metoprolol Tartrate 5 mg VIAL 5 ml VIAL (1 mg/ml) IV SCH (23:45)
[2020-10-15] MEDS ORDERED: Zosyn per Pharmacy NOTE FOLLOW UP SCH (23:45)
[2020-10-15] MEDS ORDERED: Albuterol/Ipratropium NEB.SOL (2.5/0.5 MG) 3 ML NEB.SOLN INH SCH (23:45)
[2020-10-16] MEDS: Pantoprazole VIAL 40 MG VIAL IV SCH ×2 (00:34→21:20)
[2020-10-16 00:43] LABS: Troponin I 0.04 ng/mL (<0.03)
[2020-10-16 03:17] LABS: Troponin I 0.04 ng/mL (<0.03)
[2020-10-16] MEDS: methylPREDNISolone SOD 40 mg/ml 1 ml VIAL IV SCH ×3 (05:08→21:20)
[2020-10-16] MEDS: Metoprolol Tartrate 5 mg VIAL 5 ml VIAL (1 mg/ml) IV SCH ×3 (05:10→18:14)
[2020-10-16] MEDS: ZOSYN 3.375 GM Q8H per EXTENDED INFUSION IV SCH ×3 (05:14→21:40)
[2020-10-16] MEDS: Heparin 5000 UNITS/ML 1 mL VIAL SUBCUT SCH ×3 (05:14→21:20)
[2020-10-16 05:32] LABS: ABS Lymphocytes 0.1 10^3/ul (1.0-4.8); ABS Monocytes 0.2 10^3/ul (0-0.8); ABS Neutrophils 8.4 10^3/ul (1.5-7.7); Eosinophil % 0.1 %; Hematocrit 25 % (42-52); Hemoglobin 8.3 g/dL (14.0-18.0); Lymphocyte % 1.4 %; Mean Corpuscular HGB Conc 33 g/dL (31-36); Mean Corpuscular Hemoglobin 32 pg (27-31); Mean Corpuscular Volume 96 fL (80-94); Mean Platelet Volume 9.3 fL (7.4-10.4); Platelet Count 113 10^3/uL (150-450); Red Blood Count 2.62 10^6 /uL (4.18-5.48); Red Cell Distribution Width 14 % (10-15); White Blood Count 8.7 10^3/uL (3.5-10.8)
[2020-10-16 05:50] LABS: Anion Gap 6 mmol/L (2-11); BUN/Creatinine Ratio 31.2 (8-20); Blood Urea Nitrogen 43 mg/dL (6-24); CO2 Carbon Dioxide 32 mmol/L (22-32); Calcium 8.9 mg/dL (8.6-10.3); Chloride 102 mmol/L (101-111); EGFR African American 60.8 (>60); EGFR Non-African American 50.2 (>60); Glucose 204 mg/dL (70-100); Potassium 4.8 mmol/L (3.5-5.0); Sodium 140 mmol/L (135-145)
[2020-10-16 06:16] LABS: Troponin I 0.04 ng/mL (<0.03)
[2020-10-16 06:40] LABS: Influenza A Molecular Negative (Negative); Influenza B Molecular Negative (Negative)
[2020-10-16] MEDS ORDERED: Mometasone/Formoter 200/5 MDI INH SCH (09:00)
[2020-10-16] MEDS: Albuterol HFA INHALER 8 gm MDI INH SCH ×3 (09:54→19:35)
[2020-10-16] MEDS: Azithromycin 500 mg/250 ml NS 500 MG/250 ML BAG IVPB SCH (20:21)
[2020-10-16] MEDS ORDERED: LORazepam 2 mg VIAL 1 ml IV PUSH ONE (20:48)
[2020-10-16] MEDS ORDERED: Lorazepam PYXIS KEY PRN (20:48)
[2020-10-16] MEDS: Albuterol 2.5mg/3 ml (0.083%) NEB.SOLN INH PRN (20:48)
[2020-10-16] MEDS ORDERED: Furosemide 20 mg/2 ml IV VIAL IV SLOW PU ONE (22:39)
[2020-10-17] MEDS: Metoprolol Tartrate 5 mg VIAL 5 ml VIAL (1 mg/ml) IV SCH ×2 (00:04→05:04)
[2020-10-17] MEDS: Albuterol HFA INHALER 8 gm MDI INH SCH ×3 (00:38→17:14)
[2020-10-17] MEDS ORDERED: Enalaprilat IV 1.25 mg/ml 1 ml VIAL (1.25 MG) IV ONE (01:02)
[2020-10-17] MEDS ORDERED: Metoprolol Tartrate 5 mg VIAL 5 ml VIAL (1 mg/ml) IV ONE (02:48)
[2020-10-17] MEDS: ZOSYN 3.375 GM Q8H per EXTENDED INFUSION IV SCH ×3 (05:02→22:30)
[2020-10-17] MEDS: methylPREDNISolone SOD 40 mg/ml 1 ml VIAL IV SCH ×3 (05:04→21:31)
[2020-10-17] MEDS: Heparin 5000 UNITS/ML 1 mL VIAL SUBCUT SCH ×3 (05:04→21:31)
[2020-10-17 05:37] LABS: ABS Lymphocytes 0.2 10^3/ul (1.0-4.8); ABS Monocytes 0.2 10^3/ul (0-0.8); ABS Neutrophils 7.2 10^3/ul (1.5-7.7); Hematocrit 25 % (42-52); Hemoglobin 8.1 g/dL (14.0-18.0); Lymphocyte % 2.8 %; Mean Corpuscular HGB Conc 32 g/dL (31-36); Mean Corpuscular Hemoglobin 31 pg (27-31); Mean Corpuscular Volume 96 fL (80-94); Mean Platelet Volume 9.7 fL (7.4-10.4); Platelet Count 122 10^3/uL (150-450); Red Cell Distribution Width 15 % (10-15); White Blood Count 7.6 10^3/uL (3.5-10.8)
[2020-10-17 05:53] LABS: BUN/Creatinine Ratio 32.2 (8-20); Calcium 9.3 mg/dL (8.6-10.3); EGFR African American 55.6 (>60); Potassium 4.4 mmol/L (3.5-5.0)
[2020-10-17] MEDS: Albuterol 2.5mg/3 ml (0.083%) NEB.SOLN INH PRN (13:18)
[2020-10-17] MEDS ORDERED: Albuterol HFA INHALER 8 gm MDI INH PRN ×2 (13:50→13:51)
[2020-10-17] MEDS ORDERED: Albuterol 2.5mg/3 ml (0.083%) NEB.SOLN INH SCH (19:00)
[2020-10-17] MEDS: Albuterol 2.5mg/3 ml (0.083%) NEB.SOLN INH SCH ×2 (19:54→23:50)
[2020-10-17] MEDS: Azithromycin 500 mg/250 ml NS 500 MG/250 ML BAG IVPB SCH (21:11)
[2020-10-17] MEDS: Pantoprazole VIAL 40 MG VIAL IV SCH (21:12)
[2020-10-17] MEDS: Clotrimazole 1% CREAM 30 gm TOPICAL SCH (21:35)
[2020-10-18 05:50] LABS: ABS Lymphocytes 0.2 10^3/ul (1.0-4.8); ABS Monocytes 0.2 10^3/ul (0-0.8); ABS Neutrophils 6.5 10^3/ul (1.5-7.7); Hematocrit 25 % (42-52); Hemoglobin 8.3 g/dL (14.0-18.0); Lymphocyte % 3.2 %; Mean Corpuscular HGB Conc 33 g/dL (31-36); Mean Corpuscular Hemoglobin 32 pg (27-31); Mean Corpuscular Volume 95 fL (80-94); Mean Platelet Volume 9.8 fL (7.4-10.4); Platelet Count 132 10^3/uL (150-450); Red Blood Count 2.65 10^6 /uL (4.18-5.48); Red Cell Distribution Width 15 % (10-15); White Blood Count 6.9 10^3/uL (3.5-10.8)
[2020-10-18 05:51] LABS: Calcium 9.5 mg/dL (8.6-10.3); Magnesium 1.7 mg/dL (1.9-2.7); Potassium 3.9 mmol/L (3.5-5.0)
[2020-10-18 05:56] LABS: BUN/Creatinine Ratio 37.8 (8-20); EGFR African American 62.3 (>60); EGFR Non-African American 51.5 (>60); INR 1.19 (0.82-1.09); Phosphorus 3.8 mg/dL (2.5-5.0)
[2020-10-18] MEDS: ZOSYN 3.375 GM Q8H per EXTENDED INFUSION IV SCH ×3 (06:14→22:12)
[2020-10-18] MEDS: methylPREDNISolone SOD 40 mg/ml 1 ml VIAL IV SCH ×3 (06:15→22:00)
[2020-10-18] MEDS: Heparin 5000 UNITS/ML 1 mL VIAL SUBCUT SCH ×3 (06:15→22:00)
[2020-10-18] MEDS ORDERED: Magnesium Sulfate IV 3 GM in NS 0.9% 100 ml BAG 100 ML IVPB ONE (07:28)
[2020-10-18] MEDS: Albuterol 2.5mg/3 ml (0.083%) NEB.SOLN INH SCH ×3 (07:31→19:30)
[2020-10-18] MEDS: Aspirin EC 81 mg TAB.EC (enteric coated) PO SCH (07:40)
[2020-10-18] MEDS: Clotrimazole 1% CREAM 30 gm TOPICAL SCH ×2 (07:49→22:03)
[2020-10-18] MEDS: DULoxetine DR 20 mg CAP PO SCH (07:56)
[2020-10-18] MEDS ORDERED: Magnesium Hydroxide LIQ 30 ML UDC PO PRN (08:26)
[2020-10-18] MEDS ORDERED: Furosemide 20 mg/2 ml IV VIAL IV ONE (08:50)
[2020-10-18] MEDS: Senna TAB 8.6 mg TAB PO SCH ×2 (08:52→22:00)
[2020-10-18] MEDS ORDERED: Senna/Docusate 8.6/50 mg (NF) TAB PO SCH (09:00)
[2020-10-18] MEDS: Budesonide NEB 0.5 MG/2 ML NEB.SOLN INH SCH (19:30)
[2020-10-18] MEDS: Pantoprazole VIAL 40 MG VIAL IV SCH (22:00)
[2020-10-18] MEDS: Azithromycin 500 mg/250 ml NS 500 MG/250 ML BAG IVPB SCH (22:00)
[2020-10-19] MEDS: Albuterol 2.5mg/3 ml (0.083%) NEB.SOLN INH SCH ×4 (00:51→19:46)
[2020-10-19] MEDS: ZOSYN 3.375 GM Q8H per EXTENDED INFUSION IV SCH ×3 (05:29→21:57)
[2020-10-19] MEDS: methylPREDNISolone SOD 40 mg/ml 1 ml VIAL IV SCH (05:29)
[2020-10-19] MEDS: Heparin 5000 UNITS/ML 1 mL VIAL SUBCUT SCH ×3 (05:29→21:57)
[2020-10-19] MEDS: Budesonide NEB 0.5 MG/2 ML NEB.SOLN INH SCH ×2 (07:03→19:46)
[2020-10-19] MEDS: DULoxetine DR 20 mg CAP PO SCH (09:27)
[2020-10-19] MEDS: Senna TAB 8.6 mg TAB PO SCH ×2 (09:28→20:08)
[2020-10-19] MEDS: Aspirin EC 81 mg TAB.EC (enteric coated) PO SCH (09:29)
[2020-10-19] MEDS: Clotrimazole 1% CREAM 30 gm TOPICAL SCH ×2 (09:41→21:57)
[2020-10-19] MEDS: Pantoprazole VIAL 40 MG VIAL IV SCH (20:07)
[2020-10-20] MEDS: Albuterol 2.5mg/3 ml (0.083%) NEB.SOLN INH SCH ×5 (00:38→20:38)
[2020-10-20] MEDS: ZOSYN 3.375 GM Q8H per EXTENDED INFUSION IV SCH ×3 (05:42→21:14)
[2020-10-20] MEDS: Heparin 5000 UNITS/ML 1 mL VIAL SUBCUT SCH ×3 (05:42→21:14)
[2020-10-20 06:57] LABS: ABS Lymphocytes 0.4 10^3/ul (1.0-4.8); ABS Monocytes 0.9 10^3/ul (0-0.8); ABS Neutrophils 6.3 10^3/ul (1.5-7.7); Hematocrit 26 % (42-52); Hemoglobin 8.5 g/dL (14.0-18.0); Lymphocyte % 5.7 %; Mean Corpuscular HGB Conc 32 g/dL (31-36); Mean Corpuscular Hemoglobin 31 pg (27-31); Mean Corpuscular Volume 97 fL (80-94); Mean Platelet Volume 9.5 fL (7.4-10.4); Platelet Count 144 10^3/uL (150-450); Red Cell Distribution Width 15 % (10-15); White Blood Count 7.7 10^3/uL (3.5-10.8)
[2020-10-20 07:13] LABS: BUN/Creatinine Ratio 34.8 (8-20); EGFR African American 45.3 (>60); EGFR Non-African American 37.4 (>60); Potassium 4.2 mmol/L (3.5-5.0)
[2020-10-20] MEDS: Budesonide NEB 0.5 MG/2 ML NEB.SOLN INH SCH ×2 (07:17→20:37)
[2020-10-20 08:35] LABS: Magnesium 2.1 mg/dL (1.9-2.7)
[2020-10-20] MEDS: Senna TAB 8.6 mg TAB PO SCH ×2 (08:40→21:15)
[2020-10-20] MEDS: DULoxetine DR 20 mg CAP PO SCH (08:40)
[2020-10-20] MEDS: Aspirin EC 81 mg TAB.EC (enteric coated) PO SCH (08:40)
[2020-10-20] MEDS ORDERED: methylPREDNISolone SOD 40 mg/ml 1 ml VIAL IV SCH (09:00)
[2020-10-20] MEDS: Clotrimazole 1% CREAM 30 gm TOPICAL SCH ×2 (10:14→21:15)
[2020-10-20] MEDS: Pantoprazole VIAL 40 MG VIAL IV SCH (21:14)
[2020-10-21] MEDS: Albuterol 2.5mg/3 ml (0.083%) NEB.SOLN INH SCH ×5 (01:24→19:32)
[2020-10-21] MEDS: ZOSYN 3.375 GM Q8H per EXTENDED INFUSION IV SCH ×3 (05:29→22:45)
[2020-10-21] MEDS: Heparin 5000 UNITS/ML 1 mL VIAL SUBCUT SCH ×3 (05:52→22:36)
[2020-10-21 06:34] LABS: ABS Lymphocytes 0.3 10^3/ul (1.0-4.8); ABS Monocytes 0.6 10^3/ul (0-0.8); ABS Neutrophils 5.3 10^3/ul (1.5-7.7); Hematocrit 27 % (42-52); Hemoglobin 8.6 g/dL (14.0-18.0); Lymphocyte % 5.3 %; Mean Corpuscular HGB Conc 32 g/dL (31-36); Mean Corpuscular Hemoglobin 31 pg (27-31); Mean Corpuscular Volume 97 fL (80-94); Mean Platelet Volume 9.8 fL (7.4-10.4); Nucleated Red Blood Cells % 0.1; Platelet Count 150 10^3/uL (150-450); Red Cell Distribution Width 14 % (10-15); White Blood Count 6.3 10^3/uL (3.5-10.8)
[2020-10-21 06:50] LABS: BUN/Creatinine Ratio 35.5 (8-20); Calcium 8.9 mg/dL (8.6-10.3); EGFR African American 48.1 (>60); EGFR Non-African American 39.8 (>60); Magnesium 1.9 mg/dL (1.9-2.7); Potassium 4.4 mmol/L (3.5-5.0)
[2020-10-21] MEDS: Budesonide NEB 0.5 MG/2 ML NEB.SOLN INH SCH ×3 (08:15→19:32)
[2020-10-21] MEDS: Clotrimazole 1% CREAM 30 gm TOPICAL SCH ×2 (08:56→20:19)
[2020-10-21] MEDS: DULoxetine DR 20 mg CAP PO SCH (08:57)
[2020-10-21] MEDS: Senna TAB 8.6 mg TAB PO SCH ×2 (08:58→20:20)
[2020-10-21] MEDS: Aspirin EC 81 mg TAB.EC (enteric coated) PO SCH (09:00)
[2020-10-21] MEDS: Pantoprazole VIAL 40 MG VIAL IV SCH (20:21)
[2020-10-22] MEDS: Albuterol 2.5mg/3 ml (0.083%) NEB.SOLN INH SCH ×2 (00:55→07:31)
[2020-10-22] MEDS: ZOSYN 3.375 GM Q8H per EXTENDED INFUSION IV SCH (05:09)
[2020-10-22] MEDS: Heparin 5000 UNITS/ML 1 mL VIAL SUBCUT SCH (05:24)
[2020-10-22 05:30] LABS: Hematocrit 28 % (42-52); Hemoglobin 9.1 g/dL (14.0-18.0); Mean Corpuscular HGB Conc 33 g/dL (31-36); Mean Corpuscular Hemoglobin 31 pg (27-31); Mean Corpuscular Volume 96 fL (80-94); Mean Platelet Volume 9.5 fL (7.4-10.4); Platelet Count 146 10^3/uL (150-450); Red Blood Count 2.89 10^6 /uL (4.18-5.48); Red Cell Distribution Width 14 % (10-15); White Blood Count 6.9 10^3/uL (3.5-10.8)
[2020-10-22 05:55] LABS: BUN/Creatinine Ratio 35.5 (8-20); Calcium 9.2 mg/dL (8.6-10.3); EGFR African American 59.3 (>60); Potassium 4.4 mmol/L (3.5-5.0)
[2020-10-22] MEDS: Budesonide NEB 0.5 MG/2 ML NEB.SOLN INH SCH (07:31)
[2020-10-22 07:54] VITALS: BP 148/67
[2020-10-22] MEDS: Aspirin EC 81 mg TAB.EC (enteric coated) PO SCH (08:22)
[2020-10-22] MEDS: Clotrimazole 1% CREAM 30 gm TOPICAL SCH (08:22)
[2020-10-22] MEDS: DULoxetine DR 20 mg CAP PO SCH (08:23)
[2020-10-22] MEDS: Senna TAB 8.6 mg TAB PO SCH (08:25)
== END 2020-10-22 11:14 | disposition home or self-care (01) | DRG 871 ==
LOC: ED 20:03 → ICU 23:06 → MEDTELE 10-18 20:56
PROVIDERS: ADMIT Hospitalist; ATTEND Internal Medicine

== ENCOUNTER 2021-02-02 09:47 | Inpatient (IN) ==
[2021-02-02 11:09] LABS: ABS Eosinophils 0.3 10^3/ul (0-0.6); ABS Lymphocytes 0.3 10^3/ul (1.0-4.8); ABS Monocytes 0.5 10^3/ul (0-0.8); ABS Neutrophils 4.8 10^3/ul (1.5-7.7); Eosinophil % 5.7 %; Hematocrit 26 % (42-52); Hemoglobin 8.4 g/dL (14.0-18.0); Lymphocyte % 5.7 %; Mean Corpuscular HGB Conc 33 g/dL (31-36); Mean Corpuscular Hemoglobin 30 pg (27-31); Mean Corpuscular Volume 92 fL (80-94); Mean Platelet Volume 9.5 fL (7.4-10.4); Platelet Count 105 10^3/uL (150-450); Red Blood Count 2.76 10^6 /uL (4.18-5.48); Red Cell Distribution Width 15 % (10-15)
[2021-02-02 11:19] LABS: Albumin 3.9 g/dL (3.2-5.2); Albumin/Globulin Ratio 1.4 (1-3); EGFR African American 47.1 (>60); Globulin 2.7 g/dL (2-4); Potassium 4.6 mmol/L (3.5-5.0); Total Bilirubin 0.5 mg/dL (0.2-1.0); Total Protein 6.6 g/dL (6.4-8.9)
[2021-02-02 11:27] LABS: Calcium 14.1 mg/dL (8.6-10.3)
[2021-02-02] MEDS ORDERED: NS 0.9% 1000 ml BAG 1,000 ML IV ONE ×3 (11:27→16:26)
[2021-02-02 11:55] LABS: Urine Appearance Clear; Urine Bilirubin Negative (Negative); Urine Blood Negative (Negative); Urine Color Yellow; Urine Glucose Negative (Negative); Urine Ketones Negative (Negative); Urine Nitrite Negative (Negative); Urine Protein 1+(30 mg/dL) (Negative); Urine Specific Gravity 1.009 (1.002-1.030); Urine Urobilinogen Negative (Negative)
[2021-02-02 12:00] LABS: Urine Bacteria Absent (Absent); Urine Red Blood Cell Trace(0-2/hpf) (Absent); Urine White Blood Cell Trace(0-5/hpf) (Absent)
[2021-02-02] MEDS ORDERED: Levalbuterol 0.63MG/3ML NEB UNIT OF USE INH PRN (14:27)
[2021-02-02 15:05] LABS: Phosphorus 3.9 mg/dL (2.5-5.0)
[2021-02-02] MEDS ORDERED: Zoledronic Acid 4 MG in NS 0.9% 100 ml BAG 100 ML IVPB ONE (15:43)
[2021-02-02 18:18] LABS: Calcium 13.7 mg/dL (8.6-10.3)
[2021-02-02 18:58] LABS: Vitamin D Total 25(OH) 48.2 ng/mL (20-50)
[2021-02-02] MEDS ORDERED: Calcitonin (Salmon) INJ 200 UNITS/ML 2 ML VIAL (400 units) IM SCH ×2 (20:41→21:00)
[2021-02-02] MEDS: Calcitonin (Salmon) INJ 200 UNITS/ML 2 ML VIAL (400 units) IM SCH (21:13)
[2021-02-02] MEDS: Senna TAB 8.6 mg TAB PO SCH (21:16)
[2021-02-02] MEDS ORDERED: NS 0.9% 1000 ml BAG 1,000 ML IV SCH (23:30)
[2021-02-03 05:17] LABS: Hematocrit 24 % (42-52); Hemoglobin 7.7 g/dL (14.0-18.0); Mean Corpuscular HGB Conc 32 g/dL (31-36); Mean Corpuscular Hemoglobin 30 pg (27-31); Mean Corpuscular Volume 92 fL (80-94); Red Blood Count 2.57 10^6 /uL (4.18-5.48); Red Cell Distribution Width 15 % (10-15); White Blood Count 3.8 10^3/uL (3.5-10.8)
[2021-02-03 05:18] LABS: ABS Eosinophils 0.2 10^3/ul (0-0.6); ABS Lymphocytes 0.2 10^3/ul (1.0-4.8); ABS Monocytes 0.3 10^3/ul (0-0.8); Eosinophil % 5.3 %; Lymphocyte % 6.6 %
[2021-02-03 05:32] LABS: Blood Urea Nitrogen 49 mg/dL (6-24); CO2 Carbon Dioxide 40 mmol/L (22-32); Calcium 12.4 mg/dL (8.6-10.3); Chloride 99 mmol/L (101-111); EGFR African American 54.8 (>60); EGFR Non-African American 45.3 (>60); Glucose 109 mg/dL (70-100); Potassium 4.6 mmol/L (3.5-5.0); Sodium 139 mmol/L (135-145)
[2021-02-03 05:59] LABS: Platelet Count 89 10^3/uL (150-450)
[2021-02-03] MEDS ORDERED: Furosemide 40 mg/4 ml IV VIAL IV ONE (06:00)
[2021-02-03] MEDS: Tiotropium Brom/Olodaterol MDI INH SCH (08:52)
[2021-02-03] MEDS: DULoxetine DR 20 mg CAP PO SCH (10:16)
[2021-02-03] MEDS: Senna TAB 8.6 mg TAB PO SCH ×2 (10:16→21:18)
[2021-02-03] MEDS: Aspirin EC 81 mg TAB.EC (enteric coated) PO SCH (10:18)
[2021-02-03] MEDS: Calcitonin (Salmon) INJ 200 UNITS/ML 2 ML VIAL (400 units) IM SCH ×2 (10:30→21:20)
[2021-02-03 11:57] LABS: TSH Ultra Thyroid Stim Horm 6.18 mcIU/mL (0.34-5.60)
[2021-02-03 14:38] LABS: Hematocrit 24 % (42-52); Hemoglobin 7.7 g/dL (14.0-18.0)
[2021-02-04 07:09] LABS: Hematocrit 24 % (42-52); Hemoglobin 7.8 g/dL (14.0-18.0)
[2021-02-04] MEDS: Tiotropium Brom/Olodaterol MDI INH SCH (08:35)
[2021-02-04] MEDS ORDERED: NS 0.9% 1000 ml BAG 1,000 ML IV SCH (08:45)
[2021-02-04 09:16] LABS: Calcium 12.4 mg/dL (8.6-10.3); Free T4 0.97 ng/dL (0.61-1.12)
[2021-02-04 09:16] LABS: ABS Eosinophils 0.2 10^3/ul (0-0.6); ABS Lymphocytes 0.3 10^3/ul (1.0-4.8); ABS Monocytes 0.3 10^3/ul (0-0.8); ABS Neutrophils 2.9 10^3/ul (1.5-7.7); Eosinophil % 5.3 %; Hematocrit 24 % (42-52); Hemoglobin 7.8 g/dL (14.0-18.0); Mean Corpuscular HGB Conc 33 g/dL (31-36); Mean Corpuscular Hemoglobin 30 pg (27-31); Mean Corpuscular Volume 92 fL (80-94); Mean Platelet Volume 9.7 fL (7.4-10.4); Platelet Count 90 10^3/uL (150-450); Red Blood Count 2.56 10^6 /uL (4.18-5.48); Red Cell Distribution Width 15 % (10-15); White Blood Count 3.8 10^3/uL (3.5-10.8)
[2021-02-04] MEDS ORDERED: cefTRIAXone 1 gm/50 mL NS BAG 1 GM/50 ML BAG IVPB ONE (09:30)
[2021-02-04] MEDS: Senna TAB 8.6 mg TAB PO SCH ×2 (09:59→21:09)
[2021-02-04] MEDS: Aspirin EC 81 mg TAB.EC (enteric coated) PO SCH (09:59)
[2021-02-04] MEDS: Calcitonin (Salmon) INJ 200 UNITS/ML 2 ML VIAL (400 units) IM SCH ×2 (10:00→21:12)
[2021-02-04] MEDS: DULoxetine DR 20 mg CAP PO SCH (10:01)
[2021-02-05 06:31] LABS: ABS Eosinophils 0.2 10^3/ul (0-0.6); ABS Lymphocytes 0.3 10^3/ul (1.0-4.8); ABS Monocytes 0.4 10^3/ul (0-0.8); ABS Neutrophils 4.3 10^3/ul (1.5-7.7); Eosinophil % 3.1 %; Hematocrit 25 % (42-52); Mean Corpuscular HGB Conc 32 g/dL (31-36); Mean Corpuscular Hemoglobin 30 pg (27-31); Mean Corpuscular Volume 93 fL (80-94); Mean Platelet Volume 9.7 fL (7.4-10.4); Platelet Count 98 10^3/uL (150-450); Red Blood Count 2.69 10^6 /uL (4.18-5.48); Red Cell Distribution Width 16 % (10-15); White Blood Count 5.1 10^3/uL (3.5-10.8)
[2021-02-05 06:51] LABS: Albumin 3.7 g/dL (3.2-5.2); Albumin/Globulin Ratio 1.3 (1-3); Calcium 11.7 mg/dL (8.6-10.3); EGFR African American 58.8 (>60); EGFR Non-African American 48.6 (>60); Globulin 2.8 g/dL (2-4); Indirect Bilirubin 0.3 mg/dL (0.3-1.0); Potassium 4.2 mmol/L (3.5-5.0); Total Bilirubin 0.4 mg/dL (0.2-1.0); Total Protein 6.5 g/dL (6.4-8.9)
[2021-02-05] MEDS: Tiotropium Brom/Olodaterol MDI INH SCH (08:57)
[2021-02-05] MEDS: DULoxetine DR 20 mg CAP PO SCH (09:12)
[2021-02-05] MEDS: Calcitonin (Salmon) INJ 200 UNITS/ML 2 ML VIAL (400 units) IM SCH (09:13)
[2021-02-05] MEDS: Aspirin EC 81 mg TAB.EC (enteric coated) PO SCH (09:13)
[2021-02-05] MEDS: Senna TAB 8.6 mg TAB PO SCH ×2 (09:13→20:39)
[2021-02-05] MEDS: cefTRIAXone 1 gm/50 mL NS BAG 1 GM/50 ML BAG IVPB SCH (09:20)
[2021-02-06] MEDS ORDERED: Succinylcholine 200 mg VIAL 20 mg/ml 10 ml VIAL (200 mg) ONE (04:03)
[2021-02-06] MEDS ORDERED: Rocuronium 50 mg VIAL 10 mg/ml 5 ml VIAL (50 mg) ONE (04:03)
[2021-02-06 04:24] LABS: ABS Eosinophils 0.1 10^3/ul (0-0.6); ABS Lymphocytes 0.6 10^3/ul (1.0-4.8); ABS Monocytes 0.9 10^3/ul (0-0.8); ABS Neutrophils 7.9 10^3/ul (1.5-7.7); Eosinophil % 0.6 %; Hematocrit 27 % (42-52); Hemoglobin 8.6 g/dL (14.0-18.0); Mean Corpuscular HGB Conc 32 g/dL (31-36); Mean Corpuscular Hemoglobin 30 pg (27-31); Mean Corpuscular Volume 95 fL (80-94); Mean Platelet Volume 9.6 fL (7.4-10.4); Platelet Count 121 10^3/uL (150-450); Red Blood Count 2.81 10^6 /uL (4.18-5.48); Red Cell Distribution Width 16 % (10-15); White Blood Count 9.4 10^3/uL (3.5-10.8)
[2021-02-06] MEDS ORDERED: Propofol 10 mg/ml 100 ML BTL 100 ML ONE (04:24)
[2021-02-06] MEDS ORDERED: Etomidate 40 mg/20 ml (2 MG/ML) 20 ml VIAL (40 mg) ONE (04:27)
[2021-02-06] MEDS ORDERED: Norepinephrine 16MCG/ML IVPRE 4,000 MCG/250 ML BAG IV ONE (04:35)
[2021-02-06 04:41] LABS: Anion Gap 12 mmol/L (2-11); Blood Urea Nitrogen 48 mg/dL (6-24); CO2 Carbon Dioxide 33 mmol/L (22-32); Calcium 11.9 mg/dL (8.6-10.3); Chloride 97 mmol/L (101-111); EGFR African American 42.8 (>60); EGFR Non-African American 35.4 (>60); Glucose 75 mg/dL (70-100); Potassium 4.2 mmol/L (3.5-5.0); Sodium 142 mmol/L (135-145)
[2021-02-06] MEDS: Propofol 10 mg/ml 100 ML BTL 100 ML IV SCH ×3 (04:50→12:44)
[2021-02-06] MEDS ORDERED: NS 0.9% 1000 ml BAG 1,000 ML IV SCH ×2 (05:00→05:01)
[2021-02-06] MEDS ORDERED: NS 0.9% 1000 ml BAG 1,000 ML IV ONE (05:00)
[2021-02-06] MEDS ORDERED: Norepinephrine 16MCG/ML IVPRE 4,000 MCG/250 ML BAG IV SCH (05:00)
[2021-02-06] MEDS: Hydrocortisone INJ 100 MG/2ML 2 ML VIAL IV SCH ×3 (05:03→21:47)
[2021-02-06] MEDS ORDERED: fentaNYL 100 mcg/2 ml 50 MCG/ML VIAL ONE (05:08)
[2021-02-06] MEDS ORDERED: Piperacillin/Tazobac ADVAN 3.375 GM in NS 0.9% 100 ml BAG 100 ML IV ONE (05:15)
[2021-02-06] MEDS: fentaNYL 100 mcg/2 ml 50 MCG/ML VIAL IV SLOW PU PRN (05:17)
[2021-02-06 06:41] LABS: Troponin I 0.05 ng/mL (<0.03)
[2021-02-06] MEDS: DULoxetine DR 20 mg CAP PO SCH (07:27)
[2021-02-06] MEDS: Pantoprazole VIAL 40 MG VIAL IV SCH (07:31)
[2021-02-06] MEDS: Senna TAB 8.6 mg TAB PO SCH ×2 (07:31→21:45)
[2021-02-06] MEDS: Chlorhexidine MOUTHWASH 0.12% 15 ML UDC TOPICAL SCH ×5 (07:31→21:47)
[2021-02-06] MEDS: Dexmedetomidine 1,000 MCG in NS 0.9% 250 ML IV SCH (07:35)
[2021-02-06 08:19] LABS: Troponin I 0.05 ng/mL (<0.03)
[2021-02-06] MEDS: Tiotropium Brom/Olodaterol MDI INH SCH (08:40)
[2021-02-06] MEDS ORDERED: Zosyn per Pharmacy NOTE FOLLOW UP SCH (09:00)
[2021-02-06] MEDS: cefTRIAXone 1 gm/50 mL NS BAG 1 GM/50 ML BAG IVPB SCH (09:19)
[2021-02-06] MEDS: Lactated Ringers 1000 ml BAG 1,000 ML IV SCH (10:27)
[2021-02-06] MEDS: ZOSYN 3.375 GM Q8H per EXTENDED INFUSION IV SCH ×2 (11:53→17:37)
[2021-02-07] MEDS: Propofol 10 mg/ml 100 ML BTL 100 ML IV SCH ×2 (00:37→07:57)
[2021-02-07] MEDS: Chlorhexidine MOUTHWASH 0.12% 15 ML UDC TOPICAL SCH ×6 (02:00→21:40)
[2021-02-07] MEDS: ZOSYN 3.375 GM Q8H per EXTENDED INFUSION IV SCH ×3 (02:00→21:38)
[2021-02-07] MEDS: Dexmedetomidine 1,000 MCG in NS 0.9% 250 ML IV SCH (02:05)
[2021-02-07 05:17] LABS: ABS Lymphocytes 0.3 10^3/ul (1.0-4.8); ABS Monocytes 0.3 10^3/ul (0-0.8); ABS Neutrophils 3.8 10^3/ul (1.5-7.7); Hematocrit 24 % (42-52); Lymphocyte % 6.6 %; Mean Corpuscular HGB Conc 33 g/dL (31-36); Mean Corpuscular Hemoglobin 30 pg (27-31); Mean Corpuscular Volume 91 fL (80-94); Mean Platelet Volume 9.9 fL (7.4-10.4); Nucleated Red Blood Cells % 0.1; Platelet Count 81 10^3/uL (150-450); Red Blood Count 2.65 10^6 /uL (4.18-5.48); Red Cell Distribution Width 16 % (10-15); White Blood Count 4.4 10^3/uL (3.5-10.8)
[2021-02-07 05:21] LABS: EGFR African American 42.8 (>60); EGFR Non-African American 35.4 (>60); Potassium 3.9 mmol/L (3.5-5.0)
[2021-02-07] MEDS: Hydrocortisone INJ 100 MG/2ML 2 ML VIAL IV SCH ×3 (05:30→21:57)
[2021-02-07] MEDS: Tiotropium Brom/Olodaterol MDI INH SCH (07:24)
[2021-02-07] MEDS: DULoxetine DR 20 mg CAP PO SCH (08:10)
[2021-02-07] MEDS: Polyethylene Glycol 3350 17 GM PACKET PO SCH (08:16)
[2021-02-07] MEDS: Pantoprazole VIAL 40 MG VIAL IV SCH (08:16)
[2021-02-07] MEDS: Senna TAB 8.6 mg TAB PO SCH ×2 (08:17→21:41)
[2021-02-07] MEDS: Lactated Ringers 1000 ml BAG 1,000 ML IV SCH (09:28)
[2021-02-07] MEDS ORDERED: Lorazepam PYXIS KEY ONE (11:32)
[2021-02-07] MEDS ORDERED: LORazepam 2 mg VIAL 1 ml ONE (11:32)
[2021-02-07] MEDS ORDERED: LORazepam 2 mg VIAL 1 ml IV PUSH ONE (11:40)
[2021-02-07] MEDS ORDERED: Lorazepam PYXIS KEY PRN (11:40)
[2021-02-07] MEDS ORDERED: levETIRAcetam 1000MG IVPREMIX 1,000 MG/100 ML BAG IVPB ONE (12:00)
[2021-02-07 13:48] LABS: XCalcitriol 61 pg/mL (18-64)
[2021-02-07 16:54] LABS: Albumin/Globulin Ratio 1.06; Gamma Globulin 1.1 g/dL (0.6-1.6); Total Protein(PEP) 5.9 g/dL (6.3 - 7.9)
[2021-02-07 17:24] LABS: Platelet Count 101 10^3/ul (150-450)
[2021-02-07 17:41] LABS: Fibrinogen 138.2 mg/dL (110.8-404.3); INR 1.23 (0.82-1.09)
[2021-02-07 18:58] LABS: Schistocytes PRESENT
[2021-02-07] MEDS ORDERED: Piperacillin/Tazobac ADVAN 3.375 GM in NS 0.9% 100 ml BAG 100 ML IV ONE (19:25)
[2021-02-07] MEDS ORDERED: Zosyn per Pharmacy NOTE FOLLOW UP SCH (20:00)
[2021-02-07 20:28] LABS: Urine Appearance Clear; Urine Bilirubin Negative (Negative); Urine Blood 2+ (Negative); Urine Color Yellow; Urine Glucose Negative (Negative); Urine Ketones Negative (Negative); Urine Nitrite Negative (Negative); Urine Protein 1+(30 mg/dL) (Negative); Urine Specific Gravity 1.013 (1.002-1.030); Urine Urobilinogen Negative (Negative)
[2021-02-07 20:30] LABS: Urine Bacteria Absent (Absent); Urine Red Blood Cell 1+(3-5/hpf) (Absent); Urine White Blood Cell Absent (Absent)
[2021-02-07 20:41] LABS: EGFR African American 40.5 (>60); EGFR Non-African American 33.5 (>60); Magnesium 1.6 mg/dL (1.9-2.7); Potassium 3.5 mmol/L (3.5-5.0)
[2021-02-07] MEDS: fentaNYL 100 mcg/2 ml 50 MCG/ML VIAL IV SLOW PU PRN (23:10)
[2021-02-08] MEDS: Propofol 10 mg/ml 100 ML BTL 100 ML IV SCH ×3 (00:01→19:48)
[2021-02-08] MEDS: Chlorhexidine MOUTHWASH 0.12% 15 ML UDC TOPICAL SCH ×6 (03:15→22:58)
[2021-02-08] MEDS: ZOSYN 3.375 GM Q8H per EXTENDED INFUSION IV SCH ×3 (04:16→19:48)
[2021-02-08 04:47] LABS: ABS Lymphocytes 0.3 10^3/ul (1.0-4.8); ABS Monocytes 0.4 10^3/ul (0-0.8); ABS Neutrophils 6.1 10^3/ul (1.5-7.7); Hematocrit 23 % (42-52); Hemoglobin 7.6 g/dL (14.0-18.0); Lymphocyte % 3.9 %; Mean Corpuscular HGB Conc 34 g/dL (31-36); Mean Corpuscular Hemoglobin 31 pg (27-31); Mean Corpuscular Volume 91 fL (80-94); Platelet Count 90 10^3/uL (150-450); Red Blood Count 2.48 10^6 /uL (4.18-5.48); Red Cell Distribution Width 16 % (10-15); White Blood Count 6.8 10^3/uL (3.5-10.8)
[2021-02-08 04:58] LABS: Albumin 3.3 g/dL (3.2-5.2); Albumin/Globulin Ratio 1.4 (1-3); Calcium 10.4 mg/dL (8.6-10.3); EGFR African American 43.9 (>60); EGFR Non-African American 36.3 (>60); Globulin 2.4 g/dL (2-4); Potassium 3.3 mmol/L (3.5-5.0); Total Bilirubin 0.4 mg/dL (0.2-1.0); Total Protein 5.7 g/dL (6.4-8.9)
[2021-02-08] MEDS: Hydrocortisone INJ 100 MG/2ML 2 ML VIAL IV SCH ×3 (05:44→22:58)
[2021-02-08 07:52] LABS: Magnesium 1.6 mg/dL (1.9-2.7)
[2021-02-08] MEDS ORDERED: Potassium Chlor 20 meq TAB.ER PO ONE (09:22)
[2021-02-08] MEDS: DULoxetine DR 20 mg CAP PO SCH (09:32)
[2021-02-08] MEDS: Senna TAB 8.6 mg TAB PO SCH ×2 (09:32→19:59)
[2021-02-08] MEDS: Polyethylene Glycol 3350 17 GM PACKET PO SCH (09:33)
[2021-02-08] MEDS: Pantoprazole VIAL 40 MG VIAL IV SCH (09:33)
[2021-02-08] MEDS ORDERED: Potassium Chloride LIQUID 20 MEQ/15 ML LIQUID PO ONE (09:40)
[2021-02-08] MEDS ORDERED: Magnesium Sulf 4 GM/100 ML IV 4,000 MG/100 ML BAG IVPB ONE (10:00)
[2021-02-08] MEDS: Tiotropium Brom/Olodaterol MDI INH SCH (11:11)
[2021-02-08] MEDS ORDERED: Lidocaine PATCH 5% PATCH TRANSDERM ONE (17:30)
[2021-02-09] MEDS: Lactated Ringers 1000 ml BAG 1,000 ML IV SCH ×2 (01:27→21:22)
[2021-02-09] MEDS: Chlorhexidine MOUTHWASH 0.12% 15 ML UDC TOPICAL SCH ×6 (02:18→21:22)
[2021-02-09] MEDS: ZOSYN 3.375 GM Q8H per EXTENDED INFUSION IV SCH ×3 (04:30→20:25)
[2021-02-09] MEDS: Hydrocortisone INJ 100 MG/2ML 2 ML VIAL IV SCH ×2 (05:49→15:05)
[2021-02-09] MEDS ORDERED: Lidocaine Patch REMOVE PATCH PATCH OFF ONE (06:00)
[2021-02-09 06:36] LABS: Hematocrit 22 % (42-52); Hemoglobin 7.5 g/dL (14.0-18.0); Mean Corpuscular HGB Conc 33 g/dL (31-36); Mean Corpuscular Hemoglobin 30 pg (27-31); Mean Corpuscular Volume 91 fL (80-94); Mean Platelet Volume 9.6 fL (7.4-10.4); Platelet Count 82 10^3/uL (150-450); Red Blood Count 2.45 10^6 /uL (4.18-5.48); Red Cell Distribution Width 16 % (10-15); White Blood Count 6.4 10^3/uL (3.5-10.8)
[2021-02-09 06:37] LABS: Activated Partial Thrombo Time 30.7 seconds (26.0-38.0); Calcium 10.4 mg/dL (8.6-10.3); EGFR African American 53.6 (>60); EGFR Non-African American 44.3 (>60); INR 1.19 (0.82-1.09); Magnesium 2.3 mg/dL (1.9-2.7); Potassium 3.3 mmol/L (3.5-5.0)
[2021-02-09] MEDS: Propofol 10 mg/ml 100 ML BTL 100 ML IV SCH ×2 (07:19→19:58)
[2021-02-09] MEDS ORDERED: Potassium Chloride LIQUID 20 MEQ/15 ML LIQUID PO ONE (07:51)
[2021-02-09] MEDS: Polyethylene Glycol 3350 17 GM PACKET PO SCH (08:55)
[2021-02-09] MEDS: Senna TAB 8.6 mg TAB PO SCH ×2 (08:55→20:26)
[2021-02-09] MEDS: Pantoprazole VIAL 40 MG VIAL IV SCH (08:55)
[2021-02-09] MEDS: DULoxetine DR 20 mg CAP PO SCH ×2 (08:57→08:59)
[2021-02-09] MEDS ORDERED: hydrALAZINE 20 mg/ml 1 ML Vial IV IV SLOW PU PRN (17:26)
[2021-02-09] MEDS ORDERED: Metoprolol Tartrate 5 mg VIAL 5 ml VIAL (1 mg/ml) IV PRN (17:29)
[2021-02-10] MEDS: ZOSYN 3.375 GM Q8H per EXTENDED INFUSION IV SCH ×3 (03:28→20:57)
[2021-02-10] MEDS: Chlorhexidine MOUTHWASH 0.12% 15 ML UDC TOPICAL SCH ×6 (03:28→20:57)
[2021-02-10] MEDS: Propofol 10 mg/ml 100 ML BTL 100 ML IV SCH ×3 (04:13→23:02)
[2021-02-10 04:43] LABS: ABS Lymphocytes 0.5 10^3/ul (1.0-4.8); ABS Monocytes 1.1 10^3/ul (0-0.8); Eosinophil % 0.1 %; Hematocrit 23 % (42-52); Hemoglobin 7.4 g/dL (14.0-18.0); Mean Corpuscular HGB Conc 33 g/dL (31-36); Mean Corpuscular Hemoglobin 31 pg (27-31); Mean Corpuscular Volume 92 fL (80-94); Mean Platelet Volume 9.4 fL (7.4-10.4); Nucleated Red Blood Cells % 0.2; Platelet Count 85 10^3/uL (150-450); Red Blood Count 2.44 10^6 /uL (4.18-5.48); Red Cell Distribution Width 16 % (10-15); White Blood Count 7.6 10^3/uL (3.5-10.8)
[2021-02-10 04:59] LABS: C Reactive Protein 4.85 mg/L (<8.01); Calcium 9.7 mg/dL (8.6-10.3); EGFR African American 57.4 (>60); EGFR Non-African American 47.4 (>60); Magnesium 2.1 mg/dL (1.9-2.7); Potassium 3.3 mmol/L (3.5-5.0)
[2021-02-10] MEDS ORDERED: Potassium Chloride LIQUID 20 MEQ/15 ML LIQUID PO ONE ×2 (07:53→14:00)
[2021-02-10] MEDS: Pantoprazole VIAL 40 MG VIAL IV SCH (09:30)
[2021-02-10] MEDS: DULoxetine DR 20 mg CAP PO SCH ×2 (09:31→09:35)
[2021-02-10] MEDS ORDERED: Furosemide 40 mg/4 ml IV VIAL IV ONE (11:50)
[2021-02-10] MEDS: fentaNYL 100 mcg/2 ml 50 MCG/ML VIAL IV SLOW PU PRN (19:12)
[2021-02-11] MEDS: Chlorhexidine MOUTHWASH 0.12% 15 ML UDC TOPICAL SCH ×6 (03:44→20:49)
[2021-02-11] MEDS: ZOSYN 3.375 GM Q8H per EXTENDED INFUSION IV SCH ×3 (03:44→20:49)
[2021-02-11 04:47] LABS: ABS Eosinophils 0.2 10^3/ul (0-0.6); ABS Lymphocytes 0.6 10^3/ul (1.0-4.8); ABS Monocytes 1.1 10^3/ul (0-0.8); ABS Neutrophils 6.4 10^3/ul (1.5-7.7); Eosinophil % 2.5 %; Hematocrit 24 % (42-52); Hemoglobin 7.6 g/dL (14.0-18.0); Lymphocyte % 6.8 %; Mean Corpuscular HGB Conc 33 g/dL (31-36); Mean Corpuscular Hemoglobin 30 pg (27-31); Mean Corpuscular Volume 93 fL (80-94); Mean Platelet Volume 10.1 fL (7.4-10.4); Nucleated Red Blood Cells % 0.1; Platelet Count 90 10^3/uL (150-450); Red Blood Count 2.52 10^6 /uL (4.18-5.48); Red Cell Distribution Width 16 % (10-15); White Blood Count 8.3 10^3/uL (3.5-10.8)
[2021-02-11 05:00] LABS: Albumin 3.2 g/dL (3.2-5.2); Albumin/Globulin Ratio 1.5 (1-3); Calcium 9.5 mg/dL (8.6-10.3); EGFR African American 50.2 (>60); EGFR Non-African American 41.5 (>60); Globulin 2.2 g/dL (2-4); Magnesium 1.9 mg/dL (1.9-2.7); Total Bilirubin 0.4 mg/dL (0.2-1.0); Total Protein 5.4 g/dL (6.4-8.9)
[2021-02-11] MEDS: Pantoprazole VIAL 40 MG VIAL IV SCH (08:30)
[2021-02-11 08:44] LABS: Phosphorus 3.1 mg/dL (2.5-5.0)
[2021-02-11] MEDS ORDERED: Haloperidol 5 mg/ml SDV IV/IM 5 MG/ML AMP IV SLOW PU PRN (09:46)
[2021-02-11] MEDS: Propofol 10 mg/ml 100 ML BTL 100 ML IV SCH ×2 (09:53→17:49)
[2021-02-11] MEDS: DULoxetine DR 20 mg CAP PO SCH (09:53)
[2021-02-11] MEDS ORDERED: fentaNYL 100 mcg/2 ml 50 MCG/ML VIAL ONE (16:43)
[2021-02-11] MEDS: fentaNYL 100 mcg/2 ml 50 MCG/ML VIAL IV SLOW PU PRN (16:46)
[2021-02-12] MEDS: Propofol 10 mg/ml 100 ML BTL 100 ML IV SCH ×2 (02:10→07:20)
[2021-02-12] MEDS: Chlorhexidine MOUTHWASH 0.12% 15 ML UDC TOPICAL SCH ×2 (02:12→05:21)
[2021-02-12] MEDS: ZOSYN 3.375 GM Q8H per EXTENDED INFUSION IV SCH (05:21)
[2021-02-12 05:34] LABS: Hematocrit 22 % (42-52); Hemoglobin 7.1 g/dL (14.0-18.0); Mean Corpuscular HGB Conc 33 g/dL (31-36); Mean Corpuscular Hemoglobin 31 pg (27-31); Mean Corpuscular Volume 94 fL (80-94); Mean Platelet Volume 10.5 fL (7.4-10.4); Platelet Count 77 10^3/uL (150-450); Red Cell Distribution Width 17 % (10-15); White Blood Count 6.8 10^3/uL (3.5-10.8)
[2021-02-12] MEDS: fentaNYL 100 mcg/2 ml 50 MCG/ML VIAL IV SLOW PU PRN (05:40)
[2021-02-12 05:46] LABS: Blood Urea Nitrogen 62 mg/dL (6-24); CO2 Carbon Dioxide 33 mmol/L (22-32); Calcium 9.3 mg/dL (8.6-10.3); Chloride 108 mmol/L (101-111); EGFR African American 48.1 (>60); EGFR Non-African American 39.8 (>60); Glucose 133 mg/dL (70-100); Magnesium 1.9 mg/dL (1.9-2.7); Phosphorus 4.1 mg/dL (2.5-5.0)
[2021-02-12 05:47] LABS: Sodium 147 mmol/L (135-145)
[2021-02-12] MEDS ORDERED: LORazepam 2 mg VIAL 1 ml IV PUSH ONE (06:00)
[2021-02-12] MEDS ORDERED: Lorazepam PYXIS KEY ONE (06:05)
[2021-02-12 06:38] LABS: Anion Gap 6 mmol/L (2-11)
[2021-02-12] MEDS ORDERED: LORazepam 2 mg VIAL 1 ml IV PUSH PRN (08:44)
[2021-02-12] MEDS ORDERED: Morphine 10 MG/ML VIAL (1 ml) IV ONE (08:45)
[2021-02-12] MEDS ORDERED: Morphine PCA* 150 MG in PREMIX PCA SCH (09:00)
[2021-02-12] MEDS: DULoxetine DR 20 mg CAP PO SCH (09:51)
[2021-02-12] MEDS ORDERED: Morphine 10 MG/ML VIAL (1 ml) ONE (10:52)
[2021-02-12 11:18] VITALS: BP 165/88
== END 2021-02-12 13:20 | disposition expired | DRG 208 ==
LOC: MED 09:47 → ED 09:47 → OBSVTOIN 14:21 → MED 16:23 → ICU 02-06 04:03
PROVIDERS: ADMIT Hospitalist; ATTEND Internal Medicine Critical Care Medicine